=== PATIENT | female | born 1955 | race Caucasian/White ===

== ENCOUNTER → 2016-02-21 | Outpatient (CLI) | payer MEDICARE, OTHER ==
[~2016-02-21] MED LIST: /DULO30CA PO; /FENT25PA TD; ACIPHEX; ARIMIDEX PO; CLON0.2T PO; ECOT325T5 PO; FISHCAP PO; GLUCOSAMINE SULFATE PO; HUMUINJ SC; IBUP600T PO; LEVA500T; LEVIMER SC; LISI20TA5 PO; LOPR50TA; MAGN500T2 OR; METF500T4 OR; MORP30TA4 OR; MS C30TA2 OR; MS IR OR; MULTIVIT PO; NEUR300C OR; PRIL40CA OR; SENO8.6T5 OR; TAMO20TA; TOPR50TA OR; VITAMIN D50000 UNT OR; ZANA4CAP OR; ZOLO100T
[2016-02-21 13:20] LABS: MEAN CORPUSCULAR HEMOGLOBIN 28.8 pg (27.0-33.0); MEAN CORPUSCULAR HGB CONC 32.1 g/dl (32.0-36.5); MEAN CORPUSCULAR VOLUME 89.6 fl (80.0-96.0); RED CELL DISTRIBUTION WIDTH 14.4 % (11.5-14.5); WHITE BLOOD COUNT 6.9 K/mm3 (4.0-10.0)
== END ==
LOC: M SMT 10:27
PROVIDERS: ATTEND Internal Medicine Infectious Disease
DX: D64.9 Anemia, unspecified (principal)

== ENCOUNTER → 2016-03-04 | Outpatient (CLI) | payer MEDICARE, BC, OTHER ==
[2016-03-04 18:29] LABS: MEAN CORPUSCULAR HEMOGLOBIN 28.7 pg (27.0-33.0); MEAN CORPUSCULAR HGB CONC 32.5 g/dl (32.0-36.5); MEAN CORPUSCULAR VOLUME 88.4 fl (80.0-96.0); RED CELL DISTRIBUTION WIDTH 15.1 % (11.5-14.5); WHITE BLOOD COUNT 7.1 K/mm3 (4.0-10.0)
== END ==
LOC: M SMT 13:18
PROVIDERS: ATTEND Internal Medicine Infectious Disease
DX: D64.9 Anemia, unspecified (principal)

== ENCOUNTER → 2016-03-19 | Outpatient (CLI) | payer MEDICARE, OTHER ==
[2016-03-19 15:44] LABS: MEAN CORPUSCULAR HEMOGLOBIN 28.7 pg (27.0-33.0); MEAN CORPUSCULAR HGB CONC 31.9 g/dl (32.0-36.5); MEAN CORPUSCULAR VOLUME 89.9 fl (80.0-96.0); RED CELL DISTRIBUTION WIDTH 15.1 % (11.5-14.5); WHITE BLOOD COUNT 7.2 K/mm3 (4.0-10.0)
== END ==
LOC: M SMT 08:56
PROVIDERS: ATTEND Internal Medicine Infectious Disease
DX: D64.9 Anemia, unspecified (principal)

== ENCOUNTER → 2016-04-03 | Outpatient (CLI) | payer MEDICARE, BC, OTHER ==
[2016-04-03 13:26] LABS: MEAN CORPUSCULAR HEMOGLOBIN 28.6 pg (27.0-33.0); MEAN CORPUSCULAR HGB CONC 32.4 g/dl (32.0-36.5); MEAN CORPUSCULAR VOLUME 88.3 fl (80.0-96.0); RED CELL DISTRIBUTION WIDTH 13.7 % (11.5-14.5); WHITE BLOOD COUNT 7.4 K/mm3 (4.0-10.0)
== END ==
LOC: M SMT 11:21
PROVIDERS: ATTEND Internal Medicine Infectious Disease
DX: D64.9 Anemia, unspecified (principal)

== ENCOUNTER → 2016-04-03 | Outpatient (CLI) | payer MEDICARE, BC, OTHER ==
[2016-04-03 13:29] LABS: CREATININE FOR GFR 1.09 MG/DL (0.55-1.02)
== END ==
LOC: M SMT 11:25
PROVIDERS: ATTEND Internal Medicine Medical Oncology
DX: C49.6 Malignant neoplasm of connective and soft tissue of trunk, unspecified (principal); D05.12 Intraductal carcinoma in situ of left breast; D64.9 Anemia, unspecified

== ENCOUNTER → 2016-04-24 | Outpatient (CLI) | payer MEDICARE, BC, OTHER ==
[2016-04-24 18:37] LABS: MEAN CORPUSCULAR HEMOGLOBIN 29.2 pg (27.0-33.0); MEAN CORPUSCULAR HGB CONC 32.1 g/dl (32.0-36.5); RED CELL DISTRIBUTION WIDTH 14.1 % (11.5-14.5); WHITE BLOOD COUNT 7.4 K/mm3 (4.0-10.0)
== END ==
LOC: M SMT 14:12
PROVIDERS: ATTEND Internal Medicine Infectious Disease
DX: D64.9 Anemia, unspecified (principal)

== ENCOUNTER → 2016-05-02 | Outpatient (CLI) | payer MEDICARE, BC, OTHER ==
[2016-05-02 12:49] LABS: MEAN CORPUSCULAR HEMOGLOBIN 28.3 pg (27.0-33.0); MEAN CORPUSCULAR HGB CONC 31.7 g/dl (32.0-36.5); MEAN CORPUSCULAR VOLUME 89.2 fl (80.0-96.0); WHITE BLOOD COUNT 6.2 K/mm3 (4.0-10.0)
== END ==
LOC: M SMT 08:09
PROVIDERS: ATTEND Internal Medicine Infectious Disease
DX: D64.9 Anemia, unspecified (principal)

== ENCOUNTER → 2016-05-02 | Outpatient (CLI) | payer MEDICARE, BC, OTHER ==
[2016-05-02 13:06] LABS: ALBUMIN 3.7 GM/DL (3.2-5.2); ALBUMIN/GLOBULIN RATIO 1.09 (1.00-1.93); ALKALINE PHOSPHATASE 84 U/L (45-117); ALT/SGPT 58 U/L (12-78); ANION GAP 9 MEQ/L (8-16); AST/SGOT 34 U/L (15-37); BILIRUBIN,TOTAL 0.2 MG/DL (0.2-1.0); BLOOD UREA NITROGEN 28 MG/DL (7-18); CALCIUM LEVEL 8.8 MG/DL (8.8-10.2); CARBON DIOXIDE LEVEL 30 MEQ/L (21-32); CHLORIDE LEVEL 101 MEQ/L (98-107); CHOLESTEROL LEVEL 390 MG/DL (<200); CREATININE FOR GFR 1.06 MG/DL (0.55-1.02); GLOMERULAR FILTRATION RATE 55.7 (>45); GLUCOSE, FASTING 168 MG/DL (80-110); POTASSIUM SERUM 4.9 MEQ/L (3.5-5.1); SODIUM LEVEL 140 MEQ/L (136-145); TOTAL PROTEIN 7.1 GM/DL (6.4-8.2); TRIGLYCERIDES LEVEL 528 MG/DL (<150)
[2016-05-03 13:43] LABS: HEP C VIRUS AB SCREEN MEDICARE 0.1 INDEX (<0.8)
== END ==
LOC: M SMT 08:12
PROVIDERS: ATTEND Family Medicine
DX: E11.22 Type 2 diabetes mellitus with diabetic chronic kidney disease (principal); I10 Essential (primary) hypertension; E78.2 Mixed hyperlipidemia; F33.1 Major depressive disorder, recurrent, moderate; Z13.0 Encounter for screening for diseases of the blood and blood-forming organs and certain disorders involving the immune mechanism; D64.9 Anemia, unspecified
CPT/HCPCS: 36415; 80053; 80061; 82306; 83036; 84443; 85027; G0472

== ENCOUNTER → 2016-05-15 | Outpatient (CLI) | payer MEDICARE, BC, OTHER ==
[2016-05-15 13:35] LABS: MEAN CORPUSCULAR HGB CONC 32.1 g/dl (32.0-36.5); MEAN CORPUSCULAR VOLUME 90.4 fl (80.0-96.0); RED CELL DISTRIBUTION WIDTH 14.3 % (11.5-14.5); WHITE BLOOD COUNT 7.1 K/mm3 (4.0-10.0)
== END ==
LOC: M SMT 10:07
PROVIDERS: ATTEND Internal Medicine Infectious Disease
DX: D64.9 Anemia, unspecified (principal)

== ENCOUNTER → 2016-05-29 | Outpatient (REF) | payer MEDICARE, OTHER ==
[2016-05-29 19:10] LABS: MEAN CORPUSCULAR HEMOGLOBIN 28.6 pg (27.0-33.0); MEAN CORPUSCULAR VOLUME 89.2 fl (80.0-96.0); RED CELL DISTRIBUTION WIDTH 14.3 % (11.5-14.5); WHITE BLOOD COUNT 6.7 K/mm3 (4.0-10.0)
== END ==
LOC: M LAB REF 17:15
PROVIDERS: ATTEND Internal Medicine Infectious Disease
DX: D64.9 Anemia, unspecified (principal)

== ENCOUNTER → 2016-06-25 | Outpatient (CLI) | payer MEDICARE, BC, OTHER ==
[2016-06-25 18:49] LABS: MEAN CORPUSCULAR HEMOGLOBIN 29.3 pg (27.0-33.0); MEAN CORPUSCULAR HGB CONC 32.7 g/dl (32.0-36.5); MEAN CORPUSCULAR VOLUME 89.8 fl (80.0-96.0); RED CELL DISTRIBUTION WIDTH 14.5 % (11.5-14.5); WHITE BLOOD COUNT 7.7 K/mm3 (4.0-10.0)
== END ==
LOC: M SMT 10:00
PROVIDERS: ATTEND Internal Medicine Infectious Disease
DX: D64.9 Anemia, unspecified (principal)

== ENCOUNTER → 2016-07-09 | Outpatient (CLI) | payer MEDICARE, BC, OTHER ==
[2016-07-09 13:44] LABS: MEAN CORPUSCULAR HEMOGLOBIN 29.9 pg (27.0-33.0); MEAN CORPUSCULAR HGB CONC 33.1 g/dl (32.0-36.5); MEAN CORPUSCULAR VOLUME 90.4 fl (80.0-96.0); RED CELL DISTRIBUTION WIDTH 14.3 % (11.5-14.5); WHITE BLOOD COUNT 7.1 K/mm3 (4.0-10.0)
== END ==
LOC: M SMT 10:35
PROVIDERS: ATTEND Internal Medicine Infectious Disease
DX: D64.9 Anemia, unspecified (principal)

== ENCOUNTER → 2016-08-22 | Outpatient (CLI) | payer MEDICARE, BC, OTHER ==
[2016-08-22 13:36] LABS: MEAN CORPUSCULAR HEMOGLOBIN 28.9 pg (27.0-33.0); MEAN CORPUSCULAR HGB CONC 31.5 g/dl (32.0-36.5); MEAN CORPUSCULAR VOLUME 91.7 fl (80.0-96.0); RED CELL DISTRIBUTION WIDTH 14.5 % (11.5-14.5); WHITE BLOOD COUNT 6.5 K/mm3 (4.0-10.0)
== END ==
LOC: M SMT 10:19
PROVIDERS: ATTEND Internal Medicine Infectious Disease
DX: D64.9 Anemia, unspecified (principal)

== ENCOUNTER → 2016-09-20 | Outpatient (CLI) | payer MEDICARE, BC, OTHER ==
[2016-09-20 10:08] LABS: BASO % 0.5 % (0.0-1.0); EOS # 0.2 K/mm3 (0.0-0.50); EOS % 3.6 % (0.0-3.0); LARGE UNSTAINED CELL # 0.1 K/mm3 (0.0-0.4); LARGE UNSTAINED CELL % 0.9 % (0.0-4.0); LYMPH # 1.1 K/mm3 (1.5-4.5); LYMPH % 15.8 % (24.0-44.0); MEAN CORPUSCULAR HEMOGLOBIN 27.7 pg (27.0-33.0); MEAN CORPUSCULAR HGB CONC 31.5 g/dl (32.0-36.5); MEAN CORPUSCULAR VOLUME 87.9 fl (80.0-96.0); MONO # 0.3 K/mm3 (0.0-0.8); NEUTROPHILS % 75.2 % (36.0-66.0); PLATELET COUNT, AUTOMATED 242 k/mm3 (150-450); RED CELL DISTRIBUTION WIDTH 14.5 % (11.5-14.5); WHITE BLOOD COUNT 6.6 K/mm3 (4.0-10.0)
[2016-09-20 10:11] LABS: ALBUMIN 3.5 GM/DL (3.2-5.2); ALBUMIN/GLOBULIN RATIO 0.92 (1.00-1.93); ALKALINE PHOSPHATASE 113 U/L (45-117); ALT/SGPT 30 U/L (12-78); ANION GAP 10 MEQ/L (8-16); AST/SGOT 24 U/L (15-37); BILIRUBIN,TOTAL 0.3 MG/DL (0.2-1.0); BLOOD UREA NITROGEN 23 MG/DL (7-18); CALCIUM LEVEL 9.2 MG/DL (8.8-10.2); CARBON DIOXIDE LEVEL 28 MEQ/L (21-32); CHLORIDE LEVEL 102 MEQ/L (98-107); CHOLESTEROL LEVEL 260 MG/DL (<200); GLOMERULAR FILTRATION RATE > 60.0 (>45); GLUCOSE, FASTING 166 MG/DL (80-110); POTASSIUM SERUM 5.1 MEQ/L (3.5-5.1); SODIUM LEVEL 140 MEQ/L (136-145); TOTAL PROTEIN 7.3 GM/DL (6.4-8.2); TRIGLYCERIDES LEVEL 358 MG/DL (<150)
== END ==
LOC: M SMT 08:08
PROVIDERS: ATTEND Family Medicine
DX: E11.22 Type 2 diabetes mellitus with diabetic chronic kidney disease (principal); E78.2 Mixed hyperlipidemia; N18.9 Chronic kidney disease, unspecified

== ENCOUNTER → 2016-10-17 | Outpatient (REF) | payer MEDICARE, BC, OTHER ==
[2016-10-17 15:11] LABS: MEAN CORPUSCULAR HEMOGLOBIN 27.7 pg (27.0-33.0); MEAN CORPUSCULAR HGB CONC 31.9 g/dl (32.0-36.5); MEAN CORPUSCULAR VOLUME 86.8 fl (80.0-96.0); RED CELL DISTRIBUTION WIDTH 14.9 % (11.5-14.5); WHITE BLOOD COUNT 7.1 K/mm3 (4.0-10.0)
== END ==
LOC: M LAB REF 11:07
PROVIDERS: ATTEND Internal Medicine Infectious Disease
DX: D64.9 Anemia, unspecified (principal)

== ENCOUNTER → 2016-11-05 | Outpatient (CLI) | payer MEDICARE, BC, OTHER ==
[2016-11-05 14:00] LABS: MEAN CORPUSCULAR HEMOGLOBIN 27.4 pg (27.0-33.0); MEAN CORPUSCULAR HGB CONC 32.6 g/dl (32.0-36.5); MEAN CORPUSCULAR VOLUME 83.9 fl (80.0-96.0); RED CELL DISTRIBUTION WIDTH 15.3 % (11.5-14.5); WHITE BLOOD COUNT 7.3 K/mm3 (4.0-10.0)
== END ==
LOC: M SMT 09:59
PROVIDERS: ATTEND Internal Medicine Infectious Disease
DX: D64.9 Anemia, unspecified (principal)

== ENCOUNTER → 2017-01-02 | Outpatient (CLI) | payer BC, OTHER ==
[2017-01-02 18:59] LABS: MEAN CORPUSCULAR HGB CONC 30.3 g/dl (32.0-36.5); PLATELET COUNT, AUTOMATED 226 10^3/uL (150-450); RED CELL DISTRIBUTION WIDTH 17.1 % (11.5-14.5)
== END ==
LOC: M SMT 14:59
PROVIDERS: ATTEND Internal Medicine Infectious Disease
DX: D64.9 Anemia, unspecified (principal)

== ENCOUNTER → 2017-01-15 | Outpatient (CLI) | payer BC, OTHER ==
[2017-01-15 14:02] LABS: MEAN CORPUSCULAR HEMOGLOBIN 26.3 pg (27.0-33.0); MEAN CORPUSCULAR VOLUME 84.9 fl (80.0-96.0); PLATELET COUNT, AUTOMATED 217 10^3/uL (150-450); RED CELL DISTRIBUTION WIDTH 16.8 % (11.5-14.5); WHITE BLOOD COUNT 7.8 10^3/uL (4.0-10.0)
== END ==
LOC: M SMT 10:35
PROVIDERS: ATTEND Internal Medicine Infectious Disease
DX: D64.9 Anemia, unspecified (principal)

== ENCOUNTER → 2017-01-28 | Outpatient (CLI) | payer BC, OTHER ==
[2017-01-28 11:50] LABS: BASO # 0.1 10^3/uL (0.0-0.2); BASO % 0.8 % (0.0-1.0); EOS # 0.2 10^3/uL (0.0-0.50); IMMATURE GRANULOCYTE % 0.5 % (0-0); LYMPH # 1.6 10^3/uL (1.5-4.5); LYMPH % 19.5 % (24.0-44.0); MEAN CORPUSCULAR HEMOGLOBIN 26.3 pg (27.0-33.0); MEAN CORPUSCULAR HGB CONC 30.7 g/dl (32.0-36.5); MEAN CORPUSCULAR VOLUME 85.8 fl (80.0-96.0); MONO # 0.6 10^3/uL (0.0-0.8); MONO % 6.9 % (0.0-5.0); NEUTROPHILS # 5.6 10^3/uL (1.8-7.7); NEUTROPHILS % 69.3 % (36.0-66.0); PLATELET COUNT, AUTOMATED 232 10^3/uL (150-450); RED CELL DISTRIBUTION WIDTH 16.9 % (11.5-14.5)
[2017-01-28 12:28] LABS: ALBUMIN 3.6 GM/DL (3.2-5.2); ALKALINE PHOSPHATASE 102 U/L (45-117); ALT/SGPT 41 U/L (12-78); ANION GAP 8 MEQ/L (8-16); AST/SGOT 32 U/L (7-37); BILIRUBIN,TOTAL 0.2 MG/DL (0.2-1.0); BLOOD UREA NITROGEN 30 MG/DL (7-18); CALCIUM LEVEL 9.1 MG/DL (8.8-10.2); CARBON DIOXIDE LEVEL 28 MEQ/L (21-32); CHLORIDE LEVEL 102 MEQ/L (98-107); CREATININE FOR GFR 0.99 MG/DL (0.55-1.02); GLOMERULAR FILTRATION RATE > 60.0 (>45); GLUCOSE, FASTING 201 MG/DL (80-110); SODIUM LEVEL 138 MEQ/L (136-145); TOTAL PROTEIN 7.2 GM/DL (6.4-8.2)
== END ==
LOC: M SMT 08:26
PROVIDERS: ATTEND Internal Medicine Infectious Disease
DX: D64.9 Anemia, unspecified (principal); M86.9 Osteomyelitis, unspecified; Z79.899 Other long term (current) drug therapy

== ENCOUNTER → 2017-02-19 | Outpatient (CLI) | payer BC, MEDICARE, OTHER ==
[2017-02-19 12:48] LABS: CHOLESTEROL LEVEL 330 MG/DL (<200); HDL CHOLESTEROL 55 MG/DL (>40); NON-HDL-C 275 MG/DL; TRIGLYCERIDES LEVEL 446 MG/DL (<150)
[2017-02-19 13:14] LABS: ESTIMATED AVERAGE GLUCOSE 163 MG/DL (60-110); HEMOGLOBIN A1c 7.3 %
== END ==
LOC: M SMT 08:47
DX: E11.22 Type 2 diabetes mellitus with diabetic chronic kidney disease (principal); E78.2 Mixed hyperlipidemia
CPT/HCPCS: 83036

== ENCOUNTER → 2017-02-19 | Outpatient (CLI) | payer BC, MEDICARE, OTHER ==
[2017-02-19 12:20] LABS: BASO % 0.6 % (0.0-1.0); EOS # 0.2 10^3/uL (0.0-0.50); EOS % 3.2 % (0.0-3.0); HEMATOCRIT 35.4 % (36.0-47.0); HEMOGLOBIN 11.1 g/dl (12.0-16.0); IMMATURE GRANULOCYTE # 0.1 10^3/uL (0-0); IMMATURE GRANULOCYTE % 0.7 % (0-0); LYMPH # 1.5 10^3/uL (1.5-4.5); LYMPH % 21.8 % (24.0-44.0); MEAN CORPUSCULAR HEMOGLOBIN 26.8 pg (27.0-33.0); MEAN CORPUSCULAR HGB CONC 31.4 g/dl (32.0-36.5); MEAN CORPUSCULAR VOLUME 85.5 fl (80.0-96.0); MONO # 0.4 10^3/uL (0.0-0.8); MONO % 6.1 % (0.0-5.0); NEUTROPHILS # 4.7 10^3/uL (1.8-7.7); NEUTROPHILS % 67.6 % (36.0-66.0); PLATELET COUNT, AUTOMATED 200 10^3/uL (150-450); RED BLOOD COUNT 4.14 10^6/uL (4.00-5.40); WHITE BLOOD COUNT 6.9 10^3/uL (4.0-10.0)
[2017-02-19 12:49] LABS: ALBUMIN 3.5 GM/DL (3.2-5.2); ALBUMIN/GLOBULIN RATIO 0.95 (1.00-1.93); ALKALINE PHOSPHATASE 101 U/L (45-117); ALT/SGPT 36 U/L (12-78); ANION GAP 8 MEQ/L (8-16); AST/SGOT 27 U/L (7-37); BILIRUBIN,TOTAL 0.2 MG/DL (0.2-1.0); BLOOD UREA NITROGEN 22 MG/DL (7-18); CALCIUM LEVEL 9.2 MG/DL (8.8-10.2); CARBON DIOXIDE LEVEL 28 MEQ/L (21-32); CHLORIDE LEVEL 103 MEQ/L (98-107); CREATININE FOR GFR 0.88 MG/DL (0.55-1.02); GLOMERULAR FILTRATION RATE > 60.0 (>45); GLUCOSE, FASTING 153 MG/DL (80-110); POTASSIUM SERUM 4.9 MEQ/L (3.5-5.1); SODIUM LEVEL 139 MEQ/L (136-145); TOTAL PROTEIN 7.2 GM/DL (6.4-8.2)
== END ==
LOC: M SMT 08:44
DX: D64.9 Anemia, unspecified (principal); M86.9 Osteomyelitis, unspecified; Z79.899 Other long term (current) drug therapy
CPT/HCPCS: 80053

== ENCOUNTER → 2017-02-27 | Outpatient (REF) | payer MEDICARE, BC, OTHER | LOC: M LAB REF 18:38 | DX: R30.0 Dysuria (principal) | CPT/HCPCS: 87186 ==

== ENCOUNTER → 2017-03-05 | Outpatient (CLI) | payer MEDICARE, BC, OTHER ==
[2017-03-05 13:24] LABS: BASO # 0.1 10^3/uL (0.0-0.2); BASO % 0.7 % (0.0-1.0); EOS # 0.3 10^3/uL (0.0-0.50); EOS % 3.5 % (0.0-3.0); HEMATOCRIT 36.7 % (36.0-47.0); HEMOGLOBIN 11.2 g/dl (12.0-16.0); IMMATURE GRANULOCYTE % 0.4 % (0-0); LYMPH # 1.3 10^3/uL (1.5-4.5); LYMPH % 17.6 % (24.0-44.0); MEAN CORPUSCULAR HEMOGLOBIN 26.1 pg (27.0-33.0); MEAN CORPUSCULAR HGB CONC 30.5 g/dl (32.0-36.5); MEAN CORPUSCULAR VOLUME 85.5 fl (80.0-96.0); MONO # 0.4 10^3/uL (0.0-0.8); MONO % 5.5 % (0.0-5.0); NEUTROPHILS # 5.1 10^3/uL (1.8-7.7); NEUTROPHILS % 72.3 % (36.0-66.0); PLATELET COUNT, AUTOMATED 212 10^3/uL (150-450); RED BLOOD COUNT 4.29 10^6/uL (4.00-5.40); RED CELL DISTRIBUTION WIDTH 15.7 % (11.5-14.5); WHITE BLOOD COUNT 7.1 10^3/uL (4.0-10.0)
[2017-03-05 13:38] LABS: ALBUMIN 3.6 GM/DL (3.2-5.2); ALBUMIN/GLOBULIN RATIO 1.03 (1.00-1.93); ALKALINE PHOSPHATASE 104 U/L (45-117); ALT/SGPT 41 U/L (12-78); ANION GAP 6 MEQ/L (8-16); AST/SGOT 29 U/L (7-37); BILIRUBIN,TOTAL 0.2 MG/DL (0.2-1.0); BLOOD UREA NITROGEN 24 MG/DL (7-18); CALCIUM LEVEL 8.9 MG/DL (8.8-10.2); CARBON DIOXIDE LEVEL 30 MEQ/L (21-32); CHLORIDE LEVEL 104 MEQ/L (98-107); CREATININE FOR GFR 0.87 MG/DL (0.55-1.02); GLOMERULAR FILTRATION RATE > 60.0 (>45); GLUCOSE, FASTING 180 MG/DL (80-110); SODIUM LEVEL 140 MEQ/L (136-145); TOTAL PROTEIN 7.1 GM/DL (6.4-8.2)
== END ==
LOC: M SMT 10:39
DX: D64.9 Anemia, unspecified (principal); M86.9 Osteomyelitis, unspecified; Z79.899 Other long term (current) drug therapy
CPT/HCPCS: 80053

== ENCOUNTER → 2017-03-20 | Outpatient (CLI) | payer MEDICARE, BC, OTHER ==
[2017-03-20 16:05] LABS: BASO # 0.1 10^3/uL (0.0-0.2); BASO % 0.6 % (0.0-1.0); EOS # 0.3 10^3/uL (0.0-0.50); EOS % 3.1 % (0.0-3.0); HEMATOCRIT 38.6 % (36.0-47.0); HEMOGLOBIN 11.9 g/dl (12.0-16.0); IMMATURE GRANULOCYTE % 0.4 % (0-0); LYMPH # 1.8 10^3/uL (1.5-4.5); LYMPH % 22.1 % (24.0-44.0); MEAN CORPUSCULAR HEMOGLOBIN 26.6 pg (27.0-33.0); MEAN CORPUSCULAR HGB CONC 30.8 g/dl (32.0-36.5); MEAN CORPUSCULAR VOLUME 86.4 fl (80.0-96.0); MONO # 0.5 10^3/uL (0.0-0.8); MONO % 6.7 % (0.0-5.0); NEUTROPHILS # 5.4 10^3/uL (1.8-7.7); NEUTROPHILS % 67.1 % (36.0-66.0); PLATELET COUNT, AUTOMATED 246 10^3/uL (150-450); RED BLOOD COUNT 4.47 10^6/uL (4.00-5.40); RED CELL DISTRIBUTION WIDTH 15.6 % (11.5-14.5); WHITE BLOOD COUNT 8.1 10^3/uL (4.0-10.0)
[2017-03-20 16:20] LABS: ALBUMIN/GLOBULIN RATIO 1.11 (1.00-1.93); ALKALINE PHOSPHATASE 94 U/L (45-117); ALT/SGPT 33 U/L (12-78); ANION GAP 9 MEQ/L (8-16); AST/SGOT 30 U/L (7-37); BILIRUBIN,TOTAL 0.2 MG/DL (0.2-1.0); BLOOD UREA NITROGEN 24 MG/DL (7-18); CALCIUM LEVEL 9.3 MG/DL (8.8-10.2); CARBON DIOXIDE LEVEL 27 MEQ/L (21-32); CHLORIDE LEVEL 103 MEQ/L (98-107); CREATININE FOR GFR 1.04 MG/DL (0.55-1.30); GLOMERULAR FILTRATION RATE 56.8 (>45); GLUCOSE, FASTING 104 MG/DL (70-100); SODIUM LEVEL 139 MEQ/L (136-145); TOTAL PROTEIN 7.6 GM/DL (6.4-8.2)
== END ==
LOC: M SMT 10:21
DX: D64.9 Anemia, unspecified (principal); M86.9 Osteomyelitis, unspecified; Z51.81 Encounter for therapeutic drug level monitoring; Z79.899 Other long term (current) drug therapy
CPT/HCPCS: 80053

== ENCOUNTER 2017-04-01 21:26 | Emergency (ER) | payer MEDICARE, BC, OTHER ==
[2017-04-01] MEDS: ASPIRIN 325 MG TAB PO (22:00)
[2017-04-01 22:57] LABS: BASO % 0.5 % (0.0-1.0); EOS # 0.3 10^3/uL (0.0-0.50); EOS % 3.7 % (0.0-3.0); HEMATOCRIT 34.7 % (36.0-47.0); HEMOGLOBIN 10.9 g/dl (12.0-16.0); IMMATURE GRANULOCYTE % 0.4 % (0-3.0); LYMPH # 1.4 10^3/uL (1.5-4.5); LYMPH % 17.7 % (24.0-44.0); MEAN CORPUSCULAR HGB CONC 31.4 g/dl (32.0-36.5); MEAN CORPUSCULAR VOLUME 86.1 fl (80.0-96.0); MONO # 0.4 10^3/uL (0.0-0.8); MONO % 4.8 % (0.0-5.0); NEUTROPHILS # 5.7 10^3/uL (1.8-7.7); NEUTROPHILS % 72.9 % (36.0-66.0); PLATELET COUNT, AUTOMATED 191 10^3/uL (150-450); RED BLOOD COUNT 4.03 10^6/uL (4.00-5.40); RED CELL DISTRIBUTION WIDTH 15.4 % (11.5-14.5); WHITE BLOOD COUNT 7.8 10^3/uL (4.0-10.0)
[2017-04-01 23:09] LABS: PROTHROMBIN TIME 12.2 SECONDS (12.4-14.5)
[2017-04-01 23:23] LABS: ANION GAP 8 MEQ/L (8-16); BLOOD UREA NITROGEN 26 MG/DL (7-18); CALCIUM LEVEL 8.2 MG/DL (8.8-10.2); CARBON DIOXIDE LEVEL 27 MEQ/L (21-32); CHLORIDE LEVEL 104 MEQ/L (98-107); CPK CREATINE PHOSPHOKINASE 121 U/L (26-192); CREATININE FOR GFR 1.01 MG/DL (0.55-1.30); GLOMERULAR FILTRATION RATE 58.7 (>45); GLUCOSE, FASTING 231 MG/DL (70-100); POTASSIUM SERUM 4.6 MEQ/L (3.5-5.1); SODIUM LEVEL 139 MEQ/L (136-145); TROPONIN I 0.09 NG/ML (< 0.10)
[2017-04-01 23:24] LABS: CK-MB VALUE MASS 2.5 NG/ML (0.0-3.6); MB/CK RELATIVE INDEX 2.06 (< OR =4)
[2017-04-01] MEDS ORDERED: ISOVUE-370 76% 100ML VIAL (Q9967) As Ordered (23:46)
[2017-04-02] MEDS: NS 500 ML IV ×2 (00:57→04:37)
[2017-04-02 03:35] LABS: CK-MB VALUE MASS 2.5 NG/ML (0.0-3.6); CPK CREATINE PHOSPHOKINASE 115 U/L (26-192); MB/CK RELATIVE INDEX 2.17 (< OR =4); TROPONIN I 0.11 NG/ML (< 0.10)
[2017-04-02] MEDS: HEPARIN DRIP 25,000 UNITS in APPROPRIATE DILUENT 1 EA IV (04:23)
[2017-04-02] MEDS: HEPARIN SOD (PORCINE) 5000 UNITS/ML VIAL IV (04:25)
[2017-04-02] MEDS: CLOPIDOGREL 300 MG TAB (PLAVIX) PO (04:27)
[2017-04-02] MEDS: NITROGLYCERIN 2% OINT 1 GM *U/D* PKT TOP (04:30)
== END 2017-04-02 06:42 | disposition short-term general hospital (02) ==
LOC: M ED 04-02 06:42
DX: I21.4 Non-ST elevation (NSTEMI) myocardial infarction (principal); E11.9 Type 2 diabetes mellitus without complications; I10 Essential (primary) hypertension; E78.5 Hyperlipidemia, unspecified; G89.29 Other chronic pain; R10.9 Unspecified abdominal pain; M54.9 Dorsalgia, unspecified; Z79.82 Long term (current) use of aspirin; Z79.4 Long term (current) use of insulin; Z79.899 Other long term (current) drug therapy; Z88.0 Allergy status to penicillin; Z88.2 Allergy status to sulfonamides; Z88.8 Allergy status to other drugs, medicaments and biological substances
CPT/HCPCS: Q9967

== ENCOUNTER → 2017-04-10 | Outpatient (CLI) | payer MEDICARE, BC, OTHER ==
[2017-04-10 14:04] LABS: BASO % 0.6 % (0.0-1.0); EOS # 0.3 10^3/uL (0.0-0.50); EOS % 4.5 % (0.0-3.0); HEMATOCRIT 37.4 % (36.0-47.0); HEMOGLOBIN 11.5 g/dl (12.0-16.0); IMMATURE GRANULOCYTE % 0.4 % (0-3.0); LYMPH # 1.5 10^3/uL (1.5-4.5); LYMPH % 22.4 % (24.0-44.0); MEAN CORPUSCULAR HEMOGLOBIN 26.4 pg (27.0-33.0); MEAN CORPUSCULAR HGB CONC 30.7 g/dl (32.0-36.5); MONO # 0.4 10^3/uL (0.0-0.8); MONO % 6.4 % (0.0-5.0); NEUTROPHILS # 4.4 10^3/uL (1.8-7.7); NEUTROPHILS % 65.7 % (36.0-66.0); PLATELET COUNT, AUTOMATED 228 10^3/uL (150-450); RED BLOOD COUNT 4.35 10^6/uL (4.00-5.40); RED CELL DISTRIBUTION WIDTH 15.6 % (11.5-14.5); WHITE BLOOD COUNT 6.7 10^3/uL (4.0-10.0)
[2017-04-10 14:08] LABS: ALBUMIN 3.9 GM/DL (3.2-5.2); ALBUMIN/GLOBULIN RATIO 1.15 (1.00-1.93); ALKALINE PHOSPHATASE 88 U/L (45-117); ALT/SGPT 34 U/L (12-78); ANION GAP 7 MEQ/L (8-16); AST/SGOT 22 U/L (7-37); BILIRUBIN,TOTAL 0.2 MG/DL (0.2-1.0); BLOOD UREA NITROGEN 25 MG/DL (7-18); CALCIUM LEVEL 9.1 MG/DL (8.8-10.2); CARBON DIOXIDE LEVEL 30 MEQ/L (21-32); CHLORIDE LEVEL 102 MEQ/L (98-107); CREATININE FOR GFR 1.01 MG/DL (0.55-1.30); GLOMERULAR FILTRATION RATE 58.7 (>45); GLUCOSE, FASTING 141 MG/DL (70-100); SODIUM LEVEL 139 MEQ/L (136-145); TOTAL PROTEIN 7.3 GM/DL (6.4-8.2)
== END ==
LOC: M SMT 08:59
DX: D64.9 Anemia, unspecified (principal); M86.9 Osteomyelitis, unspecified; Z79.899 Other long term (current) drug therapy
CPT/HCPCS: 80053

== ENCOUNTER → 2017-05-01 | Outpatient (CLI) | payer MEDICARE, BC, OTHER ==
[2017-05-01 13:41] LABS: BASO % 0.5 % (0.0-1.0); EOS # 0.4 10^3/uL (0.0-0.50); EOS % 4.6 % (0.0-3.0); HEMATOCRIT 35.1 % (36.0-47.0); IMMATURE GRANULOCYTE % 0.4 % (0-3.0); LYMPH # 1.3 10^3/uL (1.5-4.5); LYMPH % 16.9 % (24.0-44.0); MEAN CORPUSCULAR HEMOGLOBIN 27.5 pg (27.0-33.0); MEAN CORPUSCULAR HGB CONC 31.3 g/dl (32.0-36.5); MEAN CORPUSCULAR VOLUME 87.8 fl (80.0-96.0); MONO # 0.4 10^3/uL (0.0-0.8); MONO % 4.9 % (0.0-5.0); NEUTROPHILS # 5.5 10^3/uL (1.8-7.7); NEUTROPHILS % 72.7 % (36.0-66.0); PLATELET COUNT, AUTOMATED 194 10^3/uL (150-450); RED CELL DISTRIBUTION WIDTH 16.1 % (11.5-14.5); WHITE BLOOD COUNT 7.6 10^3/uL (4.0-10.0)
[2017-05-01 13:56] LABS: ALBUMIN 3.7 GM/DL (3.2-5.2); ALBUMIN/GLOBULIN RATIO 1.16 (1.00-1.93); ALKALINE PHOSPHATASE 85 U/L (45-117); ALT/SGPT 29 U/L (12-78); ANION GAP 8 MEQ/L (8-16); AST/SGOT 22 U/L (7-37); BILIRUBIN,TOTAL 0.2 MG/DL (0.2-1.0); BLOOD UREA NITROGEN 29 MG/DL (7-18); CALCIUM LEVEL 8.9 MG/DL (8.8-10.2); CARBON DIOXIDE LEVEL 29 MEQ/L (21-32); CHLORIDE LEVEL 103 MEQ/L (98-107); CREATININE FOR GFR 1.02 MG/DL (0.55-1.30); GLOMERULAR FILTRATION RATE 58.1 (>45); GLUCOSE, FASTING 158 MG/DL (70-100); POTASSIUM SERUM 4.9 MEQ/L (3.5-5.1); SODIUM LEVEL 140 MEQ/L (136-145); TOTAL PROTEIN 6.9 GM/DL (6.4-8.2)
== END ==
LOC: M SMT 10:02
DX: D64.9 Anemia, unspecified (principal); M86.9 Osteomyelitis, unspecified; Z79.899 Other long term (current) drug therapy
CPT/HCPCS: 80053

== ENCOUNTER → 2017-05-29 | Outpatient (CLI) | payer MEDICARE, BC, OTHER ==
[2017-05-29 14:28] LABS: BASO # 0.1 10^3/uL (0.0-0.2); BASO % 0.8 % (0.0-1.0); EOS # 0.3 10^3/uL (0.0-0.50); EOS % 3.8 % (0.0-3.0); HEMATOCRIT 35.7 % (36.0-47.0); HEMOGLOBIN 11.3 g/dl (12.0-15.5); IMMATURE GRANULOCYTE % 0.4 % (0-3.0); LYMPH # 1.2 10^3/uL (1.5-4.5); LYMPH % 16.2 % (24.0-44.0); MEAN CORPUSCULAR HGB CONC 31.7 g/dl (32.0-36.5); MEAN CORPUSCULAR VOLUME 88.6 fl (80.0-96.0); MONO # 0.5 10^3/uL (0.0-0.8); MONO % 6.1 % (0.0-5.0); NEUTROPHILS # 5.5 10^3/uL (1.8-7.7); NEUTROPHILS % 72.7 % (36.0-66.0); PLATELET COUNT, AUTOMATED 186 10^3/uL (150-450); RED BLOOD COUNT 4.03 10^6/uL (4.00-5.40); WHITE BLOOD COUNT 7.6 10^3/uL (4.0-10.0)
[2017-05-29 14:42] LABS: ALBUMIN 3.8 GM/DL (3.2-5.2); ALBUMIN/GLOBULIN RATIO 1.06 (1.00-1.93); ALKALINE PHOSPHATASE 81 U/L (45-117); ALT/SGPT 32 U/L (12-78); ANION GAP 8 MEQ/L (8-16); AST/SGOT 28 U/L (7-37); BILIRUBIN,TOTAL 0.2 MG/DL (0.2-1.0); BLOOD UREA NITROGEN 32 MG/DL (7-18); CALCIUM LEVEL 8.9 MG/DL (8.8-10.2); CARBON DIOXIDE LEVEL 28 MEQ/L (21-32); CHLORIDE LEVEL 104 MEQ/L (98-107); CREATININE FOR GFR 1.04 MG/DL (0.55-1.30); GLOMERULAR FILTRATION RATE 56.8 (>45); GLUCOSE, FASTING 171 MG/DL (70-100); POTASSIUM SERUM 4.8 MEQ/L (3.5-5.1); SODIUM LEVEL 140 MEQ/L (136-145); TOTAL PROTEIN 7.4 GM/DL (6.4-8.2)
== END ==
LOC: M SMT 10:14
DX: Z51.81 Encounter for therapeutic drug level monitoring (principal); Z79.899 Other long term (current) drug therapy; D64.9 Anemia, unspecified
CPT/HCPCS: 80053

== ENCOUNTER → 2017-06-12 | Outpatient (CLI) | payer MEDICARE, BC, OTHER ==
[2017-06-12 14:00] LABS: BASO # 0.1 10^3/uL (0.0-0.2); BASO % 0.7 % (0.0-1.0); EOS # 0.3 10^3/uL (0.0-0.50); EOS % 3.6 % (0.0-3.0); HEMATOCRIT 35.7 % (36.0-47.0); HEMOGLOBIN 11.3 g/dl (12.0-15.5); IMMATURE GRANULOCYTE % 0.4 % (0-3.0); LYMPH # 1.3 10^3/uL (1.5-4.5); LYMPH % 18.8 % (24.0-44.0); MEAN CORPUSCULAR HGB CONC 31.7 g/dl (32.0-36.5); MEAN CORPUSCULAR VOLUME 88.6 fl (80.0-96.0); MONO # 0.5 10^3/uL (0.0-0.8); MONO % 7.1 % (0.0-5.0); NEUTROPHILS # 4.8 10^3/uL (1.8-7.7); NEUTROPHILS % 69.4 % (36.0-66.0); PLATELET COUNT, AUTOMATED 192 10^3/uL (150-450); RED BLOOD COUNT 4.03 10^6/uL (4.00-5.40); RED CELL DISTRIBUTION WIDTH 15.5 % (11.5-14.5)
[2017-06-12 14:18] LABS: ALBUMIN 3.7 GM/DL (3.2-5.2); ALBUMIN/GLOBULIN RATIO 1.06 (1.00-1.93); ALKALINE PHOSPHATASE 75 U/L (45-117); ALT/SGPT 29 U/L (12-78); ANION GAP 6 MEQ/L (8-16); AST/SGOT 24 U/L (7-37); BILIRUBIN,TOTAL 0.2 MG/DL (0.2-1.0); BLOOD UREA NITROGEN 28 MG/DL (7-18); CARBON DIOXIDE LEVEL 30 MEQ/L (21-32); CHLORIDE LEVEL 104 MEQ/L (98-107); CREATININE FOR GFR 1.06 MG/DL (0.55-1.30); GLOMERULAR FILTRATION RATE 55.6 (>45); GLUCOSE, FASTING 120 MG/DL (70-100); POTASSIUM SERUM 4.6 MEQ/L (3.5-5.1); SODIUM LEVEL 140 MEQ/L (136-145); TOTAL PROTEIN 7.2 GM/DL (6.4-8.2)
== END ==
LOC: M SMT 09:21
DX: D64.9 Anemia, unspecified (principal); M86.9 Osteomyelitis, unspecified; Z79.899 Other long term (current) drug therapy
CPT/HCPCS: 80053

== ENCOUNTER 2017-06-23 12:24 | Outpatient (RCR) | payer MEDICARE, BC, OTHER | END 2017-07-17 | LOC: M CR 12:24 | DX: Z98.61 Coronary angioplasty status (principal) | CPT/HCPCS: 93798 ==

== ENCOUNTER → 2017-06-25 | Outpatient (CLI) | payer MEDICARE, BC, OTHER ==
[2017-06-25 13:33] LABS: HEMATOCRIT 35.8 % (36.0-47.0); HEMOGLOBIN 11.4 g/dl (12.0-15.5); MEAN CORPUSCULAR HEMOGLOBIN 28.1 pg (27.0-33.0); MEAN CORPUSCULAR HGB CONC 31.8 g/dl (32.0-36.5); MEAN CORPUSCULAR VOLUME 88.2 fl (80.0-96.0); PLATELET COUNT, AUTOMATED 185 10^3/uL (150-450); RED BLOOD COUNT 4.06 10^6/uL (4.00-5.40); RED CELL DISTRIBUTION WIDTH 15.4 % (11.5-14.5); WHITE BLOOD COUNT 7.2 10^3/uL (4.0-10.0)
== END ==
LOC: M SMT 10:01
DX: D64.9 Anemia, unspecified (principal)

== ENCOUNTER → 2017-06-25 | Outpatient (CLI) | payer MEDICARE, BC, OTHER | LOC: M SMT 10:06 | DX: R00.2 Palpitations (principal); D64.9 Anemia, unspecified; E11.22 Type 2 diabetes mellitus with diabetic chronic kidney disease | CPT/HCPCS: 84443 ==

== ENCOUNTER → 2017-06-25 | Outpatient (CLI) | payer MEDICARE, BC, OTHER ==
[2017-06-25 15:18] LABS: ESTIMATED AVERAGE GLUCOSE 154 MG/DL (60-110)
== END ==
LOC: M SMT 10:10
DX: E11.22 Type 2 diabetes mellitus with diabetic chronic kidney disease (principal)

== ENCOUNTER → 2017-07-08 | Outpatient (REF) | payer MEDICARE, BC, OTHER | LOC: M LAB REF 12:19 | DX: N39.0 Urinary tract infection, site not specified (principal) | CPT/HCPCS: 87186 ==

== ENCOUNTER → 2017-07-15 | Outpatient (CLI) | payer MEDICARE, BC, OTHER ==
[2017-07-15 11:20] LABS: HEMATOCRIT 38.1 % (36.0-47.0); MEAN CORPUSCULAR HEMOGLOBIN 27.9 pg (27.0-33.0); MEAN CORPUSCULAR HGB CONC 31.5 g/dl (32.0-36.5); MEAN CORPUSCULAR VOLUME 88.6 fl (80.0-96.0); PLATELET COUNT, AUTOMATED 181 10^3/uL (150-450); RED CELL DISTRIBUTION WIDTH 14.8 % (11.5-14.5); WHITE BLOOD COUNT 7.3 10^3/uL (4.0-10.0)
== END ==
LOC: M SMT 10:00
DX: D64.9 Anemia, unspecified (principal)
CPT/HCPCS: 85027

== ENCOUNTER → 2017-08-21 | Outpatient (CLI) | payer MEDICARE, BC, OTHER ==
[2017-08-21 10:11] LABS: HEMATOCRIT 36.1 % (36.0-47.0); HEMOGLOBIN 11.4 g/dl (12.0-15.5); MEAN CORPUSCULAR HEMOGLOBIN 28.6 pg (27.0-33.0); MEAN CORPUSCULAR HGB CONC 31.6 g/dl (32.0-36.5); MEAN CORPUSCULAR VOLUME 90.5 fl (80.0-96.0); PLATELET COUNT, AUTOMATED 191 10^3/uL (150-450); RED BLOOD COUNT 3.99 10^6/uL (4.00-5.40); WHITE BLOOD COUNT 6.7 10^3/uL (4.0-10.0)
== END ==
LOC: M SMT 08:47
DX: D64.9 Anemia, unspecified (principal)
CPT/HCPCS: 85027

== ENCOUNTER → 2017-09-03 | Outpatient (CLI) | payer MEDICARE, BC, OTHER ==
[2017-09-03 13:11] LABS: HEMATOCRIT 36.6 % (36.0-47.0); HEMOGLOBIN 11.4 g/dl (12.0-15.5); MEAN CORPUSCULAR HEMOGLOBIN 28.4 pg (27.0-33.0); MEAN CORPUSCULAR HGB CONC 31.1 g/dl (32.0-36.5); MEAN CORPUSCULAR VOLUME 91.3 fl (80.0-96.0); PLATELET COUNT, AUTOMATED 202 10^3/uL (150-450); RED BLOOD COUNT 4.01 10^6/uL (4.00-5.40); RED CELL DISTRIBUTION WIDTH 15.1 % (11.5-14.5); WHITE BLOOD COUNT 7.2 10^3/uL (4.0-10.0)
== END ==
LOC: M SMT 09:23
DX: D64.9 Anemia, unspecified (principal)
CPT/HCPCS: 85027

== ENCOUNTER → 2017-09-17 | Outpatient (CLI) | payer MEDICARE, BC, OTHER ==
[2017-09-17 13:53] LABS: HEMATOCRIT 36.8 % (36.0-47.0); HEMOGLOBIN 11.6 g/dl (12.0-15.5); MEAN CORPUSCULAR HEMOGLOBIN 28.3 pg (27.0-33.0); MEAN CORPUSCULAR HGB CONC 31.5 g/dl (32.0-36.5); MEAN CORPUSCULAR VOLUME 89.8 fl (80.0-96.0); PLATELET COUNT, AUTOMATED 190 10^3/uL (150-450); RED CELL DISTRIBUTION WIDTH 15.2 % (11.5-14.5); WHITE BLOOD COUNT 7.1 10^3/uL (4.0-10.0)
== END ==
LOC: M SMT 10:23
DX: D64.9 Anemia, unspecified (principal)
CPT/HCPCS: 85027

== ENCOUNTER 2017-09-18 14:36 | Emergency (ER) | payer MEDICARE, BC, OTHER | END 2017-09-18 17:07 | disposition home or self-care (01) | LOC: M ED 14:36 | DX: S09.93XA Unspecified injury of face, initial encounter (principal); W19.XXXA Unspecified fall, initial encounter; Y92.099 Unspecified place in other non-institutional residence as the place of occurrence of the external cause; Y93.9 Activity, unspecified; Y99.9 Unspecified external cause status; E11.9 Type 2 diabetes mellitus without complications; I10 Essential (primary) hypertension; R51 Headache; K57.32 Diverticulitis of large intestine without perforation or abscess without bleeding; F41.9 Anxiety disorder, unspecified; F32.9 Major depressive disorder, single episode, unspecified; Z79.82 Long term (current) use of aspirin; Z79.4 Long term (current) use of insulin; Z79.899 Other long term (current) drug therapy; Z88.0 Allergy status to penicillin; Z88.2 Allergy status to sulfonamides; Z88.8 Allergy status to other drugs, medicaments and biological substances | CPT/HCPCS: 70486 ==

== ENCOUNTER → 2017-10-02 | Outpatient (CLI) | payer MEDICARE, BC, OTHER ==
[2017-10-02 10:21] LABS: BASO % 0.6 % (0.0-1.0); EOS # 0.3 10^3/uL (0.0-0.50); EOS % 5.5 % (0.0-3.0); HEMATOCRIT 37.7 % (36.0-47.0); HEMOGLOBIN 11.9 g/dl (12.0-15.5); IMMATURE GRANULOCYTE % 0.8 % (0-3.0); LYMPH # 1.4 10^3/uL (1.5-4.5); LYMPH % 21.8 % (24.0-44.0); MEAN CORPUSCULAR HEMOGLOBIN 28.3 pg (27.0-33.0); MEAN CORPUSCULAR HGB CONC 31.6 g/dl (32.0-36.5); MEAN CORPUSCULAR VOLUME 89.8 fl (80.0-96.0); MONO # 0.3 10^3/uL (0.0-0.8); MONO % 4.8 % (0.0-5.0); NEUTROPHILS # 4.1 10^3/uL (1.8-7.7); NEUTROPHILS % 66.5 % (36.0-66.0); PLATELET COUNT, AUTOMATED 197 10^3/uL (150-450); WHITE BLOOD COUNT 6.2 10^3/uL (4.0-10.0)
[2017-10-02 10:34] LABS: ALBUMIN 3.6 GM/DL (3.2-5.2); ALBUMIN/GLOBULIN RATIO 1.03 (1.00-1.93); ALKALINE PHOSPHATASE 74 U/L (45-117); ALT/SGPT 31 U/L (12-78); ANION GAP 8 MEQ/L (8-16); AST/SGOT 20 U/L (7-37); BILIRUBIN,TOTAL 0.2 MG/DL (0.2-1.0); BLOOD UREA NITROGEN 27 MG/DL (7-18); CALCIUM LEVEL 9.1 MG/DL (8.8-10.2); CARBON DIOXIDE LEVEL 32 MEQ/L (21-32); CHLORIDE LEVEL 100 MEQ/L (98-107); CHOLESTEROL LEVEL 261 MG/DL (<200); CREATININE FOR GFR 1.01 MG/DL (0.55-1.30); GLOMERULAR FILTRATION RATE 58.7 (>45); GLUCOSE, FASTING 175 MG/DL (70-100); HDL CHOLESTEROL 56 MG/DL (>40); LDL CHOLESTEROL 132.8 MG/DL (<100); NON-HDL-C 205 MG/DL; SODIUM LEVEL 140 MEQ/L (136-145); TOTAL PROTEIN 7.1 GM/DL (6.4-8.2); TRIGLYCERIDES LEVEL 361 MG/DL (<150)
[2017-10-02 10:43] LABS: ESTIMATED AVERAGE GLUCOSE 177 MG/DL (60-110); HEMOGLOBIN A1c 7.8 %
[2017-10-02 10:47] LABS: POTASSIUM SERUM 5.3 MEQ/L (3.5-5.1)
[2017-10-02 11:05] LABS: CREATININE, URINE 59.5 MG/DL; MALB URINE SIEMENS < 5.0 MG/L; MAU/CREAT RATIO 8.4 MCG/MG (0.0-30.0)
== END ==
LOC: M SMT 08:08
DX: E11.22 Type 2 diabetes mellitus with diabetic chronic kidney disease (principal); E78.2 Mixed hyperlipidemia
CPT/HCPCS: 80053

== ENCOUNTER → 2017-10-21 | Outpatient (CLI) | payer MEDICARE, BC, OTHER ==
[2017-10-21 09:42] LABS: HEMATOCRIT 37.1 % (36.0-47.0); HEMOGLOBIN 11.7 g/dl (12.0-15.5); MEAN CORPUSCULAR HEMOGLOBIN 28.5 pg (27.0-33.0); MEAN CORPUSCULAR HGB CONC 31.5 g/dl (32.0-36.5); MEAN CORPUSCULAR VOLUME 90.5 fl (80.0-96.0); PLATELET COUNT, AUTOMATED 193 10^3/uL (150-450); RED CELL DISTRIBUTION WIDTH 14.7 % (11.5-14.5); WHITE BLOOD COUNT 6.3 10^3/uL (4.0-10.0)
== END ==
LOC: M SMT 08:56
DX: D64.9 Anemia, unspecified (principal)
CPT/HCPCS: 85027

== ENCOUNTER → 2017-11-06 | Outpatient (REF) | payer MEDICARE, BC, OTHER ==
[2017-11-06 15:55] LABS: HEMATOCRIT 38.1 % (36.0-47.0); HEMOGLOBIN 11.9 g/dl (12.0-15.5); MEAN CORPUSCULAR HEMOGLOBIN 28.3 pg (27.0-33.0); MEAN CORPUSCULAR HGB CONC 31.2 g/dl (32.0-36.5); MEAN CORPUSCULAR VOLUME 90.5 fl (80.0-96.0); PLATELET COUNT, AUTOMATED 215 10^3/uL (150-450); RED BLOOD COUNT 4.21 10^6/uL (4.00-5.40); RED CELL DISTRIBUTION WIDTH 14.6 % (11.5-14.5); WHITE BLOOD COUNT 7.3 10^3/uL (4.0-10.0)
== END ==
LOC: M LAB REF 14:05
DX: D64.9 Anemia, unspecified (principal)
CPT/HCPCS: 85027

== ENCOUNTER → 2017-11-27 | Outpatient (CLI) | payer MEDICARE, BC, OTHER ==
[2017-11-27 10:36] LABS: HEMATOCRIT 36.4 % (36.0-47.0); HEMOGLOBIN 11.8 g/dl (12.0-15.5); MEAN CORPUSCULAR HEMOGLOBIN 29.1 pg (27.0-33.0); MEAN CORPUSCULAR HGB CONC 32.4 g/dl (32.0-36.5); MEAN CORPUSCULAR VOLUME 89.7 fl (80.0-96.0); PLATELET COUNT, AUTOMATED 195 10^3/uL (150-450); RED BLOOD COUNT 4.06 10^6/uL (4.00-5.40); RED CELL DISTRIBUTION WIDTH 14.8 % (11.5-14.5); WHITE BLOOD COUNT 6.6 10^3/uL (4.0-10.0)
== END ==
LOC: M SMT 08:15
DX: D64.9 Anemia, unspecified (principal)
CPT/HCPCS: 85027

== ENCOUNTER → 2017-12-10 | Outpatient (CLI) | payer MEDICARE, BC, OTHER ==
[2017-12-10 13:54] LABS: BASO # 0.1 10^3/uL (0.0-0.2); BASO % 0.8 % (0.0-1.0); EOS # 0.3 10^3/uL (0.0-0.50); EOS % 3.7 % (0.0-3.0); HEMATOCRIT 38.9 % (36.0-47.0); HEMOGLOBIN 12.2 g/dl (12.0-15.5); IMMATURE GRANULOCYTE % 0.7 % (0-3.0); LYMPH # 1.5 10^3/uL (1.5-4.5); LYMPH % 20.5 % (24.0-44.0); MEAN CORPUSCULAR HEMOGLOBIN 28.4 pg (27.0-33.0); MEAN CORPUSCULAR HGB CONC 31.4 g/dl (32.0-36.5); MEAN CORPUSCULAR VOLUME 90.5 fl (80.0-96.0); MONO # 0.5 10^3/uL (0.0-0.8); MONO % 6.8 % (0.0-5.0); NEUTROPHILS # 4.9 10^3/uL (1.8-7.7); NEUTROPHILS % 67.5 % (36.0-66.0); PLATELET COUNT, AUTOMATED 199 10^3/uL (150-450); RED CELL DISTRIBUTION WIDTH 14.8 % (11.5-14.5); WHITE BLOOD COUNT 7.2 10^3/uL (4.0-10.0)
== END ==
LOC: M SMT 10:32
DX: M46.26 Osteomyelitis of vertebra, lumbar region (principal)
CPT/HCPCS: 85025

== ENCOUNTER → 2017-12-31 | Outpatient (CLI) | payer MEDICARE, BC, OTHER ==
[2017-12-31 13:34] LABS: BASO % 0.6 % (0.0-1.0); EOS # 0.3 10^3/uL (0.0-0.50); EOS % 4.2 % (0.0-3.0); HEMATOCRIT 37.9 % (36.0-47.0); IMMATURE GRANULOCYTE % 0.9 % (0-3.0); LYMPH # 1.6 10^3/uL (1.5-4.5); LYMPH % 22.2 % (24.0-44.0); MEAN CORPUSCULAR HEMOGLOBIN 28.6 pg (27.0-33.0); MEAN CORPUSCULAR HGB CONC 31.7 g/dl (32.0-36.5); MEAN CORPUSCULAR VOLUME 90.5 fl (80.0-96.0); MONO # 0.5 10^3/uL (0.0-0.8); MONO % 7.2 % (0.0-5.0); NEUTROPHILS # 4.5 10^3/uL (1.8-7.7); NEUTROPHILS % 64.9 % (36.0-66.0); PLATELET COUNT, AUTOMATED 189 10^3/uL (150-450); RED BLOOD COUNT 4.19 10^6/uL (4.00-5.40); RED CELL DISTRIBUTION WIDTH 14.9 % (11.5-14.5)
== END ==
LOC: M SMT 09:28
DX: M46.26 Osteomyelitis of vertebra, lumbar region (principal)
CPT/HCPCS: 85025

== ENCOUNTER → 2018-01-06 | Outpatient (CLI) | payer MEDICARE, BC, OTHER ==
[2018-01-06 13:50] LABS: BASO # 0.1 10^3/uL (0.0-0.2); BASO % 0.8 % (0.0-1.0); EOS # 0.2 10^3/uL (0.0-0.50); EOS % 3.8 % (0.0-3.0); HEMATOCRIT 39.1 % (36.0-47.0); HEMOGLOBIN 12.1 g/dl (12.0-15.5); IMMATURE GRANULOCYTE % 0.7 % (0-3.0); LYMPH # 1.4 10^3/uL (1.5-4.5); MEAN CORPUSCULAR HEMOGLOBIN 28.3 pg (27.0-33.0); MEAN CORPUSCULAR HGB CONC 30.9 g/dl (32.0-36.5); MEAN CORPUSCULAR VOLUME 91.4 fl (80.0-96.0); MONO # 0.4 10^3/uL (0.0-0.8); MONO % 5.9 % (0.0-5.0); NEUTROPHILS % 65.8 % (36.0-66.0); PLATELET COUNT, AUTOMATED 211 10^3/uL (150-450); RED BLOOD COUNT 4.28 10^6/uL (4.00-5.40); RED CELL DISTRIBUTION WIDTH 15.2 % (11.5-14.5); WHITE BLOOD COUNT 6.1 10^3/uL (4.0-10.0)
[2018-01-06 13:54] LABS: ANION GAP 6 MEQ/L (8-16); BLOOD UREA NITROGEN 25 MG/DL (7-18); CALCIUM LEVEL 9.4 MG/DL (8.8-10.2); CARBON DIOXIDE LEVEL 31 MEQ/L (21-32); CHLORIDE LEVEL 101 MEQ/L (98-107); CREATININE FOR GFR 1.03 MG/DL (0.55-1.30); GLOMERULAR FILTRATION RATE 57.4 (>45); GLUCOSE, FASTING 159 MG/DL (70-100); POTASSIUM SERUM 5.1 MEQ/L (3.5-5.1); SODIUM LEVEL 138 MEQ/L (136-145)
[2018-01-06 14:04] LABS: ESTIMATED AVERAGE GLUCOSE 177 MG/DL (60-110); HEMOGLOBIN A1c 7.8 %
[2018-01-06 14:17] LABS: ERYTHROCYTE SEDIMENTATION RATE 48 mm/hr (0-30)
== END ==
LOC: M SMT 08:00
DX: M46.26 Osteomyelitis of vertebra, lumbar region (principal); E11.22 Type 2 diabetes mellitus with diabetic chronic kidney disease; N18.3 Chronic kidney disease, stage 3 (moderate)
CPT/HCPCS: 83036

== ENCOUNTER → 2018-02-05 | Outpatient (CLI) | payer MEDICARE, BC, OTHER ==
[2018-02-05 13:33] LABS: BASO # 0.1 10^3/uL (0.0-0.2); BASO % 0.6 % (0.0-1.0); EOS # 0.2 10^3/uL (0.0-0.50); EOS % 2.8 % (0.0-3.0); HEMATOCRIT 38.7 % (36.0-47.0); HEMOGLOBIN 12.2 g/dl (12.0-15.5); IMMATURE GRANULOCYTE % 0.5 % (0-3.0); LYMPH # 1.5 10^3/uL (1.5-4.5); LYMPH % 17.6 % (24.0-44.0); MEAN CORPUSCULAR HEMOGLOBIN 28.8 pg (27.0-33.0); MEAN CORPUSCULAR HGB CONC 31.5 g/dl (32.0-36.5); MEAN CORPUSCULAR VOLUME 91.5 fl (80.0-96.0); MONO # 0.5 10^3/uL (0.0-0.8); MONO % 5.5 % (0.0-5.0); NEUTROPHILS # 6.3 10^3/uL (1.8-7.7); PLATELET COUNT, AUTOMATED 209 10^3/uL (150-450); RED BLOOD COUNT 4.23 10^6/uL (4.00-5.40); RED CELL DISTRIBUTION WIDTH 14.9 % (11.5-14.5); WHITE BLOOD COUNT 8.6 10^3/uL (4.0-10.0)
== END ==
LOC: M SMT 09:46
DX: M46.26 Osteomyelitis of vertebra, lumbar region (principal)

== ENCOUNTER → 2018-02-05 | Outpatient (CLI) | payer MEDICARE, BC, OTHER ==
[2018-02-05 13:43] LABS: C REACTIVE PROTEIN QUANTITATIV 0.54 MG/DL (0.00-0.30)
[2018-02-05 13:43] LABS: RHEUMATOID FACTOR QUANT < 10.0 IU/ML (<15.0)
[2018-02-05 15:20] LABS: ERYTHROCYTE SEDIMENTATION RATE 49 mm/hr (0-30)
[2018-02-07 00:26] LABS: CYCLIC CITRULLINATED PEPTIDE 9 units (0-19)
[2018-02-07 00:26] LABS: ANTINUCLEAR ANTIBODIES DIRECT Negative (Negative)
== END ==
LOC: M SMT 09:42
DX: R70.0 Elevated erythrocyte sedimentation rate (principal); M25.50 Pain in unspecified joint; M46.26 Osteomyelitis of vertebra, lumbar region
CPT/HCPCS: 86140

== ENCOUNTER → 2018-02-19 | Outpatient (CLI) | payer MEDICARE, OTHER ==
[~2018-02-19] MED LIST changes: +ACID1CAP PO; +ASPI81TA85 PO; +CALC-210 PO; +CLEO300C2 PO; +CLOP75TA2 PO; +FERR325T16 PO; +INSUH10VL SC; +LASI20TA PO; +LINE600T PO; +LISI-538 PO; +NITR0.4S14 SL; +NORCOTAB PO; +OMEGCAP9 PO; +PHEN15TA11 PO; +PROTPAK PO; +TOUJ300I2 SC; +TYLE325C PO; +VITA200028 PO; +VITA50TA43 PO; +VOLT1GEL15 TD
[2018-02-19 12:39] LABS: BASO % 0.4 % (0.0-1.0); EOS # 0.2 10^3/uL (0.0-0.50); EOS % 2.6 % (0.0-3.0); HEMATOCRIT 37.3 % (36.0-47.0); HEMOGLOBIN 12.3 g/dl (12.0-15.5); LYMPH # 1.3 10^3/uL (1.5-4.5); LYMPH % 16.1 % (24.0-44.0); MONO # 0.3 10^3/uL (0.0-0.8); MONO % 4.1 % (0.0-5.0); NEUTROPHILS # 6.3 10^3/uL (1.8-7.7); NEUTROPHILS % 76.3 % (36.0-66.0); PLATELET COUNT, AUTOMATED 197 10^3/uL (150-450); RED BLOOD COUNT 4.24 10^6/uL (4.00-5.40); WHITE BLOOD COUNT 8.2 10^3/uL (4.0-10.0)
[2018-02-19 13:09] LABS: ERYTHROCYTE SEDIMENTATION RATE 53 mm/hr (0-30)
== END ==
LOC: M LAB 11:48
PROVIDERS: ATTEND Physician Assistant
DX: R50.9 Fever, unspecified (principal); M46.26 Osteomyelitis of vertebra, lumbar region

== ENCOUNTER → 2018-02-19 | Outpatient (REF) | payer MEDICARE, OTHER ==
[2018-02-19 10:46] LABS: BASO % 0.4 % (0.0-1.0); EOS % 3.7 % (0.0-3.0); HEMATOCRIT 38.3 % (36.0-47.0); HEMOGLOBIN 12.2 g/dl (12.0-15.5); LYMPH # 1.6 10^3/uL (1.5-4.5); LYMPH % 23.5 % (24.0-44.0); MEAN CORPUSCULAR HEMOGLOBIN 28.7 pg (27.0-33.0); MEAN CORPUSCULAR HGB CONC 31.9 g/dl (32.0-36.5); MEAN CORPUSCULAR VOLUME 90.1 fl (80.0-96.0); MONO % 5.2 % (0.0-5.0); NEUTROPHILS # 4.5 10^3/uL (1.8-7.7); NEUTROPHILS % 66.6 % (36.0-66.0); PLATELET COUNT, AUTOMATED 205 10^3/uL (150-450); RED BLOOD COUNT 4.25 10^6/uL (4.00-5.40); WHITE BLOOD COUNT 6.7 10^3/uL (4.0-10.0)
[2018-02-19 10:47] LABS: EOS # 0.3 10^3/uL (0.0-0.50); MONO # 0.4 10^3/uL (0.0-0.8)
== END ==
LOC: M LAB REF 10:26
PROVIDERS: ATTEND Family Medicine
DX: M46.26 Osteomyelitis of vertebra, lumbar region (principal)

== ENCOUNTER → 2018-03-05 | Outpatient (CLI) | payer MEDICARE, OTHER ==
[~2018-03-05] MED LIST changes: -LASI20TA PO; +LASI20TA3 PO; -LINE600T PO; +LINE600T11 PO
[2018-03-05 13:38] LABS: BASO # 0.1 10^3/uL (0.0-0.2); BASO % 0.7 % (0.0-1.0); EOS # 0.2 10^3/uL (0.0-0.50); EOS % 2.9 % (0.0-3.0); HEMATOCRIT 38.4 % (36.0-47.0); LYMPH # 1.6 10^3/uL (1.5-4.5); LYMPH % 20.1 % (24.0-44.0); MEAN CORPUSCULAR HEMOGLOBIN 28.4 pg (27.0-33.0); MEAN CORPUSCULAR HGB CONC 31.3 g/dl (32.0-36.5); MONO # 0.5 10^3/uL (0.0-0.8); MONO % 6.1 % (0.0-5.0); NEUTROPHILS # 5.6 10^3/uL (1.8-7.7); NEUTROPHILS % 69.7 % (36.0-66.0); PLATELET COUNT, AUTOMATED 216 10^3/uL (150-450); RED BLOOD COUNT 4.22 10^6/uL (4.00-5.40); WHITE BLOOD COUNT 8.1 10^3/uL (4.0-10.0)
== END ==
LOC: M SMT 08:55
PROVIDERS: ATTEND Family Medicine
DX: M46.26 Osteomyelitis of vertebra, lumbar region (principal)

== ENCOUNTER → 2018-03-16 | Outpatient (CLI) | payer MEDICARE, BC, OTHER ==
[2018-03-16 13:23] LABS: BASO # 0.1 10^3/uL (0.0-0.2); BASO % 0.6 % (0.0-1.0); EOS # 0.2 10^3/uL (0.0-0.50); EOS % 2.9 % (0.0-3.0); HEMATOCRIT 38.5 % (36.0-47.0); HEMOGLOBIN 12.5 g/dl (12.0-15.5); LYMPH # 1.5 10^3/uL (1.5-4.5); LYMPH % 17.8 % (24.0-44.0); MEAN CORPUSCULAR HEMOGLOBIN 29.1 pg (27.0-33.0); MEAN CORPUSCULAR HGB CONC 32.5 g/dl (32.0-36.5); MEAN CORPUSCULAR VOLUME 89.5 fl (80.0-96.0); MONO # 0.5 10^3/uL (0.0-0.8); MONO % 6.2 % (0.0-5.0); NEUTROPHILS % 71.9 % (36.0-66.0); PLATELET COUNT, AUTOMATED 215 10^3/uL (150-450); WHITE BLOOD COUNT 8.4 10^3/uL (4.0-10.0)
== END ==
LOC: M SMT 09:55
PROVIDERS: ATTEND Family Medicine
DX: M46.26 Osteomyelitis of vertebra, lumbar region (principal)

== ENCOUNTER → 2018-04-09 | Outpatient (CLI) | payer MEDICARE, BC, OTHER ==
[2018-04-09 13:43] LABS: BASO % 0.5 % (0.0-1.0); EOS # 0.2 10^3/uL (0.0-0.50); EOS % 2.9 % (0.0-3.0); HEMATOCRIT 38.7 % (36.0-47.0); HEMOGLOBIN 12.2 g/dl (12.0-15.5); LYMPH # 1.5 10^3/uL (1.5-4.5); LYMPH % 19.1 % (24.0-44.0); MEAN CORPUSCULAR HEMOGLOBIN 28.8 pg (27.0-33.0); MEAN CORPUSCULAR HGB CONC 31.5 g/dl (32.0-36.5); MEAN CORPUSCULAR VOLUME 91.5 fl (80.0-96.0); MONO # 0.5 10^3/uL (0.0-0.8); NEUTROPHILS # 5.6 10^3/uL (1.8-7.7); NEUTROPHILS % 70.9 % (36.0-66.0); PLATELET COUNT, AUTOMATED 209 10^3/uL (150-450); RED BLOOD COUNT 4.23 10^6/uL (4.00-5.40); WHITE BLOOD COUNT 7.8 10^3/uL (4.0-10.0)
== END ==
LOC: M SMT 09:34
PROVIDERS: ATTEND Family Medicine
DX: M46.26 Osteomyelitis of vertebra, lumbar region (principal)

== ENCOUNTER → 2018-04-16 | Outpatient (REF) | payer MEDICARE, OTHER ==
[2018-04-16 13:40] LABS: PERCENT SATURATION 17.6 % (13.2-45.0)
== END ==
LOC: M LAB REF 12:53
PROVIDERS: ATTEND Internal Medicine Nephrology
DX: N18.3 Chronic kidney disease, stage 3 (moderate) (principal); D64.9 Anemia, unspecified

== ENCOUNTER → 2018-04-23 | Outpatient (CLI) | payer MEDICARE, BC, OTHER ==
[2018-04-23 13:37] LABS: BASO # 0.1 10^3/uL (0.0-0.2); BASO % 0.6 % (0.0-1.0); EOS # 0.2 10^3/uL (0.0-0.50); EOS % 2.5 % (0.0-3.0); LYMPH # 1.7 10^3/uL (1.5-4.5); LYMPH % 19.6 % (24.0-44.0); MEAN CORPUSCULAR HEMOGLOBIN 29.1 pg (27.0-33.0); MEAN CORPUSCULAR HGB CONC 31.6 g/dl (32.0-36.5); MONO # 0.5 10^3/uL (0.0-0.8); MONO % 6.1 % (0.0-5.0); NEUTROPHILS % 69.8 % (36.0-66.0); PLATELET COUNT, AUTOMATED 225 10^3/uL (150-450); RED BLOOD COUNT 4.13 10^6/uL (4.00-5.40); WHITE BLOOD COUNT 8.6 10^3/uL (4.0-10.0)
== END ==
LOC: M SMT 09:34
PROVIDERS: ATTEND Family Medicine
DX: M46.26 Osteomyelitis of vertebra, lumbar region (principal)

== ENCOUNTER → 2018-05-14 | Outpatient (CLI) | payer MEDICARE, BC, OTHER ==
[2018-05-14 10:25] LABS: BASO % 0.5 % (0.0-1.0); EOS # 0.3 10^3/uL (0.0-0.50); EOS % 3.5 % (0.0-3.0); HEMATOCRIT 37.2 % (36.0-47.0); HEMOGLOBIN 11.8 g/dl (12.0-15.5); LYMPH # 1.5 10^3/uL (1.5-4.5); LYMPH % 19.4 % (24.0-44.0); MEAN CORPUSCULAR HEMOGLOBIN 28.6 pg (27.0-33.0); MEAN CORPUSCULAR HGB CONC 31.7 g/dl (32.0-36.5); MEAN CORPUSCULAR VOLUME 90.1 fl (80.0-96.0); MONO # 0.4 10^3/uL (0.0-0.8); MONO % 5.2 % (0.0-5.0); NEUTROPHILS # 5.3 10^3/uL (1.8-7.7); NEUTROPHILS % 70.9 % (36.0-66.0); PLATELET COUNT, AUTOMATED 209 10^3/uL (150-450); RED BLOOD COUNT 4.13 10^6/uL (4.00-5.40); WHITE BLOOD COUNT 7.5 10^3/uL (4.0-10.0)
[2018-05-14 10:38] LABS: HEMOGLOBIN A1c 6.6 %
[2018-05-14 11:00] LABS: ALBUMIN 3.7 GM/DL (3.2-5.2); ALT/SGPT 41 U/L (12-78); BILIRUBIN,TOTAL 0.2 MG/DL (0.2-1.0); BLOOD UREA NITROGEN 22 MG/DL (7-18); CALCIUM LEVEL 9.2 MG/DL (8.8-10.2); CARBON DIOXIDE LEVEL 30 MEQ/L (21-32); CHLORIDE LEVEL 103 MEQ/L (98-107); CHOLESTEROL LEVEL 218 MG/DL (<200); CHOLESTEROL RISK RATIO 4.037 (<5); CREATININE FOR GFR 0.97 MG/DL (0.55-1.30); FREE T4 0.87 NG/DL (0.76-1.46); GLOMERULAR FILTRATION RATE > 60.0 (>45); GLUCOSE, FASTING 150 MG/DL (70-100); HDL CHOLESTEROL 54 MG/DL (>40); LDL CHOLESTEROL 89 MG/DL (<100); NON-HDL-C 164 MG/DL; SODIUM LEVEL 140 MEQ/L (136-145); TOTAL PROTEIN 6.9 GM/DL (6.4-8.2); TRIGLYCERIDES LEVEL 374 MG/DL (<150)
== END ==
LOC: M SMT 08:01
PROVIDERS: ATTEND Physician Assistant
DX: Z00.01 Encounter for general adult medical examination with abnormal findings (principal); E11.22 Type 2 diabetes mellitus with diabetic chronic kidney disease; M46.26 Osteomyelitis of vertebra, lumbar region; E78.2 Mixed hyperlipidemia

== ENCOUNTER → 2018-05-29 | Outpatient (CLI) | payer MEDICARE, BC, OTHER ==
[~2018-05-29] MED LIST changes: -/DULO30CA PO; -/FENT25PA TD; -CALC-210 PO; +CALC-239 PO; +CYMB1CAP5 PO; +FENT1DIS14 TD; +HYDR-3715 PO; +METO-743 OR; -NORCOTAB PO; -TAMO20TA; +TAMO20TA44; -TOPR50TA OR
[2018-05-29 13:17] LABS: BASO # 0.1 10^3/uL (0.0-0.2); BASO % 0.6 % (0.0-1.0); EOS # 0.3 10^3/uL (0.0-0.50); HEMATOCRIT 37.3 % (36.0-47.0); HEMOGLOBIN 11.7 g/dl (12.0-15.5); LYMPH # 1.6 10^3/uL (1.5-4.5); LYMPH % 19.1 % (24.0-44.0); MEAN CORPUSCULAR HEMOGLOBIN 28.5 pg (27.0-33.0); MEAN CORPUSCULAR HGB CONC 31.4 g/dl (32.0-36.5); MEAN CORPUSCULAR VOLUME 90.8 fl (80.0-96.0); MONO # 0.4 10^3/uL (0.0-0.8); MONO % 5.1 % (0.0-5.0); NEUTROPHILS % 71.4 % (36.0-66.0); PLATELET COUNT, AUTOMATED 219 10^3/uL (150-450); RED BLOOD COUNT 4.11 10^6/uL (4.00-5.40); WHITE BLOOD COUNT 8.4 10^3/uL (4.0-10.0)
== END ==
LOC: M SMT 09:01
PROVIDERS: ATTEND Family Medicine
DX: M46.26 Osteomyelitis of vertebra, lumbar region (principal)

== ENCOUNTER 2018-07-23 08:53 | Inpatient (IN) | payer MEDICARE, BC, OTHER ==
[~2018-07-23] VITALS: Ht 172.7 cm; Wt 106.7 kg
[~2018-07-23 08:53] MED LIST changes: +LINE1TAB6 PO; -LINE600T11 PO
[2018-07-23] MEDS: SENNA 8.6 MG TAB (SENOKOT) PO SCH (09:00)
[2018-07-23 11:45] VITALS: BP 106/59
[2018-07-23] MEDS ORDERED: ACET-897 PO (12:36)
[2018-07-23] MEDS ORDERED: NARD15TA PO (12:36)
[2018-07-23] MEDS ORDERED: NOVOINJ SC (12:36)
[2018-07-23] MEDS ORDERED: LISI-1046 PO (12:36)
[2018-07-23] MEDS ORDERED: OMEG10005 PO (12:36)
[2018-07-23] MEDS ORDERED: CALC600T7 PO (12:36)
[2018-07-23] MEDS ORDERED: NITR4TASL SL (12:36)
[2018-07-23] MEDS ORDERED: CVS1CAP2 PO (12:36)
[2018-07-23] MEDS ORDERED: MULTCAP PO (12:36)
[2018-07-23] MEDS ORDERED: D200CAP2 PO (12:36)
[2018-07-23] MEDS ORDERED: GLUCTAB6 PO (12:36)
[2018-07-23] MEDS ORDERED: ASPI1TAB8 PO (12:36)
[2018-07-23] MEDS ORDERED: GABA-845 PO (12:36)
[2018-07-23] MEDS ORDERED: REPA1INJ SC (12:36)
[2018-07-23] MEDS ORDERED: ZYVO1TAB PO (12:36)
[2018-07-23] MEDS ORDERED: FERR325T16 PO (12:36)
[2018-07-23] MEDS ORDERED: MAGN400T2 PO (12:36)
[2018-07-23] MEDS ORDERED: OXYC-517 PO (12:36)
[2018-07-23] MEDS ORDERED: FURO20TA2 PO (12:36)
[2018-07-23] MEDS ORDERED: OZEM2INJ SC (12:36)
[2018-07-23] MEDS ORDERED: METO1TAB7 PO (12:36)
[2018-07-23] MEDS ORDERED: ESTR1CRE PV (12:36)
[2018-07-23] MEDS ORDERED: TOUJ1.2I SC (12:36)
[2018-07-23] MEDS ORDERED: LOVE1INJ SC (12:36)
[2018-07-23] MEDS ORDERED: PROT1TAB2 PO (12:36)
[2018-07-23 14:00] VITALS: BP 106/53
[2018-07-23] MEDS ORDERED: MAALOX 30 ML SUSP *UDC PO PRN (15:30)
[2018-07-23] MEDS ORDERED: MOM 30ML SUSPENSION UDC PO PRN (15:30)
[2018-07-23] MEDS ORDERED: ACETAMINOPHEN TAB 650MG DOSE (2X325MG) PO PRN (15:30)
[2018-07-23] MEDS ORDERED: NITROGLYCERIN 0.4 MG SUBL TABLET SL PRN (15:30)
[2018-07-23] MEDS ORDERED: GLUCAGON FOR INJ 1 MG VIAL (J1610) SC PRN (15:45)
[2018-07-23] MEDS ORDERED: DEXTROSE 50% 50 ML SYRINGE IV PRN (15:45)
[2018-07-23] MEDS ORDERED: GLUCOSE 4 GM CHEW TABLET PO PRN (15:45)
[2018-07-23] MEDS: LACTOBACILLUS ACIDOPHILUS CAP (BACID) PO SCH ×2 (16:23→20:45)
[2018-07-23] MEDS: GABAPENTIN 400 MG CAP PO SCH ×2 (16:23→20:46)
[2018-07-23] MEDS: oxyCODONE 5MG TAB PO PRN (16:24)
[2018-07-23] MEDS ORDERED: BACLOFEN 5MG PER 1/2 TABLET PO PRN (17:30)
[2018-07-23] MEDS ORDERED: oxyCODONE 5MG TAB PO PRN (17:30)
[2018-07-23] MEDS: HumaLOG INSULIN (NovoLOG) PER UNIT SC SCH ×2 (17:53→20:48)
[2018-07-23 20:00] VITALS: BP 169/79
[2018-07-23] MEDS: BISACODYL 10 MG SUPP PR SCH (20:30)
[2018-07-23] MEDS: FERROUS GLUCONATE 324 MG TAB PO SCH (20:46)
[2018-07-23] MEDS: DOCUSATE SODIUM 100 MG CAP PO SCH (20:46)
[2018-07-23] MEDS: LEVEMIR (INSULIN DETEMIR) 1 UNITS/0.01ML SC SCH (20:47)
[2018-07-23] MEDS ORDERED: DOCUSATE SODIUM 100 MG CAP PO SCH (21:00)
[2018-07-24] MEDS: oxyCODONE 5MG TAB PO PRN ×2 (04:50→10:15)
[2018-07-24 05:53] VITALS: BP 111/59
[2018-07-24 07:02] LABS: BASO % 0.3 % (0.0-1.0); EOS # 0.2 10^3/uL (0.0-0.50); EOS % 2.1 % (0.0-3.0); HEMATOCRIT 28.4 % (36.0-47.0); HEMOGLOBIN 8.9 g/dl (12.0-15.5); LYMPH # 0.8 10^3/uL (1.5-4.5); LYMPH % 8.7 % (24.0-44.0); MEAN CORPUSCULAR HEMOGLOBIN 27.5 pg (27.0-33.0); MEAN CORPUSCULAR HGB CONC 31.3 g/dl (32.0-36.5); MEAN CORPUSCULAR VOLUME 87.7 fl (80.0-96.0); MONO # 0.7 10^3/uL (0.0-0.8); MONO % 7.4 % (0.0-5.0); NEUTROPHILS # 7.6 10^3/uL (1.8-7.7); NEUTROPHILS % 80.7 % (36.0-66.0); PLATELET COUNT, AUTOMATED 358 10^3/uL (150-450); RED BLOOD COUNT 3.24 10^6/uL (4.00-5.40); WHITE BLOOD COUNT 9.4 10^3/uL (4.0-10.0)
[2018-07-24 07:32] LABS: ALBUMIN 2.5 GM/DL (3.2-5.2); ALT/SGPT 10 U/L (12-78); BILIRUBIN,TOTAL 0.2 MG/DL (0.2-1.0); BLOOD UREA NITROGEN 13 MG/DL (7-18); CARBON DIOXIDE LEVEL 30 MEQ/L (21-32); CHLORIDE LEVEL 97 MEQ/L (98-107); CREATININE FOR GFR 0.84 MG/DL (0.55-1.30); GLOMERULAR FILTRATION RATE > 60.0 (>45); GLUCOSE, FASTING 197 MG/DL (70-100); POTASSIUM SERUM 4.6 MEQ/L (3.5-5.1); SODIUM LEVEL 133 MEQ/L (136-145); TOTAL PROTEIN 7.7 GM/DL (6.4-8.2)
[2018-07-24] MEDS: METOPROLOL SUCC (TopROL XL) 50MG **XL** TAB PO SCH (08:24)
[2018-07-24] MEDS: CALCIUM/VITAMIN D 500 MG TAB PO SCH (08:24)
[2018-07-24] MEDS: HumaLOG INSULIN (NovoLOG) PER UNIT SC SCH ×4 (08:24→21:00)
[2018-07-24] MEDS: LINEZOLID 600MG TABLET (ZYVOX) PO SCH (08:24)
[2018-07-24] MEDS: FUROSEMIDE 20 MG TAB PO SCH (08:24)
[2018-07-24] MEDS: LISINOPRIL *2.5 MG* TAB PO SCH (08:24)
[2018-07-24] MEDS: SENNA 8.6 MG TAB (SENOKOT) PO SCH (08:25)
[2018-07-24] MEDS: MAGNESIUM OXIDE 400 MG TAB (MAG-OX) PO SCH (08:25)
[2018-07-24] MEDS: ASPIRIN 81 MG CHEW TABLET PO SCH (08:25)
[2018-07-24] MEDS: DOCUSATE SODIUM 100 MG CAP PO SCH ×3 (08:25→21:20)
[2018-07-24] MEDS: LACTOBACILLUS ACIDOPHILUS CAP (BACID) PO SCH ×3 (08:25→21:19)
[2018-07-24] MEDS: PANTOPRAZOLE 40MG TAB (PROTONIX) PO SCH (08:25)
[2018-07-24] MEDS: GABAPENTIN 400 MG CAP PO SCH ×3 (08:25→21:20)
[2018-07-24] MEDS: FERROUS GLUCONATE 324 MG TAB PO SCH ×2 (08:25→21:20)
[2018-07-24] MEDS: VITAMIN D 1,000 INTERNATIONAL UNITS TABLET PO SCH (08:25)
[2018-07-24] MEDS: BISACODYL 10 MG SUPP PR SCH (08:26)
[2018-07-24] MEDS: ENOXAPARIN 40 MG/0.4 ML SYRINGE (J1650) SC SCH (08:26)
--- NOTE | 2018-07-24 08:59 | IPNPDOC ---
PM&R Progress Note DATE OF SERVICE: Jul 27, 2018 [employer] Helper Progress Note Subjective: Patient reporting a lot of back pain and incisional pain, requesting a better pain medicine regimen. REVIEW OF SYSTEMS: The following is a completed review of systems and has been reviewed. Review of systems otherwise unremarkable. PAIN: Patient self reports back pain and spasms EYES: no recent vision changes EARS, NOSE, & THROAT: no throat pain, or dysphagia, or rhinorrhea CARDIOVASCULAR: denies chest pain or palpitations PULMONARY: Negative. Denies shortness of breath GASTROINTESTINAL: +constipation GENITOURINARY: +incontinence MUSCULOSKELETAL: bilat LE weakness NEUROLOGICAL: +spinal cord injury and right foot drop HEMATOLOGICAL: +anemia SKIN: thoraco-lumbar incision PSYCHIATRIC:Unremarkable All other review of systems found to be negative. PHYSICAL EXAMINATION: VITAL SIGNS: Please see below. GENERAL: Pleasant and cooperative. No acute distress. Pale HEENT: PERRL. Extraocular movements intact. Clear conjunctiva]. CARDIOVASCULAR: Regular rate and rhythm. No murmurs, rubs, or gallops LUNGS: Clear to auscultation bilaterally. No wheezes. No rhonchi ABDOMEN: Soft, nontender, mildly-distended. Positive bowel sounds. Normal active bowel sounds NEUROLOGICAL: Alert and oriented times three. Cranial nerves II through XII grossly intact. Sensation grossly intact in bilateral LE and sacral area, diminished along lower thoracic dermatome on the left and neat her thoroco- lumbar incision (will defer SCI VANESSA exam for now) EXTREMITIES: 5\5 strength bilateral upper extremities. 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 PLAN: 1. Rehab: OT, PT, assess for DMEs- patient with severe deconditioning due to extended hospital stay at [facility] with new spinal cord lesion, will require intensive and more prolonged therapy 2. 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 Cardio: pmh HTn and HLD, c/u home meds, will restart low dose lasix, per pat ient she does not have CHF, but sometimes her legs swell, will monitor- medicine consulted 4. Resp: pmh LIZ, will encourage CPAP at night, incentive spirometry 5. : neurogenic bladder- maintain Goodrich 6. GI ppx: protonix, optimize bowel meds for neurogenic bowel 7. DVT ppx: Lovenox 8. Endo: pm DM, insulin and ISS, monitor and adjust 9. Pain: patient with considerable pain, c/u oxycodone short acting 5mg QID and will add long acting Oxycontin 10mg BID, c/u standing Tylenol and baclofen for muscle spams, c/u Neurontin 10. Skin: Zinc oxide to sacrum and monitor for skin breakdown, patient able to turn herself in bed Allergies Coded Allergies: Penicillins (Verified Allergy, Intermediate, RASH/HIVES, 07/23/18) Sulfa (Sulfonamide Antibiotics) (Verified Allergy, Intermediate, REDNESS/SWELLING, 07/23/18) sulindac (Verified Adverse Reaction, Intermediate, COLITIS, 07/23/18) Vital Signs Vital Signs Date Time Temp Pulse Resp B/P (MAP) Pulse Ox O2 Delivery O2 Flow Rate FiO2 07/24/18 08:24 111/59 07/24/18 08:24 99 07/24/18 06:18 18 07/24/18 06:11 98.1 07/24/18 05:53 95 Laboratory Data CBC/BMP Laboratory Tests 07/24/18 06:30 Red Blood Count 3.24 L, Mean Corpuscular Volume 87.7, Mean Corpuscular Hemoglobin 27.5, Mean Corpuscular Hemoglobin Concent 31.3 L, Red Cell Distribution Width 14.3, Neutrophils (%) (Auto) 80.7 H, Lymphocytes (%) (Auto) 8.7 L, Monocytes (%) (Auto) 7.4 H, Eosinophils (%) (Auto) 2.1, Basophils (%) (Auto) 0.3, Neutrophils # (Auto) 7.6, Lymphocytes # (Auto) 0.8 L, Monocytes # (Auto) 0.7, Eosinophils # (Auto) 0.2, Basophils # (Auto) 0.0, Calcium Level 9.0, Aspartate Amino Transf (AST/SGOT) 12, Alanine Aminotransferase (ALT/SGPT) 10 L, Alkaline Phosphatase 118 H, Total Bilirubin 0.2, Total Protein 7.7, Albumin 2.5 L Labs 24H Laboratory Tests 2 07/23/18 11:59: Bedside Glucose (Misc Panel) 145H 07/23/18 17:31: Bedside Glucose (Misc Panel) 265H 07/23/18 20:43: Bedside Glucose (Misc Panel) 221H 07/24/18 04:53: Bedside Glucose (Misc Panel) 216H 07/24/18 06:30: Immature Granulocyte % (Auto) 0.8, White Blood Count 9.4, Red Blood Count 3.24L, Hemoglobin 8.9L, Hematocrit 28.4L, Mean Corpuscular Volume 87.7, Mean Corpuscular Hemoglobin 27.5, Mean Corpuscular Hemoglobin Concent 31.3L, Red Cell Distribution Width 14.3, Platelet Count 358, Neutrophils (%) (Auto) 80.7H, Lymphocytes (%) (Auto) 8.7L, Monocytes (%) (Auto) 7.4H, Eosinophils (%) (Auto) 2.1, Basophils (%) (Auto) 0.3, Neutrophils # (Auto) 7.6, Lymphocytes # (Auto) 0.8L, Monocytes # (Auto) 0.7, Eosinophils # (Auto) 0.2, Basophils # (Auto) 0.0, Nucleated Red Blood Cells % (auto) 0.0, Anion Gap 6L, Glomerular Filtration Rate > 60.0, Blood Urea Nitrogen 13, Creatinine 0.84, Sodium Level 133L, Potassium Level 4.6, Chloride Level 97L, Carbon Dioxide Level 30, Calcium Level 9.0, Aspartate Amino Transf (AST/SGOT) 12, Alanine Aminotransferase (ALT/SGPT) 10L, Alkaline Phosphatase 118H, Total Bilirubin 0.2, Total Protein 7.7, Albumin 2.5L, Albumin/Globulin Ratio 0.48L Current Medications Current Medications Current Medications Acetaminophen (Tylenol Tab) 650 mg Q4HP PRN PO MILD PAIN (PS 1-4) Last administered on 07/24/18 04:57; Start 07/23/18 at 15:30 Al Hydrox/Mg Hydrox/Simethicone (Mylanta) 30 ml Q4HP PRN PO DYSPEPSIA; Start 07/23/18 at 15:30 Aspirin (Aspirin Chewable) 81 mg DAILY PO Last administered on 07/24/18 08:25; Start 07/24/18 at 09:00 Baclofen (Lioresal) 5 mg TID PRN PO spasm Last administered on 07/23/18at 18:46; Start 07/23/18 at 17:30 Bisacodyl (Dulcolax Suppository) 10 mg DAILY VA ; Start 07/23/18 at 19:00 Calcium/Vitamin D (Oscal D) 500 mg DAILY PO Last administered on 07/24/18 08:24; Start 07/24/18 at 09:00 Dextrose (Dextrose 50%) 25 ml ASDIRECTED PRN IV SEE LABEL COMMENTS; Start 07/23/18 at 15:45 Docusate Sodium (Colace) 100 mg BID PO ; Start 07/23/18 at 21:00; Stop 07/23/18 at 21:00; Status DC Docusate Sodium (Colace) 100 mg TID PO Last administered on 07/24/18 08:25; Start 07/23/18 at 21:00 Enoxaparin Sodium (Lovenox) 40 mg DAILY SC Last administered on 07/24/18 08:26; Start 07/24/18 at 09:00 Ferrous Gluconate (Fergon) 324 mg BID PO Last administered on 07/24/18 08:25; Start 07/23/18 at 21:00 Furosemide (Lasix) 20 mg DAILY PO Last administered on 07/24/18 08:24; Start 07/24/18 at 09:00 Gabapentin (Neurontin) 400 mg TID PO Last administered on 07/24/18 08:25; Start 07/23/18 at 16:00 Glucagon (Glucagon) 1 mg ASDIRECTED PRN SC SEE LABEL COMMENTS; Start 07/23/18 at 15:45 Glucose (Glucose) 16 GM ASDIRECTED PRN PO SEE LABEL COMMENTS; Start 07/23/18 at 15:45 Home Med (Med Rec Complete!) ASDIRECTED XX ; Start 07/23/18 at 12:45; Stop 07/23/18 at 12:46; Status DC Insulin Detemir (Levemir Insulin) 5 units QHS SC Last administered on 07/23/18at 20:47; Start 07/23/18 at 21:00 Insulin Human Lispro (HumaLOG INSULIN) SEE PROTOCOL TABLE AC SC Last administered on 07/24/18 08:24; Start 07/23/18 at 17:30 Insulin Human Lispro (HumaLOG INSULIN) SEE PROTOCOL TABLE QHS SC ; Start 07/23/18 at 21:00 Lactobacillus Acidophilus (Bacid) 1 ea TID PO Last administered on 07/24/18at 08:25; Start 07/23/18 at 16:00 Linezolid (Zyvox) 600 mg DAILY PO Last administered on 07/24/18at 08:24; Start 07/24/18 at 09:00 Lisinopril (Prinivil) 2.5 mg DAILY PO Last administered on 07/24/18at 08:24; Start 07/24/18 at 09:00 Magnesium Hydroxide (Milk Of Magnesia) 30 ml DAILYPRN PRN PO CONSTIPATION Last administered on 07/23/18at 17:51; Start 07/23/18 at 15:30 Magnesium Oxide (Mag-Ox) 400 mg DAILY PO Last administered on 07/24/18 08:25; Start 07/24/18 at 09:00 Metoprolol Succinate (TopROL XL) 50 mg DAILY PO Last administered on 07/24/18at 08:24; Start 07/24/18 at 09:00 Miscellaneous (Unresolved Patient Own Med Order) SEE LABEL COMMENTS DAILY XX ; Start 07/23/18 at 09:00 Nitroglycerin (Nitrostat (1/ 150)) 0.4 mg Q5MP PRN SL CHEST PAIN; Start 07/23/18 at 15:30 Oxycodone HCl (Roxicodone, Oxyir) 5 mg Q4HP PRN PO PAIN Last administered on 07/24/18at 04:50; Start 07/23/18 at 15:30 Oxycodone HCl (Roxicodone, Oxyir) 10 mg Q4HP PRN PO SEVERE PAIN (PS 8-10) Last administered on 07/23/18at 18:47; Start 07/23/18 at 17:30 Pantoprazole Sodium (Protonix) 40 mg DAILY PO Last administered on 07/24/18 08:25; Start 07/24/18 at 09:00 Patient Own Medication (Patient'S Own Med) Nardil 15mg po TID DAILY PO ; Start 07/24/18 at 09:00; Status UNV Senna (Senokot) 2 tab DAILY PO Last administered on 07/24/18 08:25; Start 07/23/18 at 09:00 Vitamin D (Vitamin D) 2,000 units DAILY PO Last administered on 07/24/18 08:25; Start 07/24/18 at 09:00 ANGELITA HOBBS MD Jul 24, 2018 08:59
--- NOTE | 2018-07-24 08:59 | HPEPDOC ---
Career Development Consultant Note DATE OF ADMISSION: Jul 23, 2018 at 11:45 SOURCE OF ADMISSION INFORMATION: patient and [facility] records CHIEF COMPLAINT: incomplete lumbar spinal cord injury HISTORY OF PRESENT ILLNESS: 63F with pmh chordoma first diagnosed in 2010 at level T12 which was removed, followed by multiple hardware revisions and infections, with recurrence of tumor at level L1 in 2017 with left lower extremity weakness, followed by multiple rounds of radiation and surgery, then presented to [facility] on 06/11/18 complaining of new right foot drop for which she was admitted under orthopedics after PET scan finding of an interval increase in the metabolic activity of the soft tissues at the site of the primary tumor. She underwent a myelogram on 06/15/18 which showed, Compression thecal sac in the lower cord at T12 and L1 level, spinal fusion changes from T3 to L5, and Corpectomy and anterior fusion, graft is seen extending from T11 to L1 L2 level. She underwent chordoma debulking on 06/19/18 which was complicated by CSF leak requiring wound exploratio n and dural repair on 07/05/18. She had persistent hyponatremia and anemia requiring blood transfusions and her BP meds were held due to orthostatics. She was started on IV antibiotics and later switched back to prophylactic oral medication for her history of hardware infection. She was evaluated by therapy and found to have limited bed mobility, inability to tolerate standing, neurogenic bladder, and difficulty with ADLs. She was deemed medically appropriate for discharge to ARU for an incomplete spinal cord injury with functional goals to maintain ROM of her lower extremities, strengthen her legs, work on ambulation with a RW, and improve overall endurance while managing pain. REVIEW OF SYSTEMS: The following is a completed review of systems and has been reviewed. Review of systems otherwise unremarkable. PAIN: Patient self reports back pain and spasms EYES: no recent vision changes EARS, NOSE, & THROAT: no throat pain, or dysphagia, or rhinorrhea CARDIOVASCULAR: denies chest pain or palpitations PULMONARY: Negative. Denies shortness of breath GASTROINTESTINAL: +constipation GENITOURINARY: +incontinence MUSCULOSKELETAL: bilat LE weakness NEUROLOGICAL: +spinal cord injury and right foot drop HEMATOLOGICAL: +anemia SKIN: thoraco-lumbar incision PSYCHIATRIC:Unremarkable All other review of systems found to be negative. PAST MEDICAL HISTORY: chordoma, depression, HTN, HLD, DM2, arthritis, LIZ PAST SURGICAL HISTORY: IVC filter, hysterectomy, colonoscopy, left mastectomy 2005, posterior T10-L2 spinal fusion 10/2014, anterior instrumentation 09/2013 with thoracic cage removal and bone graft T10-T0 and L1-L2 anterior fusion , 07/2016 tumor resection with T6 -L4 revision with posterior reconstruction ALLERGIES: Please see below. MEDICATIONS: Please see below. FAMILY HISTORY: mental illness and DM SOCIAL HISTORY: retired nurse, no smoking, ETOH, or illicit drugs DIET: consistent carb PHYSICAL EXAMINATION: VITAL SIGNS: Please see below. GENERAL: Pleasant and cooperative. No acute distress. Pale HEENT: PERRL. Extraocular movements intact. Clear conjunctiva]. CARDIOVASCULAR: Regular rate and rhythm. No murmurs, rubs, or gallops LUNGS: Clear to auscultation bilaterally. No wheezes. No rhonchi ABDOMEN: Soft, nontender, mildly-distended. Positive bowel sounds. Normal active bowel sounds NEUROLOGICAL: Alert and oriented times three. Cranial nerves II through XII grossly intact. Sensation grossly intact in bilateral LE and sacral area, diminished along lower thoracic dermatome on the left and neat her thoroco- lumbar incision (will defer SCI VANESSA exam for now) EXTREMITIES: 5\5 strength bilateral upper extremities. 4\5 strength right hip flexors, knee extensors, and ankle PF, however 0/5 ankle DF, and 1/F EHL 3+/5 strength in left hip flexors, 5/5 hip adduction, 5-/5 knee extension, 5/5 ankle Df/EHL/PF Reflexes depressed in bilat patella, no babinksi SKIN: thoracolumbar incision with sutures and drain site without induration, mild erythema, c/d/i sacrum no ulcers or erythema IMAGING: Imaging documentation personally reviewed by record FUNCTIONAL STATUS: Premorbid: Modified Independent household distance with RW, otherwise used wheelchair, requiring some assistance with ADLs. On Admission: Total assistance for bed mobility, ambulation, and stairs, min assist for dressing and toileting. GOALS: Mod-I household distances with RW, dressing, bathing, toileting, improve standing tolerance for cooking, mod-I stairs, bladder management education, skin protection education, family training, assess for DME needs. 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 PLAN: 1. Rehab: OT, PT, assess for DMEs- patient with severe deconditioning due to extended hospital stay at [facility] with new spinal cord lesion, will require intensive and more prolonged therapy 2. 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 06/19/18 complicated by CSF leak- c/u Linezolid for prophylaxis for hx of hardware infections -neurogenic bladder- will place Goodrich for suspected lower motor neuron and for skin protection -neurogenic bowel- patient reports unable to push, optimize bowel care, utilize dig-stim -right foot dorp- multipodis boot when in bed, monitor for skin break down- sensation intact, will consdier inhouse lining layer consult 3. Cardio: pmh HTn and HLD, c/u home meds, will restart low dose lasix, per patient she does not have CHF, but sometimes her legs swell, will monitor- medicine consulted 4. Resp: pmh LIZ, will encourage CPAP at night, incentive spirometry 5. : neurogenic bladder- maintain Goodrich 6. GI ppx: protonix, optimize bowel meds for neurogenic bowel 7. DVT ppx: Lovenox 8. Endo: pm DM, insulin and ISS, monitor and adjust 9. Pain: patient with considerable pain, c/u oxycodone, Tylenol, will add baclofen for muscle spams, c/u Neurontin 10. Skin: Zinc oxide to sacrum and monitor for skin breakdown, patient able to turn herself in bed POST ADMISSION PHYSICIAN EVALUATION: Medical and functional status: Description of medical status, medical assessment: As above. Rehabilitation diagnosis and current and prior cold morbid medical conditions as above. Risk of complications and plans to mitigate them as above. Description of functional status current status is as above. Prior status as above. Status compared to preadmission: There are no clinically significant differences between the patient's current status and the information described on the preadmission screening document. Treatment plan anticipated: Treatment plan is as described above. Required disciplines including physical therapy, occupational therapy, others as noted above Intensity of services: 3 hours a day, days a week. Special considerations: There are no specific special or safety considerations that would likely preclude immediate implementation of an intensive rehabilitation program or subsequently influence the plan of care. ATTESTATION: Considering all the information above, it is my best judgment that this patient requires intensive rehabilitation therapy as described above and an inpatient hospital environment due to the complexity of nursing, medical, and rehabilitation needs required by the patient. Furthermore, this patient can reasonably be expected to participate in an benefit from an inpatient rehabilitation stay with an interdisciplinary team approach to the delivery of rehabilitation care under the direction and supervision of rehabilitation physician PROGNOSIS: Good ESTIMATED LENGTH OF STAY:18-21 days. PROJECTED DISCHARGE DESTINATION: Home with family support and any durable medical equipment required to increase functional safety and mobility. TIME SPENT COUNSELING AND COORDINATING INITIAL CARE: Greater than 70 minutes. Vital Signs Vital Sign - Last 24 Hours 07/23/18 07/23/18 07/23/18 07/23/18 11:45 14:00 16:24 18:47 Temp 98.8 96.9 Pulse 89 85 Resp 18 18 22 20 B/P (MAP) 106/59 (75) 106/53 (70) Pulse Ox 96 97 07/23/18 07/23/18 07/24/18 07/24/18 20:00 20:31 04:50 05:53 Temp 97.5 96.5 Pulse 92 99 Resp 18 18 18 18 B/P (MAP) 169/79 (109) 111/59 (76) Pulse Ox 94 95 07/24/18 07/24/18 07/24/18 07/24/18 06:11 06:18 08:24 08:24 Temp 98.1 Pulse 99 Resp 18 B/P (MAP) 111/59 111/59 Laboratory Data CBC/BMP Laboratory Tests 07/24/18 06:30 Red Blood Count 3.24 L, Mean Corpuscular Volume 87.7, Mean Corpuscular Hemog lobin 27.5, Mean Corpuscular Hemoglobin Concent 31.3 L, Red Cell Distribution Width 14.3, Neutrophils (%) (Auto) 80.7 H, Lymphocytes (%) (Auto) 8.7 L, Monocytes (%) (Auto) 7.4 H, Eosinophils (%) (Auto) 2.1, Basophils (%) (Auto) 0.3, Neutrophils # (Auto) 7.6, Lymphocytes # (Auto) 0.8 L, Monocytes # (Auto) 0.7, Eosinophils # (Auto) 0.2, Basophils # (Auto) 0.0, Calcium Level 9.0, Aspartate Amino Transf (AST/SGOT) 12, Alanine Aminotransferase (ALT/SGPT) 10 L, Alkaline Phosphatase 118 H, Total Bilirubin 0.2, Total Protein 7.7, Albumin 2.5 L Labs 24H Laboratory Tests 2 07/23/18 11:59: Bedside Glucose (Misc Panel) 145H 07/23/18 17:31: Bedside Glucose (Misc Panel) 265H 07/23/18 20:43: Bedside Glucose (Misc Panel) 221H 07/24/18 04:53: Bedside Glucose (Misc Panel) 216H 07/24/18 06:30: Immature Granulocyte % (Auto) 0.8, White Blood Count 9.4, Red Blood Count 3.24L, Hemoglobin 8.9L, Hematocrit 28.4L, Mean Corpuscular Volume 87.7, Mean Corpuscular Hemoglobin 27.5, Mean Corpuscular Hemoglobin Concent 31.3L, Red Cell Distribution Width 14.3, Platelet Count 358, Neutrophils (%) (Auto) 80.7H, Lymphocytes (%) (Auto) 8.7L, Monocytes (%) (Auto) 7.4H, Eosinophils (%) (Auto) 2.1, Basophils (%) (Auto) 0.3, Neutrophils # (Auto) 7.6, Lymphocytes # (Auto) 0.8L, Monocytes # (Auto) 0.7, Eosinophils # (Auto) 0.2, Basophils # (Auto) 0.0, Nucleated Red Blood Cells % (auto) 0.0, Anion Gap 6L, Glomerular Filtration Rate > 60.0, Blood Urea Nitrogen 13, Creatinine 0.84, Sodium Level 133L, Potassium Level 4.6, Chloride Level 97L, Carbon Dioxide Level 30, Calcium Level 9.0, Aspartate Amino Transf (AST/SGOT) 12, Alanine Aminotransferase (ALT/SGPT) 10L, Alkaline Phosphatase 118H, Total Bilirubin 0.2, Total Protein 7.7, Albumin 2.5L, Albumin/Globulin Ratio 0.48L FSBS Laboratory Tests Test 07/23/18 11:59 07/23/18 17:31 07/23/18 20:43 07/24/18 04:53 Range/Units Bedside Glucose (Misc Panel) 145 265 221 216 80-115 MG/DL Home Medications Scheduled Aspirin (Aspirin EC) 81 Mg Tablet.dr, 81 MG PO DAILY, (Reported) Calcium Carbonate/Vitamin D3 (Calcium 600-Vit D3 200 Tablet) 1 Each Tablet, 1 TAB PO DAILY, (Reported) Cholecalciferol (Vitamin D3) (Vitamin D3) 2,000 Unit Capsule, 2,000 UNIT PO DAILY, (Reported) Enoxaparin Sodium (Lovenox) 40 Mg/0.4 Ml Syringe, 40 MG SC DAILY, (Reported) STARTED AT [facility] Evolocumab (Repatha Sureclick) 140 Mg/1 Ml Pen.injctr, 140 MG SC Q2WK, (Repor campbell) Ferrous Gluconate (Ferrous Gluconate) 324 Mg Tablet, 324 MG PO BID, (Reported) Furosemide (Furosemide) 20 Mg Tablet, 20 MG PO DAILY, (Reported) Gabapentin (Gabapentin) 400 Mg Capsule, 400 MG PO TID, (Reported) STARTED AT [facility] Gluc Hinojosa/Chondro Hinojosa A/Vit C/Mn (Glucosamine Chondroitin Tab) 1 Each Tablet, 1 TAB PO BID, (Reported) Insulin Aspart (Novolog) 100 Unit/1 Ml Cartridge, 1 DOSE SC WM, (Reported) Insulin Glargine,Hum.rec.anlog (Toujeo Solostar) 300 Unit/1 Ml Insuln.pen, 100 UNIT SC QHS, (Reported) Lactobacillus Combo No.10 (Probiotic) 1 Each Capsule, 1 CAP PO BID, (Reported) Linezolid (Zyvox) 600 Mg Tablet, 600 MG PO DAILY, (Reported) Lisinopril (Lisinopril) 2.5 Mg Tablet, 2.5 MG PO DAILY, (Reported) Magnesium Oxide (Magnesium Oxide) 400 Mg Tablet, 400 MG PO DAILY, (Reported) Metoprolol Succinate (Metoprolol Succinate) 50 Mg Tab.er.24h, 50 MG PO DAILY, (Reported) Multivitamin (Multivitamins) 1 Each Capsule, 1 CAP PO DAILY, (Reported) [place]-3 Fatty Acids ([place]-3) 1,000 Mg Capsule, 1,000 MG PO BID, (Reported) Pantoprazole Sodium (Protonix) 40 Mg Tablet.dr, 40 MG PO BID, (Reported) Phenelzine Sulfate (Nardil) 15 Mg Tablet, 30 MG PO TID, (Reported) Semaglutide (Ozempic) 0.25 Mg/0.2 Ml Pen.injctr, 0.25 MG SC QWEEK, (Reported) Scheduled PRN Acetaminophen (Tylenol Extra Strength) 500 Mg Tablet, 1,000 MG PO BID PRN for PAIN, (Reported) Estradiol (Estrace) 42.5 Gm Cream.appl, 1 DOSE PV PRN PRN for IRRITATION, (Reported) APPLY SMALL AMOUNT Nitroglycerin (Nitrostat) 0.4 Mg Tab.subl, 0.4 MG SL NITRO PRN for CHEST PAIN, (Reported) Oxycodone HCl (Oxycodone HCl) 5 Mg Tablet, 5 MG PO Q4H PRN for PAIN, (Reported) STARTED AT [facility] Allergies Coded Allergies: Penicillins (Verified Allergy, Intermediate, RASH/HIVES, 07/23/18) Sulfa (Sulfonamide Antibiotics) (Verified Allergy, Intermediate, REDNESS/SWELLING, 07/23/18) sulindac (Verified Adverse Reaction, Intermediate, COLITIS, 07/23/18) A-FIB/CHADSVASC A-FIB History Current/History of A-Fib/PAF?: No ANGELITA HOBBS MD Jul 24, 2018 08:59
[2018-07-24] MEDS: oxyCODONE 10 MG CR TAB PO SCH ×2 (09:00→21:20)
--- NOTE | 2018-07-24 12:40 | HPEPDOC ---
General Date of Admission Jul 23, 2018 at 11:45 Date of Service: Jul 24, 2018 Chief Complaint The patient is a 63-year-old female admitted with a reason for visit of Spinal Chordoma. 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 Hospitalist service has been consulted for the management of medical comorbidities. Today she complained of soreness of her abdomen. Says she was very constipated and last night had a big bowel movement but it was difficult and since then has generalized soreness. No radiation, no cramps, the pain is dull mild and constantly present. No diarrhea, no nausea or vomiting. Also complains of weakness of the left leg and numbness of the right thigh. She also has right foot drop for several months. She was also found to have urinary recension on admission here and Goodrich was placed which drained 975 ml initially. Home Medications Scheduled Aspirin (Aspirin EC) 81 Mg Tablet.dr, 81 MG PO DAILY, (Reported) Calcium Carbonate/Vitamin D3 (Calcium 600-Vit D3 200 Tablet) 1 Each Tablet, 1 TAB PO DAILY, (Reported) Cholecalciferol (Vitamin D3) (Vitamin D3) 2,000 Unit Capsule, 2,000 UNIT PO DAILY, (Reported) Enoxaparin Sodium (Lovenox) 40 Mg/0.4 Ml Syringe, 40 MG SC DAILY, (Reported) STARTED AT [facility] Evolocumab (Repatha Sureclick) 140 Mg/1 Ml Pen.injctr, 140 MG SC Q2WK, (Reported) Ferrous Gluconate (Ferrous Gluconate) 324 Mg Tablet, 324 MG PO BID, (Reported) Furosemide (Furosemide) 20 Mg Tablet, 20 MG PO DAILY, (Reported) Gabapentin (Gabapentin) 400 Mg Capsule, 400 MG PO TID, (Reported) STARTED AT [facility] Gluc Hinojosa/Chondro Hinojosa A/Vit C/Mn (Glucosamine Chondroitin Tab) 1 Each Tablet, 1 TAB PO BID, (Reported) Insulin Aspart (Novolog) 100 Unit/1 Ml Cartridge, 1 DOSE SC WM, (Reported) Insulin Glargine,Hum.rec.anlog (Toujeo Solostar) 300 Unit/1 Ml Insuln.pen, 100 UNIT SC QHS, (Reported) Lactobacillus Combo No.10 (Probiotic) 1 Each Capsule, 1 CAP PO BID, (Reported) Linezolid (Zyvox) 600 Mg Tablet, 600 MG PO DAILY, (Reported) Lisinopril (Lisinopril) 2.5 Mg Tablet, 2.5 MG PO DAILY, (Reported) Magnesium Oxide (Magnesium Oxide) 400 Mg Tablet, 400 MG PO DAILY, (Reported) Metoprolol Succinate (Metoprolol Succinate) 50 Mg Tab.er.24h, 50 MG PO DAILY, (Reported) Multivitamin (Multivitamins) 1 Each Capsule, 1 CAP PO DAILY, (Reported) Vassar-3 Fatty Acids (Vassar-3) 1,000 Mg Capsule, 1,000 MG PO BID, (Reported) Pantoprazole Sodium (Protonix) 40 Mg Tablet.dr, 40 MG PO BID, (Reported) Phenelzine Sulfate (Nardil) 15 Mg Tablet, 30 MG PO TID, (Reported) Semaglutide (Ozempic) 0.25 Mg/0.2 Ml Pen.injctr, 0.25 MG SC QWEEK, (Reported) Scheduled PRN Acetaminophen (Tylenol Extra Strength) 500 Mg Tablet, 1,000 MG PO BID PRN for PAIN, (Reported) Estradiol (Estrace) 42.5 Gm Cream.appl, 1 DOSE PV PRN PRN for IRRITATION, (Reported) APPLY SMALL AMOUNT Nitroglycerin (Nitrostat) 0.4 Mg Tab.subl, 0.4 MG SL NITRO PRN for CHEST PAIN, (Reported) Oxycodone HCl (Oxycodone HCl) 5 Mg Tablet, 5 MG PO Q4H PRN for PAIN, (Reported) STARTED AT [facility] Allergies Coded Allergies: Penicillins (Verified Allergy, Intermediate, RASH/HIVES, 07/23/18) Sulfa (Sulfonamide Antibiotics) (Verified Allergy, Intermediate, REDNESS/SWELLING, 07/23/18) sulindac (Verified Adverse Reaction, Intermediate, COLITIS, 07/23/18) Past Medical History Medical History 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 Diabetes, Hypertension, hyperlipidemia, Neuropathy, Neurogenic bladder with urinary recension, right foot drop. Surgical History Multiple spinal surgeries for Cordoma for the last 8 years. Post surgical infections needing debridement and prolonged antibiotics, spinal fluid leak needing multiple drains Cardiac stent 1 year ago. Family History Significant Family History: Cancer (maternal uncles different cancers, Father lymphoma), Diabetes (mother), Heart disease (mother), Renal disease (mothr), Other (myayesthenia gravis in older sister) Social History * Smoker: Denies Alcohol: Denies Drugs: denies A-FIB/CHADSVASC A-FIB History Current/History of A-Fib/PAF?: No Review of Systems Constitutional: Reports: Weakness, Fatigue; Denies: Chills, Fever, Night Sweats Eyes: Denies: Pain, Vision change ENT: Denies: Head Aches, Ear Pain, Dysphagia Skin: Denies: Rash, Lesions, Breakdown Pulmonary: Denies: Dyspnea, Cough Cardiovascular: Denies: Chest Pain, Palpitations, Orthopnea Gastrointestinal: Reports: Constipation; Denies: Nausea, Vomiting, Abdominal Pain Genitourinary: Reports: Incontinence (overflow), Retention Musculoskeletal: Reports: Back Pain, Leg Pain Neurological: Reports: Weakness (leg), Numbness (right thigh), Other Symptoms (foot drop right) Physical Examination General Exam: Positive: Alert, Cooperative, No Acute Distress Eye Exam: Positive: PERRLA, Conjunctiva & lids normal, EOMI; Negative: Sclera icteric ENT Exam: Positive: Atraumatic, Pharynx Normal, Other ENT (pale ) Neck Exam: Positive: Supple; Negative: JVD, thyromegaly Chest Exam: Positive: Clear to auscultation, Normal air movement Heart Exam: Positive: Rate Normal, Regular Rhythm, Normal S1, Normal S2; Negative: Murmurs, Rubs Abdomen Exam: Positive: Normal bowel sounds, Soft, Tenderness (generalized, no guarding , rigidity or rebound. ); Negative: Hepatospenomegaly Extremity Exam: Negative: Clubbing, Cyanosis, Edema Neuro Exam: Positive: Normal Speech, Other (right foot drop, left lower extremity 4/5 , right 5/5) Psych Exam: Positive: Mental status NL, Mood NL, Memory Intact, Oriented x 3 Vital Signs Vital Signs Date Time Temp Pulse Resp B/P (MAP) Pulse Ox O2 Delivery O2 Flow Rate FiO2 07/24/18 10:15 16 07/24/18 08:24 111/59 07/24/18 08:24 99 07/24/18 06:11 98.1 07/24/18 05:53 95 Laboratory Data Labs 24H Laboratory Tests 2 07/23/18 17:31: Bedside Glucose (Misc Panel) 265H 07/23/18 20:43: Bedside Glucose (Misc Panel) 221H 07/24/18 04:53: Bedside Glucose (Misc Panel) 216H 07/24/18 06:30: Immature Granulocyte % (Auto) 0.8, White Blood Count 9.4, Red Blood Count 3.24L, Hemoglobin 8.9L, Hematocrit 28.4L, Mean Corpuscular Volume 87.7, Mean Corpuscular Hemoglobin 27.5, Mean Corpuscular Hemoglobin Concent 31.3L, Red Cell Distribution Width 14.3, Platelet Count 358, Neutrophils (%) (Auto) 80.7H, Lymphocytes (%) (Auto) 8.7L, Monocytes (%) (Auto) 7.4H, Eosinophils (%) (Auto) 2.1, Basophils (%) (Auto) 0.3, Neutrophils # (Auto) 7.6, Lymphocytes # (Auto) 0.8L, Monocytes # (Auto) 0.7, Eosinophils # (Auto) 0.2, Basophils # (Auto) 0.0, Nucleated Red Blood Cells % (auto) 0.0, Anion Gap 6L, Glomerular Filtration Rate > 60.0, Blood Urea Nitrogen 13, Creatinine 0.84, Sodium Level 133L, Potassium L evel 4.6, Chloride Level 97L, Carbon Dioxide Level 30, Calcium Level 9.0, Aspartate Amino Transf (AST/SGOT) 12, Alanine Aminotransferase (ALT/SGPT) 10L, Alkaline Phosphatase 118H, Total Bilirubin 0.2, Total Protein 7.7, Albumin 2.5L, Albumin/Globulin Ratio 0.48L 07/24/18 11:34: Bedside Glucose (Misc Panel) 182H CBC/BMP Laboratory Tests 07/24/18 06:30 Red Blood Count 3.24 L, Mean Corpuscular Volume 87.7, Mean Corpuscular Hemoglobin 27.5, Mean Corpuscular Hemoglobin Concent 31.3 L, Red Cell Distribution Width 14.3, Neutrophils (%) (Auto) 80.7 H, Lymphocytes (%) (Auto) 8.7 L, Monocytes (%) (Auto) 7.4 H, Eosinophils (%) (Auto) 2.1, Basophils (%) (Auto) 0.3, Neutrophils # (Auto) 7.6, Lymphocytes # (Auto) 0.8 L, Monocytes # (Auto) 0.7, Eosinophils # (Auto) 0.2, Basophils # (Auto) 0.0, Calcium Level 9.0, Aspartate Amino Transf (AST/SGOT) 12, Alanine Aminotransferase (ALT/SGPT) 10 L, Alkaline Phosphatase 118 H, Total Bilirubin 0.2, Total Protein 7.7, Albumin 2.5 L Assessment/Plan 63 year old female with PMH of 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 Hospitalist service has been consulted for the management of medical comorbidities. Cordoma at T12-L1 level. s/p surgery at [facility] with multiple post surgical complications including infection, spinal fluid leak currently on Linezolid. Weakness with neurodeficits PT and OT as per Dr Jacinto pain control with oxycodone,gabapentin, baclofen for muscle spasms. Continue pateint home meds Diabetes with neuropathy Levemir and lispro as per sliding scale gabapentin FS Ac and HS CAD with stents continue Metoprolol, ASA Hypertension Metoprolol and lisinopril CHF lasix and lisinopril Anemia ferrous gluconate. Plan / VTE VTE Prophylaxis Ordered?: Yes Plan / Urinary Catheter Reason for insertion/continuin: Acute obstruct/retention ANABELL CHAN MD Jul 24, 2018 12:40
[2018-07-24] MEDS: oxyCODONE 5MG TAB PO SCH ×3 (13:48→21:23)
[2018-07-24 14:00] VITALS: BP 115/69
[2018-07-24] MEDS: ACETAMINOPHEN 500 MG TAB PO SCH ×2 (16:14→21:23)
[2018-07-24] MEDS: BACLOFEN 5MG PER 1/2 TABLET PO SCH ×2 (16:14→21:19)
[2018-07-24] MEDS: PHENELZINE 15 MG PO SCH ×2 (16:15→21:19)
[2018-07-24 20:00] VITALS: BP 102/51
[2018-07-24] MEDS: LEVEMIR (INSULIN DETEMIR) 1 UNITS/0.01ML SC SCH (21:23)
[2018-07-25 06:00] VITALS: BP 119/57
[2018-07-25] MEDS: HumaLOG INSULIN (NovoLOG) PER UNIT SC SCH ×4 (08:38→21:00)
[2018-07-25] MEDS: FERROUS GLUCONATE 324 MG TAB PO SCH ×2 (08:38→21:35)
[2018-07-25] MEDS: FUROSEMIDE 20 MG TAB PO SCH (08:38)
[2018-07-25] MEDS: BACLOFEN 5MG PER 1/2 TABLET PO SCH ×3 (08:38→21:33)
[2018-07-25] MEDS: CALCIUM/VITAMIN D 500 MG TAB PO SCH (08:39)
[2018-07-25] MEDS: GABAPENTIN 400 MG CAP PO SCH ×3 (08:39→21:34)
[2018-07-25] MEDS: METOPROLOL SUCC (TopROL XL) 50MG **XL** TAB PO SCH (08:39)
[2018-07-25] MEDS: LINEZOLID 600MG TABLET (ZYVOX) PO SCH (08:39)
[2018-07-25] MEDS: DOCUSATE SODIUM 100 MG CAP PO SCH ×3 (08:39→21:35)
[2018-07-25] MEDS: MAGNESIUM OXIDE 400 MG TAB (MAG-OX) PO SCH (08:39)
[2018-07-25] MEDS: PANTOPRAZOLE 40MG TAB (PROTONIX) PO SCH (08:39)
[2018-07-25] MEDS: ASPIRIN 81 MG CHEW TABLET PO SCH (08:39)
[2018-07-25] MEDS: LACTOBACILLUS ACIDOPHILUS CAP (BACID) PO SCH ×3 (08:39→21:35)
[2018-07-25] MEDS: SENNA 8.6 MG TAB (SENOKOT) PO SCH (08:39)
[2018-07-25] MEDS: ACETAMINOPHEN 500 MG TAB PO SCH ×3 (08:40→21:35)
[2018-07-25] MEDS: LISINOPRIL *2.5 MG* TAB PO SCH (08:40)
[2018-07-25] MEDS: VITAMIN D 1,000 INTERNATIONAL UNITS TABLET PO SCH (08:40)
[2018-07-25] MEDS: oxyCODONE 10 MG CR TAB PO SCH ×2 (08:41→21:34)
[2018-07-25] MEDS: oxyCODONE 5MG TAB PO SCH ×4 (08:42→21:34)
[2018-07-25] MEDS: PHENELZINE 15 MG PO SCH ×3 (08:42→21:33)
[2018-07-25] MEDS: ENOXAPARIN 40 MG/0.4 ML SYRINGE (J1650) SC SCH (08:42)
[2018-07-25] MEDS: BISACODYL 10 MG SUPP PR SCH (08:42)
[2018-07-25 08:46] LABS: BLOOD UREA NITROGEN 14 MG/DL (7-18); CALCIUM LEVEL 9.1 MG/DL (8.8-10.2); CARBON DIOXIDE LEVEL 27 MEQ/L (21-32); CHLORIDE LEVEL 99 MEQ/L (98-107); CREATININE FOR GFR 0.85 MG/DL (0.55-1.30); GLOMERULAR FILTRATION RATE > 60.0 (>45); GLUCOSE, FASTING 273 MG/DL (70-100); POTASSIUM SERUM 4.6 MEQ/L (3.5-5.1); SODIUM LEVEL 133 MEQ/L (136-145)
--- NOTE | 2018-07-25 12:07 | IPNPDOC ---
Subjective Date Seen The patient was seen on 07/25/18. Subjective Chief Complaint/HPI Just prior to my rounds patient had used the commode and was then moved to chair so she was in a lot of discomfort. She was emotional and crying says her legs are aching and her back is hurting real bad. then she says that she knows she has to work with PT and start getting out of bed but her body is so weak that she cant do anything. Says she does not know why she is crying. I reassured her that it is OK to cry and that her strength will improve slowly. She just just got her pain meds and it will kick in within an hour and she she will feel much better when the pain is controlled. She is still having difficulty with bowel movements and has to use a lot of pressure still its difficult to push out. No fever or chills. No chest pain or SOB. Objective Physical Examination General Exam: Positive: Alert, Cooperative, No Acute Distress Eye Exam: Positive: PERRLA, Conjunctiva & lids normal, EOMI; Negative: Sclera icteric ENT Exam: Positive: Atraumatic, Pharynx Normal, Other ENT (pale ) Neck Exam: Positive: Supple; Negative: JVD, thyromegaly Chest Exam: Positive: Clear to auscultation, Normal air movement Heart Exam: Positive: Rate Normal, Regular Rhythm, Normal S1, Normal S2; Negative: Murmurs, Rubs Abdomen Exam: Positive: Normal bowel sounds, Soft, Tenderness (generalized, no guarding , rigidity or rebound. 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 Hospitalist service has been consulted for the management of medical comorbidities. Cordoma at T12-L1 level. s/p surgery at [facility] with multiple post surgical complications including infection, spinal fluid leak Incomplete spinal cord injury due to recurring T12/L1 chordoma s/p debulking at [facility] 06/19/18 complicated by CSF leak Linezolid for prophylaxis for hx of hardware infections Neurogenic bladder Neurogenic bowel Right foot drop PT and OT as per Dr Jacinto pain control with oxycodone,gabapentin, baclofen for muscle spasms. Continue patient home meds Diabetes with neuropathy Levemir and lispro as per sliding scale gabapentin FS Ac and HS CAD with stents continue Metoprolol, ASA Hypertension Metoprolol and lisinopril CHF lasix and lisinopril Anemia ferrous gluconate. Plan/VTE VTE Prophylaxis Ordered?: Yes Plan/Urinary Catheter Reason for insertion/continuin: Acute obstruct/retention VS, I&O, 24H, Fishbone Vital Signs/I&O Vital Signs Date Time Temp Pulse Resp B/P (MAP) Pulse Ox O2 Delivery O2 Flow Rate FiO2 07/25/18 09:15 18 07/25/18 08:40 119/57 07/25/18 08:39 78 07/25/18 06:00 98.2 96 I&O- Last 24 Hours up to 6 AM 07/25/18 06:00 Intake Total 1260 ml Output Total 2350 ml Balance -1090 ml Laboratory Data 24H LABS Laboratory Tests 2 07/24/18 16:30: Bedside Glucose (Misc Panel) 206H 07/24/18 20:20: Bedside Glucose (Misc Panel) 244H 07/25/18 06:06: Bedside Glucose (Misc Panel) 205H 07/25/18 07:49: Anion Gap 7L, Glomerular Filtration Rate > 60.0, Blood Urea Nitrogen 14, Creatinine 0.85, Sodium Level 133L, Potassium Level 4.6, Chloride Level 99, Carbon Dioxide Level 27, Calcium Level 9.1 07/25/18 11:56: Bedside Glucose (Misc Panel) 194H CBC/BMP Laboratory Tests 07/25/18 07:49 Calcium Level 9.1 ANABELL CHAN MD Jul 25, 2018 12:07
[2018-07-25 14:00] VITALS: BP 121/60
[2018-07-25 20:00] VITALS: BP 107/55
[2018-07-25] MEDS: LEVEMIR (INSULIN DETEMIR) 1 UNITS/0.01ML SC SCH (21:35)
[2018-07-26 06:00] VITALS: BP 119/58
[2018-07-26 06:51] LABS: HEMATOCRIT 26.1 % (36.0-47.0); MEAN CORPUSCULAR HGB CONC 30.7 g/dl (32.0-36.5); MEAN CORPUSCULAR VOLUME 88.2 fl (80.0-96.0); PLATELET COUNT, AUTOMATED 273 10^3/uL (150-450); RED BLOOD COUNT 2.96 10^6/uL (4.00-5.40); WHITE BLOOD COUNT 7.3 10^3/uL (4.0-10.0)
[2018-07-26] MEDS: HumaLOG INSULIN (NovoLOG) PER UNIT SC SCH ×4 (08:17→21:10)
[2018-07-26] MEDS: GABAPENTIN 400 MG CAP PO SCH ×3 (08:18→21:12)
[2018-07-26] MEDS: LACTOBACILLUS ACIDOPHILUS CAP (BACID) PO SCH ×3 (08:18→21:12)
[2018-07-26] MEDS: LISINOPRIL *2.5 MG* TAB PO SCH (08:18)
[2018-07-26] MEDS: FERROUS GLUCONATE 324 MG TAB PO SCH ×2 (08:18→21:12)
[2018-07-26] MEDS: MAGNESIUM OXIDE 400 MG TAB (MAG-OX) PO SCH (08:18)
[2018-07-26] MEDS: SENNA 8.6 MG TAB (SENOKOT) PO SCH (08:18)
[2018-07-26] MEDS: DOCUSATE SODIUM 100 MG CAP PO SCH ×3 (08:18→21:12)
[2018-07-26] MEDS: LINEZOLID 600MG TABLET (ZYVOX) PO SCH (08:18)
[2018-07-26] MEDS: BACLOFEN 5MG PER 1/2 TABLET PO SCH ×3 (08:18→21:12)
[2018-07-26] MEDS: ASPIRIN 81 MG CHEW TABLET PO SCH (08:18)
[2018-07-26] MEDS: oxyCODONE 5MG TAB PO SCH ×4 (08:19→21:12)
[2018-07-26] MEDS: FUROSEMIDE 20 MG TAB PO SCH (08:19)
[2018-07-26] MEDS: ACETAMINOPHEN 500 MG TAB PO SCH ×3 (08:19→21:11)
[2018-07-26] MEDS: PANTOPRAZOLE 40MG TAB (PROTONIX) PO SCH (08:19)
[2018-07-26] MEDS: CALCIUM/VITAMIN D 500 MG TAB PO SCH (08:19)
[2018-07-26] MEDS: ENOXAPARIN 40 MG/0.4 ML SYRINGE (J1650) SC SCH (08:20)
[2018-07-26] MEDS: METOPROLOL SUCC (TopROL XL) 50MG **XL** TAB PO SCH (08:20)
[2018-07-26] MEDS: VITAMIN D 1,000 INTERNATIONAL UNITS TABLET PO SCH (08:20)
[2018-07-26] MEDS: oxyCODONE 10 MG CR TAB PO SCH ×2 (08:20→21:12)
[2018-07-26] MEDS: BISACODYL 10 MG SUPP PR SCH (08:21)
[2018-07-26] MEDS: PHENELZINE 15 MG PO SCH ×3 (08:21→21:13)
--- NOTE | 2018-07-26 10:37 | IPNPDOC ---
Subjective Date Seen The patient was seen on 07/26/18. Subjective Chief Complaint/HPI spinal cordoma, weakness Objective Physical Examination General Exam: Positive: Alert, Cooperative, No Acute Distress Eye Exam: Positive: PERRLA, Conjunctiva & lids normal, EOMI; Negative: Sclera icteric ENT Exam: Positive: Atraumatic, Pharynx Normal, Other ENT (pale ) Neck Exam: Positive: Supple; Negative: JVD, thyromegaly Chest Exam: Positive: Clear to auscultation, Normal air movement Heart Exam: Positive: Rate Normal, Regular Rhythm, Normal S1, Normal S2; Negative: Murmurs, Rubs Abdomen Exam: Positive: Normal bowel sounds, Soft, Tenderness (generalized, no guarding , rigidity or rebound. 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 no findings. Monitor levels. C onsider fluids restriction. taking Lasix, mnay be a contributing factor. States takes it for edema. no Known hx of CHF. Advised staff to call for most recent echo with Dr. Alonzo. (4) Diabetes Status: Chronic Problem Text: Levemir and lispro as per sliding scale gabapentin FS Ac and HS (5) CAD (coronary artery disease) Status: Chronic Problem Text: continue Metoprolol, ASA (6) HTN (hypertension) Status: Chronic Problem Text: Metoprolol and lisinopril Plan/VTE VTE Prophylaxis Ordered?: Yes Plan/Urinary Catheter Reason for insertion/continuin: Acute obstruct/retention VS, I&O, 24H, Fishbone Vital Signs/I&O Vital Signs Date Time Temp Pulse Resp B/P (MAP) Pulse Ox O2 Delivery O2 Flow Rate FiO2 07/26/18 08:20 18 07/26/18 08:20 75 119/58 07/26/18 06:00 97.8 95 I&O- Last 24 Hours up to 6 AM 07/26/18 06:00 Intake Total 1680 ml Output Total 2200 ml Balance -520 ml Laboratory Data 24H LABS Laboratory Tests 2 07/25/18 11:56: Bedside Glucose (Misc Panel) 194H 07/25/18 16:43: Bedside Glucose (Misc Panel) 211H 07/25/18 20:21: Bedside Glucose (Misc Panel) 237H 07/26/18 06:22: Bedside Glucose (Misc Panel) 196H 07/26/18 06:32: Nucleated Red Blood Cells % (auto) 0.0 CBC/BMP Laboratory Tests 07/26/18 06:32 Red Blood Count 2.96 L, Mean Corpuscular Volume 88.2, Mean Corpuscular Hemoglobin 27.0, Mean Corpuscular Hemoglobin Concent 30.7 L, Red Cell Distribution Width 14.5 Nasima Blanca [employer] Jul 26, 2018 10:37
[2018-07-26 14:00] VITALS: BP 113/53
[2018-07-26 20:00] VITALS: BP 112/52
[2018-07-26] MEDS: LEVEMIR (INSULIN DETEMIR) 1 UNITS/0.01ML SC SCH (21:11)
[2018-07-27 06:00] VITALS: BP 132/59
[2018-07-27 06:19] LABS: BASO % 0.4 % (0.0-1.0); EOS # 0.5 10^3/uL (0.0-0.50); HEMATOCRIT 25.5 % (36.0-47.0); HEMOGLOBIN 7.9 g/dl (12.0-15.5); LYMPH % 13.1 % (24.0-44.0); MEAN CORPUSCULAR HEMOGLOBIN 27.3 pg (27.0-33.0); MEAN CORPUSCULAR VOLUME 88.2 fl (80.0-96.0); MONO # 0.4 10^3/uL (0.0-0.8); MONO % 5.7 % (0.0-5.0); NEUTROPHILS # 5.7 10^3/uL (1.8-7.7); PLATELET COUNT, AUTOMATED 267 10^3/uL (150-450); RED BLOOD COUNT 2.89 10^6/uL (4.00-5.40); WHITE BLOOD COUNT 7.7 10^3/uL (4.0-10.0)
[2018-07-27 06:43] LABS: BLOOD UREA NITROGEN 15 MG/DL (7-18); CALCIUM LEVEL 8.6 MG/DL (8.8-10.2); CARBON DIOXIDE LEVEL 31 MEQ/L (21-32); CHLORIDE LEVEL 98 MEQ/L (98-107); CREATININE FOR GFR 0.71 MG/DL (0.55-1.30); GLOMERULAR FILTRATION RATE > 60.0 (>45); GLUCOSE, FASTING 252 MG/DL (70-100); POTASSIUM SERUM 4.8 MEQ/L (3.5-5.1); SODIUM LEVEL 135 MEQ/L (136-145)
[2018-07-27] MEDS: FERROUS GLUCONATE 324 MG TAB PO SCH ×2 (08:57→21:33)
[2018-07-27] MEDS: LACTOBACILLUS ACIDOPHILUS CAP (BACID) PO SCH ×3 (08:57→21:32)
[2018-07-27] MEDS: LISINOPRIL *2.5 MG* TAB PO SCH (08:57)
[2018-07-27] MEDS: HumaLOG INSULIN (NovoLOG) PER UNIT SC SCH ×4 (08:57→21:31)
[2018-07-27] MEDS: ENOXAPARIN 40 MG/0.4 ML SYRINGE (J1650) SC SCH (08:57)
[2018-07-27] MEDS: CALCIUM/VITAMIN D 500 MG TAB PO SCH (08:58)
[2018-07-27] MEDS: VITAMIN D 1,000 INTERNATIONAL UNITS TABLET PO SCH (08:58)
[2018-07-27] MEDS: PHENELZINE 15 MG PO SCH ×3 (08:58→21:33)
[2018-07-27] MEDS: PANTOPRAZOLE 40MG TAB (PROTONIX) PO SCH (08:58)
[2018-07-27] MEDS: BACLOFEN 5MG PER 1/2 TABLET PO SCH ×4 (08:58→21:34)
[2018-07-27] MEDS: MAGNESIUM OXIDE 400 MG TAB (MAG-OX) PO SCH (08:58)
[2018-07-27] MEDS: ASPIRIN 81 MG CHEW TABLET PO SCH (08:58)
[2018-07-27] MEDS: oxyCODONE 10 MG CR TAB PO SCH ×2 (08:59→21:00)
[2018-07-27] MEDS: SENNA 8.6 MG TAB (SENOKOT) PO SCH (08:59)
[2018-07-27] MEDS: LINEZOLID 600MG TABLET (ZYVOX) PO SCH (08:59)
[2018-07-27] MEDS: METOPROLOL SUCC (TopROL XL) 50MG **XL** TAB PO SCH (08:59)
[2018-07-27] MEDS: FUROSEMIDE 20 MG TAB PO SCH (08:59)
[2018-07-27] MEDS: DOCUSATE SODIUM 100 MG CAP PO SCH ×3 (09:00→21:00)
[2018-07-27] MEDS: BISACODYL 10 MG SUPP PR SCH (09:00)
[2018-07-27] MEDS: oxyCODONE 5MG TAB PO SCH ×2 (09:00→12:28)
[2018-07-27] MEDS: GABAPENTIN 400 MG CAP PO SCH (09:00)
[2018-07-27] MEDS: ACETAMINOPHEN 500 MG TAB PO SCH ×3 (09:03→21:32)
[2018-07-27 14:45] VITALS: BP 132/67
[2018-07-27] MEDS ORDERED: oxyCODONE 5MG TAB PO PRN (14:45)
[2018-07-27] MEDS ORDERED: diphenhydrAMINE 25 MG CAP PO ONE (15:00)
[2018-07-27] MEDS ORDERED: ACETAMINOPHEN TAB 650MG DOSE (2X325MG) PO ONE (15:00)
[2018-07-27] MEDS ORDERED: FUROSEMIDE 20 MG/2 ML VIAL (J1940) IV ONE (15:00)
[2018-07-27] MEDS: GABAPENTIN 300 MG CAP PO SCH ×2 (15:48→21:33)
--- NOTE | 2018-07-27 16:38 | IPNPDOC ---
PM&R Progress Note DATE OF SERVICE: Jul 27, 2018 Imagery Analyst Progress Note Subjective: Patient seen in the gym working on trunk control and upper body strengthening, stating she was highly anxious because hse thinks she is regressing, however acknowledges she was not asked to do much therapy during her recent hospital stay. REVIEW OF SYSTEMS: The following is a completed review of systems and has been reviewed. Review of systems otherwise unremarkable. PAIN: Patient self reports back pain and spasms EYES: no recent vision changes EARS, NOSE, & THROAT: no throat pain, or dysphagia, or rhinorrhea CARDIOVASCULAR: denies chest pain or palpitations PULMONARY: Negative. Denies shortness of breath GASTROINTESTINAL: +constipation GENITOURINARY: +incontinence MUSCULOSKELETAL: bilat LE weakness NEUROLOGICAL: +spinal cord injury and right foot drop HEMATOLOGICAL: +anemia SKIN: thoraco-lumbar incision PSYCHIATRIC:Unremarkable All other review of systems found to be negative. PHYSICAL EXAMINATION: VITAL SIGNS: Please see below. GENERAL: Pleasant and cooperative. No acute distress. Pale HEENT: PERRL. Extraocular movements intact. Clear conjunctiva]. CARDIOVASCULAR: Regular rate and rhythm. No murmurs, rubs, or gallops LUNGS: Clear to auscultation bilaterally. No wheezes. No rhonchi ABDOMEN: Soft, nontender, mildly-distended. Positive bowel sounds. Normal active bowel sounds NEUROLOGICAL: Alert and oriented times three. Cranial nerves II through XII grossly intact. Sensation grossly intact in bilateral LE and sacral area, dimin ished along lower thoracic dermatome on the left and neat her thoroco-lumbar incision (will defer SCI VANESSA exam for now) EXTREMITIES: 5\5 strength bilateral upper extremities. 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 PLAN: 1. Rehab: OT, PT, assess for DMEs- patient with severe deconditioning due to extended hospital stay at [facility] with new spinal cord lesion, will require intensive and more prolonged therapy- working on sitting tolerance, difficulty bearing weight limited primarily by anxiety and some pain 2. 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 Cardio: pmh HTn and HLD, c/u home meds, c/u low dose lasix, per patient she does not have CHF, but sometimes her legs swell, will monitor- medicine consulted 4. Resp: pmh LIZ, will encourage CPAP at night, incentive spirometry 5. : neurogenic bladder- maintain Goodrich 6. GI ppx: protonix, optimize bowel meds for neurogenic bowel 7. DVT ppx: Lovenox 8. Endo: pm DM, insulin and ISS, monitor and adjust 9. Pain: patient with considerable pain, c/u oxycodone short acting 5mg QID and long acting Oxycontin 10mg BID, c/u standing Tylenol and baclofen for muscle spams, will increase Neurontin and mattress overlay 10. Skin: Zinc oxide to sacrum and monitor for skin breakdown, patient able to turn herself in bed 11. Heme: anemia with Hgb 7.9 07/26/18, patient reporting fatigue and feeling cold- will transfuse 2 units today 11. Dispo: 08/07/18 to home if can progress more quickly in therapy Allergies Coded Allergies: Penicillins (Verified Allergy, Intermediate, RASH/HIVES, 07/23/18) Sulfa (Sulfonamide Antibiotics) (Verified Allergy, Intermediate, REDNESS/SWELLING, 07/23/18) sulindac (Verified Adverse Reaction, Intermediate, COLITIS, 07/23/18) Vital Signs Vital Signs Date Time Temp Pulse Resp B/P (MAP) Pulse Ox O2 Delivery O2 Flow Rate FiO2 07/27/18 14:45 99.2 94 18 132/67 (88) 97 Laboratory Data CBC/BMP Laboratory Tests 07/27/18 05:55 Red Blood Count 2.89 L, Mean Corpuscular Volume 88.2, Mean Corpuscular Hemoglobin 27.3, Mean Corpuscular Hemoglobin Concent 31.0 L, Red Cell Distribution Width 14.3, Neutrophils (%) (Auto) 74.0 H, Lymphocytes (%) (Auto) 13.1 L, Monocytes (%) (Auto) 5.7 H, Eosinophils (%) (Auto) 6.0 H, Basophils (%) (Auto) 0.4, Neutrophils # (Auto) 5.7, Lymphocytes # (Auto) 1.0 L, Monocytes # (Auto) 0.4, Eosinophils # (Auto) 0.5, Basophils # (Auto) 0.0, Calcium Level 8.6 L Labs 24H Laboratory Tests 2 07/26/18 16:40: Bedside Glucose (Misc Panel) 226H 07/26/18 20:02: Bedside Glucose (Misc Panel) 267H 07/27/18 05:55: Immature Granulocyte % (Auto) 0.8, White Blood Count 7.7, Red Blood Count 2.89L, Hemoglobin 7.9L, Hematocrit 25.5L, Mean Corpuscular Volume 88.2, Mean Corpuscular Hemoglobin 27.3, Mean Corpuscular Hemoglobin Concent 31.0L, Red Cell Distribution Width 14.3, Platelet Count 267, Neutrophils (%) (Auto) 74.0H, Lymphocytes (%) (Auto) 13.1L, Monocytes (%) (Auto) 5.7H, Eosinophils (%) (Auto) 6.0H, Basophils (%) (Auto) 0.4, Neutrophils # (Auto) 5.7, Lymphocytes # (Auto) 1.0L, Monocytes # (Auto) 0.4, Eosinophils # (Auto) 0.5, Basophils # (Auto) 0.0, Nucleated Red Blood Cells % (auto) 0.0, Anion Gap 6L, Glomerular Filtration Rate > 60.0, Blood Urea Nitrogen 15, Creatinine 0.71, Sodium Level 135L, Potassium Level 4.8, Chloride Level 98, Carbon Dioxide Level 31, Calcium Level 8.6L 07/27/18 12:09: Bedside Glucose (Misc Panel) 225H Current Medications Current Medications Current Medications Acetaminophen (Tylenol Tab) 650 mg Q4HP PRN PO MILD PAIN (PS 1-4) Last administered on 07/24/18 04:57; Start 07/23/18 at 15:30; Stop 07/24/18 at 12:23; Status DC Acetaminophen (Tylenol Tab) 1,000 mg TID PO Last administered on 07/27/18 15:48; Start 07/24/18 at 16:00 Al Hydrox/Mg Hydrox/Simethicone (Mylanta) 30 ml Q4HP PRN PO DYSPEPSIA; Start 07/23/18 at 15:30 Aspirin (Aspirin Chewable) 81 mg DAILY PO Last administered on 07/27/18 08:58; Start 07/24/18 at 09:00 Baclofen (Lioresal) 5 mg TID PO Last administered on 07/27/18 15:48; Start 07/24/18 at 16:00 Baclofen (Lioresal) 5 mg TID PRN PO spasm Last administered on 07/23/18 18:46; Start 07/23/18 at 17:30; Stop 07/24/18 at 12:21; Status DC Bisacodyl (Dulcolax Suppository) 10 mg DAILY TN ; Start 07/23/18 at 19:00 Calcium/Vitamin D (Oscal D) 500 mg DAILY PO Last administered on 07/27/18 08:58; Start 07/24/18 at 09:00 Dextrose (Dextrose 50%) 25 ml ASDIRECTED PRN IV SEE LABEL COMMENTS; Start 07/23/18 at 15:45 Docusate Sodium (Colace) 100 mg BID PO ; Start 07/23/18 at 21:00; Stop 07/23/18 at 21:00; Status DC Docusate Sodium (Colace) 100 mg TID PO Last administered on 07/27/18 15:48; Start 07/23/18 at 21:00 Enoxaparin Sodium (Lovenox) 40 mg DAILY SC Last administered on 07/27/18 08:57; Start 07/24/18 at 09:00 Ferrous Gluconate (Fergon) 324 mg BID PO Last administered on 07/27/18 08:57; Start 07/23/18 at 21:00 Furosemide (Lasix) 20 mg DAILY PO Last administered on 07/27/18at 08:59; Start 07/24/18 at 09:00 Gabapentin (Neurontin) 400 mg TID PO Last administered on 07/27/18at 09:00; Start 07/23/18 at 16:00; Stop 07/27/18 at 14:44; Status DC Gabapentin (Neurontin) 600 mg TID PO Last administered on 07/27/18at 15:48; Start 07/27/18 at 16:00 Glucagon (Glucagon) 1 mg ASDIRECTED PRN SC SEE LABEL COMMENTS; Start 07/23/18 at 15:45 Glucose (Glucose) 16 GM ASDIRECTED PRN PO SEE LABEL COMMENTS; Start 07/23/18 at 15:45 Home Med (Med Rec Complete!) ASDIRECTED XX ; Start 07/23/18 at 12:45; Stop 07/23/18 at 12:46; Status DC Insulin Detemir (Levemir Insulin) 5 units QHS SC Last administered on 07/26/18at 21:11; Start 07/23/18 at 21:00; Stop 07/27/18 at 09:55; Status DC Insulin Detemir (Levemir Insulin) 10 units QHS SC ; Start 07/27/18 at 21:00; S top 07/27/18 at 21:00; Status DC Insulin Detemir (Levemir Insulin) 12 units QHS SC ; Start 07/27/18 at 21:00; Stop 07/27/18 at 21:00; Status DC Insulin Detemir (Levemir Insulin) 15 units QHS SC ; Start 07/27/18 at 21:00 Insulin Human Lispro (HumaLOG INSULIN) SEE PROTOCOL TABLE AC SC Last administe red on 07/27/18at 12:28; Start 07/23/18 at 17:30 Insulin Human Lispro (HumaLOG INSULIN) SEE PROTOCOL TABLE QHS SC Last administered on 07/26/18at 21:10; Start 07/23/18 at 21:00 Lactobacillus Acidophilus (Bacid) 1 ea TID PO Last administered on 07/27/18at 15:52; Start 07/23/18 at 16:00 Linezolid (Zyvox) 600 mg DAILY PO Last administered on 07/27/18 08:59; Start 07/24/18 at 09:00 Lisinopril (Prinivil) 2.5 mg DAILY PO Last administered on 07/27/18 08:57; Start 07/24/18 at 09:00 Magnesium Hydroxide (Milk Of Magnesia) 30 ml DAILYPRN PRN PO CONSTIPATION Last administered on 07/23/18 17:51; Start 07/23/18 at 15:30 Magnesium Oxide (Mag-Ox) 400 mg DAILY PO Last administered on 07/27/18 08:58; Start 07/24/18 at 09:00 Metoprolol Succinate (TopROL XL) 50 mg DAILY PO Last administered on 07/27/18 08:59; Start 07/24/18 at 09:00 Miscellaneous (Unresolved Patient Own Med Order) SEE LABEL COMMENTS DAILY XX ; Start 07/23/18 at 09:00; Stop 07/24/18 at 12:53; Status DC Nitroglycerin (Nitrostat (1/ 150)) 0.4 mg Q5MP PRN SL CHEST PAIN; Start 07/23/18 at 15:30 Oxycodone HCl (OxyCONTIN) 10 mg BID PO Last administered on 07/27/18 08:59; Start 07/24/18 at 09:00 Oxycodone HCl (Roxicodone, Oxyir) 5 mg 0800,1300,1700,2100 PO ; Start 07/27/18 at 17:00 Oxycodone HCl (Roxicodone, Oxyir) 5 mg Q4HP PRN PO PAIN Last administered on 07/24/18 10:15; Start 07/23/18 at 15:30; Stop 07/24/18 at 12:21; Status DC Oxycodone HCl (Roxicodone, Oxyir) 5 mg QHS PRN PO pain; Start 07/27/18 at 14:45 Oxycodone HCl (Roxicodone, Oxyir) 5 mg QID PO Last administered on 07/27/18 12:28; Start 07/24/18 at 13:00; Stop 07/27/18 at 14:25; Status DC Oxycodone HCl (Roxicodone, Oxyir) 10 mg Q4HP PRN PO SEVERE PAIN (PS 8-10) Last administered on 07/23/18 18:47; Start 07/23/18 at 17:30; Stop 07/24/18 at 12:21; Status DC Pantoprazole Sodium (Protonix) 40 mg DAILY PO Last administered on 07/27/18 08:58; Start 07/24/18 at 09:00 Patient Own Medication (Patient'S Own Med) 30MG = 2 TABS TID PO Last administered on 07/27/18 15:49; Start 07/24/18 at 16:00 Senna (Senokot) 2 tab DAILY PO Last administered on 07/27/18 08:59; Start at 09:00 Vitamin D (Vitamin D) 2,000 units DAILY PO Last administered on 07/27/18 08:58; Start 07/24/18 at 09:00 ANGELITA HOBBS MD Jul 27, 2018 16:38
--- NOTE | 2018-07-27 16:39 | IPNPDOC ---
Subjective Date Seen The patient was seen on 07/27/18. Subjective Chief Complaint/HPI Complains of severe sharp back pain since this morning and unable to move even from side to side. SHe says that she feels she is going back wards instead of improving. No fever or chills. Also complains of headache but this was a little better compared to in the morning Objective Physical Examination General Exam: Positive: Alert, Cooperative, No Acute Distress Eye Exam: Positive: PERRLA, Conjunctiva & lids normal, EOMI; Negative: Sclera icteric ENT Exam: Positive: Atraumatic, Pharynx Normal, Other ENT (pale ) Neck Exam: Positive: Supple; Negative: JVD, thyromegaly Chest Exam: Positive: Clear to auscultation, Normal air movement Heart Exam: Positive: Rate Normal, Regular Rhythm, Normal S1, Normal S2; Negative: Murmurs, Rubs Abdomen Exam: Positive: Normal bowel sounds, Soft, Tenderness (generalized, no guarding , rigidity or rebound. 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 Hospitalist service has been consulted for the management of medical comorbidities. Cordoma at T12-L1 level. s/p surgery at [facility] with multiple post surgical complications including infection, spinal fluid leak Incomplete spinal cord injury due to recurring T12/L1 chordoma s/p debulking at [facility] 06/19/18 complicated by CSF leak Chronic suppressive prophylaxis with Linezolid for hx of hardware infections to be continued for life. Neurogenic bladder Neurogenic bowel Right foot drop PT and OT as per Dr Jacinto pain control with oxycodone,gabapentin, baclofen for muscle spasms. Adjustment is being done by Dr Jacinto. Diabetes with neuropathy Levemir and lispro as per sliding scale gabapentin FS Ac and HS CAD with stents continue Metoprolol, ASA H/o Hyponatremia in [facility] now sodium normal continue lasix. Hypertension Metoprolol and lisinopril CHF lasix and lisinopril Anemia ferrous gluconate. Plan/VTE VTE Prophylaxis Ordered?: Yes Plan/Urinary Catheter Reason for insertion/continuin: Acute obstruct/retention VS, I&O, 24H, Fishbone Vital Signs/I&O Vital Signs Date Time Temp Pulse Resp B/P (MAP) Pulse Ox O2 Delivery O2 Flow Rate FiO2 07/27/18 14:45 99.2 94 18 132/67 (88) 97 I&O- Last 24 Hours up to 6 AM 07/27/18 06:00 Intake Total 1920 ml Output Total 3200 ml Balance -1280 ml Laboratory Data 24H LABS Laboratory Tests 2 07/26/18 16:40: Bedside Glucose (Misc Panel) 226H 07/26/18 20:02: Bedside Glucose (Misc Panel) 267H 07/27/18 05:55: Immature Granulocyte % (Auto) 0.8, White Blood Count 7.7, Red Blood Count 2.89L, Hemoglobin 7.9L, Hematocrit 25.5L, Mean Corpuscular Volume 88.2, Mean Corpuscular Hemoglobin 27.3, Mean Corpuscular Hemoglobin Concent 31.0L, Red Cell Distribution Width 14.3, Platelet Count 267, Neutrophils (%) (Auto) 74.0H, Lymphocytes (%) (Auto) 13.1L, Monocytes (%) (Auto) 5.7H, Eosinophils (%) (Auto) 6.0H, Basophils (%) (Auto) 0.4, Neutrophils # (Auto) 5.7, Lymphocytes # (Auto) 1.0L, Monocytes # (Auto) 0.4, Eosinophils # (Auto) 0.5, Basophils # (Auto) 0.0, Nucleated Red Blood Cells % (auto) 0.0, Anion Gap 6L, Glomerular Filtration Rate > 60.0, Blood Urea Nitrogen 15, Creatinine 0.71, Sodium Level 135L, Potassium Level 4.8, Chloride Level 98, Carbon Dioxide Level 31, Calcium Level 8.6L 07/27/18 12:09: Bedside Glucose (Misc Panel) 225H CBC/BMP Laboratory Tests 07/27/18 05:55 Red Blood Count 2.89 L, Mean Corpuscular Volume 88.2, Mean Corpuscular Hemoglobin 27.3, Mean Corpuscular Hemoglobin Concent 31.0 L, Red Cell Distribution Width 14.3, Neutrophils (%) (Auto) 74.0 H, Lymphocytes (%) (Auto) 13.1 L, Monocytes (%) (Auto) 5.7 H, Eosinophils (%) (Auto) 6.0 H, Basophils (%) (Auto) 0.4, Neutrophils # (Auto) 5.7, Lymphocytes # (Auto) 1.0 L, Monocytes # (Auto) 0.4, Eosinophils # (Auto) 0.5, Basophils # (Auto) 0.0, Calcium Level 8.6 L ANABELL CHAN MD Jul 27, 2018 16:39
[2018-07-27] MEDS ORDERED: oxyCODONE 5MG TAB PO SCH (17:00)
[2018-07-27 20:00] VITALS: BP 140/70
[2018-07-27] MEDS ORDERED: NS 500 ML IV ONE (20:00)
[2018-07-27] MEDS ORDERED: LEVEMIR (INSULIN DETEMIR) 1 UNITS/0.01ML SC SCH ×3 (21:00)
[2018-07-28 00:47] VITALS: BP 102/50
[2018-07-28] MEDS ORDERED: ACETAMINOPHEN TAB 650MG DOSE (2X325MG) PO ONE (03:00)
[2018-07-28] MEDS ORDERED: diphenhydrAMINE 25 MG CAP PO ONE ×2 (03:00)
[2018-07-28 04:15] VITALS: BP 122/58
[2018-07-28 04:25] VITALS: BP 116/58
[2018-07-28 06:14] VITALS: BP 136/64
[2018-07-28] MEDS ORDERED: oxyCODONE 5MG TAB PO ONE (07:45)
[2018-07-28] MEDS: HumaLOG INSULIN (NovoLOG) PER UNIT SC SCH ×2 (07:56→13:21)
[2018-07-28] MEDS ORDERED: oxyCODONE 5MG TAB PO PRN (08:00)
--- NOTE | 2018-07-28 08:47 | IPNPDOC ---
Date Seen The patient was seen on 07/28/18. Progress Note Subjective RN called regarding severe back pain 8/10 pain scale sharp radiating down back. pt c/o severe headache 10/10 for the past 2 days with photophobia, neck stiffness and unable to touch chin to chest with difficulty. no fever chills or white count, nausea or vomiting. Per Neurology transitions rn care coordinator, try depakote ER 500 mg bid, mri/mra brain. try checking orthostatics if possible. Objective Physical Examination General Exam: Positive: Alert, Cooperative, No Acute Distress Eye Exam: Positive: PERRLA, Conjunctiva & lids normal, EOMI; Negative: Sclera icteric ENT Exam: Positive: Atraumatic, Pharynx Normal, Other ENT (pale ) Neck Exam: Positive: Supple; Negative: JVD, thyromegaly Chest Exam: Positive: Clear to auscultation, Normal air movement Heart Exam: Positive: Rate Normal, Regular Rhythm, Normal S1, Normal S2; Negative: Murmurs, Rubs Abdomen Exam: Positive: Normal bowel sounds, Soft, Tenderness (generalized, no guarding , rigidity or rebound. 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 Hospitalist service has been consulted for the management of medical comorbidities. Headache DDX: meningitis, post-LP headache, rebound h/a neurology consulted and recommended:depakote ER 500 mg bid, mri/mra brain. try checking orthostatics if possible. Cordoma at T12-L1 level. s/p surgery at [facility] with multiple post surgical complications including infection, spinal fluid leak Incomplete spinal cord injury due to recurring T12/L1 chordoma s/p debulking at [facility] 06/19/18 complicated by CSF leak Chronic suppressive prophylaxis with Linezolid for hx of hardware infections to be continued for life. Neurogenic bladder Neurogenic bowel Right foot drop PT and OT as per Dr Jacinto pain control with oxycodone,gabapentin, baclofen for muscle spasms. Adjustment is being done by Dr Jacinto. Diabetes with neuropathy Levemir and lispro as per sliding scale gabapentin FS Ac and HS CAD with stents continue Metoprolol, ASA H/o Hyponatremia in [facility] now sodium normal continue lasix. Hypertension Metoprolol and lisinopril CHF lasix and lisinopril Anemia ferrous gluconate. Plan/VTE VTE Prophylaxis Ordered?: Yes Plan/Urinary Catheter Reason for insertion/continuin: Acute obstruct/retention VS, I&O, 24H, Fishbone Vital Signs/I&O Vital Signs Date Time Temp Pulse Resp B/P (MAP) Pulse Ox O2 Delivery O2 Flow Rate FiO2 07/28/18 06:14 97.6 70 18 136/64 (88) 93 I&O- Last 24 Hours up to 6 AM 07/28/18 06:00 Intake Total 2380 ml Output Total 4050 ml Balance -1670 ml Laboratory Data 24H LABS Laboratory Tests 2 07/27/18 12:09: Bedside Glucose (Misc Panel) 225H 07/27/18 16:53: Bedside Glucose (Misc Panel) 279H 07/27/18 19:13: Urine Color YELLOW, Urine Appearance HAZY, Urine pH 5.0, Urine Specific Boles 1.015, Urine Protein NEGATIVE, Urine Glucose (UA) NEGATIVE, Urine Ketones NEGATIVE, Urine Blood 2+H, Urine Nitrite POSITIVEH, Urine Bilirubin NEGATIVE, Urine Urobilinogen 0.2, Urine Leukocyte Esterase 2+H, Urine WBC (Auto) 34H, Urine RBC (Auto) 25H, Urine Hyaline Casts (Auto) 1, Urine Bacteria (Auto) 3+H, Urine Squamous Epithelial Cells 0, Urine Sperm (Auto) 07/27/18 21:12: Bedside Glucose (Misc Panel) 323H 07/28/18 06:20: Bedside Glucose (Misc Panel) 256H Microbiology Microbiology 07/27/18 Blood Culture, Received Pending 07/27/18 Blood Culture, Received Pending 07/27/18 Urine Culture, Received Pending GEMA GARZON MD Jul 28, 2018 07:32
[2018-07-28] MEDS ORDERED: DIVALPROEX 500MG *ER* TAB PO SCH (09:00)
[2018-07-28] MEDS: SENNA 8.6 MG TAB (SENOKOT) PO SCH (09:03)
[2018-07-28] MEDS: VITAMIN D 1,000 INTERNATIONAL UNITS TABLET PO SCH (09:03)
[2018-07-28] MEDS: DOCUSATE SODIUM 100 MG CAP PO SCH (09:03)
[2018-07-28] MEDS: ASPIRIN 81 MG CHEW TABLET PO SCH (09:03)
[2018-07-28] MEDS: LISINOPRIL *2.5 MG* TAB PO SCH (09:04)
[2018-07-28] MEDS: LACTOBACILLUS ACIDOPHILUS CAP (BACID) PO SCH ×2 (09:04→15:18)
[2018-07-28] MEDS: FERROUS GLUCONATE 324 MG TAB PO SCH (09:05)
[2018-07-28] MEDS: GABAPENTIN 300 MG CAP PO SCH ×2 (09:05→15:19)
[2018-07-28] MEDS: ACETAMINOPHEN 500 MG TAB PO SCH ×2 (09:05→15:19)
[2018-07-28] MEDS: CALCIUM/VITAMIN D 500 MG TAB PO SCH (09:05)
[2018-07-28] MEDS: MAGNESIUM OXIDE 400 MG TAB (MAG-OX) PO SCH (09:05)
[2018-07-28] MEDS: LINEZOLID 600MG TABLET (ZYVOX) PO SCH (09:05)
[2018-07-28] MEDS: PANTOPRAZOLE 40MG TAB (PROTONIX) PO SCH (09:05)
[2018-07-28 09:06] VITALS: BP 156/68
[2018-07-28] MEDS: BISACODYL 10 MG SUPP PR SCH (09:06)
[2018-07-28] MEDS: ENOXAPARIN 40 MG/0.4 ML SYRINGE (J1650) SC SCH (09:06)
[2018-07-28] MEDS: METOPROLOL SUCC (TopROL XL) 50MG **XL** TAB PO SCH (09:06)
[2018-07-28] MEDS: oxyCODONE 10 MG CR TAB PO SCH (09:07)
[2018-07-28] MEDS: PHENELZINE 15 MG PO SCH (09:08)
[2018-07-28 09:55] LABS: BASO % 0.1 % (0.0-1.0); EOS # 0.1 10^3/uL (0.0-0.50); EOS % 0.6 % (0.0-3.0); HEMATOCRIT 30.3 % (36.0-47.0); HEMOGLOBIN 9.8 g/dl (12.0-15.5); LYMPH # 0.9 10^3/uL (1.5-4.5); LYMPH % 7.6 % (24.0-44.0); MEAN CORPUSCULAR HEMOGLOBIN 28.3 pg (27.0-33.0); MEAN CORPUSCULAR HGB CONC 32.3 g/dl (32.0-36.5); MEAN CORPUSCULAR VOLUME 87.6 fl (80.0-96.0); MONO # 0.5 10^3/uL (0.0-0.8); MONO % 4.2 % (0.0-5.0); NEUTROPHILS # 9.7 10^3/uL (1.8-7.7); NEUTROPHILS % 86.8 % (36.0-66.0); PLATELET COUNT, AUTOMATED 276 10^3/uL (150-450); RED BLOOD COUNT 3.46 10^6/uL (4.00-5.40); WHITE BLOOD COUNT 11.2 10^3/uL (4.0-10.0)
[2018-07-28 10:21] LABS: BLOOD UREA NITROGEN 13 MG/DL (7-18); CALCIUM LEVEL 8.7 MG/DL (8.8-10.2); CARBON DIOXIDE LEVEL 30 MEQ/L (21-32); CHLORIDE LEVEL 95 MEQ/L (98-107); CREATININE FOR GFR 0.78 MG/DL (0.55-1.30); GLOMERULAR FILTRATION RATE > 60.0 (>45); GLUCOSE, FASTING 248 MG/DL (70-100); POTASSIUM SERUM 4.1 MEQ/L (3.5-5.1); SODIUM LEVEL 132 MEQ/L (136-145)
[2018-07-28 10:33] LABS: ERYTHROCYTE SEDIMENTATION RATE > 140 mm/hr (0-30)
--- NOTE | 2018-07-28 11:43 | IPNPDOC ---
PM&R Progress Note DATE OF SERVICE: Jul 28, 2018 Emergency Technician Progress Note Subjective: Patient seen in her room reporting her headache is not better since receiving blood and that he neck feels stiff with photophobia. REVIEW OF SYSTEMS: The following is a completed review of systems and has been reviewed. Review of systems otherwise unremarkable. PAIN: Patient self reports back pain and spasms EYES: no recent vision changes EARS, NOSE, & THROAT: no throat pain, or dysphagia, or rhinorrhea CARDIOVASCULAR: denies chest pain or palpitations PULMONARY: Negative. Denies shortness of breath GASTROINTESTINAL: +constipation GENITOURINARY: +incontinence MUSCULOSKELETAL: bilat LE weakness NEUROLOGICAL: +spinal cord injury and right foot drop HEMATOLOGICAL: +anemia SKIN: thoraco-lumbar incision PSYCHIATRIC:Unremarkable All other review of systems found to be negative. PHYSICAL EXAMINATION: VITAL SIGNS: Please see below. GENERAL: Pleasant and cooperative. No acute distress. Pale HEENT: PERRL. Extraocular movements intact. Clear conjunctiva]. CARDIOVASCULAR: Regular rate and rhythm. No murmurs, rubs, or gallops LUNGS: Clear to auscultation bilaterally. No wheezes. No rhonchi ABDOMEN: Soft, nontender, mildly-distended. Positive bowel sounds. Normal active bowel sounds NEUROLOGICAL: Alert and oriented times three. Cranial nerves II through XII grossly intact. Sensation grossly intact in bilateral LE and sacral area, diminished along lower thoracic dermatome on the left and neat her thoraco- lumbar incision (will defer SCI VANESSA exam for now) +Brudzinksi sign EXTREMITIES: 5\5 strength bilateral upper extremities. 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 PLAN: 1. Rehab: OT, PT, assess for DMEs- patient with severe deconditioning due to extended hospital stay at [facility] with new spinal cord lesion, will require intensive and more prolonged therapy- working on sitting tolerance, difficulty bearing weight limited primarily by anxiety and some pain 2. 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 Cardio: pmh HTn and HLD, c/u home meds, c/u low dose lasix, per patient she does not have CHF, but sometimes her legs swell, will monitor- medicine consulted 4. Resp: pmh LIZ, will encourage CPAP at night, incentive spirometry 5. : neurogenic bladder- maintain Goodrich 6. GI ppx: protonix, optimize bowel meds for neurogenic bowel 7. DVT ppx: Lovenox 8. Endo: pm DM, insulin and ISS, monitor and adjust 9. Pain: patient with considerable pain, c/u oxycodone short acting 5mg and long acting Oxycontin 10mg BID, c/u standing Tylenol and baclofen for muscle spams, will increase Neurontin and mattress overlay 10. Skin: Zinc oxide to sacrum and monitor for skin breakdown, patient able to turn herself in bed 11. Heme: anemia with Hgb 7.9 07/26/18, patient reporting fatigue and feeling cold- s/p transfusion 2 units rbc- today Hgb 9.8 12. ID: Patient complaining of nuchal rigidity that began yesterday and photophobia that began last night- ESR/CRP elevated, +leukocytosis, per [facility] records had a Klebsiella positive LP 06/29/18 which was treated with Ceftriaxone 07/02/18 to 07/14/18, this admission UA and blood cultures ordered yesterday, will start Ceftriaxone as and discharge to hospitalist service for concern for bacterial meningitis- LP also ordered today, will alert Dr. James, neurology aware- Dr. Teixeira's recs appreciated 11. Dispo: if possible will transfer back to [facility] for possible orthopedic intervention Allergies Coded Allergies: Penicillins (Verified Allergy, Intermediate, RASH/HIVES, 07/23/18) Sulfa (Sulfonamide Antibiotics) (Verified Allergy, Intermediate, REDN ESS/SWELLING, 07/23/18) sulindac (Verified Adverse Reaction, Intermediate, COLITIS, 07/23/18) Vital Signs Vital Signs Date Time Temp Pulse Resp B/P (MAP) Pulse Ox O2 Delivery O2 Flow Rate FiO2 07/28/18 09:07 18 07/28/18 09:06 81 156/68 07/28/18 06:14 97.6 93 Laboratory Data CBC/BMP Laboratory Tests 07/28/18 09:40 Red Blood Count 3.46 L, Mean Corpuscular Volume 87.6, Mean Corpuscular Hemog lobin 28.3, Mean Corpuscular Hemoglobin Concent 32.3, Red Cell Distribution Width 14.5, Neutrophils (%) (Auto) 86.8 H, Lymphocytes (%) (Auto) 7.6 L, Monocytes (%) (Auto) 4.2, Eosinophils (%) (Auto) 0.6, Basophils (%) (Auto) 0.1, Neutrophils # (Auto) 9.7 H, Lymphocytes # (Auto) 0.9 L, Monocytes # (Auto) 0.5, Eosinophils # (Auto) 0.1, Basophils # (Auto) 0.0, Calcium Level 8.7 L Labs 24H Laboratory Tests 2 07/27/18 12:09: Bedside Glucose (Misc Panel) 225H 07/27/18 16:53: Bedside Glucose (Misc Panel) 279H 07/27/18 19:13: Urine Color YELLOW, Urine Appearance HAZY, Urine pH 5.0, Urine Specific [place] 1.015, Urine Protein NEGATIVE, Urine Glucose (UA) NEGATIVE, Urine Ketones NEGATIVE, Urine Blood 2+H, Urine Nitrite POSITIVEH, Urine Bilirubin NEGATIVE, Urine Urobilinogen 0.2, Urine Leukocyte Esterase 2+H, Urine WBC (Auto) 34H, Urine RBC (Auto) 25H, Urine Hyaline Casts (Auto) 1, Urine Bacteria (Auto) 3+H, Urine Squamous Epithelial Cells 0, Urine Sperm (Auto) 07/27/18 21:12: Bedside Glucose (Misc Panel) 323H 07/28/18 06:20: Bedside Glucose (Misc Panel) 256H 07/28/18 09:40: Immature Granulocyte % (Auto) 0.7, White Blood Count 11.2H, Red Blood Count 3.46L, Hemoglobin 9.8L, Hematocrit 30.3L, Mean Corpuscular Volume 87.6, Mean Corpuscular Hemoglobin 28.3, Mean Corpuscular Hemoglobin Concent 32.3, Red Cell Distribution Width 14.5, Platelet Count 276, Neutrophils (%) (Auto) 86.8H, Lymphocytes (%) (Auto) 7.6L, Monocytes (%) (Auto) 4.2, Eosinophils (%) (Auto) 0.6, Basophils (%) (Auto) 0.1, Neutrophils # (Auto) 9.7H, Lymphocytes # (Auto) 0.9L, Monocytes # (Auto) 0.5, Eosinophils # (Auto) 0.1, Basophils # (Auto) 0.0, Nucleated Red Blood Cells % (auto) 0.0, Erythrocyte Sedimentation Rate > 140H, Anion Gap 7L, Glomerular Filtration Rate > 60.0, Blood Urea Nitrogen 13, Creatinine 0.78, Sodium Level 132L, Potassium Level 4.1, Chloride Level 95L, Ca rbon Dioxide Level 30, Calcium Level 8.7L, C-Reactive Protein, Quantitative 13.30H Microbiology Microbiology 07/27/18 Blood Culture, Received Pending 07/27/18 Blood Culture, Received Pending 07/27/18 Urine Culture, Received Pending Current Medications Current Medications Current Medications Acetaminophen (Tylenol Tab) 650 mg Q4HP PRN PO MILD PAIN (PS 1-4) Last administered on 07/24/18at 04:57; Start 07/23/18 at 15:30; Stop 07/24/18 at 12:23; Status DC Acetaminophen (Tylenol Tab) 1,000 mg TID PO Last administered on 07/28/18at 09:05; Start 07/24/18 at 16:00 Al Hydrox/Mg Hydrox/Simethicone (Mylanta) 30 ml Q4HP PRN PO DYSPEPSIA; Start 07/23/18 at 15:30 Aspirin (Aspirin Chewable) 81 mg DAILY PO Last administered on 07/28/18at 09:03; Start 07/24/18 at 09:00 Baclofen (Lioresal) 5 mg TID PO Last administered on 07/27/18at 15:48; Start 07/24/18 at 16:00 Baclofen (Lioresal) 5 mg TID PRN PO spasm Last administered on 07/23/18at 18:46; Start 07/23/18 at 17:30; Stop 07/24/18 at 12:21; Status DC Bisacodyl (Dulcolax Suppository) 10 mg DAILY OK Last administered on 07/28/18at 09:06; Start 07/23/18 at 19:00 Calcium/Vitamin D (Oscal D) 500 mg DAILY PO Last administered on 07/28/18 09:05; Start 07/24/18 at 09:00 Dextrose (Dextrose 50%) 25 ml ASDIRECTED PRN IV SEE LABEL COMMENTS; Start 07/23/18 at 15:45 Divalproex Sodium (Depakote Er) 500 mg BID PO ; Start 07/28/18 at 09:00 Docusate Sodium (Colace) 100 mg BID PO ; Start 07/23/18 at 21:00; Stop 07/23/18 at 21:00; Status DC Docusate Sodium (Colace) 100 mg TID PO Last administered on 07/28/18at 09:03; Start 07/23/18 at 21:00 Enoxaparin Sodium (Lovenox) 40 mg DAILY SC Last administered on 07/28/18at 09:06; Start 07/24/18 at 09:00 Ferrous Gluconate (Fergon) 324 mg BID PO Last administered on 07/28/18 09:05; Start 07/23/18 at 21:00 Furosemide (Lasix) 20 mg DAILY PO Last administered on 07/27/18at 08:59; Start 07/24/18 at 09:00; Status Future hold Gabapentin (Neurontin) 400 mg TID PO Last administered on 07/27/18at 09:00; S tart 07/23/18 at 16:00; Stop 07/27/18 at 14:44; Status DC Gabapentin (Neurontin) 600 mg TID PO Last administered on 07/28/18at 09:05; Start 07/27/18 at 16:00 Glucagon (Glucagon) 1 mg ASDIRECTED PRN SC SEE LABEL COMMENTS; Start 07/23/18 at 15:45 Glucose (Glucose) 16 GM ASDIRECTED PRN PO SEE LABEL COMMENTS; Start 07/23/18 at 15:45 Home Med (Med Rec Complete!) ASDIRECTED XX ; Start 07/23/18 at 12:45; Stop 07/23/18 at 12:46; Status DC Insulin Detemir (Levemir Insulin) 5 units QHS SC Last administered on 07/26/18at 21:11; Start 07/23/18 at 21:00; Stop 07/27/18 at 09:55; Status DC Insulin Detemir (Levemir Insulin) 10 units QHS SC ; Start 07/27/18 at 21:00; Stop 07/27/18 at 21:00; Status DC Insulin Detemir (Levemir Insulin) 12 units QHS SC ; Start 07/27/18 at 21:00; Stop 07/27/18 at 21:00; Status DC Insulin Detemir (Levemir Insulin) 15 units QHS SC Last administered on 07/27/18at 21:31; Start 07/27/18 at 21:00 Insulin Human Lispro (HumaLOG INSULIN) SEE PROTOCOL TABLE AC SC Last administered on 07/28/18at 07:56; Start 07/23/18 at 17:30 Insulin Human Lispro (HumaLOG INSULIN) SEE PROTOCOL TABLE QHS SC Last administered on 07/27/18at 21:31; Start 07/23/18 at 21:00 Lactobacillus Acidophilus (Bacid) 1 ea TID PO Last administered on 07/28/18at 09:04; Start 07/23/18 at 16:00 Linezolid (Zyvox) 600 mg DAILY PO Last administered on 07/28/18at 09:05; Start 07/24/18 at 09:00 Lisinopril (Prinivil) 2.5 mg DAILY PO Last administered on 07/28/18at 09:04; Start 07/24/18 at 09:00 Magnesium Hydroxide (Milk Of Magnesia) 30 ml DAILYPRN PRN PO CONSTIPATION Last administered on 07/23/18at 17:51; Start 07/23/18 at 15:30 Magnesium Oxide (Mag-Ox) 400 mg DAILY PO Last administered on 07/28/18at 09:05; Start 07/24/18 at 09:00 Metoprolol Succinate (TopROL XL) 50 mg DAILY PO Last administered on 07/28/18at 09:06; Start 07/24/18 at 09:00 Miscellaneous (Unresolved Patient Own Med Order) SEE LABEL COMMENTS DAILY XX ; Start 07/23/18 at 09:00; Stop 07/24/18 at 12:53; Status DC Nitroglycerin (Nitrostat (1/ 150)) 0.4 mg Q5MP PRN SL CHEST PAIN; Start 07/23/18 at 15:30 Oxycodone HCl (OxyCONTIN) 10 mg BID PO Last administered on 07/28/18at 09:07; Start 07/24/18 at 09:00 Oxycodone HCl (Roxicodone, Oxyir) 5 mg 0800,1300,1700,2100 PO ; Start 07/27/18 at 17:00; Stop 07/27/18 at 18:54; Status DC Oxycodone HCl (Roxicodone, Oxyir) 5 mg Q4HP PRN PO PAIN Last administered on 07/24/18at 10:15; Start 07/23/18 at 15:30; Stop 07/24/18 at 12:21; Status DC Oxycodone HCl (Roxicodone, Oxyir) 5 mg QHS PRN PO pain Last administered on 07/28/18at 04:38; Start 07/27/18 at 14:45 Oxycodone HCl (Roxicodone, Oxyir) 5 mg QID PO Last administered on 07/27/18at 12:28; Start 07/24/18 at 13:00; Stop 07/27/18 at 14:25; Status DC Oxycodone HCl (Roxicodone, Oxyir) 5 mg TID PRN PO pain; Start 07/28/18 at 08:00 Oxycodone HCl (Roxicodone, Oxyir) 10 mg Q4HP PRN PO SEVERE PAIN (PS 8-10) Last administered on 07/23/18at 18:47; Start 07/23/18 at 17:30; Stop 07/24/18 at 12:21; Status DC Pantoprazole Sodium (Protonix) 40 mg DAILY PO Last administered on 07/28/18at 09:05; Start 07/24/18 at 09:00 Patient Own Medication (Patient'S Own Med) 30MG = 2 TABS TID PO Last administered on 07/28/18at 09:08; Start 07/24/18 at 16:00 Senna (Senokot) 2 tab DAILY PO Last administered on 07/28/18at 09:03; Start 07/23/18 at 09:00 Vitamin D (Vitamin D) 2,000 units DAILY PO Last administered on 07/28/18at 09:03; Start 07/24/18 at 09:00 ANGELITA HOBBS MD Jul 28, 2018 11:43
[2018-07-28] MEDS ORDERED: CEFEPIME HCL 2 GM in D5W MINI-BAG PLUS 50 ML IV SCH (11:45)
[2018-07-28] MEDS ORDERED: cefTRIAXone SOD 2 GM in D5W MINI-BAG PLUS 50 ML IV SCH (13:00)
--- NOTE | 2018-07-28 14:36 | DS.PDOC ---
PM&R Discharge Summary Sample Maker Discharge Note DATE OF ADMISSION: Jul 23, 2018 at 11:45 DATE OF DISCHARGE: 07/28/18 DISCHARGE DIAGNOSES: 1. recurring T12/L1 chordoma s/p debulking 2. possible meningitis 3. neurogenic bladder/bowel PHYSICAL EXAMINATION: VITAL SIGNS: Please see below. GENERAL: Pleasant and cooperative. No acute distress. Pale HEENT: PERRL. Extraocular movements intact. Clear conjunctiva]. CARDIOVASCULAR: Regular rate and rhythm. No murmurs, rubs, or gallops LUNGS: Clear to auscultation bilaterally. No wheezes. No rhonchi ABDOMEN: Soft, nontender, mildly-distended. Positive bowel sounds. Normal active bowel sounds NEUROLOGICAL: Alert and oriented times three. Cranial nerves II through XII grossly intact. Sensation grossly intact in bilateral LE and sacral area, diminished along lower thoracic dermatome on the left and neat her thoraco- lumbar incision +Brudzinksi sign EXTREMITIES: 5\5 strength bilateral upper extremities. 4\5 strength right hip flexors, knee extensors, and ankle PF, however 0/5 ankle DF, and 1/F EHL 3+/5 strength in left hip flexors, 5/5 hip adduction, 5-/5 knee extension, 5/5 ankle Df/EHL/PF Reflexes depressed in bilat patella, no babinksi SKIN: thoracolumbar incision with sutures and drain site without induration, mild erythema, c/d/i sacrum no ulcers or erythema Patient was enrolled in PT/OT for acute inpatient rehab stay where a Goodrich was placed upon arrival for neurogenic bladder and she was started on a bowel regimen for neurogenic bowel. She was maintained on Linezolid for suppressive t herapy in setting of spinal hardware infections. She receive 2 units of rbcs on 07/27/18 for a hemoglobin of 7.9 and notable fatigue in therapy. On 07/28/18 she reported acute onset of neck stiffness and headache x two days and with photophobia that began that evening, with elevated CRP and ESR. She was started back on IV Ceftriaxone, neurology was called by medicine who recommended Depakote for headache due to suspected meningitis, and she was transferred back to [facility] for orthopedic/neurosurgical intervention. DISCHARGE DISPOSITION: [facility] under care of Dr. Patel Vital Signs/I&O Vital Sign - Last 24 Hours 607/27/18 07/27/18 07/28/18 14:45 17:00 20:00 00:47 Temp 99.2 98.2 98.6 Pulse 94 72 79 Resp 18 20 18 16 B/P (MAP) 132/67 (88) 140/70 (93) 102/50 (67) Pulse Ox 97 96 94 07/28/18 07/28/18 07/28/18 07/28/18 04:15 04:25 04:38 05:29 Temp 97.8 97.6 Pulse 71 71 Resp 18 18 18 18 B/P (MAP) 122/58 (79) 116/58 (77) Pulse Ox 96 95 07/28/18 07/28/18 07/28/18 07/28/18 06:14 07:55 08:25 09:04 Temp 97.6 Pulse 70 Resp 18 18 17 B/P (MAP) 136/64 (88) 156/68 Pulse Ox 93 07/28/18 07/28/18 09:06 09:07 Pulse 81 Resp 18 B/P (MAP) 156/68 I&O- Last 24 Hours up to 6 AM 07/28/18 06:00 Intake Total 2380 ml Output Total 4050 ml Balance -1670 ml Laboratory Data CBC/BMP Laboratory Tests 07/27/18 05:55 Red Blood Count 2.89 L, Mean Corpuscular Volume 88.2, Mean Corpuscular Hemoglobin 27.3, Mean Corpuscular Hemoglobin Concent 31.0 L, Red Cell Distribution Width 14.3, Neutrophils (%) (Auto) 74.0 H, Lymphocytes (%) (Auto) 13.1 L, Monocytes (%) (Auto) 5.7 H, Eosinophils (%) (Auto) 6.0 H, Basophils (%) (Auto) 0.4, Neutrophils # (Auto) 5.7, Lymphocytes # (Auto) 1.0 L, Monocytes # (Auto) 0.4, Eosinophils # (Auto) 0.5, Basophils # (Auto) 0.0, Calcium Level 8.6 L 07/28/18 09:40 Red Blood Count 3.46 L, Mean Corpuscular Volume 87.6, Mean Corpuscular Hemoglobin 28.3, Mean Corpuscular Hemoglobin Concent 32.3, Red Cell Distribution Width 14.5, Neutrophils (%) (Auto) 86.8 H, Lymphocytes (%) (Auto) 7.6 L, Monocytes (%) (Auto) 4.2, Eosinophils (%) (Auto) 0.6, Basophils (%) (Auto) 0.1, Neutrophils # (Auto) 9.7 H, Lymphocytes # (Auto) 0.9 L, Monocytes # (Auto) 0.5, Eosinophils # (Auto) 0.1, Basophils # (Auto) 0.0, Calcium Level 8.7 L Labs 48H Laboratory Tests 07/26/18 16:40: Bedside Glucose (Misc Panel) 226H 07/26/18 20:02: Bedside Glucose (Misc Panel) 267H 07/27/18 05:55: White Blood Count 7.7, Red Blood Count 2.89L, Hemoglobin 7.9L, Hematocrit 25.5L, Mean Corpuscular Volume 88.2, Mean Corpuscular Hemoglobin 27.3, Mean Corpuscular Hemoglobin Concent 31.0L, Red Cell Distribution Width 14.3, Platelet Count 267, Neutrophils (%) (Auto) 74.0H, Lymphocytes (%) (Auto) 13.1L, Monocytes (%) (Auto) 5.7H, Eosinophils (%) (Auto) 6.0H, Basophils (%) (Auto) 0.4, Neutrophils # (Auto) 5.7, Lymphocytes # (Auto) 1.0L, Monocytes # (Auto) 0.4, Eosinophils # (Auto) 0.5, Basophils # (Auto) 0.0, Immature Granulocyte % (Auto) 0.8, Nucleated Red Blood Cells % (auto) 0.0, Blood Urea Nitrogen 15, Creatinine 0.71, Sodium Level 135L, Potassium Level 4.8, Chloride Level 98, Carbon Dioxide Level 31, Calcium Level 8.6L, Anion Gap 6L, Glomerular Filtration Rate > 60.0, Fasting Glucose 252H 07/27/18 12:09: Bedside Glucose (Misc Panel) 225H 07/27/18 16:53: Bedside Glucose (Misc Panel) 279H 07/27/18 19:13: Urine Color YELLOW, Urine Appearance HAZY, Urine pH 5.0, Urine Specific [place] 1.015, Urine Protein NEGATIVE, Urine Glucose (UA) NEGATIVE, Urine Ketones NEGATIVE, Urine Blood 2+H, Urine Nitrite POSITIVEH, Urine Bilirubin NEGATIVE, Urine Urobilinogen 0.2, Urine Leukocyte Esterase 2+H, Urine WBC (Auto) 34H, U rine RBC (Auto) 25H, Urine Hyaline Casts (Auto) 1, Urine Bacteria (Auto) 3+H, Urine Squamous Epithelial Cells 0, Urine Sperm (Auto) 07/27/18 21:12: Bedside Glucose (Misc Panel) 323H 07/28/18 06:20: Bedside Glucose (Misc Panel) 256H 07/28/18 09:40: White Blood Count 11.2H, Red Blood Count 3.46L, Hemoglobin 9.8L, Hematocrit 30.3L, Mean Corpuscular Volume 87.6, Mean Corpuscular Hemoglobin 28.3, Mean Corpuscular Hemoglobin Concent 32.3, Red Cell Distribution Width 14.5, Platelet Count 276, Neutrophils (%) (Auto) 86.8H, Lymphocytes (%) (Auto) 7.6L, Monocytes (%) (Auto) 4.2, Eosinophils (%) (Auto) 0.6, Basophils (%) (Auto) 0.1, Neutroph ils # (Auto) 9.7H, Lymphocytes # (Auto) 0.9L, Monocytes # (Auto) 0.5, Eosinophils # (Auto) 0.1, Basophils # (Auto) 0.0, Immature Granulocyte % (Auto) 0.7, Nucleated Red Blood Cells % (auto) 0.0, Erythrocyte Sedimentation Rate > 140H, Blood Urea Nitrogen 13, Creatinine 0.78, Sodium Level 132L, Potassium Level 4.1, Chloride Level 95L, Carbon Dioxide Level 30, Calcium Level 8.7L, Anion Gap 7L, Glomerular Filtration Rate > 60.0, Fasting Glucose 248H, C- Reactive Protein, Quantitative 13.30H 07/28/18 13:14: Bedside Glucose (Misc Panel) 267H FSBS Laboratory Tests Test 07/27/18 16:53 07/27/18 21:12 07/28/18 06:20 07/28/18 13:14 Range/Units Bedside Glucose (Misc Panel) 279 323 256 267 80-115 MG/DL Microbiology Microbiology 07/27/18 Blood Culture, Received Pending 07/27/18 Blood Culture, Received Pending 07/27/18 Urine Culture, Received Pending Medications Medications Current Medications Acetaminophen (Tylenol Tab) 650 mg Q4HP PRN PO MILD PAIN (PS 1-4) Last administered on 07/24/18 04:57; Start 07/23/18 at 15:30; Stop 07/24/18 at 12:23; Status DC Acetaminophen (Tylenol Tab) 1,000 mg TID PO Last administered on 07/28/18 09:05; Start 07/24/18 at 16:00 Al Hydrox/Mg Hydrox/Simethicone (Mylanta) 30 ml Q4HP PRN PO DYSPEPSIA Last administered on 07/28/18 11:22; Start 07/23/18 at 15:30 Aspirin (Aspirin Chewable) 81 mg DAILY PO Last administered on 07/28/18 09:03; Start 07/24/18 at 09:00 Baclofen (Lioresal) 5 mg TID PO Last administered on 07/27/18at 15:48; Start 07/24/18 at 16:00 Baclofen (Lioresal) 5 mg TID PRN PO spasm Last administered on 07/23/18at 18:46; Start 07/23/18 at 17:30; Stop 07/24/18 at 12:21; Status DC Bisacodyl (Dulcolax Suppository) 10 mg DAILY PA Last administered on 07/28/18at 09:06; Start 07/23/18 at 19:00 Calcium/Vitamin D (Oscal D) 500 mg DAILY PO Last administered on 07/28/18at 09:05; Start 07/24/18 at 09:00 Cefepime HCl 2 gm/ Dextrose 50 ml @ 100 mls/hr Q8H IV ; Start 07/28/18 at 11:45; Stop 07/28/18 at 11:45; Status DC Ceftriaxone Sodium 2 gm/ Dextrose 50 ml @ 100 mls/hr Q12H IV Last administered on 07/28/18at 13:05; Start 07/28/18 at 13:00 Dextrose (Dextrose 50%) 25 ml ASDIRECTED PRN IV SEE LABEL COMMENTS; Start 07/23/18 at 15:45 Divalproex Sodium (Depakote Er) 500 mg BID PO Last administered on 07/28/18at 11:22; Start 07/28/18 at 09:00 Docusate Sodium (Colace) 100 mg BID PO ; Start 07/23/18 at 21:00; Stop 07/23/18 at 21:00; Status DC Docusate Sodium (Colace) 100 mg TID PO Last administered on 07/28/18at 09:03; Start 07/23/18 at 21:00 Enoxaparin Sodium (Lovenox) 40 mg DAILY SC Last administered on 07/28/18at 09:06; Start 07/24/18 at 09:00; Status Future hold Ferrous Gluconate (Fergon) 324 mg BID PO Last administered on 07/28/18at 09:05; Start 07/23/18 at 21:00 Furosemide (Lasix) 20 mg DAILY PO Last administered on 07/27/18at 08:59; Start 07/24/18 at 09:00; Status Future hold Gabapentin (Neurontin) 400 mg TID PO Last administered on 07/27/18at 09:00; Start 07/23/18 at 16:00; Stop 07/27/18 at 14:44; Status DC Gabapentin (Neurontin) 600 mg TID PO Last administered on 07/28/18at 09:05; Start 07/27/18 at 16:00 Glucagon (Glucagon) 1 mg ASDIRECTED PRN SC SEE LABEL COMMENTS; Start 07/23/18 at 15:45 Glucose (Glucose) 16 GM ASDIRECTED PRN PO SEE LABEL COMMENTS; Start 07/23/18 at 15:45 Home Med (Med Rec Complete!) ASDIRECTED XX ; Start 07/23/18 at 12:45; Stop 07/23/18 at 12:46; Status DC Insulin Detemir (Levemir Insulin) 5 units QHS SC Last administered on 07/26/18at 21:11; Start 07/23/18 at 21:00; Stop 07/27/18 at 09:55; Status DC Insulin Detemir (Levemir Insulin) 10 units QHS SC ; Start 07/27/18 at 21:00; Stop 07/27/18 at 21:00; Status DC Insulin Detemir (Levemir Insulin) 12 units QHS SC ; Start 07/27/18 at 21:00; Stop 07/27/18 at 21:00; Status DC Insulin Detemir (Levemir Insulin) 15 units QHS SC Last administered on 6/10/19at 21:31; Start 07/27/18 at 21:00 Insulin Human Lispro (HumaLOG INSULIN) SEE PROTOCOL TABLE AC SC Last administered on 07/28/18at 13:21; Start 07/23/18 at 17:30 Insulin Human Lispro (HumaLOG INSULIN) SEE PROTOCOL TABLE QHS SC Last ad ministered on 07/27/18at 21:31; Start 07/23/18 at 21:00 Lactobacillus Acidophilus (Bacid) 1 ea TID PO Last administered on 07/28/18 09:04; Start 07/23/18 at 16:00 Linezolid (Zyvox) 600 mg DAILY PO Last administered on 07/28/18 09:05; Start 07/24/18 at 09:00 Lisinopril (Prinivil) 2.5 mg DAILY PO Last administered on 07/28/18 09:04; Start 07/24/18 at 09:00 Magnesium Hydroxide (Milk Of Magnesia) 30 ml DAILYPRN PRN PO CONSTIPATION Last administered on 07/23/18at 17:51; Start 07/23/18 at 15:30 Magnesium Oxide (Mag-Ox) 400 mg DAILY PO Last administered on 07/28/18 09:05; Start 07/24/18 at 09:00 Metoprolol Succinate (TopROL XL) 50 mg DAILY PO Last administered on 07/28/18 09:06; Start 07/24/18 at 09:00 Miscellaneous (Unresolved Patient Own Med Order) SEE LABEL COMMENTS DAILY XX ; Start 07/23/18 at 09:00; Stop 07/24/18 at 12:53; Status DC Nitroglycerin (Nitrostat (1/ 150)) 0.4 mg Q5MP PRN SL CHEST PAIN; Start 07/23/18 at 15:30 Oxycodone HCl (OxyCONTIN) 10 mg BID PO Last administered on 07/28/18at 09:07; Start 07/24/18 at 09:00 Oxycodone HCl (Roxicodone, Oxyir) 5 mg 0800,1300,1700,2100 PO ; Start 07/27/18 at 17:00; Stop 07/27/18 at 18:54; Status DC Oxycodone HCl (Roxicodone, Oxyir) 5 mg Q4HP PRN PO PAIN Last administered on 07/24/18 10:15; Start 07/23/18 at 15:30; Stop 07/24/18 at 12:21; Status DC Oxycodone HCl (Roxicodone, Oxyir) 5 mg QHS PRN PO pain Last administered on 07/28/18at 04:38; Start 07/27/18 at 14:45 Oxycodone HCl (Roxicodone, Oxyir) 5 mg QID PO Last administered on 07/27/18at 12:28; Start 07/24/18 at 13:00; Stop 07/27/18 at 14:25; Status DC Oxycodone HCl (Roxicodone, Oxyir) 5 mg TID PRN PO pain; Start 07/28/18 at 08:00 Oxycodone HCl (Roxicodone, Oxyir) 10 mg Q4HP PRN PO SEVERE PAIN (PS 8-10) Last administered on 07/23/18at 18:47; Start 07/23/18 at 17:30; Stop 07/24/18 at 12:21; Status DC Pantoprazole Sodium (Protonix) 40 mg DAILY PO Last administered on 07/28/18at 09:05; Start 07/24/18 at 09:00 Patient Own Medication (Patient'S Own Med) 30MG = 2 TABS TID PO Last administered on 07/28/18at 09:08; Start 07/24/18 at 16:00 Senna (Senokot) 2 tab DAILY PO Last administered on 07/28/18at 09:03; Start 07/23/18 at 09:00 Vitamin D (Vitamin D) 2,000 units DAILY PO Last administered on 07/28/18at 09:03; Start 07/24/18 at 09:00 Scheduled Aspirin (Aspirin EC) 81 Mg Tablet.dr, 81 MG PO DAILY, (Reported) Calcium Carbonate/Vitamin D3 (Calcium 600-Vit D3 200 Tablet) 1 Each Tablet, 1 TAB PO DAILY, (Reported) Cholecalciferol (Vitamin D3) (Vitamin D3) 2,000 Unit Capsule, 2,000 UNIT PO DAILY, (Reported) Enoxaparin Sodium (Lovenox) 40 Mg/0.4 Ml Syringe, 40 MG SC DAILY, (Reported) STARTED AT [facility] Evolocumab (Repatha Sureclick) 140 Mg/1 Ml Pen.injctr, 140 MG SC Q2WK, (Reported) Ferrous Gluconate (Ferrous Gluconate) 324 Mg Tablet, 324 MG PO BID, (Reported) Furosemide (Furosemide) 20 Mg Tablet, 20 MG PO DAILY, (Reported) Gabapentin (Gabapentin) 400 Mg Capsule, 400 MG PO TID, (Reported) STARTED AT [facility] Gluc Hinojosa/Chondro Hinojosa A/Vit C/Mn (Glucosamine Chondroitin Tab) 1 Each Tablet, 1 TAB PO BID, (Reported) Insulin Aspart (Novolog) 100 Unit/1 Ml Cartridge, 1 DOSE SC WM, (Reported) Insulin Glargine,Hum.rec.anlog (Toujeo Solostar) 300 Unit/1 Ml Insuln.pen, 100 UNIT SC QHS, (Reported) Lactobacillus Combo No.10 (Probiotic) 1 Each Capsule, 1 CAP PO BID, (Reported) Linezolid (Zyvox) 600 Mg Tablet, 600 MG PO DAILY, (Reported) Lisinopril (Lisinopril) 2.5 Mg Tablet, 2.5 MG PO DAILY, (Reported) Magnesium Oxide (Magnesium Oxide) 400 Mg Tablet, 400 MG PO DAILY, (Reported) Metoprolol Succinate (Metoprolol Succinate) 50 Mg Tab.er.24h, 50 MG PO DAILY, (Reported) Multivitamin (Multivitamins) 1 Each Capsule, 1 CAP PO DAILY, (Reported) Donie-3 Fatty Acids (Donie-3) 1,000 Mg Capsule, 1,000 MG PO BID, (Reported) Pantoprazole Sodium (Protonix) 40 Mg Tablet.dr, 40 MG PO BID, (Reported) Phenelzine Sulfate (Nardil) 15 Mg Tablet, 30 MG PO TID, (Reported) Semaglutide (Ozempic) 0.25 Mg/0.2 Ml Pen.injctr, 0.25 MG SC QWEEK, (Reported) Scheduled PRN Acetaminophen (Tylenol Extra Strength) 500 Mg Tablet, 1,000 MG PO BID PRN for PAIN, (Reported) Estradiol (Estrace) 42.5 Gm Cream.appl, 1 DOSE PV PRN PRN for IRRITATION, (Reported) APPLY SMALL AMOUNT Nitroglycerin (Nitrostat) 0.4 Mg Tab.subl, 0.4 MG SL NITRO PRN for CHEST PAIN, (Reported) Oxycodone HCl (Oxycodone HCl) 5 Mg Tablet, 5 MG PO Q4H PRN for PAIN, (Reported) STARTED AT [facility] Allergies Coded Allergies: Penicillins (Verified Allergy, Intermediate, RASH/HIVES, 07/23/18) Sulfa (Sulfonamide Antibiotics) (Verified Allergy, Intermediate, REDN ESS/SWELLING, 07/23/18) sulindac (Verified Adverse Reaction, Intermediate, COLITIS, 07/23/18) ANGELITA HOBBS MD Jul 28, 2018 14:36
[2018-07-28] MEDS ORDERED: NITR4TASL SL (14:43)
[2018-07-28] MEDS ORDERED: PANT40TA3 PO (14:43)
[2018-07-28] MEDS ORDERED: DEPA500T2 PO (14:43)
[2018-07-28] MEDS ORDERED: LISI-1046 PO (14:43)
[2018-07-28] MEDS ORDERED: FERR32TA PO (14:43)
[2018-07-28] MEDS ORDERED: BACL10TA2 PO (14:43)
[2018-07-28] MEDS ORDERED: LOVE1INJ SC (14:43)
[2018-07-28] MEDS ORDERED: LINE1TAB6 PO (14:43)
[2018-07-28] MEDS ORDERED: COLA100C5 PO (14:43)
[2018-07-28] MEDS ORDERED: GLUC1INJ21 SC (14:43)
[2018-07-28] MEDS ORDERED: OXYC-403 PO (14:43)
[2018-07-28] MEDS ORDERED: FURO20TA2 PO (14:43)
[2018-07-28] MEDS ORDERED: GABA-843 PO (14:43)
[2018-07-28] MEDS ORDERED: VITAD1000T PO (14:43)
[2018-07-28] MEDS ORDERED: ACET-683 PO (14:43)
[2018-07-28] MEDS ORDERED: SENN18TA PO (14:43)
[2018-07-28] MEDS ORDERED: MAG400TA PO (14:43)
[2018-07-28] MEDS ORDERED: OXYCO5TA PO (14:43)
[2018-07-28] MEDS ORDERED: CALCD50TA PO (14:43)
[2018-07-28] MEDS ORDERED: ASPI81CH8 PO (14:43)
[2018-07-28] MEDS ORDERED: INSUHUMDS SC ×2 (14:43)
[2018-07-28] MEDS ORDERED: INSUDET SC (14:43)
[2018-07-28] MEDS ORDERED: RISATAB3 PO (14:43)
[2018-07-28] MEDS ORDERED: METO1TAB7 PO (14:43)
[2018-07-28] MEDS ORDERED: BISA10SU20 PR (14:43)
[2018-07-28] MEDS: BACLOFEN 5MG PER 1/2 TABLET PO SCH (15:19)
[2018-08-10] MEDS ORDERED: CALC500T61 PO (16:56)
[2018-08-21] MEDS ORDERED: LINE1TAB6 PO (11:19)
== END 2018-07-28 15:45 | disposition short-term general hospital (02) | DRG 542 ==
LOC: M PM&R 11:45
PROVIDERS: ADMIT Physical Medicine & Rehabilitation; ATTEND Physical Medicine & Rehabilitation
PROC: 30233N1 Transfusion of Nonautologous Red Blood Cells into Peripheral Vein, Percutaneous Approach (ICD-10-PCS; principal; 2018-07-28)
DX: C41.2 Malignant neoplasm of vertebral column (principal); G03.9 Meningitis, unspecified; G47.33 Obstructive sleep apnea (adult) (pediatric); E11.40 Type 2 diabetes mellitus with diabetic neuropathy, unspecified; E78.5 Hyperlipidemia, unspecified; Z88.0 Allergy status to penicillin; Z88.2 Allergy status to sulfonamides; Z79.82 Long term (current) use of aspirin; Z79.899 Other long term (current) drug therapy; Z79.4 Long term (current) use of insulin; I25.10 Atherosclerotic heart disease of native coronary artery without angina pectoris; Z95.2 Presence of prosthetic heart valve; I50.9 Heart failure, unspecified; I11.0 Hypertensive heart disease with heart failure; D64.9 Anemia, unspecified; N31.9 Neuromuscular dysfunction of bladder, unspecified

== ENCOUNTER 2018-08-10 15:31 | Inpatient (IN) | payer MEDICARE, BC, OTHER ==
[~2018-08-10] VITALS: Ht 172.7 cm; Wt 96.2 kg
[~2018-08-10 15:31] MED LIST changes: +ACET-683 PO; +ACET-897 PO; +ASPI1TAB8 PO; +ASPI81CH8 PO; +BACL10TA2 PO; +BISA10SU2 PR; +CALC600T7 PO; +CALCD50TA PO; +COLA100C5 PO; +CVS1CAP2 PO; +D200CAP2 PO; +DEPA500T2 PO; +ESTR1CRE PV; +FERR32TA PO; +FURO20TA2 PO; +GABA-843 PO; +GABA-845 PO; +GLUC1INJ21 SC; +GLUCTAB6 PO; +INSUDET SC; +INSUHUMDS SC; -LINE1TAB6 PO; +LINE600T11 PO; +LISI-1046 PO; +LOVE1INJ SC; +MAG400TA PO; +MAGN400T2 PO; +METO1TAB7 PO; +MULTCAP PO; +NARD15TA PO; +NITR4TASL SL; +NOVOINJ SC; +OMEG10005 PO; +OXYC-403 PO; +OXYC-517 PO; +OXYCO5TA PO; +OZEM2INJ SC; +PANT40TA3 PO; +PROT1TAB2 PO; +REPA1INJ SC; +RISATAB3 PO; +SENN18TA PO; +TOUJ1.2I SC; +VITAD1000T PO; +ZYVO1TAB PO
[2018-08-10 16:15] VITALS: BP 126/62
[2018-08-10] MEDS ORDERED: GLUCAGON FOR INJ 1 MG VIAL (J1610) SC PRN (16:15)
[2018-08-10] MEDS ORDERED: DEXTROSE 50% 50 ML SYRINGE IV PRN (16:15)
[2018-08-10] MEDS ORDERED: GLUCOSE 4 GM CHEW TABLET PO PRN (16:15)
[2018-08-10] MEDS ORDERED: MOM 30ML SUSPENSION UDC PO PRN (16:15)
[2018-08-10] MEDS ORDERED: NITROGLYCERIN 0.3 MG SUBL TAB SL PRN (16:15)
[2018-08-10] MEDS ORDERED: ACET650T15 PO (16:42)
[2018-08-10] MEDS ORDERED: LOVE1INJ SC (16:51)
[2018-08-10] MEDS ORDERED: INSUHUMDS SC (16:51)
[2018-08-10] MEDS ORDERED: LANTINJ4 SC (16:51)
[2018-08-10] MEDS ORDERED: LINE1TAB PO (16:51)
[2018-08-10] MEDS ORDERED: METH1TAB40 PO (16:56)
[2018-08-10] MEDS ORDERED: CALC12504 PO (16:56)
[2018-08-10] MEDS ORDERED: PEG1POW PO (17:01)
[2018-08-10] MEDS ORDERED: TOUJ1.2I SC (17:06)
[2018-08-10] MEDS ORDERED: INSUH10VL SC (17:06)
[2018-08-10] MEDS ORDERED: GLUC1KIT SC (17:10)
[2018-08-10] MEDS ORDERED: FLOR250C PO (17:10)
[2018-08-10] MEDS ORDERED: COLA100C5 PO (17:12)
[2018-08-10] MEDS ORDERED: SENN1TAB8 PO (17:12)
[2018-08-10] MEDS ORDERED: BISA10SU27 PR (17:12)
[2018-08-10] MEDS ORDERED: CIPR500T3 PO (17:14)
[2018-08-10] MEDS ORDERED: OXYC-517 PO (17:18)
[2018-08-10] MEDS ORDERED: OXYC10TA12 PO (17:22)
[2018-08-10] MEDS ORDERED: ACID1TAB PO (17:27)
[2018-08-10] MEDS: HumaLOG INSULIN (NovoLOG) PER UNIT SC SCH ×2 (17:30→21:00)
[2018-08-10] MEDS: METHOCARBAMOL 500 MG TAB PO SCH ×2 (17:44→21:20)
[2018-08-10] MEDS: CIPROFLOXACIN 500 MG TAB PO SCH (17:44)
[2018-08-10] MEDS: GABAPENTIN 400 MG CAP PO SCH ×2 (17:44→21:20)
[2018-08-10] MEDS: LACTOBACILLUS ACIDOPHILUS CAP (BACID) PO SCH ×2 (17:44→21:20)
[2018-08-10 20:00] VITALS: BP 121/58
[2018-08-10] MEDS: DOCUSATE SODIUM 100 MG CAP PO SCH (21:20)
[2018-08-10] MEDS: PANTOPRAZOLE 40MG TAB (PROTONIX) PO SCH (21:20)
[2018-08-10] MEDS: PHENELZINE 15 MG PO SCH (21:21)
[2018-08-10] MEDS: SENNA 8.6 MG TAB (SENOKOT) PO SCH (21:21)
[2018-08-10] MEDS: LEVEMIR (INSULIN DETEMIR) 1 UNITS/0.01ML SC SCH (21:24)
[2018-08-10] MEDS: MEDIHONEY TD SCH (21:24)
[2018-08-10] MEDS: ACETAMINOPHEN TAB 650MG DOSE (2X325MG) PO PRN (21:36)
[2018-08-11 05:50] VITALS: BP 133/63
[2018-08-11] MEDS: CIPROFLOXACIN 500 MG TAB PO SCH ×2 (06:23→17:54)
[2018-08-11 06:44] LABS: BASO # 0.1 10^3/uL (0.0-0.2); BASO % 0.7 % (0.0-1.0); EOS # 0.5 10^3/uL (0.0-0.50); EOS % 5.1 % (0.0-3.0); HEMATOCRIT 30.7 % (36.0-47.0); HEMOGLOBIN 9.7 g/dl (12.0-15.5); LYMPH # 1.3 10^3/uL (1.5-4.5); LYMPH % 14.7 % (24.0-44.0); MEAN CORPUSCULAR HEMOGLOBIN 26.8 pg (27.0-33.0); MEAN CORPUSCULAR HGB CONC 31.6 g/dl (32.0-36.5); MEAN CORPUSCULAR VOLUME 84.8 fl (80.0-96.0); MONO # 0.4 10^3/uL (0.0-0.8); MONO % 4.9 % (0.0-5.0); NEUTROPHILS # 6.6 10^3/uL (1.8-7.7); PLATELET COUNT, AUTOMATED 352 10^3/uL (150-450); RED BLOOD COUNT 3.62 10^6/uL (4.00-5.40)
[2018-08-11 07:08] LABS: ALBUMIN 2.6 GM/DL (3.2-5.2); ALT/SGPT 14 U/L (12-78); BILIRUBIN,TOTAL 0.3 MG/DL (0.2-1.0); BLOOD UREA NITROGEN 14 MG/DL (7-18); CALCIUM LEVEL 9.2 MG/DL (8.8-10.2); CARBON DIOXIDE LEVEL 29 MEQ/L (21-32); CHLORIDE LEVEL 100 MEQ/L (98-107); CREATININE FOR GFR 0.78 MG/DL (0.55-1.30); GLOMERULAR FILTRATION RATE > 60.0 (>45); GLUCOSE, FASTING 142 MG/DL (70-100); POTASSIUM SERUM 4.9 MEQ/L (3.5-5.1); SODIUM LEVEL 136 MEQ/L (136-145); TOTAL PROTEIN 7.1 GM/DL (6.4-8.2)
[2018-08-11] MEDS: MEDIHONEY TD SCH ×2 (08:44→20:42)
[2018-08-11] MEDS: PHENELZINE 15 MG PO SCH ×3 (08:47→20:40)
[2018-08-11] MEDS: HumaLOG INSULIN (NovoLOG) PER UNIT SC SCH ×4 (08:48→21:00)
[2018-08-11] MEDS: OMEGA-3 1000MG CAPSULE PO SCH (08:49)
[2018-08-11] MEDS: METHOCARBAMOL 500 MG TAB PO SCH ×3 (08:49→20:37)
[2018-08-11] MEDS: VITAMIN D 1,000 INTERNATIONAL UNITS TABLET PO SCH (08:49)
[2018-08-11] MEDS: MULTIVITAMINS/MINERALS THERAP 1 TAB PO SCH (08:49)
[2018-08-11] MEDS: LINEZOLID 600MG TABLET (ZYVOX) PO SCH (08:50)
[2018-08-11] MEDS: LACTOBACILLUS ACIDOPHILUS CAP (BACID) PO SCH ×3 (08:50→20:38)
[2018-08-11] MEDS: DOCUSATE SODIUM 100 MG CAP PO SCH ×2 (08:50→20:37)
[2018-08-11] MEDS: FUROSEMIDE 20 MG TAB PO SCH (08:50)
[2018-08-11] MEDS: LISINOPRIL *2.5 MG* TAB PO SCH (08:50)
[2018-08-11] MEDS: ASPIRIN 81 MG CHEW TABLET PO SCH (08:50)
[2018-08-11] MEDS: FERROUS GLUCONATE 324 MG TAB PO SCH (08:51)
[2018-08-11] MEDS: PANTOPRAZOLE 40MG TAB (PROTONIX) PO SCH ×2 (08:51→20:37)
[2018-08-11] MEDS: METOPROLOL SUCC (TopROL XL) 50MG **XL** TAB PO SCH (08:51)
[2018-08-11] MEDS: MAGNESIUM OXIDE 400 MG TAB (MAG-OX) PO SCH (08:51)
[2018-08-11] MEDS: GABAPENTIN 400 MG CAP PO SCH ×3 (08:51→20:37)
[2018-08-11] MEDS: ENOXAPARIN 40 MG/0.4 ML SYRINGE (J1650) SC SCH (08:52)
[2018-08-11] MEDS: oxyCODONE 5MG TAB PO PRN (09:04)
--- NOTE | 2018-08-11 10:00 | CR.PDOC ---
General Date of Consultation: Aug 11, 2018 Referring Provider: ANGELITA HOBBS MD Primary Care Physician: A Attending Physician: MICHELE AVILES MD Consultation REASON FOR CONSULTATION/CHIEF COMPLAINT: Medical management HISTORY OF PRESENT ILLNESS: Patient is a 63-year-old female, past medical history significant for spinal chordoma initially diagnosed 2010, multiple spinal surgery with revisions and complications related to same, admitted post discharge from [facility] for rehabilitation. Patient has other medical history significant for hypertension, type 2 diabetes mellitus, obesity, anemia. Patient was discharged from this facility to [facility] when she developed acute symptoms of photophobia, headache, back pain. At that facility. She reports she had surgical intervention and spinal drain with relief and was placed also on antibiotic therapy for possible acute meningitis. Patient also is on chronic suppression therapy with linezolid On assessment, she denies any chest pain, shortness of breath, she reports weakness to lower extremity which is not new, and also reports right foot drop. She otherwise has no fevers, malaise, and feels much improved. ALLERGIES: Please see below. HOME MEDICATIONS: Please see below. PAST MEDICAL HISTORY: Hypertension Hyperlipidemia CAD S/P PTCA angioplasty. Spinal cancer T12-L1 Type 2 diabetes mellitus. Anemia GERD Obesity. Neurogenic bladder with urinary retention PAST SURGICAL HISTORY: Right knee ORIF Breast biopsy Mastectomy and reconstruction surgery Hysterectomy. Multiple back surgery FAMILY HISTORY: Father: Lymphoma Mother: Diabetes mellitus, renal disease SOCIAL HISTORY: Denies tobacco, alcohol, polysubstance abuse REVIEW OF SYSTEMS: A pertinent 10 point review of systems is completed, negative except as stated in the history of presenting illness PHYSICAL EXAMINATION: GENERAL: NAD SKIN : Warm, dry, ventral back surgical dressing HEENT: Atraumatic, normocephalic, PERRL, moist mucous membrane CARDIOVASCULAR: Regular rate and rhythm, S1S2, no JVD, no edema, distal pulses + and palpable RESP: CTAB, no accessory muscle use noted ABDOMEN: BS+ non distended non tender MS: Right foot drop NEURO: Alert and oriented x 3, CN2-12 grossly intact PSYCH: no anxiety or agitation, appropriate mood and affect. LABORATORY DATA: Please see below. ASSESSMENT/PLAN: Spinal chordoma, T12, L2 -S/P spinal surgery at [facility] -Rehabilitation by primary team -Continue linezolid suppression therapy for hardware staph colonization Type 2 diabetes mellitus -Finger stick checks prior to meals and at bedtime -Diabetic diet -Coverage with insulin per sliding scale protocol Hypertension -Blood pressure monitoring per unit protocol -. Target systolic blood pressure less than 140 Anemia -Likely due to chronic disease Neurogenic bladder -Patient has been voiding without issues since admission -Multiple bladder scans showing complete emptying of bladder DVT prophylaxis -Lovenox 40 mg daily Vital Signs/I&O Vital Signs Date Time Temp Pulse Resp B/P (MAP) Pulse Ox O2 Delivery O2 Flow Rate FiO2 08/11/18 09:04 18 08/11/18 08:51 90 133/63 08/11/18 05:50 98.0 100 I&O- Last 24 Hours up to 6 AM 08/11/18 06:00 Intake Total 840 ml Output Total 1300 ml Balance -460 ml Laboratory Data Labs 24H Laboratory Tests 2 08/10/18 17:18: Bedside Glucose (Misc Panel) 95 08/10/18 20:49: Bedside Glucose (Misc Panel) 206H 08/11/18 06:23: Immature Granulocyte % (Auto) 1.6, White Blood Count 9.0, Red Blood Count 3.62L, Hemoglobin 9.7L, Hematocrit 30.7L, Mean Corpuscular Volume 84.8, Mean Corpuscular Hemoglobin 26.8L, Mean Corpuscular Hemoglobin Concent 31.6L, Red Cell Distribution Width 14.6H, Platelet Count 352, Neutrophils (%) (Auto) 73.0H, Lymphocytes (%) (Auto) 14.7L, Monocytes (%) (Auto) 4.9, Eosinophils (%) (Auto) 5.1H, Basophils (%) (Auto) 0.7, Neutrophils # (Auto) 6.6, Lymphocytes # (Auto) 1.3L, Monocytes # (Auto) 0.4, Eosinophils # (Auto) 0.5, Basophils # (Auto) 0.1, Nucleated Red Blood Cells % (auto) 0.0, Anion Gap 7L, Glomerular Filtration Rate > 60.0, Blood Urea Nitrogen 14, Creatinine 0.78, Sodium Level 136, Potassium Level 4.9, Chloride Level 100, Carbon Dioxide Level 29, Calcium Level 9.2, Aspartate Amino Transf (AST/SGOT) 11, Alanine Aminotransferase (ALT/SGPT) 14, Alkaline Phosphatase 112, Total Bilirubin 0.3, Total Protein 7.1, Albumin 2.6L, Albumin/Globulin Ratio 0.58L CBC/BMP Laboratory Tests 08/11/18 06:23 Red Blood Count 3.62 L, Mean Corpuscular Volume 84.8, Mean Corpuscular Hemoglobin 26.8 L, Mean Corpuscular Hemoglobin Concent 31.6 L, Red Cell Distribution Width 14.6 H, Neutrophils (%) (Auto) 73.0 H, Lymphocytes (%) (Auto) 14.7 L, Monocytes (%) (Auto) 4.9, Eosinophils (%) (Auto) 5.1 H, Basophils (%) (Auto) 0.7, Neutrophils # (Auto) 6.6, Lymphocytes # (Auto) 1.3 L, Monocytes # (Auto) 0.4, Eosinophils # (Auto) 0.5, Basophils # (Auto) 0.1, Calcium Level 9.2, Aspartate Amino Transf (AST/SGOT) 11, Alanine Aminotransferase (ALT/SGPT) 14, Alkaline Phosphatase 112, Total Bilirubin 0.3, Total Protein 7.1, Albumin 2.6 L Allergies Coded Allergies: Penicillins (Verified Allergy, Intermediate, RASH/HIVES, 07/23/18) Sulfa (Sulfonamide Antibiotics) (Verified Allergy, Intermediate, REDNESS/SWELLING, 07/23/18) sulindac (Verified Adverse Reaction, Intermediate, COLITIS, 07/23/18) Home Medications Scheduled Aspirin (Aspirin EC) 81 Mg Tablet.dr, 81 MG PO DAILY, (Reported) Calcium Carbonate/Vitamin D3 (Calcium 600-Vit D3 200 Tablet) 1 Each Tablet, 1 TAB PO DAILY, (Reported) Cholecalciferol (Vitamin D3) (Vitamin D3) 2,000 Unit Capsule, 2,000 UNIT PO DAILY, (Reported) Ciprofloxacin HCl (Ciprofloxacin HCl) 500 Mg Tablet, 500 MG PO BID, (Reported) TO TAKE BID FROM 08/10/18 TO 08/25/18 Docusate Sodium (Colace) 100 Mg Capsule, 100 MG PO DAILY, (Reported) Enoxaparin Sodium (Lovenox) 40 Mg/0.4 Ml Syringe, 40 MG SC DAILY, (Reported) NOTE FROM [facility] TO STOP TAKING AT DISCHARGE Evolocumab (Repatha Sureclick) 140 Mg/1 Ml Pen.injctr, 140 MG SC Q2WK, (Reported) Ferrous Gluconate (Ferrous Gluconate) 324 Mg Tablet, 324 MG PO BID, (Reported) Furosemide (Furosemide) 20 Mg Tablet, 20 MG PO DAILY, (Reported) Gabapentin (Gabapentin) 400 Mg Capsule, 400 MG PO TID, (Reported) Gluc Hinojosa/Chondro Hinojosa A/Vit C/Mn (Glucosamine Chondroitin Tab) 1 Each Tablet, 1 TAB PO BID, (Reported) Insulin Glargine,Hum.rec.anlog (Toujeo Solostar) 300 Unit/1 Ml Insuln.pen, 100 UNIT SC QHS, (Reported) PATIENT WAS GIVEN 60 UNITS OF LANTUS ON 08/10/18 AT 0900 AT [facility]. Insulin Human Lispro (Novolog) 100 Unit/1 Ml Vial, 1 DOSE SC AC, (Reported) PER SLIDING SCALE. WAS GIVEN HUMALOG PER SLIDING SCALE AT [facility] WITH LAST DOSE ON 08/10/18 AT 1230. Lactobacillus Acidophilus (Acidophilus) 1 Each Tablet, 1 TAB PO BID, (Reported) Linezolid (Linezolid) 600 Mg Tablet, 600 MG PO DAILY, (Reported) Lisinopril (Lisinopril) 2.5 Mg Tablet, 2.5 MG PO DAILY, (Reported) Magnesium Oxide (Magnesium Oxide) 400 Mg Tablet, 400 MG PO DAILY, (Reported) Methocarbamol (Methocarbamol) 500 Mg Tablet, 500 MG PO QID, (Reported) TO TAKE X 10 DAYS STARTED 08/10/18 TO END 08/20/18. Metoprolol Succinate (Metoprolol Succinate) 50 Mg Tab.er.24h, 50 MG PO DAILY, (Reported) Multivitamin (Multivitamins) 1 Each Capsule, 1 CAP PO DAILY, (Reported) Hickory-3 Fatty Acids (Hickory-3) 1,000 Mg Capsule, 1,000 MG PO BID, (Reported) Pantoprazole Sodium (Protonix) 40 Mg Tablet.dr, 40 MG PO BID, (Reported) Phenelzine Sulfate (Nardil) 15 Mg Tablet, 30 MG PO TID, (Reported) Saccharomyces Boulardii (Florastor) 250 Mg Capsule, 250 MG PO DAILY, (Reported) TO TAKE X 7 DAYS STARTED ON 08/10/18 Semaglutide (Ozempic) 0.25 Mg/0.2 Ml Pen.injctr, 0.25 MG SC QWEEK, (Reported) ON THURSDAYS Sennosides (Senna) 8.6 Mg Tablet, 17.2 MG PO QHS, (Reported) Scheduled PRN Acetaminophen (Acetaminophen ER) 650 Mg Tablet.er, 650 MG PO TID PRN for PAIN, (Reported) Bisacodyl (Bisacodyl) 10 Mg Supp.rect, 10 MG [place] DAILY PRN for CONSTIPATION, (Reported) Calcium Carbonate (Calcium Carbonate) 500 Mg Tablet, 1,000 MG PO DAILY PRN for ACID REFLUX, (Reported) Estradiol (Estrace) 42.5 Gm Cream.appl, 1 DOSE PV PRN PRN for IRRITATION, (Reported) APPLY SMALL AMOUNT Glucagon,Human Recombinant (Glucagon Emergency Kit) 1 Mg Vial, 1 MG SC ASDIRECTED PRN for SEVERE LOW BLOOD SUGAR, (Reported) Nitroglycerin (Nitrostat) 0.4 Mg Tab.subl, 0.4 MG SL NITRO PRN for CHEST PAIN, (Reported) Oxycodone HCl (Oxycodone HCl) 5 Mg Tablet, 5 MG PO Q4H PRN for PAIN, (Reported) TO TAKE FOR UP TO 3 DAYS MDD 30MG. NOTE FROM [facility] TO STOP TAKING AT DISCHARGE. Oxycodone HCl (Oxycodone HCl) 10 Mg Tablet, 10 MG PO BID PRN for PAIN, (Rep orted) Polyethylene Glycol 3350 (Polyethylene Glycol 3350) 17 Gm Powd.pack, 17 GRAM PO DAILY PRN for CONSTIPATION, (Reported) DANIKA PADILLA Aug 11, 2018 10:00
[2018-08-11] MEDS: ACETAMINOPHEN TAB 650MG DOSE (2X325MG) PO PRN ×2 (13:21→20:40)
[2018-08-11 14:00] VITALS: BP 120/62
--- NOTE | 2018-08-11 14:53 | HPEPDOC ---
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 She underwent a myelogram on 06/15/18 which showed, Compression thecal sac in the lower cord at T12 and L1 level, spinal fusion changes from T3 to L5, and Corpectomy and anterior fusion, graft is seen extending from T11 to L1 L2 level. She underwent chordoma debulking on 06/19/18 which was complicated by CSF leak and meningitis requiring wound exploration and dural repair on 07/05/18. She had persistent hyponatremia and anemia requiring blood transfusions and her BP meds were held due to orthostatics. She was started on IV antibiotics and later switched back to prophylactic oral medication for her history of hardware infection. She was admitted to ARU on 07/23/18 on po Linezolid and developed fevers, chills, with an elevated CRP/ESR, and physical signs concerning for meningitis and discharged back to [facility] for ID and surgical intervention on 07/30/18. He underwent a CT thoracic and Lumbar myelogram on 07/30/18 showing, Compression of thecal sac from T11 to L1 level. However, underlying cause not certain, could be due to soft tissue/Fluid/postsurgical changes... Irregular outline of thecal sac. However no distinct CSF leak. On 08/05/18 she underwent an ultrasound guided thoracic paraspinal fluid collection aspiration without complication after which patient reports she felt dramatically better. The fluid grew Klebsiella pneumoni a and her antibiotics were changed to Ciprofloxacin 500mg po BID for a total of 4 weeks and continue suppressive Linezolid therapy. She had an episode of suicide ideation for which a psychiatry consult was placed, she was restarted on a lower dose of her home Phenelzine after which her ideation resolved. She was evaluated by therapy and found to have limited bed mobility,difficulty ambulating, neurogenic bladder, and difficulty with ADLs. She was deemed medically appropriate for discharge to ARU for an incomplete spinal cord injury with functional goals to maintain ROM of her lower extremities, strengthen her legs, work on ambulation with a RW, and improve overall endurance while managing pain on 08/10/18. REVIEW OF SYSTEMS: The following is a completed review of systems and has been reviewed. Review of systems otherwise unremarkable. PAIN: Patient self reports back pain and spasms EYES: no recent vision changes EARS, NOSE, & THROAT: no throat pain, or dysphagia, or rhinorrhea CARDIOVASCULAR: denies chest pain or palpitations PULMONARY: Negative. Denies shortness of breath GASTROINTESTINAL: denies constipation/ diarrhea GENITOURINARY: +incontinence MUSCULOSKELETAL: bilat LE weakness NEUROLOGICAL: +spinal cord injury and right foot drop HEMATOLOGICAL: +anemia SKIN: thoraco-lumbar incision PSYCHIATRIC:Unremarkable All other review of systems found to be negative. PAST MEDICAL HISTORY: chordoma, depression, HTN, HLD, DM2, arthritis, LIZ PAST SURGICAL HISTORY: IVC filter, hysterectomy, colonoscopy, left mastectomy 2005, posterior T10-L2 spinal fusion 10/2014, anterior instrumentation 09/2013 with thoracic cage removal and bone graft T10-T0 and L1-L2 anterior fusion , 07/2016 tumor resection with T6-L4 revision with posterior reconstruction ALLERGIES: Please see below. MEDICATIONS: Please see below. FAMILY HISTORY: mental illness and DM SOCIAL HISTORY: retired nurse, no smoking, ETOH, or illicit drugs DIET: consistent carb PHYSICAL EXAMINATION: VITAL SIGNS: Please see below. GENERAL: Pleasant and cooperative. No acute distress. Pale HEENT: PERRL. Extraocular movements intact. Clear conjunctiva]. CARDIOVASCULAR: Regular rate and rhythm. No murmurs, rubs, or gallops LUNGS: Clear to auscultation bilaterally. No wheezes. No rhonchi ABDOMEN: Soft, nontender, non-distended Positive bowel sounds. Normal active bowel sounds NEUROLOGICAL: Alert and oriented times three. Cranial nerves II through XII grossly intact. Sensation grossly intact in bilateral LE and sacral area, diminished along lower thoracic dermatome on the left and neat her thoroco- lumbar incision (will defer SCI VANESSA exam for now) EXTREMITIES: 5\5 strength bilateral upper extremities. 4\5 strength right hip flexors, knee extensors, and ankle PF, however 0/5 ankle DF, and 1/F EHL 3+/5 strength in left hip flexors, 5/5 hip adduction, 5-/5 knee extension, 5/5 ankle Df/EHL/PF Reflexes depressed in bilat patella, no babinksi SKIN: thoracolumbar incision with sutures and drain site without induration, mild erythema, c/d/i sacrum no ulcers or erythema right lower abdominal quadrant with dime size ulcer IMAGING: Imaging documentation personally reviewed by record FUNCTIONAL STATUS: Premorbid: Modified Independent household distance with RW, otherwise used wheelchair, requiring some assistance with ADLs. On Admission: Total assistance for bed mobility and stairs, min assist for ambulating a few feet, dressing and toileting. GOALS: Mod-I household distances with RW, dressing, bathing, toileting, improve standing tolerance for cooking, mod-I stairs, bladder management education, skin protection education, family training, assess for DME needs. ASSESSMENT:63-year-old F with past medical history of recurring chordoma with multiple instrumentation with revision who presents status post new T12-L1 chordoma s/p debulking with incomplete spinal cord injury complicated by a pa raspinal fluid collection. PLAN: 1. Rehab: OT, PT, assess for DMEs- patient with severe deconditioning due to extended hospital stay at [facility] with new spinal cord lesion, will require intensive and more prolonged therapy 2. 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 Cardio: pmh HTN and HLD, c/u statin, lasix metoprolol and lisinopril- medicine consulted 4. Resp: pmh LIZ, will encourage CPAP at night, incentive spirometry 5. : neurogenic bladder, monitor PVRs 6. GI ppx: protonix, optimize bowel meds for neurogenic bowel 7. DVT ppx: Lovenox 8. Endo: pm DM, insulin and ISS, monitor and adjust 9. Pain: patient with considerable pain, c/u oxycodone, Tylenol, c/u methocarbamol, c/u Neurontin -avoid Tramadol and Flexeril for pain as risk of serotonin syndrome 10. Psych: hx of drug resistant depression with recent suicide ideation at [facility] that resolved, was started back on low dose Phenelzine while on inpatient 15mg daily, however was on 30mg TID, will increase to 15mg TID and monitor closely for serotonin syndrome-patient reports improved mood and denies active suicide ideation 11. Skin: Zinc oxide to sacrum and monitor for skin breakdown, patient able to turn herself in bed -medihoney to right abdominal abdominal wound and cover with optifoam POST ADMISSION PHYSICIAN EVALUATION: Medical and functional status: Description of medical status, medical assessment: As above. Rehabilitation diagnosis and current and prior cold morbid medical conditions as above. Risk of complications and plans to mitigate them as above. Description of functional status current status is as above. Prior status as above. Status compared to preadmission: There are no clinically significant differences between the patient's current status and the information described on the preadmission screening document. Treatment plan anticipated: Treatment plan is as described above. Required disciplines including physical therapy, occupational therapy, others as noted above Intensity of services: 3 hours a day, days a week. Special considerations: There are no specific special or safety considerations that would likely preclude immediate implementation of an intensive rehabilitation program or subsequently influence the plan of care. ATTESTATION: Considering all the information above, it is my best judgment that this patient requires intensive rehabilitation therapy as described above and an inpatient hospital environment due to the complexity of nursing, medical, and rehabilitation needs required by the patient. Furthermore, this patient can reasonably be expected to participate in an benefit from an inpatient rehabilitation stay with an interdisciplinary team approach to the delivery of rehabilitation care under the direction and supervision of rehabilitation physician PROGNOSIS: Good ESTIMATED LENGTH OF STAY:18-21 days. PROJECTED DISCHARGE DESTINATION: Home with family support and any durable medical equipment required to increase functional safety and mobility. TIME SPENT COUNSELING AND COORDINATING INITIAL CARE: Greater than 70 minutes. Vital Signs Vital Sign - Last 24 Hours 08/10/18 08/10/18 08/11/18 08/11/18 16:15 20:00 05:50 08:51 Temp 97.5 97.6 98.0 Pulse 94 102 90 90 Resp 20 18 18 B/P (MAP) 126/62 (83) 121/58 (79) 133/63 (86) 133/63 Pulse Ox 100 98 100 08/11/18 08/11/18 09:04 09:35 Resp 18 18 Laboratory Data CBC/BMP Laboratory Tests 08/11/18 06:23 Red Blood Count 3.62 L, Mean Corpuscular Volume 84.8, Mean Corpuscular Hemoglobin 26.8 L, Mean Corpuscular Hemoglobin Concent 31.6 L, Red Cell Distribution Width 14.6 H, Neutrophils (%) (Auto) 73.0 H, Lymphocytes (%) (Auto) 14.7 L, Monocytes (%) (Auto) 4.9, Eosinophils (%) (Auto) 5.1 H, Basophils (%) (Auto) 0.7, Neutrophils # (Auto) 6.6, Lymphocytes # (Auto) 1.3 L, Monocytes # (Auto) 0.4, Eosinophils # (Auto) 0.5, Basophils # (Auto) 0.1, Calcium Level 9.2, Aspartate Amino Transf (AST/SGOT) 11, Alanine Aminotransferase (ALT/SGPT) 14, Alkaline Phosphatase 112, Total Bilirubin 0.3, Total Protein 7.1, Albumin 2.6 L Labs 24H Laboratory Tests 2 08/10/18 17:18: Bedside Glucose (Misc Panel) 95 08/10/18 20:49: Bedside Glucose (Misc Panel) 206H 08/11/18 06:23: Immature Granulocyte % (Auto) 1.6, White Blood Count 9.0, Red Blood Count 3.62L, Hemoglobin 9.7L, Hematocrit 30.7L, Mean Corpuscular Volume 84.8, Mean Corpuscular Hemoglobin 26.8L, Mean Corpuscular Hemoglobin Concent 31.6L, Red Cell Distribution Width 14.6H, Platelet Count 352, Neutrophils (%) (Auto) 73.0H, Lymphocytes (%) (Auto) 14.7L, Monocytes (%) (Auto) 4.9, Eosinophils (%) (Auto) 5.1H, Basophils (%) (Auto) 0.7, Neutrophils # (Auto) 6.6, Lymphocytes # (Auto) 1.3L, Monocytes # (Auto) 0.4, Eosinophils # (Auto) 0.5, Basophils # (Auto) 0.1, Nucleated Red Blood Cells % (auto) 0.0, Anion Gap 7L, Glomerular Filtration Rate > 60.0, Blood Urea Nitrogen 14, Creatinine 0.78, Sodium Level 136, Potassium Level 4.9, Chloride Level 100, Carbon Dioxide Level 29, Calcium Level 9.2, Aspartate Amino Transf (AST/SGOT) 11, Alanine Aminotransferase (ALT/SGPT) 14, Alkaline Phosphatase 112, Total Bilirubin 0.3, Total Protein 7.1, Albumin 2.6L, Albumin/Globulin Ratio 0.58L 08/11/18 11:59: Bedside Glucose (Misc Panel) 231H FSBS Laboratory Tests Test 08/10/18 17:18 08/10/18 20:49 08/11/18 11:59 Range/Units Bedside Glucose (Misc Panel) 95 206 231 80-115 MG/DL Home Medications Scheduled Aspirin (Aspirin EC) 81 Mg Tablet.dr, 81 MG PO DAILY, (Reported) Calcium Carbonate/Vitamin D3 (Calcium 600-Vit D3 200 Tablet) 1 Each Tablet, 1 TAB PO DAILY, (Reported) Cholecalciferol (Vitamin D3) (Vitamin D3) 2,000 Unit Capsule, 2,000 UNIT PO DAILY, (Reported) Ciprofloxacin HCl (Ciprofloxacin HCl) 500 Mg Tablet, 500 MG PO BID, (Reported) TO TAKE BID FROM 08/10/18 TO 08/25/18 Docusate Sodium (Colace) 100 Mg Capsule, 100 MG PO DAILY, (Reported) Enoxaparin Sodium (Lovenox) 40 Mg/0.4 Ml Syringe, 40 MG SC DAILY, (Reported) NOTE FROM [facility] TO STOP TAKING AT DISCHARGE Evolocumab (Repatha Sureclick) 140 Mg/1 Ml Pen.injctr, 140 MG SC Q2WK, (Reported) Ferrous Gluconate (Ferrous Gluconate) 324 Mg Tablet, 324 MG PO BID, (Reported) Furosemide (Furosemide) 20 Mg Tablet, 20 MG PO DAILY, (Reported) Gabapentin (Gabapentin) 400 Mg Capsule, 400 MG PO TID, (Reported) Gluc Hinojosa/Chondro Hinojosa A/Vit C/Mn (Glucosamine Chondroitin Tab) 1 Each Tablet, 1 TAB PO BID, (Reported) Insulin Glargine,Hum.rec.anlog (Toujeo Solostar) 300 Unit/1 Ml Insuln.pen, 100 UNIT SC QHS, (Reported) PATIENT WAS GIVEN 60 UNITS OF LANTUS ON 08/10/18 AT 0900 AT [facility]. Insulin Human Lispro (Novolog) 100 Unit/1 Ml Vial, 1 DOSE SC AC, (Reported) PER SLIDING SCALE. WAS GIVEN HUMALOG PER SLIDING SCALE AT [facility] WITH LAST DOSE ON 08/10/18 AT 1230. Lactobacillus Acidophilus (Acidophilus) 1 Each Tablet, 1 TAB PO BID, (Reported) Linezolid (Linezolid) 600 Mg Tablet, 600 MG PO DAILY, (Reported) Lisinopril (Lisinopril) 2.5 Mg Tablet, 2.5 MG PO DAILY, (Reported) Magnesium Oxide (Magnesium Oxide) 400 Mg Tablet, 400 MG PO DAILY, (Reported) Methocarbamol (Methocarbamol) 500 Mg Tablet, 500 MG PO QID, (Reported) TO TAKE X 10 DAYS STARTED 08/10/18 TO END 08/20/18. Metoprolol Succinate (Metoprolol Succinate) 50 Mg Tab.er.24h, 50 MG PO DAILY, (Reported) Multivitamin (Multivitamins) 1 Each Capsule, 1 CAP PO DAILY, (Reported) [place]-3 Fatty Acids ([place]-3) 1,000 Mg Capsule, 1,000 MG PO BID, (Reported) Pantoprazole Sodium (Protonix) 40 Mg Tablet.dr, 40 MG PO BID, (Reported) Phenelzine Sulfate (Nardil) 15 Mg Tablet, 30 MG PO TID, (Reported) Saccharomyces Boulardii (Florastor) 250 Mg Capsule, 250 MG PO DAILY, (Reported) TO TAKE X 7 DAYS STARTED ON 08/10/18 Semaglutide (Ozempic) 0.25 Mg/0.2 Ml Pen.injctr, 0.25 MG SC QWEEK, (Reported) ON THURSDAYS Sennosides (Senna) 8.6 Mg Tablet, 17.2 MG PO QHS, (Reported) Scheduled PRN Acetaminophen (Acetaminophen ER) 650 Mg Tablet.er, 650 MG PO TID PRN for PAIN, (Reported) Bisacodyl (Bisacodyl) 10 Mg Supp.rect, [address] DAILY PRN for CONSTIPATION, (Reported) Calcium Carbonate (Calcium Carbonate) 500 Mg Tablet, 1,000 MG PO DAILY PRN for ACID REFLUX, (Reported) Estradiol (Estrace) 42.5 Gm Cream.appl, 1 DOSE PV PRN PRN for IRRITATION, (Reported) APPLY SMALL AMOUNT Glucagon,Human Recombinant (Glucagon Emergency Kit) 1 Mg Vial, 1 MG SC DIRECTED PRN for SEVERE LOW BLOOD SUGAR, (Reported) Nitroglycerin (Nitrostat) 0.4 Mg Tab.subl, 0.4 MG SL NITRO PRN for CHEST PAIN, (Reported) Oxycodone HCl (Oxycodone HCl) 5 Mg Tablet, 5 MG PO Q4H PRN for PAIN, (Reported) TO TAKE FOR UP TO 3 DAYS MDD 30MG. NOTE FROM [facility] TO STOP TAKING AT DISCHARGE. Oxycodone HCl (Oxycodone HCl) 10 Mg Tablet, 10 MG PO BID PRN for PAIN, (Reported) Polyethylene Glycol 3350 (Polyethylene Glycol 3350) 17 Gm Powd.pack, 17 GRAM PO DAILY PRN for CONSTIPATION, (Reported) Allergies Coded Allergies: Penicillins (Verified Allergy, Intermediate, RASH/HIVES, 07/23/18) Sulfa (Sulfonamide Antibiotics) (Verified Allergy, Intermediate, REDNESS/SWELLING, 07/23/18) sulindac (Verified Adverse Reaction, Intermediate, COLITIS, 07/23/18) A-FIB/CHADSVASC A-FIB History Current/History of A-Fib/PAF?: No ANGELITA HOBBS MD Aug 11, 2018 14:53
--- NOTE | 2018-08-11 14:53 | IPNPDOC ---
PM&R Progress Note DATE OF SERVICE: Aug 11, 2018 Margarine Churn Operator Progress Note Subjective: Patient seen propelling herself to the gym stating she feels much better and is eager to shower once she is cleared by surgery. REVIEW OF SYSTEMS: The following is a completed review of systems and has been reviewed. Review of systems otherwise unremarkable. PAIN: Patient self reports back pain and spasms EYES: no recent vision changes EARS, NOSE, & THROAT: no throat pain, or dysphagia, or rhinorrhea CARDIOVASCULAR: denies chest pain or palpitations PULMONARY: Negative. Denies shortness of breath GASTROINTESTINAL: denies constipation/ diarrhea GENITOURINARY: +incontinence MUSCULOSKELETAL: bilat LE weakness NEUROLOGICAL: +spinal cord injury and right foot drop HEMATOLOGICAL: +anemia SKIN: thoraco-lumbar incision PSYCHIATRIC:Unremarkable All other review of systems found to be negative. PHYSICAL EXAMINATION: VITAL SIGNS: Please see below. GENERAL: Pleasant and cooperative. No acute distress. Pale HEENT: PERRL. Extraocular movements intact. Clear conjunctiva]. CARDIOVASCULAR: Regular rate and rhythm. No murmurs, rubs, or gallops LUNGS: Clear to auscultation bilaterally. No wheezes. No rhonchi ABDOMEN: Soft, nontender, non-distended Positive bowel sounds. Normal active bowel sounds NEUROLOGICAL: Alert and oriented times three. Cranial nerves II through XII grossly intact. Sensation grossly intact in bilateral LE and sacral area, diminished along lower thoracic dermatome on the left and neat her thoroco- lumbar incision (will defer SCI VANESSA exam for now) EXTREMITIES: 5\5 strength bilateral upper extremities. 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 PLAN: 1. Rehab: OT, PT, assess for DMEs- patient with severe deconditioning due to extended hospital stay at [facility] with new spinal cord lesion, will require intensive and more prolonged therapy 2. 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 Cardio: pmh HTN and HLD, c/u statin, lasix metoprolol and lisinopril- medicine consulted 4. Resp: pmh LIZ, will encourage CPAP at night, incentive spirometry 5. : neurogenic bladder, monitor PVRs 6. GI ppx: protonix, optimize bowel meds for neurogenic bowel 7. DVT ppx: Lovenox 8. Endo: pm DM, insulin and ISS, monitor and adjust 9. Pain: patient with considerable pain, c/u oxycodone, Tylenol, c/u methocarbamol, c/u Neurontin -avoid Tramadol and Flexeril for pain as risk of serotonin syndrome 10. Psych: hx of drug resistant depression with recent suicide ideation at [facility] that resolved, was started back on low dose Phenelzine while on inpatient 15mg daily, however was on 30mg TID, will increase to 15mg TID and monitor closely for serotonin syndrome-patient reports improved mood and denies active suicide ideation 11. Skin: Zinc oxide to sacrum and monitor for skin breakdown, patient able to turn herself in bed -medihoney to right abdominal abdominal wound and cover with optifoam Allergies Coded Allergies: Penicillins (Verified Allergy, Intermediate, RASH/HIVES, 07/23/18) Sulfa (Sulfonamide Antibiotics) (Verified Allergy, Intermediate, REDNESS/SWELLING, 07/23/18) sulindac (Verified Adverse Reaction, Intermediate, COLITIS, 07/23/18) Vital Signs Vital Signs Date Time Temp Pulse Resp B/P (MAP) Pulse Ox O2 Delivery O2 Flow Rate FiO2 08/11/18 09:35 18 08/11/18 08:51 90 133/63 08/11/18 05:50 98.0 100 Laboratory Data CBC/BMP Laboratory Tests 08/11/18 06:23 Red Blood Count 3.62 L, Mean Corpuscular Volume 84.8, Mean Corpuscular Hemoglobin 26.8 L, Mean Corpuscular Hemoglobin Concent 31.6 L, Red Cell Distribution Width 14.6 H, Neutrophils (%) (Auto) 73.0 H, Lymphocytes (%) (Auto) 14.7 L, Monocytes (%) (Auto) 4.9, Eosinophils (%) (Auto) 5.1 H, Basophils (%) (Auto) 0.7, Neutrophils # (Auto) 6.6, Lymphocytes # (Auto) 1.3 L, Monocytes # (Auto) 0.4, Eosinophils # (Auto) 0.5, Basophils # (Auto) 0.1, Calcium Level 9.2, Aspartate Amino Transf (AST/SGOT) 11, Alanine Aminotransferase (ALT/SGPT) 14, Alkaline Phosphatase 112, Total Bilirubin 0.3, Total Protein 7.1, Albumin 2.6 L Labs 24H Laboratory Tests 2 08/10/18 17:18: Bedside Glucose (Misc Panel) 95 08/10/18 20:49: Bedside Glucose (Misc Panel) 206H 08/11/18 06:23: Immature Granulocyte % (Auto) 1.6, White Blood Count 9.0, Red Blood Count 3.62L, Hemoglobin 9.7L, Hematocrit 30.7L, Mean Corpuscular Volume 84.8, Mean Corpuscular Hemoglobin 26.8L, Mean Corpuscular Hemoglobin Concent 31.6L, Red Cell Distribution Width 14.6H, Platelet Count 352, Neutrophils (%) (Auto) 73.0H, Lymphocytes (%) (Auto) 14.7L, Monocytes (%) (Auto) 4.9, Eosinophils (%) (Auto) 5.1H, Basophils (%) (Auto) 0.7, Neutrophils # (Auto) 6.6, Lymphocytes # (Auto) 1.3L, Monocytes # (Auto) 0.4, Eosinophils # (Auto) 0.5, Basophils # (Auto) 0.1, Nucleated Red Blood Cells % (auto) 0.0, Anion Gap 7L, Glomerular Filtration Rate > 60.0, Blood Urea Nitrogen 14, Creatinine 0.78, Sodium Level 136, Potassium Level 4.9, Chloride Level 100, Carbon Dioxide Level 29, Calcium Level 9.2, Aspartate Amino Transf (AST/SGOT) 11, Alanine Aminotransferase (ALT/SGPT) 14, Alkaline Phosphatase 112, Total Bilirubin 0.3, Total Protein 7.1, Albumin 2.6L, Albumin/Globulin Ratio 0.58L 08/11/18 11:59: Bedside Glucose (Misc Panel) 231H Current Medications Current Medications Current Medications Acetaminophen (Tylenol Tab) 650 mg Q4HP PRN PO MILD PAIN (PS 1-4) Last administered on 08/11/18 13:21; Start 08/10/18 at 16:15 Al Hydrox/Mg Hydrox/Simethicone (Mylanta) 30 ml Q4HP PRN PO DYSPEPSIA; Start 08/10/18 at 16:15 Aspirin (Aspirin Chewable) 81 mg DAILY PO Last administered on 08/11/18 08:50; Start 08/11/18 at 09:00 Ciprofloxacin (Cipro) 500 mg BID@06,18 PO Last administered on 08/11/18 06:23; Start 08/10/18 at 18:00; Stop 08/25/18 at 23:00 Dextrose (Dextrose 50%) 25 ml ASDIRECTED PRN IV SEE LABEL COMMENTS; Start 08/10/18 at 16:15 Docusate Sodium (Colace) 100 mg BID PO Last administered on 08/11/18 08:50; Start 08/10/18 at 21:00 Enoxaparin Sodium (Lovenox) 40 mg DAILY SC Last administered on 08/11/18 08:52; Start 08/11/18 at 09:00 Ferrous Gluconate (Fergon) 324 mg DAILY PO Last administered on 08/11/18 08:51; Start 08/11/18 at 09:00 Fish Oil ([place]-3 (1000mg)) 1 cap DAILY PO Last administered on 08/11/18 08:49; Start 08/11/18 at 09:00 Furosemide (Lasix) 20 mg DAILY PO Last administered on 08/11/18 08:50; Start 08/11/18 at 09:00 Gabapentin (Neurontin) 400 mg TID PO Last administered on 08/11/18at 08:51; Start 08/10/18 at 16:00 Glucagon (Glucagon) 1 mg ASDIRECTED PRN SC SEE LABEL COMMENTS; Start 08/10/18 at 16:15 Glucose (Glucose) 16 GM ASDIRECTED PRN PO SEE LABEL COMMENTS; Start 08/10/18 at 16:15 Home Med (Med Rec Complete!) ASDIRECTED XX ; Start 08/10/18 at 17:45; Stop 08/10/18 at 17:46; Status DC Insulin Detemir (Levemir Insulin) 30 units QHS SC Last administered on 08/10/18at 21:24; Start 08/10/18 at 21:00 Insulin Human Lispro (HumaLOG INSULIN) SEE PROTOCOL TABLE AC SC Last ad ministered on 08/11/18at 12:46; Start 08/10/18 at 17:30 Insulin Human Lispro (HumaLOG INSULIN) SEE PROTOCOL TABLE QHS SC ; Start 08/10/18 at 21:00 Lactobacillus Acidophilus (Bacid) 1 ea TID PO Last administered on 08/11/18at 08:50; Start 08/10/18 at 16:00 Linezolid (Zyvox) 600 mg DAILY PO Last administered on 08/11/18at 08:50; Start 08/11/18 at 09:00 Lisinopril (Prinivil) 2.5 mg DAILY PO Last administered on 08/11/18at 08:50; Start 08/11/18 at 09:00 Magnesium Hydroxide (Milk Of Magnesia) 30 ml DAILYPRN PRN PO CONSTIPATION; Start 08/10/18 at 16:15 Magnesium Oxide (Mag-Ox) 400 mg DAILY PO Last administered on 08/11/18at 08:51; Start 08/11/18 at 09:00 Methocarbamol (Robaxin) 500 mg TID PO Last administered on 08/11/18at 08:49; Start 08/10/18 at 16:00 Metoprolol Succinate (TopROL XL) 50 mg DAILY PO Last administered on 08/11/18at 08:51; Start 08/11/18 at 09:00 Miscellaneous (Unresolved Patient Own Med Order) SEE LABEL COMMENTS DAILY XX ; Start 08/10/18 at 09:00; Stop 08/10/18 at 19:16; Status DC Multivitamins (Theragram-M) 1 tab DAILY PO Last administered on 08/11/18 08:49; Start 08/11/18 at 09:00 Nitroglycerin (Nitrostat (1/ 200)) 0.3 mg Q5MP PRN SL CHEST PAIN; Start 08/10/18 at 16:15 Oxycodone HCl (Roxicodone, Oxyir) 5 mg Q4HP PRN PO PAIN Last administered on 08/11/18 09:04; Start 08/10/18 at 16:15 Pantoprazole Sodium (Protonix) 40 mg BID PO Last administered on 08/11/18 08:51; Start 08/10/18 at 21:00 Patient Own Medication (Patient'S Own Med) 1 TABLET = 15 MG TID PO Last administered on 08/11/18 08:47; Start 08/10/18 at 21:00 Patient Own Medication (Patient'S Own Med) apply to right abdo... BID TD Last administered on 08/11/18 08:44; Start 08/10/18 at 21:00 Senna (Senokot) 1 tab QHS PO Last administered on 08/10/18 21:21; Start 08/10/18 at 21:00 Vitamin D (Vitamin D) 2,000 units DAILY PO Last administered on 08/11/18 08:49; Start 08/11/18 at 09:00 ANGELITA HOBBS MD Aug 11, 2018 14:53
[2018-08-11] MEDS: SENNA 8.6 MG TAB (SENOKOT) PO SCH (20:37)
[2018-08-11] MEDS: ATORVASTATIN 20 MG TAB PO SCH (20:37)
[2018-08-11] MEDS: LEVEMIR (INSULIN DETEMIR) 1 UNITS/0.01ML SC SCH (20:41)
[2018-08-11 23:29] VITALS: BP 114/54
[2018-08-12 06:01] VITALS: BP 119/57
[2018-08-12] MEDS: ACETAMINOPHEN TAB 650MG DOSE (2X325MG) PO PRN (06:20)
[2018-08-12] MEDS: CIPROFLOXACIN 500 MG TAB PO SCH ×2 (06:20→17:16)
[2018-08-12] MEDS: ASPIRIN 81 MG CHEW TABLET PO SCH (09:14)
[2018-08-12] MEDS: MAGNESIUM OXIDE 400 MG TAB (MAG-OX) PO SCH (09:15)
[2018-08-12] MEDS: MULTIVITAMINS/MINERALS THERAP 1 TAB PO SCH (09:15)
[2018-08-12] MEDS: FERROUS GLUCONATE 324 MG TAB PO SCH (09:15)
[2018-08-12] MEDS: PANTOPRAZOLE 40MG TAB (PROTONIX) PO SCH ×2 (09:15→22:09)
[2018-08-12] MEDS: DOCUSATE SODIUM 100 MG CAP PO SCH ×2 (09:16→22:09)
[2018-08-12] MEDS: METHOCARBAMOL 500 MG TAB PO SCH ×3 (09:16→22:08)
[2018-08-12] MEDS: LACTOBACILLUS ACIDOPHILUS CAP (BACID) PO SCH ×3 (09:16→22:08)
[2018-08-12] MEDS: LISINOPRIL *2.5 MG* TAB PO SCH (09:16)
[2018-08-12] MEDS: FUROSEMIDE 20 MG TAB PO SCH (09:16)
[2018-08-12] MEDS: VITAMIN D 1,000 INTERNATIONAL UNITS TABLET PO SCH (09:17)
[2018-08-12] MEDS: METOPROLOL SUCC (TopROL XL) 50MG **XL** TAB PO SCH (09:17)
[2018-08-12] MEDS: HumaLOG INSULIN (NovoLOG) PER UNIT SC SCH ×4 (09:18→21:00)
[2018-08-12] MEDS: PHENELZINE 15 MG PO SCH ×3 (09:19→22:15)
[2018-08-12] MEDS: GABAPENTIN 400 MG CAP PO SCH ×3 (09:19→22:09)
[2018-08-12] MEDS: ENOXAPARIN 40 MG/0.4 ML SYRINGE (J1650) SC SCH (09:21)
[2018-08-12] MEDS: OMEGA-3 1000MG CAPSULE PO SCH (09:21)
[2018-08-12] MEDS: MEDIHONEY TD SCH ×2 (09:22→22:00)
[2018-08-12] MEDS: LINEZOLID 600MG TABLET (ZYVOX) PO SCH (10:34)
[2018-08-12] MEDS: oxyCODONE 5MG TAB PO PRN ×2 (10:35→22:11)
--- NOTE | 2018-08-12 10:42 | IPNPDOC ---
Text Note Date of Service The patient was seen on 08/12/18. NOTE Patient is a 63-year-old female, past medical history significant for spinal chordoma initially diagnosed 2010, multiple spinal surgery with revisions, instrumentations, and complications related to same. She has been admitted post discharge from [facility] for rehabilitation here. Subjective: Patient reports episode of significant abdominal discomfort with nausea today. She denies any chills, but had difficulty swallowing. At time of assessment. Feels much improved however still complains of abdominal discomfort GENERAL: NAD SKIN : Warm, dry, ventral back surgical dressing HEENT: Atraumatic, normocephalic, PERRL, moist mucous membrane CARDIOVASCULAR: Regular rate and rhythm, S1S2, no JVD, no edema, distal pulses + and palpable RESP: CTAB, no accessory muscle use noted ABDOMEN: BS+ non distended, +tender MS: Right foot drop NEURO: Alert and oriented x 3, CN2-12 grossly intact PSYCH: no anxiety or agitation, appropriate mood and affect. LABORATORY DATA: Please see below. ASSESSMENT/PLAN: Abdominal pain -Etiology unclear -Extremity abdomen completed, negative for acute process -CT abdomen has been completed, results are pending. 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 Target systolic blood pressure less than 140 Anemia -Likely due to chronic disease Neurogenic bladder -Patient has been voiding without issues -Intermittent monitoring per nursing staff -Multiple bladder scans showing complete emptying of bladder DVT prophylaxis -Lovenox 40 mg daily VS,Fishbone, I+O VS, Fishbone, I+O Vital Signs Date Time Temp Pulse Resp B/P (MAP) Pulse Ox O2 Delivery O2 Flow Rate FiO2 08/12/18 10:35 16 08/12/18 09:17 94 119/57 08/12/18 06:01 97.4 98 I&O- Last 24 Hours up to 6 AM 08/12/18 05:59 Intake Total 900 ml Output Total 900 ml Balance 0 ml DANIKA PADILLAP Aug 12, 2018 10:42
[2018-08-12 14:00] VITALS: BP 121/70
[2018-08-12] MEDS: MAALOX 30 ML SUSP *UDC PO PRN (14:09)
[2018-08-12] MEDS: NS 1,000 ML IV SCH (14:11)
--- NOTE | 2018-08-12 15:04 | REP ---
Clinical: Abdominal pain and distension. Rule out obstruction. Technique: Two supine views of the abdomen and pelvis. Findings: The bowel gas pattern is relatively nonspecific and without obvious obstruction or perforation. Orthopedic hardware spans the thoracolumbar spine. IVC filter noted. Impression: Nonspecific bowel pattern. Electronically Signed by Polo Briseno MD 08/12/2018 02:55 P
[2018-08-12] MEDS: GASTROGRAFIN SOLUTION 30ML PO SCH ×2 (15:30→16:17)
[2018-08-12 15:51] LABS: AMYLASE 28 U/L (25-115); LIPASE 132 U/L (73-393)
--- NOTE | 2018-08-12 17:06 | IPNPDOC ---
PM&R Progress Note DATE OF SERVICE: Aug 12, 2018 Retail Marketing Specialist Progress Note Subjective: Patient had episode of presyncope, found in her room cold and sweating reporting she had a sharp pain in her stomach after eating that got worse, did not radiate to the back, and she started to feel faint. Vitals were taken, sBP, HR, and FS were all within normal limits, she was given Maalox after which her symptoms improved, color returned to her face, and her abdominal pain improved, however she still had tenderness to palptaion on exam. gentle IVf started in anticipation of CT abdomen, KUB ordered, and RUQ US. She denied chest pain. REVIEW OF SYSTEMS: The following is a completed review of systems and has been reviewed. Review of systems otherwise unremarkable. PAIN: Patient self reports back pain and spasms EYES: no recent vision changes EARS, NOSE, & THROAT: no throat pain, or dysphagia, or rhinorrhea CARDIOVASCULAR: denies chest pain or palpitations PULMONARY: Negative. Denies shortness of breath GASTROINTESTINAL: denies constipation/ diarrhea, +epigastric pain GENITOURINARY: +incontinence MUSCULOSKELETAL: bilat LE weakness NEUROLOGICAL: +spinal cord injury and right foot drop HEMATOLOGICAL: +anemia SKIN: thoraco-lumbar incision PSYCHIATRIC:Unremarkable All other review of systems found to be negative. PHYSICAL EXAMINATION: VITAL SIGNS: Please see below. GENERAL: Pleasant and cooperative. No acute distress. Pale HEENT: PERRL. Extraocular movements intact. Clear conjunctiva]. CARDIOVASCULAR: Regular rate and rhythm. No murmurs, rubs, or gallops LUNGS: Clear to auscultation bilaterally. No wheezes. No rhonchi ABDOMEN: Soft, +epigastric and RUQ tenderness to palpation, non-distended Positive bowel sounds. Normal active bowel sounds NEUROLOGICAL: Alert and oriented times three. Cranial nerves II through XII grossly intact. Sensation grossly intact in bilateral LE and sacral area, diminished along lower thoracic dermatome on the left and neat her thoroco- lumbar incision (will defer SCI VANESSA exam for now) EXTREMITIES: 5\5 strength bilateral upper extremities. 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 PLAN: 1. Rehab: OT, PT, assess for DMEs- patient with severe deconditioning due to extended hospital stay at [facility] with new spinal cord lesion, will require intensive and more prolonged therapy 2. 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 Cardio: pmh HTN and HLD, c/u statin, lasix metoprolol and lisinopril- medicine consulted 4. Resp: pmh LIZ, will encourage CPAP at night, incentive spirometry 5. : neurogenic bladder, monitor PVRs 6. GI ppx: protonix BID, optimize bowel meds for neurogenic bowel -patient had episode of epigastric pain following lunch followed by presyncopal response with stable vitals, KUB negative for obstruction (patient having bowel movements), RUQ US ordered for tomorrow, and CT abd pelvis pending- suspect gastric ulcer at this time and will add sucralfate with meals in the meantime 7. DVT ppx: Lovenox 8. Endo: pm DM, insulin and ISS, monitor and adjust 9. Pain: patient with considerable pain, c/u oxycodone, Tylenol, c/u methocarbamol, c/u Neurontin -avoid Tramadol and Flexeril for pain as risk of serotonin syndrome 10. Psych: hx of drug resistant depression with recent suicide ideation at [facility] that resolved, was started back on low dose Phenelzine while on inpatient 15mg daily, however was on 30mg TID, will increase to 15mg TID and monitor closely for serotonin syndrome-patient reports improved mood and denies active suicide ideation 11. Skin: Zinc oxide to sacrum and monitor for skin breakdown, patient able to turn herself in bed -medihoney to right abdominal abdominal wound and cover with optifoam Allergies Coded Allergies: Penicillins (Verified Allergy, Intermediate, RASH/HIVES, 07/23/18) Sulfa (Sulfonamide Antibiotics) (Verified Allergy, Intermediate, REDNESS/SWELLING, 07/23/18) sulindac (Verified Adverse Reaction, Intermediate, COLITIS, 07/23/18) Vital Signs Vital Signs Date Time Temp Pulse Resp B/P (MAP) Pulse Ox O2 Delivery O2 Flow Rate FiO2 08/12/18 14:00 96.5 100 19 121/70 (87) 95 Laboratory Data Labs 24H Laboratory Tests 2 08/11/18 17:45: Bedside Glucose (Misc Panel) 149H 08/11/18 20:14: Bedside Glucose (Misc Panel) 198H 08/12/18 06:16: Bedside Glucose (Misc Panel) 165H 08/12/18 11:49: Bedside Glucose (Misc Panel) 187H 08/12/18 14:00: Bedside Glucose (Misc Panel) 174H 08/12/18 15:24: Amylase Level 28, Lipase 132 Current Medications Current Medications Current Medications Acetaminophen (Tylenol Tab) 650 mg Q4HP PRN PO MILD PAIN (PS 1-4) Last administered on 08/12/18at 06:20; Start 08/10/18 at 16:15 Al Hydrox/Mg Hydrox/Simethicone (Mylanta) 30 ml Q4HP PRN PO DYSPEPSIA Last administered on 08/12/18at 14:09; Start 08/10/18 at 16:15 Aspirin (Aspirin Chewable) 81 mg DAILY PO Last administered on 08/12/18at 09:14; Start 08/11/18 at 09:00 Atorvastatin Calcium (Lipitor) 20 mg QHS PO Last administered on 08/11/18at 20:37; Start 08/11/18 at 21:00 Ciprofloxacin (Cipro) 500 mg BID@18 PO Last administered on 08/12/18at 06:20; Start 08/10/18 at 18:00; Stop 08/25/18 at 23:00 Dextrose (Dextrose 50%) 25 ml ASDIRECTED PRN IV SEE LABEL COMMENTS; Start 08/10/18 at 16:15 Diatrizoate Meglum/ Diatrizoate Sod (Gastrografin) 10 ml Q30M PO Last administered on 08/12/18at 16:17; Start 08/12/18 at 15:00; Stop 08/12/18 at 15:31; Status DC Docusate Sodium (Colace) 100 mg BID PO Last administered on 08/12/18at 09:16; Start 08/10/18 at 21:00 Enoxaparin Sodium (Lovenox) 40 mg DAILY SC Last administered on 08/12/18at 09:21; Start 08/11/18 at 09:00 Ferrous Gluconate (Fergon) 324 mg DAILY PO Last administered on 08/12/18at 09:15; Start 08/11/18 at 09:00 Fish Oil ([place]-3 (1000mg)) 1 cap DAILY PO Last administered on 08/12/18at 09:21; Start 08/11/18 at 09:00 Furosemide (Lasix) 20 mg DAILY PO Last administered on 08/12/18at 09:16; Start 08/11/18 at 09:00 Gabapentin (Neurontin) 400 mg TID PO Last administered on 08/12/18at 16:16; Start 08/10/18 at 16:00 Glucagon (Glucagon) 1 mg ASDIRECTED PRN SC SEE LABEL COMMENTS; Start 08/10/18 at 16:15 Glucose (Glucose) 16 GM ASDIRECTED PRN PO SEE LABEL COMMENTS; Start 08/10/18 at 16:15 Home Med (Med Rec Complete!) ASDIRECTED XX ; Start 08/10/18 at 17:45; Stop 08/10/18 at 17:46; Status DC Insulin Detemir (Levemir Insulin) 30 units QHS SC Last administered on 08/11/18at 20:41; Start 08/10/18 at 21:00 Insulin Human Lispro (HumaLOG INSULIN) SEE PROTOCOL TABLE AC SC Last administered on 08/12/18at 12:26; Start 08/10/18 at 17:30 Insulin Human Lispro (HumaLOG INSULIN) SEE PROTOCOL TABLE QHS SC ; Start 08/10/18 at 21:00 Lactobacillus Acidophilus (Bacid) 1 ea TID PO Last administered on 08/12/18 16:15; Start 08/10/18 at 16:00 Linezolid (Zyvox) 600 mg DAILY PO Last administered on 08/12/18 10:34; Start 08/11/18 at 09:00 Lisinopril (Prinivil) 2.5 mg DAILY PO Last administered on 08/12/18 09:16; Start 08/11/18 at 09:00 Magnesium Hydroxide (Milk Of Magnesia) 30 ml DAILYPRN PRN PO CONSTIPATION; Start 08/10/18 at 16:15 Magnesium Oxide (Mag-Ox) 400 mg DAILY PO Last administered on 08/12/18 09:15; Start 08/11/18 at 09:00 Methocarbamol (Robaxin) 500 mg TID PO Last administered on 08/12/18 16:15; Start 08/10/18 at 16:00 Metoprolol Succinate (TopROL XL) 50 mg DAILY PO Last administered on 08/12/18 09:17; Start 08/11/18 at 09:00 Miscellaneous (Unresolved Patient Own Med Order) SEE LABEL COMMENTS DAILY XX ; Start 08/10/18 at 09:00; Stop 08/10/18 at 19:16; Status DC Multivitamins (Theragram-M) 1 tab DAILY PO Last administered on 08/12/18 09:15; Start 08/11/18 at 09:00 Nitroglycerin (Nitrostat (1/ 200)) 0.3 mg Q5MP PRN SL CHEST PAIN; Start 08/10/18 at 16:15 Oxycodone HCl (Roxicodone, Oxyir) 5 mg Q4HP PRN PO PAIN Last administered on 08/12/18 10:35; Start 08/10/18 at 16:15 Pantoprazole Sodium (Protonix) 40 mg BID PO Last administered on 08/12/18 09:15; Start 08/10/18 at 21:00 Patient Own Medication (Patient'S Own Med) 1 TABLET = 15 MG TID PO Last administered on 08/12/18 16:15; Start 08/10/18 at 21:00 Patient Own Medication (Patient'S Own Med) apply to right abdo... BID TD Last administered on 08/12/18 09:22; Start 08/10/18 at 21:00 Senna (Senokot) 1 tab QHS PO Last administered on 08/11/18 20:37; Start 08/10/18 at 21:00 Sodium Chloride 1,000 ml @ 60 mls/hr [id number] IV Last administered on 08/12/18 14:11; Start 08/12/18 at 14:11 Vitamin D (Vitamin D) 2,000 units DAILY PO Last administered on 08/12/18 09:17; Start 08/11/18 at 09:00 ANGELITA HOBBS MD Aug 12, 2018 17:05
[2018-08-12] MEDS: SUCRALFATE 1 GM TAB PO SCH (17:16)
[2018-08-12] MEDS ORDERED: ISOVUE-370 76% 100ML VIAL (Q9967) As Ordered ONE (18:10)
[2018-08-12] MEDS: SENNA 8.6 MG TAB (SENOKOT) PO SCH (21:00)
[2018-08-12 22:00] VITALS: BP 119/58
[2018-08-12] MEDS: ATORVASTATIN 20 MG TAB PO SCH (22:09)
[2018-08-12] MEDS: LEVEMIR (INSULIN DETEMIR) 1 UNITS/0.01ML SC SCH (22:09)
[2018-08-13] MEDS: CIPROFLOXACIN 500 MG TAB PO SCH ×2 (05:35→17:20)
[2018-08-13 06:00] VITALS: BP 123/64
--- NOTE | 2018-08-13 06:42 | REP ---
Clinical: Acute epigastric pain. History of spinal malignancy. Technique: Axial contrast enhanced images of the abdomen coronal and sagittal re-formations using oral (per protocol) and 100 ml Isovue 370 intravenous contrast material. Comparison: None. Findings: Lung bases are clear. Visualized heart and pericardium normal. Liver, spleen, atrophic pancreas, bilateral adrenal glands and kidneys are relatively normal. Gallbladder demonstrates small amount of layering gravel/sludge without evidence for acute cholecystitis. IVC filter identified in the infrarenal vena cava. Visualized portions of the enteric system including distal esophagus, gastroesophageal junction, stomach and portions of the small and large bowel appear grossly normal and without obstruction or acute inflammatory process. Evidence for prior spinal surgery with multiple spinal fixation rods identified as well as ill-defined soft tissue/phlegmonous changes with small foci of gas in the visualized surgical bed of the thoracolumbar spinal space which is nonspecific and no prior examinations are available for comparison. Infectious/inflammatory changes including abscess as well as some element of recurrent mass cannot be excluded. Impression: 1. No acute abdominopelvic pathology is appreciated. 2. Cholelithiasis without evidence for acute cholecystitis. 3. Changes in the surgical bed of the thoracolumbar spinal space are nonspecific and include fluid/soft tissue and gas. No prior examination is available for direct comparison. Differential diagnosis must consider recurrent lesion and abscess formation. Electronically Signed by Polo Briseno MD 08/13/2018 06:32 A
[2018-08-13] MEDS: NS 1,000 ML IV SCH (06:51)
[2018-08-13 06:59] LABS: BASO % 0.6 % (0.0-1.0); EOS # 0.3 10^3/uL (0.0-0.50); EOS % 3.8 % (0.0-3.0); HEMATOCRIT 27.7 % (36.0-47.0); HEMOGLOBIN 8.8 g/dl (12.0-15.5); LYMPH # 1.2 10^3/uL (1.5-4.5); LYMPH % 17.4 % (24.0-44.0); MEAN CORPUSCULAR HEMOGLOBIN 26.7 pg (27.0-33.0); MEAN CORPUSCULAR HGB CONC 31.8 g/dl (32.0-36.5); MEAN CORPUSCULAR VOLUME 84.2 fl (80.0-96.0); MONO # 0.5 10^3/uL (0.0-0.8); MONO % 6.9 % (0.0-5.0); NEUTROPHILS % 70.3 % (36.0-66.0); PLATELET COUNT, AUTOMATED 300 10^3/uL (150-450); RED BLOOD COUNT 3.29 10^6/uL (4.00-5.40); WHITE BLOOD COUNT 7.1 10^3/uL (4.0-10.0)
[2018-08-13 07:20] LABS: BLOOD UREA NITROGEN 12 MG/DL (7-18); C REACTIVE PROTEIN QUANTITATIV 6.75 MG/DL (0.00-0.30); CALCIUM LEVEL 8.3 MG/DL (8.8-10.2); CARBON DIOXIDE LEVEL 27 MEQ/L (21-32); CHLORIDE LEVEL 101 MEQ/L (98-107); CREATININE FOR GFR 0.69 MG/DL (0.55-1.30); GLOMERULAR FILTRATION RATE > 60.0 (>45); GLUCOSE, FASTING 177 MG/DL (70-100); POTASSIUM SERUM 4.3 MEQ/L (3.5-5.1); SODIUM LEVEL 135 MEQ/L (136-145)
[2018-08-13 08:26] LABS: ERYTHROCYTE SEDIMENTATION RATE 108 mm/hr (0-30)
--- NOTE | 2018-08-13 09:16 | REP ---
Clinical: Acute abdominal pain. Technique: Garcia scale ultrasound using curved array transducer. Findings: The liver and pancreas are normal in contour, size, and echogenicity without focal hepatic or pancreatic lesions identified. The gallbladder demonstrates small gallstones and very minimal layering gravel without wall thickening or pericholecystic fluid. No biliary ductal dilatation is appreciated, and the common bile duct measures 4.3 mm diameter. The right kidney is normal in reniform shape without hydronephrosis and measures 11.7 x 5.8 x 4.4 cm. No ascites. Visualized portions of the abdominal aorta normal. Impression: 1. Subtle cholelithiasis suggested without acute cholecystitis. Electronically Signed by Polo Briseno MD 08/13/2018 09:08 A
[2018-08-13] MEDS: METHOCARBAMOL 500 MG TAB PO SCH ×3 (09:21→21:02)
[2018-08-13] MEDS: METOPROLOL SUCC (TopROL XL) 50MG **XL** TAB PO SCH (09:21)
[2018-08-13] MEDS: MULTIVITAMINS/MINERALS THERAP 1 TAB PO SCH (09:21)
[2018-08-13] MEDS: LINEZOLID 600MG TABLET (ZYVOX) PO SCH (09:21)
[2018-08-13] MEDS: GABAPENTIN 400 MG CAP PO SCH ×3 (09:21→21:02)
[2018-08-13] MEDS: LACTOBACILLUS ACIDOPHILUS CAP (BACID) PO SCH ×3 (09:21→21:02)
[2018-08-13] MEDS: ASPIRIN 81 MG CHEW TABLET PO SCH (09:21)
[2018-08-13] MEDS: VITAMIN D 1,000 INTERNATIONAL UNITS TABLET PO SCH (09:21)
[2018-08-13] MEDS: LISINOPRIL *2.5 MG* TAB PO SCH (09:22)
[2018-08-13] MEDS: MAGNESIUM OXIDE 400 MG TAB (MAG-OX) PO SCH (09:22)
[2018-08-13] MEDS: DOCUSATE SODIUM 100 MG CAP PO SCH ×2 (09:22→21:00)
[2018-08-13] MEDS: FERROUS GLUCONATE 324 MG TAB PO SCH (09:22)
[2018-08-13] MEDS: OMEGA-3 1000MG CAPSULE PO SCH (09:22)
[2018-08-13] MEDS: PANTOPRAZOLE 40MG TAB (PROTONIX) PO SCH ×2 (09:22→21:02)
[2018-08-13] MEDS: SUCRALFATE 1 GM TAB PO SCH ×3 (09:22→17:19)
[2018-08-13] MEDS: FUROSEMIDE 20 MG TAB PO SCH (09:23)
[2018-08-13] MEDS: HumaLOG INSULIN (NovoLOG) PER UNIT SC SCH ×4 (09:23→21:00)
[2018-08-13] MEDS: ENOXAPARIN 40 MG/0.4 ML SYRINGE (J1650) SC SCH (09:24)
[2018-08-13] MEDS: PHENELZINE 15 MG PO SCH ×3 (09:24→21:03)
[2018-08-13] MEDS: MEDIHONEY TD SCH ×2 (09:25→21:16)
--- NOTE | 2018-08-13 10:17 | IPNPDOC ---
PM&R Progress Note DATE OF SERVICE: Aug 13, 2018 [employer] Progress Note Subjective: Patient reports feeling better today, but still woke up feeling nauseous. She has not had acute gastric pain since yesterday and is particpating in therapy well. She is having bowel movements. REVIEW OF SYSTEMS: The following is a completed review of systems and has been reviewed. Review of systems otherwise unremarkable. PAIN: Patient self reports back pain and spasms EYES: no recent vision changes EARS, NOSE, & THROAT: no throat pain, or dysphagia, or rhinorrhea CARDIOVASCULAR: denies chest pain or palpitations PULMONARY: Negative. Denies shortness of breath GASTROINTESTINAL: denies constipation/ diarrhea, +epigastric pain GENITOURINARY: +incontinence MUSCULOSKELETAL: bilat LE weakness NEUROLOGICAL: +spinal cord injury and right foot drop HEMATOLOGICAL: +anemia SKIN: thoraco-lumbar incision PSYCHIATRIC:Unremarkable All other review of systems found to be negative. PHYSICAL EXAMINATION: VITAL SIGNS: Please see below. GENERAL: Pleasant and cooperative. No acute distress. Pale HEENT: PERRL. Extraocular movements intact. Clear conjunctiva]. CARDIOVASCULAR: Regular rate and rhythm. No murmurs, rubs, or gallops LUNGS: Clear to auscultation bilaterally. No wheezes. No rhonchi ABDOMEN: Soft, mild RUQ tenderness to palpation, non-distended Positive bowel sounds. Normal active bowel sounds NEUROLOGICAL: Alert and oriented times three. Cranial nerves II through XII grossly intact. Sensation grossly intact in bilateral LE and sacral area, di minished along lower thoracic dermatome on the left and neat her thoroco-lumbar incision (will defer SCI VANESSA exam for now) EXTREMITIES: 5\5 strength bilateral upper extremities. 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 PLAN: 1. Rehab: OT, PT, assess for DMEs- patient with severe deconditioning due to extended hospital stay at [facility] with new spinal cord lesion, will require intensive and more prolonged therapy -ambulating short distances with assistance with RW 2. 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 Cardio: pmh HTN and HLD, c/u statin, lasix metoprolol and lisinopril- medicine consulted 4. Resp: pmh LIZ, will encourage CPAP at night, incentive spirometry 5. : neurogenic bladder, monitor PVRs-voiding well 6. GI ppx: protonix BID, optimize bowel meds for neurogenic bowel -08/13/18 patient had episode of epigastric pain following lunch followed by presyncopal response with stable vitals, KUB negative for obstruction (patient having bowel movements), RUQ US postive for cholelithiasis, and CT abd pelvis showing no obstruction, positive for cholelithiasis, with nonspecific changes/fluid at post-surgical site- patient vitals stable, no leukocytosis, CRP thus far trending down, will continue to monitor -pancreatic enzymes also WNL - suspect gastric ulcer at this time and will c/u sucralfate with meals 7. DVT ppx: -will hold Lovenox to prevent spinal hemorrhage or compressive hematoma- c/u TEDs 8. Endo: pm DM, insulin and ISS, monitor and adjust 9. Pain: patient with considerable pain, c/u oxycodone, Tylenol, c/u methocarbamol, c/u Neurontin -avoid Tramadol and Flexeril for pain as risk of serotonin syndrome 10. Psych: hx of drug resistant depression with recent suicide ideation at [facility] that resolved, was started back on low dose Phenelzine while on inpatient 15mg daily, however was on 30mg TID, will increase to 15mg TID and monitor closely for serotonin syndrome-patient reports improved mood and denies active suicide ideation 11. Skin: Zinc oxide to sacrum and monitor for skin breakdown, patient able to turn herself in bed -medihoney to right abdominal abdominal wound and cover with optifoam Allergies Coded Allergies: Penicillins (Verified Allergy, Intermediate, RASH/HIVES, 07/23/18) Sulfa (Sulfonamide Antibiotics) (Verified Allergy, Intermediate, REDNESS/SWELLING, 07/23/18) sulindac (Verified Adverse Reaction, Intermediate, COLITIS, 07/23/18) Vital Signs Vital Signs Date Time Temp Pulse Resp B/P (MAP) Pulse Ox O2 Delivery O2 Flow Rate FiO2 08/13/18 09:22 123/64 08/13/18 09:21 86 08/13/18 06:00 96.8 18 95 Laboratory Data CBC/BMP Laboratory Tests 08/13/18 06:26 Red Blood Count 3.29 L, Mean Corpuscular Volume 84.2, Mean Corpuscular Hemoglobin 26.7 L, Mean Corpuscular Hemoglobin Concent 31.8 L, Red Cell Distribution Width 14.7 H, Neutrophils (%) (Auto) 70.3 H, Lymphocytes (%) (Auto) 17.4 L, Monocytes (%) (Auto) 6.9 H, Eosinophils (%) (Auto) 3.8 H, Basophils (%) (Auto) 0.6, Neutrophils # (Auto) 5.0, Lymphocytes # (Auto) 1.2 L, Monocytes # (Auto) 0.5, Eosinophils # (Auto) 0.3, Basophils # (Auto) 0.0, Calcium Level 8.3 L Labs 24H Laboratory Tests 2 08/12/18 11:49: Bedside Glucose (Misc Panel) 187H 08/12/18 14:00: Bedside Glucose (Misc Panel) 174H 08/12/18 15:24: Amylase Level 28, Lipase 132 08/12/18 17:07: Bedside Glucose (Misc Panel) 200H 08/12/18 21:57: Bedside Glucose (Misc Panel) 223H 08/13/18 06:26: Immature Granulocyte % (Auto) 1.0, White Blood Count 7.1, Red Blood Count 3.29L, Hemoglobin 8.8L, Hematocrit 27.7L, Mean Corpuscular Volume 84.2, Mean Corpuscular Hemoglobin 26.7L, Mean Corpuscular Hemoglobin Concent 31.8L, Red Cell Distribution Width 14.7H, Platelet Count 300, Neutrophils (%) (Auto) 70.3H, Lymphocytes (%) (Auto) 17.4L, Monocytes (%) (Auto) 6.9H, Eosinophils (%) (Auto) 3.8H, Basophils (%) (Auto) 0.6, Neutrophils # (Auto) 5.0, Lymphocytes # (Auto) 1.2L, Monocytes # (Auto) 0.5, Eosinophils # (Auto) 0.3, Basophils # (Auto) 0.0, Nucleated Red Blood Cells % (auto) 0.0, Erythrocyte Sedimentation Rate 108H, Anion Gap 7L, Glomerular Filtration Rate > 60.0, Blood Urea Nitrogen 12, Creatinine 0.69, Sodium Level 135L, Potassium Level 4.3, Chloride Level 101, Carbon Dioxide Level 27, Calcium Level 8.3L, C-Reactive Protein, Quantitative 6.75H Microbiology Microbiology 08/12/18 Stool Occult Blood (HERBER) - Final, Complete Current Medications Current Medications Current Medications Acetaminophen (Tylenol Tab) 650 mg Q4HP PRN PO MILD PAIN (PS 1-4) Last administered on 08/12/18at 06:20; Start 08/10/18 at 16:15 Al Hydrox/Mg Hydrox/Simethicone (Mylanta) 30 ml Q4HP PRN PO DYSPEPSIA Last administered on 08/12/18at 14:09; Start 08/10/18 at 16:15 Aspirin (Aspirin Chewable) 81 mg DAILY PO Last administered on 08/13/18at 09:21; Start 08/11/18 at 09:00 Atorvastatin Calcium (Lipitor) 20 mg QHS PO Last administered on 08/12/18at 2 2:09; Start 08/11/18 at 21:00 Ciprofloxacin (Cipro) 500 mg BID@,18 PO Last administered on 08/13/18at 05:35; Start 08/10/18 at 18:00; Stop 08/25/18 at 23:00 Dextrose (Dextrose 50%) 25 ml ASDIRECTED PRN IV SEE LABEL COMMENTS; Start 08/10/18 at 16:15 Diatrizoate Meglum/ Diatrizoate Sod (Gastrografin) 10 ml Q30M PO Last administered on 08/12/18at 15:30; Start 08/12/18 at 15:00; Stop 08/12/18 at 15: 31; Status DC Docusate Sodium (Colace) 100 mg BID PO Last administered on 08/13/18 09:22; Start 08/10/18 at 21:00 Enoxaparin Sodium (Lovenox) 40 mg DAILY SC Last administered on 08/13/18at 09:24; Start 08/11/18 at 09:00 Ferrous Gluconate (Fergon) 324 mg DAILY PO Last administered on 08/13/18 09 :22; Start 08/11/18 at 09:00 Fish Oil (Austin-3 (1000mg)) 1 cap DAILY PO Last administered on 08/13/18at 09:22; Start 08/11/18 at 09:00 Furosemide (Lasix) 20 mg DAILY PO Last administered on 08/13/18at 09:23; Start 08/11/18 at 09:00 Gabapentin (Neurontin) 400 mg TID PO Last administered on 08/13/18at 09:21; Start 08/10/18 at 16:00 Glucagon (Glucagon) 1 mg ASDIRECTED PRN SC SEE LABEL COMMENTS; Start 08/10/18 at 16:15 Glucose (Glucose) 16 GM ASDIRECTED PRN PO SEE LABEL COMMENTS; Start 08/10/18 at 16:15 Home Med (Med Rec Complete!) ASDIRECTED XX ; Start 08/10/18 at 17:45; Stop 08/10/18 at 17:46; Status DC Insulin Detemir (Levemir Insulin) 30 units QHS SC Last administered on 08/12/18at 22:09; Start 08/10/18 at 21:00 Insulin Human Lispro (HumaLOG INSULIN) SEE PROTOCOL TABLE AC SC Last admi nistered on 08/13/18at 09:23; Start 08/10/18 at 17:30 Insulin Human Lispro (HumaLOG INSULIN) SEE PROTOCOL TABLE QHS SC ; Start 08/10/18 at 21:00 Lactobacillus Acidophilus (Bacid) 1 ea TID PO Last administered on 08/13/18at 09:21; Start 08/10/18 at 16:00 Linezolid (Zyvox) 600 mg DAILY PO Last administered on 08/13/18 09:21; Start 08/11/18 at 09:00 Lisinopril (Prinivil) 2.5 mg DAILY PO Last administered on 08/13/18 09:22; Start 08/11/18 at 09:00 Magnesium Hydroxide (Milk Of Magnesia) 30 ml DAILYPRN PRN PO CONSTIPATION; Start 08/10/18 at 16:15 Magnesium Oxide (Mag-Ox) 400 mg DAILY PO Last administered on 08/13/18 09:22; Start 08/11/18 at 09:00 Methocarbamol (Robaxin) 500 mg TID PO Last administered on 08/13/18 09:21; Start 08/10/18 at 16:00 Metoprolol Succinate (TopROL XL) 50 mg DAILY PO Last administered on 08/13/18 09:21; Start 08/11/18 at 09:00 Miscellaneous (Unresolved Patient Own Med Order) SEE LABEL COMMENTS DAILY XX ; Start 08/10/18 at 09:00; Stop 08/10/18 at 19:16; Status DC Multivitamins (Theragram-M) 1 tab DAILY PO Last administered on 08/13/18 09:21; Start 08/11/18 at 09:00 Nitroglycerin (Nitrostat (1/ 200)) 0.3 mg Q5MP PRN SL CHEST PAIN; Start 08/10/18 at 16:15 Oxycodone HCl (Roxicodone, Oxyir) 5 mg Q4HP PRN PO PAIN Last administered on 08/12/18at 22:11; Start 08/10/18 at 16:15 Pantoprazole Sodium (Protonix) 40 mg BID PO Last administered on 08/13/18 09 :22; Start 08/10/18 at 21:00 Patient Own Medication (Patient'S Own Med) 1 TABLET = 15 MG TID PO Last administered on 08/13/18 09:24; Start 08/10/18 at 21:00 Patient Own Medication (Patient'S Own Med) apply to right abdo... BID TD Last administered on 08/13/18 09:25; Start 08/10/18 at 21:00 Senna (Senokot) 1 tab QHS PO Last administered on 08/11/18at 20:37; Start 08/10/18 at 21:00 Sodium Chloride 1,000 ml @ 60 mls/hr [id number] IV Last administered on 08/12/18at 14:11; Start 08/12/18 at 14:11 Sucralfate (Carafate) 1 gm WM PO Last administered on 08/13/18at 09:22; Start 08/12/18 at 18:00 Vitamin D (Vitamin D) 2,000 units DAILY PO Last administered on 08/13/18at 09:21; Start 08/11/18 at 09:00 ANGELITA HOBBS MD Aug 13, 2018 10:16
[2018-08-13 14:00] VITALS: BP 113/54
[2018-08-13] MEDS: ACETAMINOPHEN TAB 650MG DOSE (2X325MG) PO PRN (15:51)
[2018-08-13] MEDS: ATORVASTATIN 20 MG TAB PO SCH (21:00)
[2018-08-13] MEDS: SENNA 8.6 MG TAB (SENOKOT) PO SCH (21:00)
[2018-08-13] MEDS: LEVEMIR (INSULIN DETEMIR) 1 UNITS/0.01ML SC SCH (21:01)
[2018-08-13] MEDS: oxyCODONE 5MG TAB PO PRN (21:02)
[2018-08-13 22:00] VITALS: BP 131/69
[2018-08-14] MEDS: CIPROFLOXACIN 500 MG TAB PO SCH ×2 (05:49→21:21)
[2018-08-14 06:00] VITALS: BP 112/56
[2018-08-14] MEDS: MAALOX 30 ML SUSP *UDC PO PRN (08:16)
[2018-08-14] MEDS: LINEZOLID 600MG TABLET (ZYVOX) PO SCH (08:17)
[2018-08-14] MEDS: SUCRALFATE 1 GM TAB PO SCH ×3 (08:17→17:09)
[2018-08-14] MEDS: MULTIVITAMINS/MINERALS THERAP 1 TAB PO SCH ×2 (08:17→12:00)
[2018-08-14] MEDS: ASPIRIN 81 MG CHEW TABLET PO SCH (08:17)
[2018-08-14] MEDS: LACTOBACILLUS ACIDOPHILUS CAP (BACID) PO SCH ×3 (08:17→21:21)
[2018-08-14] MEDS: PANTOPRAZOLE 40MG TAB (PROTONIX) PO SCH ×2 (08:17→21:21)
[2018-08-14] MEDS: FERROUS GLUCONATE 324 MG TAB PO SCH ×2 (08:17→12:00)
[2018-08-14] MEDS: HumaLOG INSULIN (NovoLOG) PER UNIT SC SCH ×4 (08:17→21:41)
[2018-08-14] MEDS: GABAPENTIN 400 MG CAP PO SCH ×3 (08:17→21:22)
[2018-08-14] MEDS: METHOCARBAMOL 500 MG TAB PO SCH ×3 (08:17→21:21)
[2018-08-14] MEDS: OMEGA-3 1000MG CAPSULE PO SCH (08:17)
[2018-08-14] MEDS: VITAMIN D 1,000 INTERNATIONAL UNITS TABLET PO SCH (08:17)
[2018-08-14] MEDS: FUROSEMIDE 20 MG TAB PO SCH (08:18)
[2018-08-14] MEDS: LISINOPRIL *2.5 MG* TAB PO SCH (08:18)
[2018-08-14] MEDS: METOPROLOL SUCC (TopROL XL) 50MG **XL** TAB PO SCH (08:18)
[2018-08-14] MEDS: MEDIHONEY TD SCH ×2 (08:19→21:36)
[2018-08-14] MEDS: MAGNESIUM OXIDE 400 MG TAB (MAG-OX) PO SCH (08:19)
[2018-08-14] MEDS: PHENELZINE 15 MG PO SCH ×3 (08:21→21:35)
[2018-08-14] MEDS: ACETAMINOPHEN TAB 650MG DOSE (2X325MG) PO PRN ×2 (08:21→21:35)
--- NOTE | 2018-08-14 11:17 | IPNPDOC ---
Text Note Date of Service The patient was seen on 08/14/18. NOTE Patient is a 63-year-old female, past medical history significant for spinal chordoma initially diagnosed 2010, multiple spinal surgery with revisions, instrumentations, and complications related to same. Subjective: Feels much better today, feels abdominal pain may have pinkeye treated by taking ciprofloxacin on an empty stomach. Results of tests findings discussed with her. Denies nausea, vomiting, denies chest pain, shortness of breath. GENERAL: Up to chair at bedside NAD SKIN : Warm, dry, ventral back surgical dressing HEENT: Atraumatic, normocephalic, PERRL, moist mucous membrane CARDIOVASCULAR: Regular rate and rhythm, S1S2, no JVD, no edema, distal pulses + and palpable RESP: CTAB, no accessory muscle use noted ABDOMEN: BS+ non distended, +tender MS: Right foot drop NEURO: Alert and oriented x 3, CN2-12 grossly intact PSYCH: no anxiety or agitation, appropriate mood and affect. LABORATORY DATA: Please see below. 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 Target systolic blood pressure less than 140 Anemia -Stable -No signs of acute bleeding -Likely due to chronic disease Neurogenic bladder -Resolved. -Patient has been voiding without issues - DVT prophylaxis -Lovenox 40 mg daily VS,Fishbone, I+O VS, Fishbone, I+O Vital Signs Date Time Temp Pulse Resp B/P (MAP) Pulse Ox O2 Delivery O2 Flow Rate FiO2 08/14/18 08:18 83 112/56 08/14/18 06:00 97.5 18 95 I&O- Last 24 Hours up to 6 AM 08/14/18 06:00 Intake Total 1440 ml Output Total 0 ml Balance 1440 ml DANIKA PADILLA [facility] Aug 14, 2018 11:17
[2018-08-14 14:00] VITALS: BP 113/58
[2018-08-14 20:00] VITALS: BP 159/79
[2018-08-14] MEDS: LEVEMIR (INSULIN DETEMIR) 1 UNITS/0.01ML SC SCH (21:22)
[2018-08-15 05:34] VITALS: BP 131/61
[2018-08-15] MEDS: FUROSEMIDE 20 MG TAB PO SCH (08:24)
[2018-08-15] MEDS: VITAMIN D 1,000 INTERNATIONAL UNITS TABLET PO SCH (08:24)
[2018-08-15] MEDS: OMEGA-3 1000MG CAPSULE PO SCH (08:24)
[2018-08-15] MEDS: LACTOBACILLUS ACIDOPHILUS CAP (BACID) PO SCH ×3 (08:24→20:58)
[2018-08-15] MEDS: HumaLOG INSULIN (NovoLOG) PER UNIT SC SCH ×4 (08:24→20:57)
[2018-08-15] MEDS: CIPROFLOXACIN 500 MG TAB PO SCH ×2 (08:25→20:56)
[2018-08-15] MEDS: METHOCARBAMOL 500 MG TAB PO SCH ×3 (08:25→20:56)
[2018-08-15] MEDS: GABAPENTIN 400 MG CAP PO SCH ×3 (08:25→20:56)
[2018-08-15] MEDS: PANTOPRAZOLE 40MG TAB (PROTONIX) PO SCH ×2 (08:25→20:57)
[2018-08-15] MEDS: MAGNESIUM OXIDE 400 MG TAB (MAG-OX) PO SCH (08:25)
[2018-08-15] MEDS: LINEZOLID 600MG TABLET (ZYVOX) PO SCH (08:25)
[2018-08-15] MEDS: SUCRALFATE 1 GM TAB PO SCH ×3 (08:25→17:52)
[2018-08-15] MEDS: ASPIRIN 81 MG CHEW TABLET PO SCH (08:25)
[2018-08-15] MEDS: METOPROLOL SUCC (TopROL XL) 50MG **XL** TAB PO SCH (08:26)
[2018-08-15] MEDS: PHENELZINE 15 MG PO SCH ×3 (08:26→20:58)
[2018-08-15] MEDS: MEDIHONEY TD SCH ×2 (08:30→20:59)
--- NOTE | 2018-08-15 10:32 | IPNPDOC ---
Subjective Date Seen The patient was seen on 08/15/18. Subjective Chief Complaint/HPI Patient examined this morning. She denies any abdominal pain. Once she started taking Cipro with food. No more nausea, vomiting or abdominal pain and offers no new complaints at the present time General: Denies: ROS Unobtainable, Chills, Night Sweats, Fatigue, Malaise, Normal Appetite, Other Symptoms Constitutional: Denies: Chills, Fever, Malaise, Night Sweats, Weakness, Fatigue, Weight Loss, Lethargy, Other Skin: Denies: Rash, Lesions, Jaundice, Bruising, Itching, Dry, Breakdown, Nail Changes, Other Pulmonary: Denies: Dyspnea, Cough, Pleuritic Chest Pain, Other Symptoms Cardiovascular: Denies: Chest Pain, Palpitations, Orthopnea, Paroxysmal Noc. Dyspnea, Edema, Lt Headedness, Other Symptoms Gastrointestinal: Denies: Nausea, Vomiting, Abdominal Pain, Diarrhea, Constipation, Melena, Hematochezia, Other Symptoms Musculoskeletal: Denies: Neck Pain, Back Pain, Shoulder Pain, Arm Pain, Hand Pain, Leg Pain, Foot Pain, Joint Pain, Muscle Pain, Spasms, Other Symptoms Neurological: Denies: Weakness, Numbness, Incoordination, Change in speech, Confusion, Seizures, Other Symptoms Objective Physical Examination General Exam: Positive: Alert, Cooperative Eye Exam: Positive: PERRLA, Conjunctiva & lids normal ENT Exam: Positive: Atraumatic Neck Exam: Positive: Supple Chest Exam: Positive: Clear to auscultation, Normal air movement Heart Exam: Positive: Rate Normal, Normal S1, Normal S2 Abdomen Exam: Positive: Normal bowel sounds, Soft Skin Exam: Positive: Nl turgor and temperature Neuro Exam: Positive: Cranial Nerves 3-12 NL Assessment /Plan Problems (1) Abdominal pain Status: Resolved Problem Text: Continue present care and medications Physical therapy as per Dr. Jacinto PT, OT in progress No further medical intervention at this point Plan/VTE VTE Prophylaxis Ordered?: Yes VS, I&O, 24H, Fishbone Vital Signs/I&O Vital Signs Date Time Temp Pulse Resp B/P (MAP) Pulse Ox O2 Delivery O2 Flow Rate FiO2 08/15/18 08:26 81 131/61 08/15/18 05:34 98.1 18 97 I&O- Last 24 Hours up to 6 AM 08/15/18 06:00 Intake Total 960 ml Balance 960 ml Laboratory Data 24H LABS Laboratory Tests 2 08/14/18 11:41: Bedside Glucose (Misc Panel) 175H 08/14/18 16:56: Bedside Glucose (Misc Panel) 274H 08/14/18 20:02: Bedside Glucose (Misc Panel) 273H 08/15/18 05:58: Bedside Glucose (Misc Panel) 217H Microbiology Microbiology 08/12/18 Stool Occult Blood (HERBER) - Final, Complete MICHELE AVILES MD Aug 15, 2018 10:32
[2018-08-15] MEDS: MULTIVITAMINS/MINERALS THERAP 1 TAB PO SCH (12:35)
[2018-08-15] MEDS: FERROUS GLUCONATE 324 MG TAB PO SCH (12:35)
[2018-08-15] MEDS ORDERED: REPATHA 140 MG/ML SQ ONE (14:00)
[2018-08-15] MEDS: ACETAMINOPHEN TAB 650MG DOSE (2X325MG) PO PRN (15:06)
[2018-08-15 20:00] VITALS: BP 134/72
[2018-08-15] MEDS: LEVEMIR (INSULIN DETEMIR) 1 UNITS/0.01ML SC SCH (20:57)
[2018-08-16 06:00] VITALS: BP 128/66
[2018-08-16 06:56] LABS: HEMATOCRIT 29.2 % (36.0-47.0); HEMOGLOBIN 9.2 g/dl (12.0-15.5); MEAN CORPUSCULAR HEMOGLOBIN 26.4 pg (27.0-33.0); MEAN CORPUSCULAR HGB CONC 31.5 g/dl (32.0-36.5); MEAN CORPUSCULAR VOLUME 83.7 fl (80.0-96.0); PLATELET COUNT, AUTOMATED 281 10^3/uL (150-450); RED BLOOD COUNT 3.49 10^6/uL (4.00-5.40); WHITE BLOOD COUNT 6.7 10^3/uL (4.0-10.0)
[2018-08-16 07:27] LABS: BLOOD UREA NITROGEN 13 MG/DL (7-18); C REACTIVE PROTEIN QUANTITATIV 4.09 MG/DL (0.00-0.30); CALCIUM LEVEL 8.8 MG/DL (8.8-10.2); CARBON DIOXIDE LEVEL 28 MEQ/L (21-32); CHLORIDE LEVEL 100 MEQ/L (98-107); CREATININE FOR GFR 0.63 MG/DL (0.55-1.30); GLOMERULAR FILTRATION RATE > 60.0 (>45); GLUCOSE, FASTING 232 MG/DL (70-100); POTASSIUM SERUM 4.2 MEQ/L (3.5-5.1); SODIUM LEVEL 137 MEQ/L (136-145)
[2018-08-16] MEDS: HumaLOG INSULIN (NovoLOG) PER UNIT SC SCH ×4 (08:40→20:48)
[2018-08-16] MEDS: SUCRALFATE 1 GM TAB PO SCH ×3 (08:40→16:58)
[2018-08-16] MEDS: LACTOBACILLUS ACIDOPHILUS CAP (BACID) PO SCH ×3 (08:40→20:48)
[2018-08-16] MEDS: FUROSEMIDE 20 MG TAB PO SCH (08:40)
[2018-08-16] MEDS: OMEGA-3 1000MG CAPSULE PO SCH (08:40)
[2018-08-16] MEDS: PANTOPRAZOLE 40MG TAB (PROTONIX) PO SCH ×2 (08:40→20:48)
[2018-08-16] MEDS: CIPROFLOXACIN 500 MG TAB PO SCH ×2 (08:41→20:48)
[2018-08-16] MEDS: GABAPENTIN 400 MG CAP PO SCH ×3 (08:41→20:48)
[2018-08-16] MEDS: METOPROLOL SUCC (TopROL XL) 50MG **XL** TAB PO SCH (08:41)
[2018-08-16] MEDS: METHOCARBAMOL 500 MG TAB PO SCH ×3 (08:41→20:49)
[2018-08-16] MEDS: LINEZOLID 600MG TABLET (ZYVOX) PO SCH (08:41)
[2018-08-16] MEDS: MAGNESIUM OXIDE 400 MG TAB (MAG-OX) PO SCH (08:41)
[2018-08-16] MEDS: ASPIRIN 81 MG CHEW TABLET PO SCH (08:41)
[2018-08-16] MEDS: VITAMIN D 1,000 INTERNATIONAL UNITS TABLET PO SCH (08:41)
[2018-08-16] MEDS: MEDIHONEY TD SCH ×2 (08:42→20:50)
[2018-08-16] MEDS: PHENELZINE 15 MG PO SCH ×3 (08:42→20:49)
[2018-08-16] MEDS: MULTIVITAMINS/MINERALS THERAP 1 TAB PO SCH (13:29)
[2018-08-16] MEDS: FERROUS GLUCONATE 324 MG TAB PO SCH (13:29)
[2018-08-16 14:00] VITALS: BP 148/73
[2018-08-16] MEDS: ACETAMINOPHEN TAB 650MG DOSE (2X325MG) PO PRN (14:38)
[2018-08-16 20:00] VITALS: BP 126/72
[2018-08-16] MEDS: LEVEMIR (INSULIN DETEMIR) 1 UNITS/0.01ML SC SCH (20:49)
[2018-08-17 06:00] VITALS: BP 122/59
[2018-08-17] MEDS: PHENELZINE 15 MG PO SCH ×3 (09:26→22:47)
[2018-08-17] MEDS: FUROSEMIDE 20 MG TAB PO SCH (09:27)
[2018-08-17] MEDS: GABAPENTIN 400 MG CAP PO SCH ×3 (09:27→22:45)
[2018-08-17] MEDS: MAGNESIUM OXIDE 400 MG TAB (MAG-OX) PO SCH (09:27)
[2018-08-17] MEDS: PANTOPRAZOLE 40MG TAB (PROTONIX) PO SCH ×2 (09:27→22:45)
[2018-08-17] MEDS: OMEGA-3 1000MG CAPSULE PO SCH (09:27)
[2018-08-17] MEDS: METHOCARBAMOL 500 MG TAB PO SCH ×3 (09:27→22:45)
[2018-08-17] MEDS: LACTOBACILLUS ACIDOPHILUS CAP (BACID) PO SCH ×3 (09:27→22:45)
[2018-08-17] MEDS: ASPIRIN 81 MG CHEW TABLET PO SCH (09:27)
[2018-08-17] MEDS: SUCRALFATE 1 GM TAB PO SCH ×3 (09:27→17:20)
[2018-08-17] MEDS: CIPROFLOXACIN 500 MG TAB PO SCH ×2 (09:27→22:45)
[2018-08-17] MEDS: VITAMIN D 1,000 INTERNATIONAL UNITS TABLET PO SCH (09:27)
[2018-08-17] MEDS: HumaLOG INSULIN (NovoLOG) PER UNIT SC SCH ×4 (09:28→22:47)
[2018-08-17] MEDS: LINEZOLID 600MG TABLET (ZYVOX) PO SCH (09:28)
[2018-08-17] MEDS: METOPROLOL SUCC (TopROL XL) 50MG **XL** TAB PO SCH (09:28)
[2018-08-17] MEDS: MEDIHONEY TD SCH ×2 (09:29→21:00)
[2018-08-17] MEDS: ACETAMINOPHEN TAB 650MG DOSE (2X325MG) PO PRN (09:30)
--- NOTE | 2018-08-17 10:30 | IPNPDOC ---
PM&R Progress Note DATE OF SERVICE: Aug 14, 2018 Business Segment Manager Progress Note Subjective: Patient requesting to change timing of her Ciprofloxacin believing her nausea is stimulated ny this medicine taken on an amepty stomach. She does not want to take statins as this causes muscle cramping and instead wishes to take her home Repatha injection. REVIEW OF SYSTEMS: The following is a completed review of systems and has been reviewed. Review of systems otherwise unremarkable. PAIN: Patient self reports back pain and spasms EYES: no recent vision changes EARS, NOSE, & THROAT: no throat pain, or dysphagia, or rhinorrhea CARDIOVASCULAR: denies chest pain or palpitations PULMONARY: Negative. Denies shortness of breath GASTROINTESTINAL: denies constipation/ diarrhea, +epigastric pain GENITOURINARY: +incontinence MUSCULOSKELETAL: bilat LE weakness NEUROLOGICAL: +spinal cord injury and right foot drop HEMATOLOGICAL: +anemia SKIN: thoraco-lumbar incision PSYCHIATRIC:Unremarkable All other review of systems found to be negative. PHYSICAL EXAMINATION: VITAL SIGNS: Please see below. GENERAL: Pleasant and cooperative. No acute distress. Pale HEENT: PERRL. Extraocular movements intact. Clear conjunctiva]. CARDIOVASCULAR: Regular rate and rhythm. No murmurs, rubs, or gallops LUNGS: Clear to auscultation bilaterally. No wheezes. No rhonchi ABDOMEN: Soft, mild RUQ tenderness to palpation, non-distended Positive bowel sounds. Normal active bowel sounds NEUROLOGICAL: Alert and oriented times three. Cranial nerves II through XII grossly intact. Sensation grossly intact in bilateral LE and sacral area, diminished along lower thoracic dermatome on the left and neat her thoroco- lumbar incision (will defer SCI VANESSA exam for now) EXTREMITIES: 5\5 strength bilateral upper extremities. 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 PLAN: 1. Rehab: OT, PT, assess for DMEs- patient with severe deconditioning due to extended hospital stay at [facility] with new spinal cord lesion, will require intensive and more prolonged therapy -ambulating short distances with assistance with RW 2. 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 Cardio: pmh HTN and HLD, d/c statin for muscle cramping, patient instructed to bring in her home medication -c/u lasix metoprolol and lisinopril- medicine consulted 4. Resp: pmh LIZ, will encourage CPAP at night, incentive spirometry 5. : neurogenic bladder, monitor PVRs-voiding well 6. GI ppx: protonix BID, optimize bowel meds for neurogenic bowel -08/13/18 patient had episode of epigastric pain following lunch followed by presyncopal response with stable vitals, KUB negative for obstruction (patient having bowel movements), RUQ US postive for cholelithiasis, and CT abd pelvis showing no obstruction, positive for cholelithiasis, with nonspecific changes/fluid at post-surgical site- patient vitals stable, no leukocytosis, CRP thus far trending down, will continue to monitor -pancreatic enzymes also WNL - suspect gastric ulcer at this time and will c/u sucralfate with meals 7. DVT ppx: -will hold Lovenox to prevent spinal hemorrhage or compressive hematoma- c/u TEDs 8. Endo: pm DM, insulin and ISS, monitor and adjust 9. Pain: patient with considerable pain, c/u oxycodone, Tylenol, c/u methocarbamol, c/u Neurontin -avoid Tramadol and Flexeril for pain as risk of serotonin syndrome 10. Psych: hx of drug resistant depression with recent suicide ideation at [facility] that resolved, was started back on low dose Phenelzine while on inpatient 15mg daily, however was on 30mg TID, will increase to 15mg TID and monitor closely for serotonin syndrome-patient reports improved mood and denies active suicide ideation 11. Skin: Zinc oxide to sacrum and monitor for skin breakdown, patient able to turn herself in bed -medihoney to right abdominal abdominal wound and cover with optifoam Allergies Coded Allergies: Penicillins (Verified Allergy, Intermediate, RASH/HIVES, 07/23/18) Sulfa (Sulfonamide Antibiotics) (Verified Allergy, Intermediate, REDNESS/SWELLING, 07/23/18) sulindac (Verified Adverse Reaction, Intermediate, COLITIS, 07/23/18) Vital Signs Vital Signs Date Time Temp Pulse Resp B/P (MAP) Pulse Ox O2 Delivery O2 Flow Rate FiO2 08/17/18 09:28 89 122/59 08/17/18 06:00 97.0 18 96 Laboratory Data Labs 24H Laboratory Tests 2 08/16/18 16:38: Bedside Glucose (Misc Panel) 253H 08/16/18 19:43: Bedside Glucose (Misc Panel) 269H 08/17/18 06:20: Bedside Glucose (Misc Panel) 225H Microbiology Microbiology 08/12/18 Stool Occult Blood (HERBER) - Final, Complete Current Medications Current Medications Current Medications Acetaminophen (Tylenol Tab) 650 mg Q4HP PRN PO MILD PAIN (PS 1-4) Last administered on 08/17/18at 09:30; Start 08/10/18 at 16:15 Al Hydrox/Mg Hydrox/Simethicone (Mylanta) 30 ml Q4HP PRN PO DYSPEPSIA Last administered on 08/14/18at 08:16; Start 08/10/18 at 16:15 Aspirin (Aspirin Chewable) 81 mg DAILY PO Last administered on 08/17/18at 09:27; Start 08/11/18 at 09:00 Atorvastatin Calcium (Lipitor) 20 mg QHS PO Last administered on 08/12/18at 22:09; Start 08/11/18 at 21:00; Stop 08/14/18 at 10:30; Status DC Ciprofloxacin (Cipro) 500 mg BID@18 PO Last administered on 08/14/18at 05:49; Start 08/10/18 at 18:00; Stop 08/14/18 at 10:30; Status DC Ciprofloxacin (Cipro) 500 mg BID@1000,2200 PO Last administered on 08/17/18at 09:27; Start 08/14/18 at 22:00 Dextrose (Dextrose 50%) 25 ml ASDIRECTED PRN IV SEE LABEL COMMENTS; Start 08/10/18 at 16:15 Diatrizoate Meglum/ Diatrizoate Sod (Gastrografin) 10 ml Q30M PO Last administered on 08/12/18at 15:30; Start 08/12/18 at 15:00; Stop 08/12/18 at 15:31; Status DC Docusate Sodium (Colace) 100 mg BID PO Last administered on 08/13/18at 09:22; Start 08/10/18 at 21:00; Stop 08/14/18 at 08:06; Status DC Enoxaparin Sodium (Lovenox) 40 mg DAILY SC Last administered on 08/13/18at 09:24; Start 08/11/18 at 09:00; Stop 08/13/18 at 11:36; Status DC Ferrous Gluconate (Fergon) 324 mg DAILY PO Last administered on 08/14/18at 08:17; Start 08/11/18 at 09:00; Stop 08/14/18 at 10:30; Status DC Ferrous Gluconate (Fergon) 324 mg DAILY@1200 PO Last administered on 08/16/18at 13:29; Start 08/14/18 at 12:00 Fish Oil ([place]-3 (1000mg)) 1 cap DAILY PO Last administered on 08/17/18at 09:27; Start 08/11/18 at 09:00 Furosemide (Lasix) 20 mg DAILY PO Last administered on 08/17/18 09:27; Start 08/11/18 at 09:00 Gabapentin (Neurontin) 400 mg TID PO Last administered on 08/17/18at 09:27; Start 08/10/18 at 16:00 Glucagon (Glucagon) 1 mg ASDIRECTED PRN SC SEE LABEL COMMENTS; Start 08/10/18 at 16:15 Glucose (Glucose) 16 GM ASDIRECTED PRN PO SEE LABEL COMMENTS; Start 08/10/18 at 16:15 Home Med (Med Rec Complete!) ASDIRECTED XX ; Start 08/10/18 at 17:45; Stop 08/10/18 at 17:46; Status DC Insulin Detemir (Levemir Insulin) 30 units QHS SC Last administered on 08/16/18at 20:49; Start 08/10/18 at 21:00; Stop 08/17/18 at 10:28; Status DC Insulin Detemir (Levemir Insulin) 34 units QHS SC ; Start 08/17/18 at 21:00; Status UNV Insulin Human Lispro (HumaLOG INSULIN) SEE PROTOCOL TABLE AC SC Last administered on 08/17/18at 09:28; Start 08/10/18 at 17:30 Insulin Human Lispro (HumaLOG INSULIN) SEE PROTOCOL TABLE QHS SC Last administered on 08/16/18at 20:48; Start 08/10/18 at 21:00 Lactobacillus Acidophilus (Bacid) 1 ea TID PO Last administered on 08/17/18at 09:27; Start 08/10/18 at 16:00 Linezolid (Zyvox) 600 mg DAILY PO Last administered on 08/17/18 09:28; Start 08/11/18 at 09:00 Lisinopril (Prinivil) 2.5 mg DAILY PO Last administered on 08/14/18at 08:18; Start 08/11/18 at 09:00; Stop 08/14/18 at 10:32; Status DC Magnesium Hydroxide (Milk Of Magnesia) 30 ml DAILYPRN PRN PO CONSTIPATION; Start 08/10/18 at 16:15 Magnesium Oxide (Mag-Ox) 400 mg DAILY PO Last administered on 08/17/18at 09:27; Start 08/11/18 at 09:00 Methocarbamol (Robaxin) 500 mg TID PO Last administered on 08/17/18 09:27; Start 08/10/18 at 16:00 Metoprolol Succinate (TopROL XL) 50 mg DAILY PO Last administered on 08/17/18 09:28; Start 08/11/18 at 09:00 Miscellaneous (Unresolved Patient Own Med Order) SEE LABEL COMMENTS DAILY XX ; Start 08/10/18 at 09:00; Stop 08/10/18 at 19:16; Status DC Miscellaneous (Unresolved Patient Own Med Order) SEE LABEL COMMENTS DAILY XX ; Start 08/15/18 at 09:00; Stop 08/15/18 at 12:17; Status DC Multivitamins (Theragram-M) 1 tab DAILY PO Last administered on 08/14/18 08:17; Start 08/11/18 at 09:00; Stop 08/14/18 at 10:32; Status DC Multivitamins (Theragram-M) 1 tab DAILY@1200 PO Last administered on 08/16/18 13:29; Start 08/14/18 at 12:00 Nitroglycerin (Nitrostat (1/ 200)) 0.3 mg Q5MP PRN SL CHEST PAIN; Start 08/10/18 at 16:15 Oxycodone HCl (Roxicodone, Oxyir) 5 mg Q4HP PRN PO PAIN Last administered on 08/13/18 21:02; Start 08/10/18 at 16:15; Stop 08/14/18 at 10:32; Status DC Pantoprazole Sodium (Protonix) 40 mg BID PO Last administered on 08/17/18 09:27; Start 08/10/18 at 21:00 Patient Own Medication (Patient'S Own Med) 1 TABLET = 15 MG TID PO Last administered on 08/17/18 09:26; Start 08/10/18 at 21:00 Patient Own Medication (Patient'S Own Med) apply to right abdo... BID TD Last administered on 08/17/18 09:29; Start 08/10/18 at 21:00 Senna (Senokot) 1 tab QHS PO Last administered on 08/11/18 20:37; Start 08/10/18 at 21:00; Stop 08/14/18 at 08:06; Status DC Sodium Chloride 1,000 ml @ 60 mls/hr [id number] IV Last administered on 08/12/18 14:11; Start 08/12/18 at 14:11; Stop 08/13/18 at 15:11; Status DC Sucralfate (Carafate) 1 gm WM PO Last administered on 08/17/18 09:27; Start 08/12/18 at 18:00 Vitamin D (Vitamin D) 2,000 units DAILY PO Last administered on 7/1/19at 09:27; Start 08/11/18 at 09:00 ANGELITA HOBBS MD Aug 17, 2018 10:30
--- NOTE | 2018-08-17 10:31 | IPNPDOC ---
PM&R Progress Note DATE OF SERVICE: Aug 17, 2018 [employer] Progress Note Subjective: Patient reporting her nausea is much better and she is feeling very good overall and looking forward to home. REVIEW OF SYSTEMS: The following is a completed review of systems and has been reviewed. Review of systems otherwise unremarkable. PAIN: Patient self reports back pain and spasms EYES: no recent vision changes EARS, NOSE, & THROAT: no throat pain, or dysphagia, or rhinorrhea CARDIOVASCULAR: denies chest pain or palpitations PULMONARY: Negative. Denies shortness of breath GASTROINTESTINAL: denies constipation/ diarrhea, +epigastric pain GENITOURINARY: +incontinence MUSCULOSKELETAL: bilat LE weakness NEUROLOGICAL: +spinal cord injury and right foot drop HEMATOLOGICAL: +anemia SKIN: thoraco-lumbar incision PSYCHIATRIC:Unremarkable All other review of systems found to be negative. PHYSICAL EXAMINATION: VITAL SIGNS: Please see below. GENERAL: Pleasant and cooperative. No acute distress. Pale HEENT: PERRL. Extraocular movements intact. Clear conjunctiva]. CARDIOVASCULAR: Regular rate and rhythm. No murmurs, rubs, or gallops LUNGS: Clear to auscultation bilaterally. No wheezes. No rhonchi ABDOMEN: Soft, mild RUQ tenderness to palpation, non-distended Positive bowel sounds. Normal active bowel sounds NEUROLOGICAL: Alert and oriented times three. Cranial nerves II through XII grossly intact. Sensation grossly intact in bilateral LE and sacral area, diminished along lower thoracic dermatome on the left and neat her thoroco- lumbar incision (will defer SCI VANESSA exam for now) EXTREMITIES: 5\5 strength bilateral upper extremities. 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 PLAN: 1. Rehab: OT, PT, assess for DMEs- patient with severe deconditioning due to extended hospital stay at [facility] with new spinal cord lesion, will require intensi ve and more prolonged therapy -ambulating short distances with assistance with RW 2. 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 Cardio: pmh HTN and HLD, d/c statin for muscle cramping, patient instructed to bring in her home medication -c/u lasix metoprolol and lisinopril- medicine consulted 4. Resp: pmh LIZ, will encourage CPAP at night, incentive spirometry 5. : neurogenic bladder, monitor PVRs-voiding well 6. GI ppx: protonix BID, optimize bowel meds for neurogenic bowel -08/13/18 patient had episode of epigastric pain following lunch followed by presyncopal response with stable vitals, KUB negative for obstruction (patient having bowel movements), RUQ US postive for cholelithiasis, and CT abd pelvis showing no obstruction, positive for cholelithiasis, with nonspecific changes/fluid at post-surgical site- patient vitals stable, no leukocytosis, CRP thus far trending down, will continue to monitor- today 4 (down from 6.75) -pancreatic enzymes also WNL - suspect gastric ulcer at this time and will c/u sucralfate with meals 7. DVT ppx: -will hold Lovenox to prevent spinal hemorrhage or compressive hematoma- c/u TEDs 8. Endo: pm DM, insulin and ISS, monitor and adjust 9. Pain: patient with considerable pain, c/u oxycodone, Tylenol, c/u methocarbamol, c/u Neurontin -avoid Tramadol and Flexeril for pain as risk of serotonin syndrome 10. Psych: hx of drug resistant depression with recent suicide ideation at [facility] that resolved, was started back on low dose Phenelzine while on inpatient 15mg daily, however was on 30mg TID, will increase to 15mg TID and monitor closely for serotonin syndrome-patient reports improved mood and denies active suicide ideation 11. Skin: Zinc oxide to sacrum and monitor for skin breakdown, patient able to turn herself in bed -medihoney to right abdominal abdominal wound and cover with optifoam 12. Dispo: to home, anticipating 08/21/18, progressing towards goals Allergies Coded Allergies: Penicillins (Verified Allergy, Intermediate, RASH/HIVES, 07/23/18) Sulfa (Sulfonamide Antibiotics) (Verified Allergy, Intermediate, REDNESS/SWELLING, 07/23/18) sulindac (Verified Adverse Reaction, Intermediate, COLITIS, 07/23/18) Vital Signs Vital Signs Date Time Temp Pulse Resp B/P (MAP) Pulse Ox O2 Delivery O2 Flow Rate FiO2 08/17/18 09:28 89 122/59 08/17/18 06:00 97.0 18 96 Laboratory Data Labs 24H Laboratory Tests 2 08/16/18 16:38: Bedside Glucose (Misc Panel) 253H 08/16/18 19:43: Bedside Glucose (Misc Panel) 269H 08/17/18 06:20: Bedside Glucose (Misc Panel) 225H Microbiology Microbiology 08/12/18 Stool Occult Blood (HERBER) - Final, Complete Current Medications Current Medications Current Medications Acetaminophen (Tylenol Tab) 650 mg Q4HP PRN PO MILD PAIN (PS 1-4) Last administered on 08/17/18at 09:30; Start 08/10/18 at 16:15 Al Hydrox/Mg Hydrox/Simethicone (Mylanta) 30 ml Q4HP PRN PO DYSPEPSIA Last administered on 08/14/18at 08:16; Start 08/10/18 at 16:15 Aspirin (Aspirin Chewable) 81 mg DAILY PO Last administered on 08/17/18at 09:27; Start 08/11/18 at 09:00 Atorvastatin Calcium (Lipitor) 20 mg QHS PO Last administered on 08/12/18at 22:09; Start 08/11/18 at 21:00; Stop 08/14/18 at 10:30; Status DC Ciprofloxacin (Cipro) 500 mg BID@18 PO Last administered on 08/14/18at 05:49; Start 08/10/18 at 18:00; Stop 08/14/18 at 10:30; Status DC Ciprofloxacin (Cipro) 500 mg BID@1000,2200 PO Last administered on 08/17/18at 09:27; Start 08/14/18 at 22:00 Dextrose (Dextrose 50%) 25 ml ASDIRECTED PRN IV SEE LABEL COMMENTS; Start 08/10/18 at 16:15 Diatrizoate Meglum/ Diatrizoate Sod (Gastrografin) 10 ml Q30M PO Last administered on 08/12/18at 15:30; Start 08/12/18 at 15:00; Stop 08/12/18 at 15:31; Status DC Docusate Sodium (Colace) 100 mg BID PO Last administered on 08/13/18at 09:22; Start 08/10/18 at 21:00; Stop 08/14/18 at 08:06; Status DC Enoxaparin Sodium (Lovenox) 40 mg DAILY SC Last administered on 08/13/18at 09:24; Start 08/11/18 at 09:00; Stop 08/13/18 at 11:36; Status DC Ferrous Gluconate (Fergon) 324 mg DAILY PO Last administered on 08/14/18at 08:17; Start 08/11/18 at 09:00; Stop 08/14/18 at 10:30; Status DC Ferrous Gluconate (Fergon) 324 mg DAILY@1200 PO Last administered on 08/16/18at 13:29; Start 08/14/18 at 12:00 Fish Oil ([place]-3 (1000mg)) 1 cap DAILY PO Last administered on 08/17/18at 09:27; Start 08/11/18 at 09:00 Furosemide (Lasix) 20 mg DAILY PO Last administered on 08/17/18 09:27; Start 08/11/18 at 09:00 Gabapentin (Neurontin) 400 mg TID PO Last administered on 08/17/18at 09:27; Start 08/10/18 at 16:00 Glucagon (Glucagon) 1 mg ASDIRECTED PRN SC SEE LABEL COMMENTS; Start 08/10/18 at 16:15 Glucose (Glucose) 16 GM ASDIRECTED PRN PO SEE LABEL COMMENTS; Start 08/10/18 at 16:15 Home Med (Med Rec Complete!) ASDIRECTED XX ; Start 08/10/18 at 17:45; Stop 08/10/18 at 17:46; Status DC Insulin Detemir (Levemir Insulin) 30 units QHS SC Last administered on 08/16/18at 20:49; Start 08/10/18 at 21:00; Stop 08/17/18 at 10:28; Status DC Insulin Detemir (Levemir Insulin) 34 units QHS SC ; Start 08/17/18 at 21:00; Status UNV Insulin Human Lispro (HumaLOG INSULIN) SEE PROTOCOL TABLE AC SC Last administered on 08/17/18at 09:28; Start 08/10/18 at 17:30 Insulin Human Lispro (HumaLOG INSULIN) SEE PROTOCOL TABLE QHS SC Last administered on 08/16/18at 20:48; Start 08/10/18 at 21:00 Lactobacillus Acidophilus (Bacid) 1 ea TID PO Last administered on 08/17/18at 09:27; Start 08/10/18 at 16:00 Linezolid (Zyvox) 600 mg DAILY PO Last administered on 08/17/18 09:28; Start 08/11/18 at 09:00 Lisinopril (Prinivil) 2.5 mg DAILY PO Last administered on 08/14/18at 08:18; Start 08/11/18 at 09:00; Stop 08/14/18 at 10:32; Status DC Magnesium Hydroxide (Milk Of Magnesia) 30 ml DAILYPRN PRN PO CONSTIPATION; Start 08/10/18 at 16:15 Magnesium Oxide (Mag-Ox) 400 mg DAILY PO Last administered on 08/17/18at 09:27; Start 08/11/18 at 09:00 Methocarbamol (Robaxin) 500 mg TID PO Last administered on 08/17/18 09:27; Start 08/10/18 at 16:00 Metoprolol Succinate (TopROL XL) 50 mg DAILY PO Last administered on 08/17/18 09:28; Start 08/11/18 at 09:00 Miscellaneous (Unresolved Patient Own Med Order) SEE LABEL COMMENTS DAILY XX ; Start 08/10/18 at 09:00; Stop 08/10/18 at 19:16; Status DC Miscellaneous (Unresolved Patient Own Med Order) SEE LABEL COMMENTS DAILY XX ; Start 08/15/18 at 09:00; Stop 08/15/18 at 12:17; Status DC Multivitamins (Theragram-M) 1 tab DAILY PO Last administered on 08/14/18 08:17; Start 08/11/18 at 09:00; Stop 08/14/18 at 10:32; Status DC Multivitamins (Theragram-M) 1 tab DAILY@1200 PO Last administered on 08/16/18 13:29; Start 08/14/18 at 12:00 Nitroglycerin (Nitrostat (1/ 200)) 0.3 mg Q5MP PRN SL CHEST PAIN; Start 08/10/18 at 16:15 Oxycodone HCl (Roxicodone, Oxyir) 5 mg Q4HP PRN PO PAIN Last administered on 08/13/18 21:02; Start 08/10/18 at 16:15; Stop 08/14/18 at 10:32; Status DC Pantoprazole Sodium (Protonix) 40 mg BID PO Last administered on 08/17/18 09:27; Start 08/10/18 at 21:00 Patient Own Medication (Patient'S Own Med) 1 TABLET = 15 MG TID PO Last administered on 08/17/18 09:26; Start 08/10/18 at 21:00 Patient Own Medication (Patient'S Own Med) apply to right abdo... BID TD Last administered on 08/17/18 09:29; Start 08/10/18 at 21:00 Senna (Senokot) 1 tab QHS PO Last administered on 08/11/18 20:37; Start 08/10/18 at 21:00; Stop 08/14/18 at 08:06; Status DC Sodium Chloride 1,000 ml @ 60 mls/hr [id number] IV Last administered on 08/12/18 14:11; Start 08/12/18 at 14:11; Stop 08/13/18 at 15:11; Status DC Sucralfate (Carafate) 1 gm WM PO Last administered on 08/17/18 09:27; Start 08/12/18 at 18:00 Vitamin D (Vitamin D) 2,000 units DAILY PO Last administered on 7/1/19at 09:27; Start 08/11/18 at 09:00 ANGELITA HOBBS MD Aug 17, 2018 10:31
[2018-08-17] MEDS: MULTIVITAMINS/MINERALS THERAP 1 TAB PO SCH (12:08)
[2018-08-17] MEDS: FERROUS GLUCONATE 324 MG TAB PO SCH (12:08)
[2018-08-17 14:00] VITALS: BP 116/64
[2018-08-17 20:00] VITALS: BP 134/69
[2018-08-17] MEDS: LEVEMIR (INSULIN DETEMIR) 1 UNITS/0.01ML SC SCH (22:46)
[2018-08-18 05:56] VITALS: BP 119/57
[2018-08-18] MEDS: VITAMIN D 1,000 INTERNATIONAL UNITS TABLET PO SCH (08:41)
[2018-08-18] MEDS: METOPROLOL SUCC (TopROL XL) 50MG **XL** TAB PO SCH (08:41)
[2018-08-18] MEDS: METHOCARBAMOL 500 MG TAB PO SCH ×3 (08:41→22:07)
[2018-08-18] MEDS: ASPIRIN 81 MG CHEW TABLET PO SCH (08:41)
[2018-08-18] MEDS: LACTOBACILLUS ACIDOPHILUS CAP (BACID) PO SCH ×3 (08:41→22:07)
[2018-08-18] MEDS: OMEGA-3 1000MG CAPSULE PO SCH (08:41)
[2018-08-18] MEDS: PANTOPRAZOLE 40MG TAB (PROTONIX) PO SCH ×2 (08:41→22:07)
[2018-08-18] MEDS: MAGNESIUM OXIDE 400 MG TAB (MAG-OX) PO SCH (08:42)
[2018-08-18] MEDS: FUROSEMIDE 20 MG TAB PO SCH (08:42)
[2018-08-18] MEDS: GABAPENTIN 400 MG CAP PO SCH ×3 (08:42→22:06)
[2018-08-18] MEDS: CIPROFLOXACIN 500 MG TAB PO SCH ×2 (08:42→22:06)
[2018-08-18] MEDS: SUCRALFATE 1 GM TAB PO SCH ×3 (08:42→17:38)
[2018-08-18] MEDS: LINEZOLID 600MG TABLET (ZYVOX) PO SCH (08:42)
[2018-08-18] MEDS: PHENELZINE 15 MG PO SCH ×3 (08:43→22:08)
[2018-08-18] MEDS: HumaLOG INSULIN (NovoLOG) PER UNIT SC SCH ×4 (08:43→22:07)
[2018-08-18] MEDS: MEDIHONEY TD SCH ×2 (09:00→21:00)
--- NOTE | 2018-08-18 11:06 | IPNPDOC ---
PM&R Progress Note DATE OF SERVICE: Aug 18, 2018 Executive Vice President Of Sales Progress Note Subjective: Patient seen in room with family wondering if she can go home [place] and concerned about why her right abdominal ulcer is not healing. REVIEW OF SYSTEMS: The following is a completed review of systems and has been reviewed. Review of systems otherwise unremarkable. PAIN: Patient self reports back pain and spasms EYES: no recent vision changes EARS, NOSE, & THROAT: no throat pain, or dysphagia, or rhinorrhea CARDIOVASCULAR: denies chest pain or palpitations PULMONARY: Negative. Denies shortness of breath GASTROINTESTINAL: denies constipation/ diarrhea, +epigastric pain GENITOURINARY: +incontinence MUSCULOSKELETAL: bilat LE weakness NEUROLOGICAL: +spinal cord injury and right foot drop HEMATOLOGICAL: +anemia SKIN: thoraco-lumbar incision PSYCHIATRIC:Unremarkable All other review of systems found to be negative. PHYSICAL EXAMINATION: VITAL SIGNS: Please see below. GENERAL: Pleasant and cooperative. No acute distress. Pale HEENT: PERRL. Extraocular movements intact. Clear conjunctiva]. CARDIOVASCULAR: Regular rate and rhythm. No murmurs, rubs, or gallops LUNGS: Clear to auscultation bilaterally. No wheezes. No rhonchi ABDOMEN: Soft, mild RUQ tenderness to palpation, non-distended Positive bowel sounds. Normal active bowel sounds NEUROLOGICAL: Alert and oriented times three. Cranial nerves II through XII grossly intact. Sensation grossly intact in bilateral LE and sacral area, diminished along lower thoracic dermatome on the left and neat her thoroco- lumbar incision (will defer SCI VANESSA exam for now) EXTREMITIES: 5\5 strength bilateral upper extremities. 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 PLAN: 1. Rehab: OT, PT, assess for DMEs- patient with severe deconditioning due to extended hospital stay at [facility] with new spinal cord lesion, will require intensive and more prolonged therapy -ambulating short distances with assistance with RW 2. 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 Cardio: pmh HTN and HLD, d/c statin for muscle cramping, c/u home medication Repatha -c/u lasix metoprolol and lisinopril- medicine consulted 4. Resp: pmh LIZ, will encourage CPAP at night, incentive spirometry 5. : neurogenic bladder, monitor PVRs-voiding well 6. GI ppx: protonix BID, optimize bowel meds for neurogenic bowel -08/13/18 patient had episode of epigastric pain following lunch followed by presyncopal response with stable vitals, KUB negative for obstruction (patient having bowel movements), RUQ US postive for cholelithiasis, and CT abd pelvis showing no obstruction, positive for cholelithiasis, with nonspecific changes/fluid at post-surgical site- patient vitals stable, no leukocytosis, CRP thus far trending down, will continue to monitor -pancreatic enzymes also WNL - suspect gastric ulcer at this time and will c/u sucralfate with meals 7. DVT ppx: -will hold Lovenox to prevent spinal hemorrhage or compressive hematoma- c/u TEDs 8. Endo: pm DM, insulin and ISS, monitor and adjust 9. Pain: patient with considerable pain, c/u oxycodone, Tylenol, c/u methocarbamol, c/u Neurontin -avoid Tramadol and Flexeril for pain as risk of serotonin syndrome 10. Psych: hx of drug resistant depression with recent suicide ideation at [facility] that resolved, was started back on low dose Phenelzine while on inpatient 15mg daily, however was on 30mg TID, will increase to 15mg TID and m onitor closely for serotonin syndrome-patient reports improved mood and denies active suicide ideation-stable 11. Skin: Zinc oxide to sacrum and monitor for skin breakdown, patient able to turn herself in bed -Santyl to right abdominal abdominal wound and cover with optifoam, will refer to outpatient wound care clinic 12. Dispo: to home, anticipating 08/21/18, progressing towards goals Allergies Coded Allergies: Penicillins (Verified Allergy, Intermediate, RASH/HIVES, 07/23/18) Sulfa (Sulfonamide Antibiotics) (Verified Allergy, Intermediate, REDNESS/SWELLING, 07/23/18) sulindac (Verified Adverse Reaction, Intermediate, COLITIS, 07/23/18) Vital Signs Vital Signs Date Time Temp Pulse Resp B/P (MAP) Pulse Ox O2 Delivery O2 Flow Rate FiO2 08/18/18 08:41 92 119/57 08/18/18 05:56 97.0 18 95 Laboratory Data Labs 24H Laboratory Tests 2 08/17/18 11:45: Bedside Glucose (Misc Panel) 239H 08/17/18 16:39: Bedside Glucose (Misc Panel) 170H 08/17/18 20:05: Bedside Glucose (Misc Panel) 264H 08/18/18 06:25: Bedside Glucose (Misc Panel) 187H Microbiology Microbiology 08/12/18 Stool Occult Blood (HERBER) - Final, Complete Current Medications Current Medications Current Medications Acetaminophen (Tylenol Tab) 650 mg Q4HP PRN PO MILD PAIN (PS 1-4) Last administered on 08/17/18at 09:30; Start 08/10/18 at 16:15 Al Hydrox/Mg Hydrox/Simethicone (Mylanta) 30 ml Q4HP PRN PO DYSPEPSIA Last administered on 08/14/18at 08:16; Start 08/10/18 at 16:15 Aspirin (Aspirin Chewable) 81 mg DAILY PO Last administered on 08/18/18at 08:41; Start 08/11/18 at 09:00 Atorvastatin Calcium (Lipitor) 20 mg QHS PO Last administered on 08/12/18at 22:09; Start 08/11/18 at 21:00; Stop 08/14/18 at 10:30; Status DC Ciprofloxacin (Cipro) 500 mg BID@06,18 PO Last administered on 08/14/18at 05:49; Start 08/10/18 at 18:00; Stop 08/14/18 at 10:30; Status DC Ciprofloxacin (Cipro) 500 mg BID@1000,2200 PO Last administered on 08/18/18at 08:42; Start 08/14/18 at 22:00 Dextrose (Dextrose 50%) 25 ml ASDIRECTED PRN IV SEE LABEL COMMENTS; Start 08/10/18 at 16:15 Diatrizoate Meglum/ Diatrizoate Sod (Gastrografin) 10 ml Q30M PO Last administered on 08/12/18at 15:30; Start 08/12/18 at 15:00; Stop 08/12/18 at 15:31; Status DC Docusate Sodium (Colace) 100 mg BID PO Last administered on 08/13/18at 09:22; Start 08/10/18 at 21:00; Stop 08/14/18 at 08:06; Status DC Enoxaparin Sodium (Lovenox) 40 mg DAILY SC Last administered on 08/13/18at 09:24; Start 08/11/18 at 09:00; Stop 08/13/18 at 11:36; Status DC Ferrous Gluconate (Fergon) 324 mg DAILY PO Last administered on 08/14/18at 08:17; Start 08/11/18 at 09:00; Stop 08/14/18 at 10:30; Status DC Ferrous Gluconate (Fergon) 324 mg DAILY@1200 PO Last administered on 08/17/18at 12:08; Start 08/14/18 at 12:00 Fish Oil ([place]-3 (1000mg)) 1 cap DAILY PO Last administered on 08/18/18at 08:41; Start 08/11/18 at 09:00 Furosemide (Lasix) 20 mg DAILY PO Last administered on 08/18/18at 08:42; Start 08/11/18 at 09:00 Gabapentin (Neurontin) 400 mg TID PO Last administered on 08/18/18at 08:42; Start 08/10/18 at 16:00 Glucagon (Glucagon) 1 mg ASDIRECTED PRN SC SEE LABEL COMMENTS; Start 08/10/18 at 16:15 Glucose (Glucose) 16 GM ASDIRECTED PRN PO SEE LABEL COMMENTS; Start 08/10/18 at 16:15 Home Med (Med Rec Complete!) ASDIRECTED XX ; Start 08/10/18 at 17:45; Stop 08/10/18 at 17:46; Status DC Insulin Detemir (Levemir Insulin) 30 units QHS SC Last administered on 08/16/18at 20:49; Start 08/10/18 at 21:00; Stop 08/17/18 at 10:28; Status DC Insulin Detemir (Levemir Insulin) 34 units QHS SC Last administered on 08/17/18at 22:46; Start 08/17/18 at 21:00 Insulin Human Lispro (HumaLOG INSULIN) SEE PROTOCOL TABLE AC SC Last administered on 08/18/18at 08:43; Start 08/10/18 at 17:30 Insulin Human Lispro (HumaLOG INSULIN) SEE PROTOCOL TABLE QHS SC Last administered on 08/17/18at 22:47; Start 08/10/18 at 21:00 Lactobacillus Acidophilus (Bacid) 1 ea TID PO Last administered on 08/18/18at 08:41; Start 08/10/18 at 16:00 Linezolid (Zyvox) 600 mg DAILY PO Last administered on 08/18/18at 08:42; Start 08/11/18 at 09:00 Lisinopril (Prinivil) 2.5 mg DAILY PO Last administered on 08/14/18at 08:18; Start 08/11/18 at 09:00; Stop 08/14/18 at 10:32; Status DC Magnesium Hydroxide (Milk Of Magnesia) 30 ml DAILYPRN PRN PO CONSTIPATION; Start 08/10/18 at 16:15 Magnesium Oxide (Mag-Ox) 400 mg DAILY PO Last administered on 08/18/18at 08:42; Start 08/11/18 at 09:00 Methocarbamol (Robaxin) 500 mg TID PO Last administered on 08/18/18at 08:41; Start 08/10/18 at 16:00 Metoprolol Succinate (TopROL XL) 50 mg DAILY PO Last administered on 08/18/18at 08:41; Start 08/11/18 at 09:00 Miscellaneous (Unresolved Patient Own Med Order) SEE LABEL COMMENTS DAILY XX ; Start 08/10/18 at 09:00; Stop 08/10/18 at 19:16; Status DC Miscellaneous (Unresolved Patient Own Med Order) SEE LABEL COMMENTS DAILY XX ; Start 08/15/18 at 09:00; Stop 08/15/18 at 12:17; Status DC Multivitamins (Theragram-M) 1 tab DAILY PO Last administered on 08/14/18at 08:17; Start 08/11/18 at 09:00; Stop 08/14/18 at 10:32; Status DC Multivitamins (Theragram-M) 1 tab DAILY@1200 PO Last administered on 08/17/18at 12:08; Start 08/14/18 at 12:00 Nitroglycerin (Nitrostat (1/ 200)) 0.3 mg Q5MP PRN SL CHEST PAIN; Start 08/10/18 at 16:15 Oxycodone HCl (Roxicodone, Oxyir) 5 mg Q4HP PRN PO PAIN Last administered on 08/13/18at 21:02; Start 08/10/18 at 16:15; Stop 08/14/18 at 10:32; Status DC Pantoprazole Sodium (Protonix) 40 mg BID PO Last administered on 08/18/18 08:41; Start 08/10/18 at 21:00 Patient Own Medication (Patient'S Own Med) 1 TABLET = 15 MG TID PO Last administered on 08/18/18 08:43; Start 08/10/18 at 21:00 Patient Own Medication (Patient'S Own Med) apply to right abdo... BID TD Last administered on 08/17/18at 21:00; Start 08/10/18 at 21:00 Senna (Senokot) 1 tab QHS PO Last administered on 08/11/18at 20:37; Start 08/10/18 at 21:00; Stop 08/14/18 at 08:06; Status DC Sodium Chloride 1,000 ml @ 60 mls/hr [id number] IV Last administered on 08/12/18at 14:11; Start 08/12/18 at 14:11; Stop 08/13/18 at 15:11; Status DC Sucralfate (Carafate) 1 gm WM PO Last administered on 08/18/18at 08:42; Start 08/12/18 at 18:00 Vitamin D (Vitamin D) 2,000 units DAILY PO Last administered on 08/18/18at 08:41; Start 08/11/18 at 09:00 ANGELITA HOBBS MD Aug 18, 2018 11:06
[2018-08-18] MEDS: MULTIVITAMINS/MINERALS THERAP 1 TAB PO SCH (12:35)
[2018-08-18] MEDS: FERROUS GLUCONATE 324 MG TAB PO SCH (12:35)
[2018-08-18 14:00] VITALS: BP 127/66
[2018-08-18] MEDS: SANTYL OINT 30GM TOP SCH (17:39)
[2018-08-18] MEDS: ACETAMINOPHEN TAB 650MG DOSE (2X325MG) PO PRN (17:42)
[2018-08-18 20:00] VITALS: BP 120/70
[2018-08-18] MEDS: LEVEMIR (INSULIN DETEMIR) 1 UNITS/0.01ML SC SCH (22:08)
[2018-08-19 06:00] VITALS: BP 130/66
[2018-08-19 07:29] LABS: HEMATOCRIT 31.5 % (36.0-47.0); HEMOGLOBIN 9.9 g/dl (12.0-15.5); MEAN CORPUSCULAR HEMOGLOBIN 27.3 pg (27.0-33.0); MEAN CORPUSCULAR HGB CONC 31.4 g/dl (32.0-36.5); PLATELET COUNT, AUTOMATED 273 10^3/uL (150-450); RED BLOOD COUNT 3.62 10^6/uL (4.00-5.40); WHITE BLOOD COUNT 6.5 10^3/uL (4.0-10.0)
[2018-08-19 07:51] LABS: BLOOD UREA NITROGEN 13 MG/DL (7-18); C REACTIVE PROTEIN QUANTITATIV 4.26 MG/DL (0.00-0.30); CALCIUM LEVEL 8.7 MG/DL (8.8-10.2); CARBON DIOXIDE LEVEL 29 MEQ/L (21-32); CHLORIDE LEVEL 101 MEQ/L (98-107); CREATININE FOR GFR 0.81 MG/DL (0.55-1.30); GLOMERULAR FILTRATION RATE > 60.0 (>45); GLUCOSE, FASTING 235 MG/DL (70-100); POTASSIUM SERUM 4.4 MEQ/L (3.5-5.1); SODIUM LEVEL 136 MEQ/L (136-145)
[2018-08-19 08:33] LABS: ERYTHROCYTE SEDIMENTATION RATE 107 mm/hr (0-30)
[2018-08-19] MEDS: PHENELZINE 15 MG PO SCH ×3 (08:43→20:57)
[2018-08-19] MEDS: GABAPENTIN 400 MG CAP PO SCH ×3 (08:43→20:56)
[2018-08-19] MEDS: MAGNESIUM OXIDE 400 MG TAB (MAG-OX) PO SCH (08:43)
[2018-08-19] MEDS: LINEZOLID 600MG TABLET (ZYVOX) PO SCH (08:43)
[2018-08-19] MEDS: CIPROFLOXACIN 500 MG TAB PO SCH ×2 (08:43→20:56)
[2018-08-19] MEDS: OMEGA-3 1000MG CAPSULE PO SCH (08:43)
[2018-08-19] MEDS: LACTOBACILLUS ACIDOPHILUS CAP (BACID) PO SCH ×3 (08:43→20:56)
[2018-08-19] MEDS: VITAMIN D 1,000 INTERNATIONAL UNITS TABLET PO SCH (08:43)
[2018-08-19] MEDS: ASPIRIN 81 MG CHEW TABLET PO SCH (08:43)
[2018-08-19] MEDS: METHOCARBAMOL 500 MG TAB PO SCH ×3 (08:43→20:56)
[2018-08-19] MEDS: SUCRALFATE 1 GM TAB PO SCH ×3 (08:43→17:05)
[2018-08-19] MEDS: PANTOPRAZOLE 40MG TAB (PROTONIX) PO SCH ×2 (08:44→20:56)
[2018-08-19] MEDS: FUROSEMIDE 20 MG TAB PO SCH (08:44)
[2018-08-19] MEDS: METOPROLOL SUCC (TopROL XL) 50MG **XL** TAB PO SCH (08:44)
[2018-08-19] MEDS: SANTYL OINT 30GM TOP SCH (08:44)
[2018-08-19] MEDS: HumaLOG INSULIN (NovoLOG) PER UNIT SC SCH ×4 (08:46→20:58)
[2018-08-19] MEDS: MEDIHONEY TD SCH ×2 (08:56→21:00)
--- NOTE | 2018-08-19 11:19 | IPNPDOC ---
PM&R Progress Note DATE OF SERVICE: Aug 19, 2018 User Experience Designer Progress Note Subjective: Patient was upset after a car transfer with her as she had difficulty getting into his truck, however will use a sedan in the future. She is eager to return home. REVIEW OF SYSTEMS: The following is a completed review of systems and has been reviewed. Review of systems otherwise unremarkable. PAIN: Patient self reports back pain and spasms EYES: no recent vision changes EARS, NOSE, & THROAT: no throat pain, or dysphagia, or rhinorrhea CARDIOVASCULAR: denies chest pain or palpitations PULMONARY: Negative. Denies shortness of breath GASTROINTESTINAL: denies constipation/ diarrhea, +epigastric pain GENITOURINARY: +incontinence MUSCULOSKELETAL: bilat LE weakness NEUROLOGICAL: +spinal cord injury and right foot drop HEMATOLOGICAL: +anemia SKIN: thoraco-lumbar incision PSYCHIATRIC:Unremarkable All other review of systems found to be negative. PHYSICAL EXAMINATION: VITAL SIGNS: Please see below. GENERAL: Pleasant and cooperative. No acute distress. Pale HEENT: PERRL. Extraocular movements intact. Clear conjunctiva]. CARDIOVASCULAR: Regular rate and rhythm. No murmurs, rubs, or gallops LUNGS: Clear to auscultation bilaterally. No wheezes. No rhonchi ABDOMEN: Soft, mild RUQ tenderness to palpation, non-distended Positive bowel sounds. Normal active bowel sounds NEUROLOGICAL: Alert and oriented times three. Cranial nerves II through XII grossly intact. Sensation grossly intact in bilateral LE and sacral area, diminished along lower thoracic dermatome on the left and neat her thoroco- lumbar incision (will defer SCI VANESSA exam for now) EXTREMITIES: 5\5 strength bilateral upper extremities. 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 PLAN: 1. Rehab: OT, PT, assess for DMEs- patient with severe deconditioning due to extended hospital stay at [facility] with new spinal cord lesion, will require intensive and more prolonged therapy -ambulating short distances with assistance with RW, car transfer today 2. 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 06/19/18 complicated by CSF leak- c/u Linezolid for prophylaxis for hx of hardware infections and Ciprofloxacin 500mg BID for a total of 4 weeks, last day 08/25/18- CRP and ESR trending down -neurogenic bladder- voiding well -neurogenic bowel- voiding well -right foot drop- multipodus boot when in bed, monitor for skin break down- sensation intact, will consider inhouse quality analyst/technical writer consult 3. Cardio: pmh HTN and HLD, d/c statin for muscle cramping, c/u home medication Repatha -c/u lasix metoprolol and lisinopril- medicine consulted 4. Resp: pmh LIZ, will encourage CPAP at night, incentive spirometry 5. : neurogenic bladder, monitor PVRs-voiding well 6. GI ppx: protonix BID, optimize bowel meds for neurogenic bowel -08/13/18 patient had episode of epigastric pain following lunch followed by presyncopal response with stable vitals, KUB negative for obstruction (patient having bowel movements), RUQ US postive for cholelithiasis, and CT abd pelvis showing no obstruction, positive for cholelithiasis, with nonspecific changes/fluid at post-surgical site- patient vitals stable, no leukocytosis, CRP thus far trending down, will continue to monitor -pancreatic enzymes also WNL - suspect gastric ulcer at this time and will c/u sucralfate with meals 7. DVT ppx: -will hold Lovenox to prevent spinal hemorrhage or compressive hem atoma- c/u TEDs 8. Endo: pm DM, insulin and ISS, monitor and adjust 9. Pain: patient with considerable pain, c/u oxycodone, Tylenol, c/u methocarbamol, c/u Neurontin -avoid Tramadol and Flexeril for pain as risk of serotonin syndrome 10. Psych: hx of drug resistant depression with recent suicide ideation at [facility] that resolved, was started back on low dose Phenelzine while on inpatient 15mg daily, however was on 30mg TID, will increase to 15mg TID and monitor closely for serotonin syndrome-patient reports improved mood and denies active suicide ideation-stable 11. Skin: Zinc oxide to sacrum and monitor for skin breakdown, patient able to turn herself in bed -Santyl to right abdominal abdominal wound and cover with optifoam, will refer to outpatient wound care clinic 12. Dispo: to home, anticipating 08/21/18, progressing towards goals Allergies Coded Allergies: Penicillins (Verified Allergy, Intermediate, RASH/HIVES, 07/23/18) Sulfa (Sulfonamide Antibiotics) (Verified Allergy, Intermediate, REDNESS/SWELLING, 07/23/18) sulindac (Verified Adverse Reaction, Intermediate, COLITIS, 07/23/18) Vital Signs Vital Signs Date Time Temp Pulse Resp B/P (MAP) Pulse Ox O2 Delivery O2 Flow Rate FiO2 08/19/18 08:44 91 130/66 08/19/18 06:00 97.1 18 95 Laboratory Data CBC/BMP Laboratory Tests 08/19/18 07:14 Red Blood Count 3.62 L, Mean Corpuscular Volume 87.0, Mean Corpuscular Hemoglobin 27.3, Mean Corpuscular Hemoglobin Concent 31.4 L, Red Cell Dis tribution Width 14.9 H, Calcium Level 8.7 L Labs 24H Laboratory Tests 2 08/18/18 11:47: Bedside Glucose (Misc Panel) 205H 08/18/18 17:29: Bedside Glucose (Misc Panel) 213H 08/18/18 20:30: Bedside Glucose (Misc Panel) 269H 08/19/18 06:33: Bedside Glucose (Misc Panel) 205H 08/19/18 07:14: Nucleated Red Blood Cells % (auto) 0.0, Erythrocyte Sedimentation Rate 107H, Anion Gap 6L, Glomerular Filtration Rate > 60.0, Blood Urea Nitrogen 13, Creatinine 0.81, Sodium Level 136, Potassium Level 4.4, Chloride Level 101, Carbon Dioxide Level 29, Calcium Level 8.7L, C-Reactive Protein, Quantitative 4.26H Microbiology Microbiology 08/12/18 Stool Occult Blood (HERBER) - Final, Complete Current Medications Current Medications Current Medications Acetaminophen (Tylenol Tab) 650 mg Q4HP PRN PO MILD PAIN (PS 1-4) Last administered on 08/18/18 17:42; Start 08/10/18 at 16:15 Al Hydrox/Mg Hydrox/Simethicone (Mylanta) 30 ml Q4HP PRN PO DYSPEPSIA Last administered on 08/14/18 08:16; Start 08/10/18 at 16:15 Aspirin (Aspirin Chewable) 81 mg DAILY PO Last administered on 08/19/18 08:43; Start 08/11/18 at 09:00 Atorvastatin Calcium (Lipitor) 20 mg QHS PO Last administered on 08/12/18 22:09; Start 08/11/18 at 21:00; Stop 08/14/18 at 10:30; Status DC Ciprofloxacin (Cipro) 500 mg BID@06,18 PO Last administered on 08/14/18 05:49; Start 08/10/18 at 18:00; Stop 08/14/18 at 10:30; Status DC Ciprofloxacin (Cipro) 500 mg BID@1000,2200 PO Last administered on 08/19/18 08:43; Start 08/14/18 at 22:00 Collagenase (Santyl) apply to right abdo... DAILY TOP Last administered on 08/19/18 08:44; Start 08/18/18 at 09:00 Dextrose (Dextrose 50%) 25 ml ASDIRECTED PRN IV SEE LABEL COMMENTS; Start at 16:15 Diatrizoate Meglum/ Diatrizoate Sod (Gastrografin) 10 ml Q30M PO Last administered on 08/12/18 15:30; Start 08/12/18 at 15:00; Stop 08/12/18 at 15:31; Status DC Docusate Sodium (Colace) 100 mg BID PO Last administered on 08/13/18 09:22; Start 08/10/18 at 21:00; Stop 08/14/18 at 08:06; Status DC Enoxaparin Sodium (Lovenox) 40 mg DAILY SC Last administered on 08/13/18 09:24; Start 08/11/18 at 09:00; Stop 08/13/18 at 11:36; Status DC Ferrous Gluconate (Fergon) 324 mg DAILY PO Last administered on 08/14/18 08:17; Start 08/11/18 at 09:00; Stop 08/14/18 at 10:30; Status DC Ferrous Gluconate (Fergon) 324 mg DAILY@1200 PO Last administered on 08/18/18at 12:35; Start 08/14/18 at 12:00 Fish Oil ([place]-3 (1000mg)) 1 cap DAILY PO Last administered on 08/19/18 08:43; Start 08/11/18 at 09:00 Furosemide (Lasix) 20 mg DAILY PO Last administered on 08/19/18at 08:44; Start 08/11/18 at 09:00 Gabapentin (Neurontin) 400 mg TID PO Last administered on 08/19/18 08:43; Start 08/10/18 at 16:00 Glucagon (Glucagon) 1 mg ASDIRECTED PRN SC SEE LABEL COMMENTS; Start 08/10/18 at 16:15 Glucose (Glucose) 16 GM ASDIRECTED PRN PO SEE LABEL COMMENTS; Start 08/10/18 at 16:15 Home Med (Med Rec Complete!) ASDIRECTED XX ; Start 08/10/18 at 17:45; Stop 08/10/18 at 17:46; Status DC Insulin Detemir (Levemir Insulin) 30 units QHS SC Last administered on 08/16/18at 20:49; Start 08/10/18 at 21:00; Stop 08/17/18 at 10:28; Status DC Insulin Detemir (Levemir Insulin) 34 units QHS SC Last administered on 08/18/18at 22:08; Start 08/17/18 at 21:00 Insulin Human Lispro (HumaLOG INSULIN) SEE PROTOCOL TABLE AC SC Last administered on 08/19/18at 08:46; Start 08/10/18 at 17:30 Insulin Human Lispro (HumaLOG INSULIN) SEE PROTOCOL TABLE QHS SC Last administered on 08/18/18at 22:07; Start 08/10/18 at 21:00 Lactobacillus Acidophilus (Bacid) 1 ea TID PO Last administered on 08/19/18at 08:43; Start 08/10/18 at 16:00 Linezolid (Zyvox) 600 mg DAILY PO Last administered on 08/19/18 08:43; Start 08/11/18 at 09:00 Lisinopril (Prinivil) 2.5 mg DAILY PO Last administered on 08/14/18 08:18; Start 08/11/18 at 09:00; Stop 08/14/18 at 10:32; Status DC Magnesium Hydroxide (Milk Of Magnesia) 30 ml DAILYPRN PRN PO CONSTIPATION; Start 08/10/18 at 16:15 Magnesium Oxide (Mag-Ox) 400 mg DAILY PO Last administered on 08/19/18 08:43; Start 08/11/18 at 09:00 Methocarbamol (Robaxin) 500 mg TID PO Last administered on 08/19/18 08:43; Start 08/10/18 at 16:00 Metoprolol Succinate (TopROL XL) 50 mg DAILY PO Last administered on 08/19/18 08:44; Start 08/11/18 at 09:00 Miscellaneous (Unresolved Patient Own Med Order) SEE LABEL COMMENTS DAILY XX ; Start 08/10/18 at 09:00; Stop 08/10/18 at 19:16; Status DC Miscellaneous (Unresolved Patient Own Med Order) SEE LABEL COMMENTS DAILY XX ; Start 08/15/18 at 09:00; Stop 08/15/18 at 12:17; Status DC Multivitamins (Theragram-M) 1 tab DAILY PO Last administered on 08/14/18at 08:17; Start 08/11/18 at 09:00; Stop 08/14/18 at 10:32; Status DC Multivitamins (Theragram-M) 1 tab DAILY@1200 PO Last administered on 08/18/18at 12:35; Start 08/14/18 at 12:00 Nitroglycerin (Nitrostat (1/ 200)) 0.3 mg Q5MP PRN SL CHEST PAIN; Start 08/10/18 at 16:15 Oxycodone HCl (Roxicodone, Oxyir) 5 mg Q4HP PRN PO PAIN Last administered on 08/13/18at 21:02; Start 08/10/18 at 16:15; Stop 08/14/18 at 10:32; Status DC Pantoprazole Sodium (Protonix) 40 mg BID PO Last administered on 08/19/18 08:44; Start 08/10/18 at 21:00 Patient Own Medication (Patient'S Own Med) 1 TABLET = 15 MG TID PO Last administered on 08/19/18 08:43; Start 08/10/18 at 21:00 Patient Own Medication (Patient'S Own Med) apply to right abdo... BID TD Last administered on 08/17/18 21:00; Start 08/10/18 at 21:00 Senna (Senokot) 1 tab QHS PO Last administered on 08/11/18 20:37; Start 08/10/18 at 21:00; Stop 08/14/18 at 08:06; Status DC Sodium Chloride 1,000 ml @ 60 mls/hr [id number] IV Last administered on 08/12/18 14:11; Start 08/12/18 at 14:11; Stop 08/13/18 at 15:11; Status DC Sucralfate (Carafate) 1 gm WM PO Last administered on 08/19/18 08:43; Start 08/12/18 at 18:00 Vitamin D (Vitamin D) 2,000 units DAILY PO Last administered on 08/19/18 08:43; Start 08/11/18 at 09:00 ANGELITA HOBBS MD Aug 19, 2018 11:19
[2018-08-19] MEDS: MULTIVITAMINS/MINERALS THERAP 1 TAB PO SCH (12:31)
[2018-08-19] MEDS: FERROUS GLUCONATE 324 MG TAB PO SCH (12:31)
[2018-08-19 14:00] VITALS: BP 153/82
[2018-08-19] MEDS: LEVEMIR (INSULIN DETEMIR) 1 UNITS/0.01ML SC SCH (20:58)
[2018-08-19 22:00] VITALS: BP 134/63
[2018-08-19] MEDS: ACETAMINOPHEN TAB 650MG DOSE (2X325MG) PO PRN (23:03)
[2018-08-20 06:00] VITALS: BP 136/69
[2018-08-20] MEDS: SUCRALFATE 1 GM TAB PO SCH ×3 (08:16→17:21)
[2018-08-20] MEDS: LACTOBACILLUS ACIDOPHILUS CAP (BACID) PO SCH ×3 (08:16→20:33)
[2018-08-20] MEDS: METOPROLOL SUCC (TopROL XL) 50MG **XL** TAB PO SCH (08:16)
[2018-08-20] MEDS: GABAPENTIN 400 MG CAP PO SCH ×3 (08:16→20:33)
[2018-08-20] MEDS: VITAMIN D 1,000 INTERNATIONAL UNITS TABLET PO SCH (08:16)
[2018-08-20] MEDS: PHENELZINE 15 MG PO SCH ×3 (08:16→20:35)
[2018-08-20] MEDS: OMEGA-3 1000MG CAPSULE PO SCH (08:16)
[2018-08-20] MEDS: ASPIRIN 81 MG CHEW TABLET PO SCH (08:16)
[2018-08-20] MEDS: LINEZOLID 600MG TABLET (ZYVOX) PO SCH (08:17)
[2018-08-20] MEDS: PANTOPRAZOLE 40MG TAB (PROTONIX) PO SCH ×2 (08:17→20:33)
[2018-08-20] MEDS: CIPROFLOXACIN 500 MG TAB PO SCH ×2 (08:17→20:32)
[2018-08-20] MEDS: HumaLOG INSULIN (NovoLOG) PER UNIT SC SCH ×4 (08:17→20:34)
[2018-08-20] MEDS: METHOCARBAMOL 500 MG TAB PO SCH ×3 (08:17→20:32)
[2018-08-20] MEDS: FUROSEMIDE 20 MG TAB PO SCH (08:17)
[2018-08-20] MEDS: MAGNESIUM OXIDE 400 MG TAB (MAG-OX) PO SCH (08:17)
[2018-08-20] MEDS: SANTYL OINT 30GM TOP SCH (08:18)
[2018-08-20] MEDS: FERROUS GLUCONATE 324 MG TAB PO SCH (12:16)
[2018-08-20] MEDS: MULTIVITAMINS/MINERALS THERAP 1 TAB PO SCH (12:16)
[2018-08-20 14:00] VITALS: BP 134/71
[2018-08-20 19:18] VITALS: BP 125/59
[2018-08-20] MEDS: ACETAMINOPHEN TAB 650MG DOSE (2X325MG) PO PRN (20:33)
[2018-08-20] MEDS: LEVEMIR (INSULIN DETEMIR) 1 UNITS/0.01ML SC SCH (20:33)
[2018-08-21 06:34] VITALS: BP 153/73
[2018-08-21] MEDS: METHOCARBAMOL 500 MG TAB PO SCH (08:47)
[2018-08-21] MEDS: GABAPENTIN 400 MG CAP PO SCH (08:47)
[2018-08-21] MEDS: LINEZOLID 600MG TABLET (ZYVOX) PO SCH (08:47)
[2018-08-21] MEDS: PANTOPRAZOLE 40MG TAB (PROTONIX) PO SCH (08:47)
[2018-08-21] MEDS: VITAMIN D 1,000 INTERNATIONAL UNITS TABLET PO SCH (08:47)
[2018-08-21] MEDS: LACTOBACILLUS ACIDOPHILUS CAP (BACID) PO SCH (08:47)
[2018-08-21] MEDS: HumaLOG INSULIN (NovoLOG) PER UNIT SC SCH ×2 (08:47→12:00)
[2018-08-21 08:48] VITALS: BP 153/73
[2018-08-21] MEDS: METOPROLOL SUCC (TopROL XL) 50MG **XL** TAB PO SCH (08:48)
[2018-08-21] MEDS: SUCRALFATE 1 GM TAB PO SCH ×2 (08:48→13:12)
[2018-08-21] MEDS: MAGNESIUM OXIDE 400 MG TAB (MAG-OX) PO SCH (08:48)
[2018-08-21] MEDS: FUROSEMIDE 20 MG TAB PO SCH (08:48)
[2018-08-21] MEDS: OMEGA-3 1000MG CAPSULE PO SCH (08:48)
[2018-08-21] MEDS: ASPIRIN 81 MG CHEW TABLET PO SCH (08:48)
[2018-08-21] MEDS: ACETAMINOPHEN TAB 650MG DOSE (2X325MG) PO PRN (08:49)
[2018-08-21] MEDS: PHENELZINE 15 MG PO SCH (08:50)
[2018-08-21] MEDS: SANTYL OINT 30GM TOP SCH (08:52)
[2018-08-21] MEDS ORDERED: CIPROFLOXACIN 500 MG TAB PO SCH (10:00)
[2018-08-21] MEDS ORDERED: METH1TAB40 PO (11:19)
[2018-08-21] MEDS ORDERED: SUCR1TA PO (11:19)
[2018-08-21] MEDS ORDERED: ASPI81CH8 PO (11:19)
[2018-08-21] MEDS ORDERED: FURO20TA2 PO (11:19)
[2018-08-21] MEDS ORDERED: PANT40TA3 PO (11:19)
[2018-08-21] MEDS ORDERED: CIPR-249 PO (11:19)
[2018-08-21] MEDS ORDERED: GABA-845 PO (11:19)
[2018-08-21] MEDS ORDERED: METO1TAB7 PO (11:19)
[2018-08-21] MEDS ORDERED: LINE600T11 PO (11:19)
[2018-08-21] MEDS ORDERED: INSUDET SC (11:19)
[2018-08-21] MEDS ORDERED: RISATAB3 PO (11:19)
[2018-08-21] MEDS: FERROUS GLUCONATE 324 MG TAB PO SCH (11:21)
[2018-08-21] MEDS: MULTIVITAMINS/MINERALS THERAP 1 TAB PO SCH (11:21)
--- NOTE | 2018-08-24 12:30 | PMRDS ---
DATE OF ADMISSION: 08/10/2018 DATE OF DISCHARGE: 08/21/2018 CHIEF COMPLAINT/DISCHARGE DIAGNOSIS: Incomplete lumbar spinal cord injury. 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 Then presented to [facility] on 06/11/2018 complaining of new right foot drop for which she was admitted under orthopedics for PET scan finding of " an interval increase in the metabolic activities of the soft tissues at the site of the primary tumor." She underwent a myelogram on 06/15/2018 which showed "compression thecal sac in the lower cord at T12-L1". Spinal fusion changes from T3 to L5 and "corpectomy and anterior fusion, graft is seen extending from T11 to L1-L2 level". She underwent cordoma debulking on 06/19/2018, which was complicated by a CSF leak and meningitis requiring wound exploration and dural repair 07/05/2018. She had persistent hyponatremia anemia requiring blood transfusions and her blood pressure (BP) meds were held due to orthostatics. She was started on IV antibiotics and later switched back to prophylactic oral medication for history of hardware infection. She was admitted to acute rehabilitation unit (ARU) on 07/23/2018 on p.o. linezolid and one insulin and developed fevers, chills with an elevated CRP, ESR and physical signs concern for meningitis and discharged back to [facility] for incision and drainage (ID) and surgical intervention on 07/30/2018. She underwent a CT thoracic and lumbar myelogram on 07/30/2018 showing "compression of thecal sac from T11-L1 level. However, underlying cause uncertain, could be due to soft tissue/fluid status post surgical changes... irregular outline of thecal sac. However, no distinct cerebrovascular fluid (CSF) leak". On 08/05/2018 she underwent an ultrasound-guided thoracic paraspinal fluid collection aspiration without complication after which the patient reports she felt dramatically better. The fluid grew Klebsiella pneumoniae and her antibiotics were changed to ciprofloxacin 500 mg by mouth twice a day for a total of 4 weeks and continued suppressible therapy. She had an episode of suicide ideation for which a psychiatry consult was placed. She was restarted on lower dose of her home phenelzine after which her ideation resolved. She was evaluated by therapy found to have limited bi-mobility, difficulty ambulating, neurogenic bladder and difficulty with activities of daily living (ADLs). She was deemed medically appropriate discharge to ARU for an incomplete spinal cord injury with functional goals to maintain range of motion of her lower extremities, strengthen her legs, work on ambulation with a rolling walker and improve overall endurance while managing pain on 08/10/2018. PAST MEDICAL HISTORY: As per history of present illness (HPI). HOSPITAL COURSE: The patient was admitted and enrolled in a comprehensive physical therapy (PT) occupational therapy (OT) program. She received daily 24-hour nursing supervision and weekly team meetings were held to discuss her progress. The patient was continued on her oral antibiotics and her CRP an ESR were trended. Per the patient's request, her statin therapy was discontinued due to muscle cramping and she brought in her own home medication, Repatha. She was maintained on Lasix, metoprolol and lisinopril and followed by medicine during her hospital course. The patient was able to void well and had success with her bowel regimen. On 08/13/2018 the patient an episode of epigastric pain following lunch resulting in what appears to be a vasovagal response. KUB was negative for obstruction and right upper quadrant ultrasound was positive for chololithiasis. CT abdomen and pelvis showed no obstruction. Pancreatic enzymes are within normal limits and sucralfate was added to her meals for suspected gastric ulcer and subsequent improvement in her overall symptoms. The patient's pain was dramatically better on her second admission and managed with Neurontin and Tylenol. She made significant improvements in therapy and was deemed medically and functionally able to return home with home services. DISCHARGE MEDICATIONS: As per discharge instructions. FUNCTIONAL HISTORY: Upon discharge the patient was modified independent for functional transfers, supervision touch assist for car transfers, modified independent for toileting, dressing. Thank you for this referral.
== END 2018-08-21 13:12 | disposition home health service (06) | DRG 544 ==
LOC: M PM&R 16:10
PROVIDERS: ADMIT Physical Medicine & Rehabilitation; ATTEND Physical Medicine & Rehabilitation
DX: C41.2 Malignant neoplasm of vertebral column (principal); G47.33 Obstructive sleep apnea (adult) (pediatric); I10 Essential (primary) hypertension; E78.5 Hyperlipidemia, unspecified; I25.10 Atherosclerotic heart disease of native coronary artery without angina pectoris; E11.9 Type 2 diabetes mellitus without complications; K21.9 Gastro-esophageal reflux disease without esophagitis; D64.9 Anemia, unspecified; E66.9 Obesity, unspecified; Z88.0 Allergy status to penicillin; Z88.2 Allergy status to sulfonamides; Z79.82 Long term (current) use of aspirin; Z79.899 Other long term (current) drug therapy; Z79.4 Long term (current) use of insulin; N31.9 Neuromuscular dysfunction of bladder, unspecified; K80.20 Calculus of gallbladder without cholecystitis without obstruction; L98.421 Non-pressure chronic ulcer of back limited to breakdown of skin

== ENCOUNTER → 2018-11-23 | Outpatient (CLI) | payer MEDICARE, BC, OTHER ==
[~2018-11-23] MED LIST changes: +ACET650T15 PO; +ACID1TAB PO; -BISA10SU2 PR; +BISA10SU20 PR; +BISA10SU27 PR; +CALC500T61 PO; +CHOL100029 PO; +CIPR-249 PO; +CIPR500T3 PO; +FLOR250C PO; +GLUC1KIT SC; +LANTINJ4 SC; +LINE1TAB PO; +LINE1TAB6 PO; -LINE600T11 PO; +METH1TAB40 PO; +OXYC10TA12 PO; +PEG1POW PO; +SENN1TAB8 PO; +SUCR1TA PO; -VITAD1000T PO
[2018-11-23 12:53] LABS: BASO # 0.1 10^3/uL (0.0-0.2); BASO % 0.7 % (0.0-1.0); EOS # 0.3 10^3/uL (0.0-0.5); HEMATOCRIT 36.7 % (36.0-47.0); HEMOGLOBIN 11.4 g/dl (12.0-15.5); LYMPH # 1.5 10^3/uL (1.5-5.0); LYMPH % 21.6 % (24.0-44.0); MEAN CORPUSCULAR HGB CONC 31.1 g/dl (32.0-36.5); MEAN CORPUSCULAR VOLUME 86.8 fl (80.0-96.0); MONO # 0.3 10^3/uL (0.0-0.8); MONO % 4.7 % (0.0-5.0); NEUTROPHILS # 4.8 10^3/uL (1.5-8.5); NEUTROPHILS % 68.9 % (36.0-66.0); PLATELET COUNT, AUTOMATED 207 10^3/uL (150-450); RED BLOOD COUNT 4.23 10^6/uL (4.00-5.40)
[2018-11-23 12:59] LABS: ALBUMIN 3.5 GM/DL (3.2-5.2); ALT/SGPT 30 U/L (12-78); BILIRUBIN,TOTAL 0.1 MG/DL (0.2-1.0); BLOOD UREA NITROGEN 29 MG/DL (7-18); CARBON DIOXIDE LEVEL 31 MEQ/L (21-32); CHLORIDE LEVEL 102 MEQ/L (98-107); CREATININE FOR GFR 0.91 MG/DL (0.55-1.30); GLOMERULAR FILTRATION RATE > 60.0 (>45); GLUCOSE, FASTING 97 MG/DL (70-100); POTASSIUM SERUM 5.2 MEQ/L (3.5-5.1); SODIUM LEVEL 139 MEQ/L (136-145); TOTAL PROTEIN 7.5 GM/DL (6.4-8.2)
[2018-11-23 13:12] LABS: HEMOGLOBIN A1c 5.8 %
== END ==
LOC: M SMT 07:58
PROVIDERS: ATTEND Family Medicine
DX: E11.22 Type 2 diabetes mellitus with diabetic chronic kidney disease (principal)

== ENCOUNTER → 2019-03-12 | Outpatient (CLI) | payer MEDICARE, BC, OTHER ==
[~2019-03-12] MED LIST changes: +REPA140I2 SC; -REPA1INJ SC
[2019-03-12 10:17] LABS: BASO % 0.7 % (0.0-1.0); EOS # 0.3 10^3/uL (0.0-0.5); EOS % 4.5 % (0.0-3.0); HEMATOCRIT 38.9 % (36.0-47.0); LYMPH # 1.5 10^3/uL (1.5-5.0); LYMPH % 26.4 % (24.0-44.0); MEAN CORPUSCULAR HEMOGLOBIN 27.8 pg (27.0-33.0); MEAN CORPUSCULAR HGB CONC 30.8 g/dl (32.0-36.5); MONO # 0.3 10^3/uL (0.0-0.8); MONO % 5.9 % (0.0-5.0); NEUTROPHILS # 3.6 10^3/uL (1.5-8.5); PLATELET COUNT, AUTOMATED 187 10^3/uL (150-450); RED BLOOD COUNT 4.32 10^6/uL (4.00-5.40); WHITE BLOOD COUNT 5.7 10^3/uL (4.0-10.0)
[2019-03-12 10:38] LABS: HEMOGLOBIN A1c 7.3 %
[2019-03-12 10:55] LABS: ALBUMIN 3.6 GM/DL (3.2-5.2); ALT/SGPT 28 U/L (12-78); BILIRUBIN,TOTAL 0.2 MG/DL (0.2-1.0); BLOOD UREA NITROGEN 24 MG/DL (7-18); CALCIUM LEVEL 9.1 MG/DL (8.8-10.2); CARBON DIOXIDE LEVEL 29 MEQ/L (21-32); CHLORIDE LEVEL 103 MEQ/L (98-107); CHOLESTEROL LEVEL 193 MG/DL (<200); CHOLESTEROL RISK RATIO 3.446 (<5); CREATININE FOR GFR 0.89 MG/DL (0.55-1.30); GLOMERULAR FILTRATION RATE > 60.0 (>45); GLUCOSE, FASTING 181 MG/DL (70-100); HDL CHOLESTEROL 56 MG/DL (>40); LDL CHOLESTEROL 91 MG/DL (<100); NON-HDL-C 137 MG/DL; POTASSIUM SERUM 4.7 MEQ/L (3.5-5.1); SODIUM LEVEL 139 MEQ/L (136-145); TOTAL PROTEIN 7.1 GM/DL (6.4-8.2); TRIGLYCERIDES LEVEL 230 MG/DL (<150)
== END ==
LOC: M PLALAB 08:23
PROVIDERS: ATTEND Physician Assistant
DX: E78.2 Mixed hyperlipidemia (principal); E11.22 Type 2 diabetes mellitus with diabetic chronic kidney disease; M46.26 Osteomyelitis of vertebra, lumbar region

== ENCOUNTER 2019-05-17 11:14 | Inpatient (IN) | payer MEDICARE, BC, OTHER ==
[~2019-05-17] VITALS: Ht 172.7 cm; Wt 105.4 kg
[2019-05-17 11:30] VITALS: BP 166/79
[2019-05-17] MEDS ORDERED: GLUCAGON FOR INJ 1 MG VIAL (J1610) SC PRN (11:45)
[2019-05-17] MEDS ORDERED: NITROGLYCERIN 0.4 MG SUBL TABLET SL PRN (11:45)
[2019-05-17] MEDS ORDERED: DEXTROSE 50% 50 ML SYRINGE IV PRN (11:45)
[2019-05-17] MEDS ORDERED: GLUCOSE 4 GM CHEW TABLET PO PRN (11:45)
[2019-05-17] MEDS ORDERED: BISACODYL 10 MG SUPP PR PRN (11:45)
[2019-05-17] MEDS ORDERED: ONDANSETRON 4 MG ORAL DISINTEGRATING TAB (Q0162 PER 1MG) PO PRN (11:45)
[2019-05-17] MEDS ORDERED: LIDO5DIS41 TD (12:29)
[2019-05-17] MEDS ORDERED: MELA3TAB60 PO (13:08)
[2019-05-17] MEDS ORDERED: LISI-1046 PO (13:08)
[2019-05-17] MEDS ORDERED: TOUJ1.2I SC (13:08)
[2019-05-17] MEDS ORDERED: OXYC1TAB23 PO (13:18)
[2019-05-17] MEDS ORDERED: METH750T2 PO (13:18)
[2019-05-17] MEDS: HumaLOG INSULIN (NovoLOG) PER UNIT SC SCH ×3 (13:19→20:38)
[2019-05-17] MEDS ORDERED: PHEN15TA11 PO (13:23)
[2019-05-17] MEDS ORDERED: PRAL1INJ2 SC (13:23)
[2019-05-17] MEDS ORDERED: VITAD1000T PO (13:23)
[2019-05-17 14:00] VITALS: BP 117/55
--- NOTE | 2019-05-17 14:11 | CR.PDOC ---
General Date of Consultation: May 17, 2019 Referring Provider: SHARRI HOBBS MD Primary Care Physician: MONA FISH DO Attending Physician: Aury Ness MD Consultation REASON FOR CONSULTATION/CHIEF COMPLAINT: Assistance in medical management status post revision and excision of chordoma HISTORY OF PRESENT ILLNESS: Patient is a 64-year-old female with past medical history of hypertension, diabetes mellitus, CAD times one stent, depression, CKD, obstructive sleep apnea and chordoma of the spine who was transferred today to [facility] after having revision and excision of extradural/extradural chordoma at [facility]. The patient has had prior decompressions of a chordoma and was being followed by [facility] or throat clinic. She presented to [facility] orthopedic clinic on 312 with worsening back pain and left hip pain along with bilateral lower extremity edema. She also had some right foot drop which was worsened from previously. Dr. Patel (orthopedic surgery) direct admitted to [facility] for pain control and further workup. Myelogram showed evidence for possible tumor recurrence. On 05/07/2027 patient had a revision and excision of intradural/extradural chordoma per Dr. Patel. She had a stable postoperative course. There were no complications noted. The patient was seen by physical therapy and occupational therapy. Vital signs and laboratory studies remained stable throughout the postoperative course. The patient kept fully catheter for expected neurogenic bladder postop. Discharge was done to our facility at [facility] on 05/17/2019, with primary physician being Sharri Hobsb. Hospitalist were consulted for assistance in medical management. REVIEW OF SYSTEMS: CONSTITUTIONAL: Denies unexplained weight gain or weight loss, loss of appetite, fever, night sweats EYES: Denies eye drainage, eye pain, visual changes, dry/irritated eye EARS, NOSE, MOUTH, THROAT: Denies difficulty hearing, ringing in ears, mouth sores, loose teeth, sore throat, facial numbness or pain NECK: Denies swollen glands CARDIOVASCULAR: Denies irregular heartbeat, racing heart, chest pains, swelling of feet or legs, pain in legs with walking RESPIRATORY: Denies shortness of breath, night sweats, wheezing, sputum producti on, oxygen at home, coughing up blood, cough lasting > 1 month GASTROINTESTINAL: Denies abdominal pain, bloody stool, diarrhea, heartburn, nausea, vomiting GENITOURINARY: Denies painful urination, bloody urine, frequent urination, urgency, leaking urine, impotence MUSCULOSKELETAL: Denies joint pain, muscle pain, leg swelling INTEGUMENTARY: Denies rash, itching, new skin lesion, change in existing skin lesion, hair loss or increase, breast changes. NEUROLOGICAL: Denies headaches, dizziness, difficulty walking, numbness or tingling PSYCHIATRIC: Denies anxiety, recurrent bad thoughts, mood swings, hallucinations PAST MEDICAL HISTORY: 1. CAD status post stent 1 2. HTN 3. DM type II 4. LIZ 5. Aortic valve stenosis 6. CKD Stage 7. Depression 8. 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 Anemia 10. Arthritis 11. 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 Morbid obesity 14. PUD 15. Hx of bilateral foot drop PAST SURGICAL HISTORY: 1. Revision and excision of intradural/extradural chordoma (05/07/19) 2. Breast reconstruction surgery 3. Left breast mastectomy 4. Adrian filter placement 5. Hysterectomy 6. Oophrectomy 7. Posterior spinal fusion/instrumentation (10/18/2014) 8. Thoracotomy with exploration, removal of T12 CAD, revision fusion T11-L1 with humeral allograft, anterior fusion L1-L2, T10-T11 (09/21/2013) 9. T12-L1 revision tumor resection, T6-L4 revision posterior reconstruction with instrumentation (07/23/2016) 10. Wound exploration, irrigation and debridement, lumbar dura repair (07/05/2018) 11. Revision of instrumentation T3-L5, revision of pedicle screws L5, irrigation and Breitman of the radical lumbar wound (10/14/2014) 12. Revision decompression and fusion with debulking of chordoma thoracic and lumbar spine (06/19/2018) 13. Anterior corpectomy 1012L1, partial corpectomy L2, vascularized rib graft ing and anterior thoracolumbar instrumentation with C-arm (07/29/2016) FAMILY HISTORY: MotherA. fib, DM. at 94 years old Fatherlymphoma. at 80 years old Sr. #1A. fib, alive Sr. #2A. fib and spinal stenosis. Alive Sr. #3arthritis. Alive Sr. #4heart arrhythmia. Alive Sr. #5schizophrenia. Alive Brother #1bipolar disorder, schizophrenia. Alive Brother #2atrial fibrillation. Alive SOCIAL HISTORY: Patient denies smoking, alcohol or drug use. She [place] in the local area with her family. Her primary care provider is Dr. Mendez, ordnance truck installation supervisor Dr. Fermin, orthopedic surgeon Dr. Patel, hoist worker Dr. Dowling, psychiatrist Dr. Cope. She is a full code. She does have a healthcare proxy. ALLERGIES: Please see below. CURRENT MEDICATIONS: Please see below. PHYSICAL EXAMINATION: CONSTITUTIONAL: No acute distress, resting comfortably, AAO x 3 EYES: PERRLA, EOM intact HENT, MOUTH: Normocephalic, atraumatic, moist mucous membranes, NECK: SUPPLE, no JVD, no lymphadenopathy, no carotid bruit BACK: incision wounds covered in dressing;however, no redness, swelling or tenderness to palpation. No foul smell or drainage CV: Regular rate and rhythm, S1S2 normal, no murmurs/rubs/gallops RESPIRATORY: Clear to auscultation bilaterally, no rales/rhonchi/wheezes GI: obese abdomen, BS positive in 4 quadrants, soft, nontender, nondistended, no rebound or guarding, no organomegaly : Goodrich catheter in place MUSCULOSKELETAL: ROM not tested. No cyanosis, clubbing, swelling, joint deformity, extremity edema. PUlses present DP, PT bilaterally INTEGUMENTARY: Intact, no rashes, no lesions, no erythema NEUROLOGIC: Cranial Nerves II-XII are intact, Sensation in tact to light touch in the bilateral lower ext, gait not tested PSYCHIATRIC: Mood and affect are normal LABORATORY DATA: Please see below IMAGING: None ASSESSMENT: 64-year-old female admitted for continued rehabilitation status post revision excision of intradural/extradural chordoma. PLAN: 1. Recurrent chordoma status post revision and excision of intradural/extradural chordoma. PT/OT, DVT prophylaxis with teds/SED's, mobilization, IVC filter in place. Patient is not to lift pressure pointing more than 5 pounds. Weightbearing as tolerated in the bilateral lower extremities. Wound care specified under discharge instructions. Pain regimen as per primary team. 2. DM type II. Continue with insulin aspart and glargine. Recommend before meals/at bedtime blood sugar checks, consistent carbohydrate diet. 3. CAD status post NE, stenting. Continue with beta keyla, nitroglycerin. Aspirin has been stopped. 4. Hypertension. Blood pressure mildly elevated on initial vital signs. Resume home Lasix, lisinopril, beta keyla. 5. CKD Stage III. Monitor with regular labs, avoid additional nephrotoxic me dications. 6. Chronic infection of hardware. As per the patient the patient is on Zyvox 600 mg tablets prophylactically. Continue with the current regimen while here. 7. GERD. PPI daily. 8. Chronic anemia. Continue with ferrous gluconate supplementation. 9. Peripheral neuropathy. Continue gabapentin. 10. Depression. The patient denies homicidal or suicidal ideation. She is currently not on an antidepressant medication. 11. Morbid obesity. Consider nutrition consult. 12. LIZ. Continue CPAP nightly. 13. Arthritis. Recommend Tylenol when necessary, careful to not overdose more than 3 g with oxycodone-acetaminophen. 14. Hypomagnesemia. Continue with magnesium supplement. 15. DVT px. heparin subcutaneous every 12 hours, teds/SCD and early mobilization. Patient also has IVC filter in place. Of note, the patient is on an estrogen supplement which may make this patient hypercoagulable. I would caution in restarting this med at this time. DISPOSITION: Patient is currently under Dr. Hobbs primary service. Thank you kindly for the consult and we will be happy to see again at any time. Vital Signs/I&O Vital Signs Date Time Temp Pulse Resp B/P (MAP) Pulse Ox O2 Delivery O2 Flow Rate FiO2 05/17/19 11:30 97.7 67 18 166/79 (108) 97 Room Air Laboratory Data Labs 24H Laboratory Tests 2 05/17/19 13:03: Bedside Glucose (Misc Panel) 189H Allergies Coded Allergies: Penicillins (Verified Allergy, Intermediate, RASH/HIVES, 07/23/18) Sulfa (Sulfonamide Antibiotics) (Verified Allergy, Intermediate, REDN ESS/SWELLING, 07/23/18) sulindac (Verified Adverse Reaction, Intermediate, COLITIS, 07/23/18) Home Medications Scheduled Alirocumab (Praluent Pen) 150 Mg/1 Ml Pen.injctr, 1 INJ SC Q2WK, (Reported) ON SUNDAYS Calcium Carbonate/Vitamin D3 (Calcium 600-Vit D3 200 Tablet) 1 Each Tablet, 1 TAB PO DAILY, (Reported) Cholecalciferol (Vitamin D3) (Vitamin D3) 1,000 Unit Tablet, 2,000 UNITS PO DAILY, (Reported) Docusate Sodium (Colace) 100 Mg Capsule, 100 MG PO BID, (Reported) Ferrous Gluconate (Ferrous Gluconate) 324 Mg Tablet, 324 MG PO BID, (Reported) Furosemide (Furosemide) 20 Mg Tablet, 20 MG PO DAILY, (Reported) Gabapentin (Gabapentin) 400 Mg Capsule, 400 MG PO TID, (Reported) Gluc Hinojosa/Chondro Hinojosa A/Vit C/Mn (Glucosamine Chondroitin Tab) 1 Each Tablet, 1 TAB PO BID, (Reported) Insulin Glargine,Hum.rec.anlog (Toujeo Solostar) 300 Unit/1 Ml Insuln.pen, 100 UNIT SC QHS, (Reported) WAS GIVEN 20 UNITS OF LANTUS AT [facility] Insulin Human Lispro (Novolog) 100 Unit/1 Ml Vial, 1 DOSE SC AC, (Reported) PER SLIDING SCALE. WAS GIVEN HUMALOG PER SLIDING SCALE AT [facility] WITH LAST DOSE ON 05/17/2019 Lidocaine (Lidoderm) 5% Adh..patch, 2 PATCH TD DAILY, (Reported) Apply to area of pain, Remove patches after 12 hours Linezolid (Linezolid) 600 Mg Tablet, 600 MG PO DAILY, (Reported) Lisinopril (Lisinopril) 2.5 Mg Tablet, 2.5 MG PO DAILY, (Reported) Magnesium Oxide (Magnesium Oxide) 400 Mg Tablet, 400 MG PO DAILY, (Reported) Melatonin (Melatonin) 3 Mg Tablet, 3 MG PO QHS, (Reported) Methocarbamol (Methocarbamol) 750 Mg Tablet, 750 MG PO QID, (Reported) Metoprolol Succinate (Metoprolol Succinate) 50 Mg Tab.er.24h, 50 MG PO DAILY, (Reported) Multivitamin (Multivitamins) 1 Each Capsule, 1 CAP PO DAILY, (Reported) Dornsife-3 Fatty Acids (Dornsife-3) 1,000 Mg Capsule, 1,000 MG PO BID, (Reported) Pantoprazole Sodium (Protonix) 40 Mg Tablet.dr, 40 MG PO BID, (Reported) Phenelzine Sulfate (Phenelzine Sulfate) 15 Mg Tablet, 30 MG PO TID, (Reported) Scheduled PRN Bisacodyl (Bisacodyl) 10 Mg Supp.rect, 10 MG PA DAILY PRN for CONSTIPATION, (Reported) Estradiol (Estrace) 42.5 Gm Cream.appl, 1 DOSE PV PRN PRN for IRRITATION, (Reported) APPLY SMALL AMOUNT Glucagon,Human Recombinant (Glucagon Emergency Kit) 1 Mg Vial, 1 MG SC ASDIRECTED PRN for SEVERE LOW BLOOD SUGAR, (Reported) Nitroglycerin (Nitrostat) 0.4 Mg Tab.subl, 0.4 MG SL NITRO PRN for CHEST PAIN, (Reported) Oxycodone HCl/Acetaminophen (Oxycodone-Acetaminophen 5-325) 1 Each Tablet, 1 TAB PO Q4H PRN for PAIN, (Reported) GIVEN IR OXYCODONE 5MG AT [facility] Aury Ness MD May 17, 2019 14:11
--- NOTE | 2019-05-17 15:24 | HPEPDOC ---
Ore Mixer Note DATE OF ADMISSION: 05-07-19 DATE OF SERVICE: 05-07-19 TIME OF ADMISSION: Please refer to physician's admission order. 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 On admission she was noted to have significant bilateral LE edema, for which Dopplers were negative for DVT and ECHO negative for significant systolic/diastolic dysfunction. Myelogram on 04-30-19 showed, Severe thecal sac compression with a myelographic block at the L1 level. Patient was evaluated by neurosurgery who assisted in surgery with orthopedics for revision tumor excision of intra and extradural spinal chordoma T12, L1 on 05-07-19. Hemovac was placed and follow-up CT myelogram did not reveal a CSF leak. She had headaches that responded to keeping the head of the bed elevated. Lino was placed due to neurogenic bladder and she was placed on a bowel regimen for neurogenic bowel. She was evaluated by therapy and was well below her prior level of function for mobility and ADLs and deemed medically appropriate for discharge to ARU on 05-17-19. REVIEW OF SYSTEMS: The following is a completed review of systems and has been reviewed. Review of systems otherwise unremarkable. PAIN: Patient self reports mild hip soreness EYES: No recent vision changes EARS, NOSE, & THROAT: No throat pain, or dysphagia, or rhinorrhea CARDIOVASCULAR: Denies chest pain or palpitations PULMONARY: Denies shortness of breath GASTROINTESTINAL: +neurogenic bowel GENITOURINARY: +neurogenic bladder with Lino MUSCULOSKELETAL: bilat LE weakness NEUROLOGICAL:+incomplete paraplegia HEMATOLOGICAL: denies easy bruising SKIN: thoraco-lumbar incision PSYCHIATRIC: Unremarkable All other review of systems found to be negative. PAST MEDICAL HISTORY: as per HPI PAST SURGICAL HISTORY: As per HPI and cardiac surgery, IVC filter, hysterectomy, breast reconstruction, mastectomy, oophorectomy ALLERGIES: Please see below. MEDICATIONS: Please see below. FAMILY HISTORY: DM and mental illness SOCIAL HISTORY:no etoh/smoking/illicit drugs DIET: consistent carbs PHYSICAL EXAMINATION: VITAL SIGNS: Please see below. GENERAL: Pleasant and cooperative. No acute distress. HEENT: PERRL. Extraocular movements intact. Clear conjunctiva CARDIOVASCULAR: Regular rate and rhythm. No murmurs, rubs, or gallops LUNGS: Clear to auscultation bilaterally. No wheezes. No rhonchi ABDOMEN: Soft, nontender, mildly- distended. Positive bowel sounds. NEUROLOGICAL: Alert and oriented times three. Cranial nerves II through XII grossly intact. Sensation decreased to light touch umbilicus and distally +clonus on right (1 beat), negative clonus left (-) babinksi bilat EXTREMITIES: 5\5 strength bilateral upper extremities, 3+/5 bilat hip flexors, knee extensions, 0/5 ankle DF/EHL, 3/5 PF bilat SKIN: thoraco-lumbar incision with dressing, red-wound c/d/i no induration or erythema -sacrum without erythema LABORATORY DATA: Please see below. IMAGING: Imaging documentation personally reviewed by record FUNCTIONAL STATUS: Premorbid: Modified Independent with all activities of daily life as well as mobility household distances On Admission: Maximum-total assistance for bathing, upper body dressing, bed chair and wheelchair transfers, toilet transfers, ambulation. GOALS: Mod-I with RW household ambulating distances, dressing, bathing, lino management vs self-cath, medical optimization, assess for DMEs ASSESSMENT:64-year-old F with past medical history of spinal chordoma who presents status post excision of T12-L1 chordoma with incomplete paraplegia PLAN: 1. Rehab- PT/OT advance bed mobility, functional transfers, ambulation, and ADL management- consider wheelchair level independence if needed, AFO bilat 2. 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 CArdiac: HTN c/u lisinopril and metoprolol -bilat LE edema c/u lasix -medicine consulted to assist in overall management 4. resp: encourage incentive spirometry, monitor for infection -hx of LIZ, patient uses nocturnal 02 at home 5. Endo: hx of DM c/u Levemir and ISS, will manage and adjust prn 6. Pain: c/u gabapentin, tylneol, methocarbamol, and oxycodone prn 7. GI: neurogenic bowel- c/u bowel regimen with [id number] with suppository -simethicone for gas 8. : Neurogenic bladder- will keep Lino for a few days then do TOV 9. DVT ppx: heparin and TEDs, +IVC 10. Psych: hx of depression on Phenelzine 30mg TID- patient to bring in own med 11. Dispo: TBD POST ADMISSION PHYSICIAN EVALUATION: Medical and functional status: Description of medical status, medical assessment: As above. Rehabilitation diagnosis and current and prior cold morbid medical conditions as above. Risk of complications and plans to mitigate them as above. Description of functional status current status is as above. Prior status as above. Status compared to preadmission: There are no clinically significant differences between the patient's current status and the information described on the preadmission screening document. Treatment plan anticipated: Treatment plan is as described above. Required disciplines including physical therapy, occupational therapy, others as noted above. Intensity of services: 3 hours a day, 6 days a week. Special considerations: There are no specific special or safety considerations that would likely preclude immediate implementation of an intensive rehabilitation program or subsequently influence the plan of care. ATTESTATION: Considering all the information above, it is my best judgment that this patient requires intensive rehabilitation therapy as described above and an inpatient hospital environment due to the complexity of nursing, medical, and rehabilitation needs required by the patient. Furthermore, this patient can reasonably be expected to participate in an benefit from an inpatient rehabilitation stay with an interdisciplinary team approach to the delivery of rehabilitation care under the direction and supervision of rehabilitation physician. PROGNOSIS: fair ESTIMATED LENGTH OF STAY:21-24 days. PROJECTED DISCHARGE DESTINATION: Home with family support and any durable medical equipment required to increase functional safety and mobility. TIME SPENT COUNSELING AND COORDINATING INITIAL CARE: Greater than 70 minutes. Vital Signs Vital Sign - Last 24 Hours 05/17/19 05/17/19 11:30 14:00 Temp 97.7 96.4 Pulse 67 67 Resp 18 19 B/P (MAP) 166/79 (108) 117/55 (75) Pulse Ox 97 94 O2 Delivery Room Air Room Air Laboratory Data Labs 24H Laboratory Tests 2 05/17/19 13:03: Bedside Glucose (Misc Panel) 189H FSBS Laboratory Tests Test 05/17/19 13:03 Range/Units Bedside Glucose (Misc Panel) 189 80-115 MG/DL Home Medications Scheduled Alirocumab (Praluent Pen) 150 Mg/1 Ml Pen.injctr, 1 INJ SC Q2WK, (Reported) ON SUNDAYS Calcium Carbonate/Vitamin D3 (Calcium 600-Vit D3 200 Tablet) 1 Each Tablet, 1 TAB PO DAILY, (Reported) Cholecalciferol (Vitamin D3) (Vitamin D3) 1,000 Unit Tablet, 2,000 UNITS PO DAILY, (Reported) Docusate Sodium (Colace) 100 Mg Capsule, 100 MG PO BID, (Reported) Ferrous Gluconate (Ferrous Gluconate) 324 Mg Tablet, 324 MG PO BID, (Reported) Furosemide (Furosemide) 20 Mg Tablet, 20 MG PO DAILY, (Reported) Gabapentin (Gabapentin) 400 Mg Capsule, 400 MG PO TID, (Reported) Gluc Hinojosa/Chondro Hinojosa A/Vit C/Mn (Glucosamine Chondroitin Tab) 1 Each Tablet, 1 TAB PO BID, (Reported) Insulin Glargine,Hum.rec.anlog (Obed Haynes) 300 Unit/1 Ml Insuln.pen, 100 UNIT SC QHS, (Reported) WAS GIVEN 20 UNITS OF LANTUS AT [facility] Insulin Human Lispro (Novolog) 100 Unit/1 Ml Vial, 1 DOSE SC AC, (Reported) PER SLIDING SCALE. WAS GIVEN HUMALOG PER SLIDING SCALE AT [facility] WITH LAST DOSE ON 05/17/2019 Lidocaine (Lidoderm) 5% Adh..patch, 2 PATCH TD DAILY, (Reported) Apply to area of pain, Remove patches after 12 hours Linezolid (Linezolid) 600 Mg Tablet, 600 MG PO DAILY, (Reported) Lisinopril (Lisinopril) 2.5 Mg Tablet, 2.5 MG PO DAILY, (Reported) Magnesium Oxide (Magnesium Oxide) 400 Mg Tablet, 400 MG PO DAILY, (Reported) Melatonin (Melatonin) 3 Mg Tablet, 3 MG PO QHS, (Reported) Methocarbamol (Methocarbamol) 750 Mg Tablet, 750 MG PO QID, (Reported) Metoprolol Succinate (Metoprolol Succinate) 50 Mg Tab.er.24h, 50 MG PO DAILY, (Reported) Multivitamin (Multivitamins) 1 Each Capsule, 1 CAP PO DAILY, (Reported) [place]-3 Fatty Acids ([place]-3) 1,000 Mg Capsule, 1,000 MG PO BID, (Reported) Pantoprazole Sodium (Protonix) 40 Mg Tablet.dr, 40 MG PO BID, (Reported) Phenelzine Sulfate (Phenelzine Sulfate) 15 Mg Tablet, 30 MG PO TID, (Reported) Scheduled PRN Bisacodyl (Bisacodyl) 10 Mg Supp.rect, 10 MG WA DAILY PRN for CONSTIPATION, (Reported) Estradiol (Estrace) 42.5 Gm Cream.appl, 1 DOSE PV PRN PRN for IRRITATION, (Reported) APPLY SMALL AMOUNT Glucagon,Human Recombinant (Glucagon Emergency Kit) 1 Mg Vial, 1 MG SC ASDIRECTED PRN for SEVERE LOW BLOOD SUGAR, (Reported) Nitroglycerin (Nitrostat) 0.4 Mg Tab.subl, 0.4 MG SL NITRO PRN for CHEST PAIN, (Reported) Oxycodone HCl/Acetaminophen (Oxycodone-Acetaminophen 5-325) 1 Each Tablet, 1 TAB PO Q4H PRN for PAIN, (Reported) GIVEN IR OXYCODONE 5MG AT [facility] Allergies Coded Allergies: Penicillins (Verified Allergy, Intermediate, RASH/HIVES, 07/23/18) Sulfa (Sulfonamide Antibiotics) (Verified Allergy, Intermediate, REDNESS/SWELLING, 07/23/18) sulindac (Verified Adverse Reaction, Intermediate, COLITIS, 07/23/18) A-FIB/CHADSVASC A-FIB History Current/History of A-Fib/PAF?: No ANGELITA HOBBS MD May 17, 2019 15:24
[2019-05-17] MEDS: ACETAMINOPHEN 500 MG TAB PO SCH ×2 (15:36→20:37)
[2019-05-17] MEDS: methocarbamoL 750 MG TAB PO SCH ×3 (15:36→20:38)
[2019-05-17] MEDS: DOCUSATE SODIUM 100 MG CAP PO SCH ×2 (15:36→20:36)
[2019-05-17] MEDS: GABAPENTIN 400 MG CAP PO SCH ×2 (15:36→20:37)
[2019-05-17] MEDS: LACTOBACILLUS ACIDOPHILUS CAP (BACID) PO SCH ×2 (15:36→20:37)
[2019-05-17] MEDS ORDERED: PHENELZINE 15 MG PO SCH (16:00)
[2019-05-17] MEDS: SIMETHICONE 80 MG CHEW TAB PO SCH ×2 (16:15→20:36)
[2019-05-17] MEDS: REMEDY PHYTOPLEX Z-GUARD PASTE 113GM TUBE (FROM STOREROOM PRODUCT) TOP SCH ×2 (17:27→20:40)
[2019-05-17] MEDS: LEVEMIR (INSULIN DETEMIR) 1 UNITS/0.01ML SC SCH (20:35)
[2019-05-17] MEDS: HEPARIN SOD (PORCINE) 5000 UNITS/ML VIAL (J1644 PER 1000UNITS) SC SCH (20:36)
[2019-05-17] MEDS: SENNA 8.6 MG TAB (SENOKOT) PO SCH (20:37)
[2019-05-17] MEDS: BISACODYL 10 MG SUPP PR SCH (20:38)
[2019-05-17] MEDS: traZODone 25MG PER 1/2 TABLET PO SCH (20:38)
[2019-05-17 21:00] VITALS: BP 128/70
[2019-05-18] MEDS: oxyCODONE 5MG TAB PO PRN ×3 (00:07→09:49)
[2019-05-18 05:54] VITALS: BP 124/71
[2019-05-18 06:27] LABS: BASO # 0.1 10^3/uL (0.0-0.2); BASO % 0.8 % (0.0-1.0); EOS # 0.3 10^3/uL (0.0-0.5); EOS % 4.4 % (0.0-3.0); HEMATOCRIT 34.7 % (36.0-47.0); HEMOGLOBIN 11.1 g/dl (12.0-15.5); LYMPH # 1.1 10^3/uL (1.5-5.0); LYMPH % 18.1 % (24.0-44.0); MEAN CORPUSCULAR HEMOGLOBIN 28.7 pg (27.0-33.0); MEAN CORPUSCULAR VOLUME 89.7 fl (80.0-96.0); MONO # 0.4 10^3/uL (0.0-0.8); MONO % 5.9 % (0.0-5.0); NEUTROPHILS # 4.4 10^3/uL (1.5-8.5); NEUTROPHILS % 69.7 % (36.0-66.0); PLATELET COUNT, AUTOMATED 198 10^3/uL (150-450); RED BLOOD COUNT 3.87 10^6/uL (4.00-5.40); WHITE BLOOD COUNT 6.3 10^3/uL (4.0-10.0)
[2019-05-18 06:53] LABS: ALBUMIN 3.1 GM/DL (3.2-5.2); ALT/SGPT 23 U/L (12-78); BILIRUBIN,TOTAL 0.3 MG/DL (0.2-1.0); BLOOD UREA NITROGEN 21 MG/DL (7-18); CALCIUM LEVEL 9.3 MG/DL (8.8-10.2); CARBON DIOXIDE LEVEL 32 MEQ/L (21-32); CHLORIDE LEVEL 99 MEQ/L (98-107); CREATININE FOR GFR 0.77 MG/DL (0.55-1.30); GLOMERULAR FILTRATION RATE > 60.0 (>45); GLUCOSE, FASTING 207 MG/DL (70-100); POTASSIUM SERUM 4.8 MEQ/L (3.5-5.1); SODIUM LEVEL 136 MEQ/L (136-145); TOTAL PROTEIN 6.5 GM/DL (6.4-8.2)
[2019-05-18] MEDS: HumaLOG INSULIN (NovoLOG) PER UNIT SC SCH ×4 (06:59→21:47)
[2019-05-18] MEDS: HEPARIN SOD (PORCINE) 5000 UNITS/ML VIAL (J1644 PER 1000UNITS) SC SCH ×2 (09:45→21:39)
[2019-05-18] MEDS: LINEZOLID 600MG TABLET (ZYVOX) PO SCH (09:46)
[2019-05-18] MEDS: MULTIVITAMINS/MINERALS THERAP 1 TAB PO SCH (09:46)
[2019-05-18] MEDS: METOPROLOL SUCC (TopROL XL) 50MG **XL** TAB PO SCH (09:46)
[2019-05-18] MEDS: FERROUS GLUCONATE 324 MG TAB PO SCH (09:46)
[2019-05-18] MEDS: LEVEMIR (INSULIN DETEMIR) 1 UNITS/0.01ML SC SCH ×2 (09:46→21:39)
[2019-05-18] MEDS: LACTOBACILLUS ACIDOPHILUS CAP (BACID) PO SCH ×3 (09:47→21:40)
[2019-05-18] MEDS: SIMETHICONE 80 MG CHEW TAB PO SCH ×3 (09:47→21:40)
[2019-05-18] MEDS: CALCIUM/VITAMIN D 500 MG TAB PO SCH (09:47)
[2019-05-18] MEDS: DOCUSATE SODIUM 100 MG CAP PO SCH ×3 (09:47→21:39)
[2019-05-18] MEDS: PANTOPRAZOLE 40MG TAB (PROTONIX) PO SCH (09:47)
[2019-05-18] MEDS: VITAMIN D 1,000 INTERNATIONAL UNITS TABLET PO SCH (09:47)
[2019-05-18] MEDS: OMEGA-3 1000MG CAPSULE PO SCH (09:47)
[2019-05-18] MEDS: GABAPENTIN 400 MG CAP PO SCH ×3 (09:48→21:40)
[2019-05-18] MEDS: FUROSEMIDE 20 MG TAB PO SCH (09:48)
[2019-05-18] MEDS: methocarbamoL 750 MG TAB PO SCH ×4 (09:48→21:40)
[2019-05-18] MEDS: MAGNESIUM OXIDE 400 MG TAB (MAG-OX) PO SCH (09:48)
[2019-05-18] MEDS: LISINOPRIL *2.5 MG* TAB PO SCH (09:48)
[2019-05-18] MEDS: PYRIDOXINE 50 MG TAB PO SCH (09:48)
[2019-05-18] MEDS: ACETAMINOPHEN 500 MG TAB PO SCH ×3 (09:49→21:41)
[2019-05-18] MEDS: REMEDY PHYTOPLEX Z-GUARD PASTE 113GM TUBE (FROM STOREROOM PRODUCT) TOP SCH ×4 (09:50→21:48)
[2019-05-18 14:00] VITALS: BP 131/60
--- NOTE | 2019-05-18 15:41 | IPNPDOC ---
PM&R Progress Note DATE OF SERVICE: May 18, 2019 Manager Division Progress Note Subjective: Patient reporting she was happy to be able to walk a few feet today and thinks that if she takes a pain pill she can move a bit better. REVIEW OF SYSTEMS: The following is a completed review of systems and has been reviewed. Review of systems otherwise unremarkable. PAIN: Patient self reports mild hip soreness EYES: No recent vision changes EARS, NOSE, & THROAT: No throat pain, or dysphagia, or rhinorrhea CARDIOVASCULAR: Denies chest pain or palpitations PULMONARY: Denies shortness of breath GASTROINTESTINAL: +neurogenic bowel GENITOURINARY: +neurogenic bladder with Goodrich MUSCULOSKELETAL: bilat LE weakness NEUROLOGICAL:+incomplete paraplegia HEMATOLOGICAL: denies easy bruising SKIN: thoraco-lumbar incision PSYCHIATRIC: Unremarkable All other review of systems found to be negative. PHYSICAL EXAMINATION: VITAL SIGNS: Please see below. GENERAL: Pleasant and cooperative. No acute distress. HEENT: PERRL. Extraocular movements intact. Clear conjunctiva CARDIOVASCULAR: Regular rate and rhythm. No murmurs, rubs, or gallops LUNGS: Clear to auscultation bilaterally. No wheezes. No rhonchi ABDOMEN: Soft, nontender, mildly- distended. Positive bowel sounds. NEUROLOGICAL: Alert and oriented times three. Cranial nerves II through XII grossly intact. Sensation decreased to light touch umbilicus and distally +clonus on right (1 beat), negative clonus left (-) babinksi bilat EXTREMITIES: 5\5 strength bilateral upper extremities, 3+/5 bilat hip flexors, knee extensions, 0/5 ankle DF/EHL, 3/5 PF bilat SKIN: thoraco-lumbar incision with dressing, red-wound c/d/i no induration or erythema -sacrum without erythema ASSESSMENT:64-year-old F with past medical history of spinal chordoma who presents status post excision of T12-L1 chordoma with incomplete paraplegia PLAN: 1. Rehab- PT/OT advance bed mobility, functional transfers, ambulation, and ADL management- consider wheelchair level independence if needed, AFO bilat 2. 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 CArdiac: HTN c/u lisinopril and metoprolol -bilat LE edema c/u lasix -medicine consulted to assist in overall management 4. resp: encourage incentive spirometry, monitor for infection -hx of LIZ, patient uses nocturnal 02 at home 5. Endo: hx of DM c/u Levemir and ISS, will manage and adjust prn 6. Pain: c/u gabapentin, tylneol, methocarbamol, and oxycodone prn 7. GI: neurogenic bowel- c/u bowel regimen with [id number] with suppository -c/u simethicone for gas 8. : Neurogenic bladder- will keep Goodrich for a few days then do TOV 9. DVT ppx: heparin and TEDs, +IVC 10. Psych: hx of depression on Phenelzine 30mg TID- patient to bring in own med 11. Dispo: TBD Allergies Coded Allergies: Penicillins (Verified Allergy, Intermediate, RASH/HIVES, 07/23/18) Sulfa (Sulfonamide Antibiotics) (Verified Allergy, Intermediate, REDNESS/SWELLING, 07/23/18) sulindac (Verified Adverse Reaction, Intermediate, COLITIS, 07/23/18) Vital Signs Vital Signs Date Time Temp Pulse Resp B/P (MAP) Pulse Ox O2 Delivery O2 Flow Rate FiO2 05/18/19 10:19 16 05/18/19 09:48 124/71 05/18/19 09:46 72 05/18/19 05:54 98.0 95 Room Air 05/18/19 04:55 2.0 Laboratory Data CBC/BMP Laboratory Tests 05/18/19 05:56 Labs 24H Laboratory Tests 2 05/17/19 16:30: Bedside Glucose (Misc Panel) 220H 05/17/19 20:10: Bedside Glucose (Misc Panel) 226H 05/18/19 05:56: Immature Granulocyte % (Auto) 1.1, Neutrophils (%) (Auto) 69.7H, Lymphocytes (%) (Auto) 18.1L, Monocytes (%) (Auto) 5.9H, Eosinophils (%) (Auto) 4.4H, Basophils (%) (Auto) 0.8, Neutrophils # (Auto) 4.4, Lymphocytes # (Auto) 1.1L, Monocytes # (Auto) 0.4, Eosinophils # (Auto) 0.3, Basophils # (Auto) 0.1, Nucleated Red Blood Cells % (auto) 0.0, Anion Gap 5L, Glomerular Filtration Rate > 60.0, Calcium Level 9.3, Total Bilirubin 0.3, Aspartate Amino Transf (AST/SGOT) 19, Alanine Aminotransferase (ALT/SGPT) 23, Alkaline Phosphatase 88, Total Protein 6.5, Albumin 3.1L, Albumin/Globulin Ratio 0.91L 05/18/19 06:19: Bedside Glucose (Misc Panel) 214H 05/18/19 12:01: Bedside Glucose (Misc Panel) 177H Current Medications Current Medications Current Medications Medications (Trade) Dose Ordered Sig/Gerson Route PRN Reason Start Time Stop Time Status Last Admin Dose Admin Acetaminophen (Tylenol Tab) 1,000 mg TID PO 05/17/19 16:00 05/18/19 09:49 Bisacodyl (Dulcolax Suppository) 10 mg DAILYPRN PRN MN CONSTIPATION 05/17/19 11:45 05/17/19 16:16 DC Bisacodyl (Dulcolax Suppository) 10 mg QHS MN 05/17/19 21:00 05/17/19 20:38 Calcium/Vitamin D (Oscal D) 500 mg DAILY PO 05/18/19 09:00 05/18/19 09:47 Dextrose (Dextrose 50%) 25 ml ASDIRECTED PRN IV SEE LABEL COMMENTS 05/17/19 11:45 Docusate Sodium (Colace) 200 mg TID PO 05/17/19 16:00 05/18/19 09:47 Ferrous Gluconate (Fergon) 324 mg DAILY PO 05/18/19 09:00 05/18/19 09:46 Fish Oil ([place]-3 (1000mg)) 1 cap DAILY PO 05/18/19 09:00 05/18/19 09:47 Furosemide (Lasix) 20 mg DAILY PO 05/18/19 09:00 05/18/19 09:48 Gabapentin (Neurontin) 400 mg TID PO 05/17/19 16:00 05/18/19 09:48 Glucagon (Glucagon) 1 mg ASDIRECTED PRN SC SEE LABEL COMMENTS 05/17/19 11:45 Glucose (Glucose) 16 GM ASDIRECTED PRN PO SEE LABEL COMMENTS 05/17/19 11:45 Heparin Sodium (Porcine) (Heparin) 5,000 units Q12H SC 05/17/19 21:00 05/18/19 09:45 Home Med (Med Rec Complete!) ASDIRECTED XX 05/17/19 13:45 05/17/19 13:45 DC Insulin Detemir (Levemir Insulin) 20 units BID SC 05/17/19 21:00 05/18/19 09:46 Insulin Human Lispro (HumaLOG INSULIN) SEE PROTOCOL TABLE AC SC 05/17/19 12:00 05/18/19 12:39 Insulin Human Lispro (HumaLOG INSULIN) SEE PROTOCOL TABLE QHS SC 05/17/19 21:00 Lactobacillus Acidophilus (Bacid) 1 ea TID PO 05/17/19 16:00 05/18/19 09:47 Linezolid (Zyvox) 600 mg DAILY PO 05/18/19 09:00 05/18/19 09:46 Lisinopril (Prinivil) 2.5 mg DAILY PO 05/18/19 09:00 05/18/19 09:48 Magnesium Oxide (Mag-Ox) 400 mg DAILY PO 05/18/19 09:00 05/18/19 09:48 Methocarbamol (Robaxin) 750 mg QID PO 05/17/19 13:00 05/18/19 12:39 Metoprolol Succinate (TopROL XL) 50 mg DAILY PO 05/18/19 09:00 05/18/19 09:46 Miscellaneous (Unresolved Patient Own Med Order) SEE LABEL COMMENTS DAILY XX 05/17/19 09:00 05/18/19 15:00 DC Multivitamins (Theragram-M) 1 tab DAILY PO 05/18/19 09:00 05/18/19 09:46 Nitroglycerin (Nitrostat (1/ 150)) 0.4 mg Q5MP PRN SL CHEST PAIN 05/17/19 11:45 Ondansetron HCl (Zofran Odt) 4 mg Q4HP PRN PO NAUSEA OR VOMITING 05/17/19 11:45 Oxycodone HCl (Roxicodone, Oxyir) 5 mg Q4HP PRN PO PAIN 05/17/19 11:45 05/18/19 09:49 Pantoprazole Sodium (Protonix) 40 mg DAILY PO 05/18/19 09:00 05/18/19 09:47 Patient Own Medication (Patient'S Own Med) 2 TABLETS (30MG) TID PO 05/17/19 16:00 05/18/19 14:59 DC Patient Own Medication (Patient'S Own Med) 2 TABLETS (30MG) TID PO 05/18/19 16:00 Pyridoxine HCl (Vitamin B6) 100 mg DAILY PO 05/18/19 09:00 05/18/19 09:48 Senna (Senokot) 2 tab QHS PO 05/17/19 21:00 05/17/19 20:37 Simethicone (Mylicon) 80 mg TID PO 05/17/19 16:15 05/18/19 09:47 Trazodone HCl (Desyrel) 25 mg QHS PO 05/17/19 21:00 05/17/19 20:38 Vitamin D (Vitamin D) 2,000 units DAILY PO 05/18/19 09:00 05/18/19 09:47 ANGELITA HOBBS MD May 18, 2019 15:41
[2019-05-18] MEDS: PHENELZINE 15 MG PO SCH ×2 (17:28→21:42)
[2019-05-18 20:00] VITALS: BP 124/70
[2019-05-18] MEDS: traZODone 25MG PER 1/2 TABLET PO SCH (21:40)
[2019-05-18] MEDS: SENNA 8.6 MG TAB (SENOKOT) PO SCH (21:40)
[2019-05-18] MEDS: BISACODYL 10 MG SUPP PR SCH (21:46)
[2019-05-19 06:00] VITALS: BP 118/76
[2019-05-19 06:43] LABS: BASO # 0.1 10^3/uL (0.0-0.2); BASO % 0.8 % (0.0-1.0); EOS # 0.3 10^3/uL (0.0-0.5); HEMATOCRIT 34.4 % (36.0-47.0); LYMPH # 1.4 10^3/uL (1.5-5.0); LYMPH % 21.5 % (24.0-44.0); MEAN CORPUSCULAR HEMOGLOBIN 28.7 pg (27.0-33.0); MEAN CORPUSCULAR VOLUME 89.8 fl (80.0-96.0); MONO # 0.3 10^3/uL (0.0-0.8); MONO % 4.6 % (0.0-5.0); NEUTROPHILS # 4.4 10^3/uL (1.5-8.5); NEUTROPHILS % 68.2 % (36.0-66.0); PLATELET COUNT, AUTOMATED 192 10^3/uL (150-450); RED BLOOD COUNT 3.83 10^6/uL (4.00-5.40); WHITE BLOOD COUNT 6.5 10^3/uL (4.0-10.0)
[2019-05-19 07:05] LABS: BLOOD UREA NITROGEN 22 MG/DL (7-18); CARBON DIOXIDE LEVEL 28 MEQ/L (21-32); CHLORIDE LEVEL 101 MEQ/L (98-107); CREATININE FOR GFR 0.76 MG/DL (0.55-1.30); GLOMERULAR FILTRATION RATE > 60.0 (>45); GLUCOSE, FASTING 223 MG/DL (70-100); POTASSIUM SERUM 4.6 MEQ/L (3.5-5.1); SODIUM LEVEL 136 MEQ/L (136-145)
[2019-05-19] MEDS: HumaLOG INSULIN (NovoLOG) PER UNIT SC SCH ×4 (07:55→21:00)
[2019-05-19] MEDS: LEVEMIR (INSULIN DETEMIR) 1 UNITS/0.01ML SC SCH ×2 (07:55→22:22)
[2019-05-19] MEDS: PHENELZINE 15 MG PO SCH ×3 (07:58→22:25)
[2019-05-19] MEDS: ACETAMINOPHEN 500 MG TAB PO SCH ×3 (07:59→22:25)
[2019-05-19] MEDS: MULTIVITAMINS/MINERALS THERAP 1 TAB PO SCH (08:00)
[2019-05-19] MEDS: LACTOBACILLUS ACIDOPHILUS CAP (BACID) PO SCH ×3 (08:00→22:25)
[2019-05-19] MEDS: DOCUSATE SODIUM 100 MG CAP PO SCH ×3 (08:00→22:22)
[2019-05-19] MEDS: FUROSEMIDE 20 MG TAB PO SCH (08:00)
[2019-05-19] MEDS: CALCIUM/VITAMIN D 500 MG TAB PO SCH (08:00)
[2019-05-19] MEDS: LISINOPRIL *2.5 MG* TAB PO SCH (08:00)
[2019-05-19] MEDS: LINEZOLID 600MG TABLET (ZYVOX) PO SCH (08:00)
[2019-05-19] MEDS: FERROUS GLUCONATE 324 MG TAB PO SCH (08:00)
[2019-05-19] MEDS: methocarbamoL 750 MG TAB PO SCH ×4 (08:00→22:23)
[2019-05-19] MEDS: MAGNESIUM OXIDE 400 MG TAB (MAG-OX) PO SCH (08:01)
[2019-05-19] MEDS: METOPROLOL SUCC (TopROL XL) 50MG **XL** TAB PO SCH (08:01)
[2019-05-19] MEDS: OMEGA-3 1000MG CAPSULE PO SCH (08:06)
[2019-05-19] MEDS: GABAPENTIN 400 MG CAP PO SCH ×3 (08:06→22:23)
[2019-05-19] MEDS: REMEDY PHYTOPLEX Z-GUARD PASTE 113GM TUBE (FROM STOREROOM PRODUCT) TOP SCH ×4 (08:06→22:26)
[2019-05-19] MEDS: PANTOPRAZOLE 40MG TAB (PROTONIX) PO SCH (08:06)
[2019-05-19] MEDS: SIMETHICONE 80 MG CHEW TAB PO SCH ×3 (08:06→22:23)
[2019-05-19] MEDS: VITAMIN D 1,000 INTERNATIONAL UNITS TABLET PO SCH (08:06)
[2019-05-19] MEDS: HEPARIN SOD (PORCINE) 5000 UNITS/ML VIAL (J1644 PER 1000UNITS) SC SCH ×2 (08:10→22:22)
[2019-05-19] MEDS: PYRIDOXINE 50 MG TAB PO SCH ×2 (09:00→12:02)
--- NOTE | 2019-05-19 11:46 | IPNPDOC ---
Subjective Date Seen The patient was seen on 05/19/19. Subjective Chief Complaint/HPI Patient is comfortable offers no new complaints, physical therapy in progress General: Denies: ROS Unobtainable, Chills, Night Sweats, Fatigue, Malaise, Normal Appetite, Other Symptoms Constitutional: Denies: Chills, Fever, Malaise, Night Sweats, Weakness, Fatigue, Weight Loss, Lethargy, Other Skin: Denies: Rash, Lesions, Jaundice, Bruising, Itching, Dry, Breakdown, Nail Changes, Other Pulmonary: Denies: Dyspnea, Cough, Pleuritic Chest Pain, Other Symptoms Cardiovascular: Denies: Chest Pain, Palpitations, Orthopnea, Paroxysmal Noc. Dyspnea, Edema, Lt Headedness, Other Symptoms Gastrointestinal: Denies: Nausea, Vomiting, Abdominal Pain, Diarrhea, Constipation, Melena, Hematochezia, Other Symptoms Musculoskeletal: Denies: Neck Pain, Back Pain, Shoulder Pain, Arm Pain, Hand Pain, Leg Pain, Foot Pain, Joint Pain, Muscle Pain, Spasms, Other Symptoms Neurological: Denies: Weakness, Numbness, Incoordination, Change in speech, Confusion, Seizures, Other Symptoms Psych: Denies: Mood Normal, Anxiety, Depression, Memory Issues, Thoughts of Ariella f Harm, Anger, Thoughts of Harming Other, Other Psych Objective Physical Examination General Exam: Positive: Alert, Cooperative Eye Exam: Positive: PERRLA, Conjunctiva & lids normal ENT Exam: Positive: Atraumatic, Mucous membr. moist/pink Neck Exam: Positive: Supple Chest Exam: Positive: Clear to auscultation, Normal air movement Heart Exam: Positive: Rate Normal, Normal S1, Normal S2 Abdomen Exam: Positive: Normal bowel sounds, Soft Extremity Exam: Positive: Normal pulses Skin Exam: Positive: Nl turgor and temperature Neuro Exam: Positive: Strength at 5/5 X4 ext, Sensation Intact, Cranial Nerves 3-12 NL Psych Exam: Positive: Mood NL, Oriented x 3 Assessment /Plan Problems (1) Neurogenic bladder Status: Acute (2) HTN (hypertension) Status: Chronic (3) Diabetes Status: Chronic (4) CAD (coronary artery disease) Status: Chronic (5) Paraplegia Status: Acute (6) Chordoma of lumbar spine Status: Acute (7) Incomplete lesion of lumbar spinal cord Status: Acute (8) NSTEMI (non-ST elevated myocardial infarction) Status: Acute Plan/VTE VTE Prophylaxis Ordered?: Yes Plan 64-year-old female admitted for continued rehabilitation status post revision excision of intradural/extradural chordoma. #1: Recurrent chordoma status post revision and excision of intradural/extrad ural chordoma. PT/OT, DVT prophylaxis with teds/SED's, mobilization, IVC filter in place. Patient is not to lift pressure pointing more than 5 pounds. Weightbearing as tolerated in the bilateral lower extremities. Wound care specified under discharge instructions. Pain management as per orders. #2: DM type II. Continue with insulin aspart and glargine. Recommend before meals/at bedtime blood sugar checks, consistent carbohydrate diet. #3: CAD status post NE, stenting. Continue with beta keyla, nitroglycerin. Aspirin has been stopped. #4: Hypertension. Blood pressure mildly elevated on initial vital signs. Resume home Lasix, lisinopril, beta keyla. #5: CKD Stage III. Monitor with regular labs, avoid additional nephrotoxic medications. #6: Chronic infection of hardware. As per the patient the patient is on Zyvox 600 mg tablets prophylactically. Continue with the current regimen while here. #7: GERD. PPI daily. #8: Chronic anemia. Continue with ferrous gluconate supplementation. #9: Peripheral neuropathy. Continue gabapentin. #10: Depression. The patient denies homicidal or suicidal ideation. She is currently not on an antidepressant medication. #11: Morbid obesity. Consider nutrition consult. #12: LIZ. Continue CPAP nightly. #13: Arthritis. Recommend Tylenol when necessary, careful to not overdose more than 3 g with oxycodone-acetaminophen. #14: Hypomagnesemia. Continue with magnesium supplement. #15: DVT prophylaxis: heparin subcutaneous every 12 hours, teds/SCD and early mobilization. Patient also has IVC filter in place. VS, I&O, 24H, Fishbone Vital Signs/I&O Vital Signs Date Time Temp Pulse Resp B/P (MAP) Pulse Ox O2 Delivery O2 Flow Rate FiO2 05/19/19 08:01 71 05/19/19 08:00 126/63 05/19/19 06:00 97.6 18 97 Room Air 05/18/19 04:55 2.0 I&O- Last 24 Hours up to 6 AM 05/19/19 06:00 Intake Total 1370 ml Output Total 1550 ml Balance -180 ml Laboratory Data 24H LABS Laboratory Tests 2 05/18/19 12:01: Bedside Glucose (Misc Panel) 177H 05/18/19 16:49: Bedside Glucose (Misc Panel) 218H 05/18/19 19:53: Bedside Glucose (Misc Panel) 266H 05/19/19 05:19: Bedside Glucose (Misc Panel) 236H 05/19/19 06:26: Immature Granulocyte % (Auto) 0.9, Neutrophils (%) (Auto) 68.2H, Lymphocytes (%) (Auto) 21.5L, Monocytes (%) (Auto) 4.6, Eosinophils (%) (Auto) 4.0H, Basophils (%) (Auto) 0.8, Neutrophils # (Auto) 4.4, Lymphocytes # (Auto) 1.4L, Monocytes # (Auto) 0.3, Eosinophils # (Auto) 0.3, Basophils # (Auto) 0.1, Nucleated Red Blood Cells % (auto) 0.0, Anion Gap 7L, Glomerular Filtration Rate > 60.0, Calcium Level 9.0 CBC/BMP Laboratory Tests 05/19/19 06:26 MICHELE AVILES MD May 19, 2019 11:46
[2019-05-19] MEDS: oxyCODONE 5MG TAB PO PRN (13:09)
[2019-05-19] MEDS: SENNA 8.6 MG TAB (SENOKOT) PO SCH (13:09)
--- NOTE | 2019-05-19 13:09 | IPNPDOC ---
PM&R Progress Note DATE OF SERVICE: May 19, 2019 Field Technical Specialist Progress Note Subjective: Patient reporting she would like to start estrogen cream reporting she had a little blood with wiping today and states this happens from time to time if she is dry. REVIEW OF SYSTEMS: The following is a completed review of systems and has been reviewed. Review of systems otherwise unremarkable. PAIN: Patient self reports mild hip soreness EYES: No recent vision changes EARS, NOSE, & THROAT: No throat pain, or dysphagia, or rhinorrhea CARDIOVASCULAR: Denies chest pain or palpitations PULMONARY: Denies shortness of breath GASTROINTESTINAL: +neurogenic bowel GENITOURINARY: +neurogenic bladder with Goodrich MUSCULOSKELETAL: bilat LE weakness NEUROLOGICAL:+incomplete paraplegia HEMATOLOGICAL: denies easy bruising SKIN: thoraco-lumbar incision PSYCHIATRIC: Unremarkable All other review of systems found to be negative. PHYSICAL EXAMINATION: VITAL SIGNS: Please see below. GENERAL: Pleasant and cooperative. No acute distress. HEENT: PERRL. Extraocular movements intact. Clear conjunctiva CARDIOVASCULAR: Regular rate and rhythm. No murmurs, rubs, or gallops LUNGS: Clear to auscultation bilaterally. No wheezes. No rhonchi ABDOMEN: Soft, nontender, mildly- distended. Positive bowel sounds. NEUROLOGICAL: Alert and oriented times three. Cranial nerves II through XII grossly intact. Sensation decreased to light touch umbilicus and distally +clonus on right (1 beat), negative clonus left (-) babinksi bilat EXTREMITIES: 5\5 strength bilateral upper extremities, 3+/5 bilat hip flexors, knee extensions, 0/5 ankle DF/EHL, 3/5 PF bilat SKIN: thoraco-lumbar incision with dressing (saturated) , red-wound c/d/i no induration or erythema -sacrum without erythema, +external hemorrhoid with scant dried blood ASSESSMENT:64-year-old F with past medical history of spinal chordoma who presents status post excision of T12-L1 chordoma with incomplete paraplegia PLAN: 1. Rehab- PT/OT advance bed mobility, functional transfers, ambulation, and ADL management- consider wheelchair level independence if needed, AFO bilat 2. 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 CArdiac: HTN c/u lisinopril and metoprolol -bilat LE edema c/u lasix -medicine consulted to assist in overall management 4. resp: encourage incentive spirometry, monitor for infection -hx of LIZ, patient uses nocturnal 02 at home 5. Endo: hx of DM c/u Levemir and ISS, will manage and adjust prn 6. Pain: c/u gabapentin, tylneol, methocarbamol, and oxycodone prn 7. GI: neurogenic bowel- c/u bowel regimen with [id number] with suppository, will lower dose of Colace, change timing of Senna to noon, and suppository should be given 30 mintuse post-dinner- digital stim instructions for nursing in EMR and printed out and hanging in patient's room -c/u simethicone for gas 8. : Neurogenic bladder- will keep Goodrich for a few days then do TOV once mobility improves -patient requesting to restart her vaginal estrogen cream 9. DVT ppx: heparin and TEDs, +IVC 10. Psych: hx of depression on Phenelzine 30mg TID 11. Sin: change dressing today, c/u barrier cream to sacrum 11. Dispo: TBD Allergies Coded Allergies: Penicillins (Verified Allergy, Intermediate, RASH/HIVES, 07/23/18) Sulfa (Sulfonamide Antibiotics) (Verified Allergy, Intermediate, REDNESS/SWELLING, 07/23/18) sulindac (Verified Adverse Reaction, Intermediate, COLITIS, 07/23/18) Vital Signs Vital Signs Date Time Temp Pulse Resp B/P (MAP) Pulse Ox O2 Delivery O2 Flow Rate FiO2 05/19/19 08:01 71 05/19/19 08:00 126/63 05/19/19 06:00 97.6 18 97 Room Air 05/18/19 04:55 2.0 Laboratory Data CBC/BMP Laboratory Tests 05/19/19 06:26 Labs 24H Laboratory Tests 2 05/18/19 16:49: Bedside Glucose (Misc Panel) 218H 05/18/19 19:53: Bedside Glucose (Misc Panel) 266H 05/19/19 05:19: Bedside Glucose (Misc Panel) 236H 05/19/19 06:26: Immature Granulocyte % (Auto) 0.9, Neutrophils (%) (Auto) 68.2H, Lymphocytes (%) (Auto) 21.5L, Monocytes (%) (Auto) 4.6, Eosinophils (%) (Auto) 4.0H, Basophils (%) (Auto) 0.8, Neutrophils # (Auto) 4.4, Lymphocytes # (Auto) 1.4L, Monocytes # (Auto) 0.3, Eosinophils # (Auto) 0.3, Basophils # (Auto) 0.1, Nucleated Red Blood Cells % (auto) 0.0, Anion Gap 7L, Glomerular Filtration Rate > 60.0, Calcium Level 9.0 05/19/19 11:46: Bedside Glucose (Misc Panel) 168H Current Medications Current Medications Current Medications Medications (Trade) Dose Ordered Sig/Gerson Route PRN Reason Start Time Stop Time Status Last Admin Dose Admin Acetaminophen (Tylenol Tab) 1,000 mg TID PO 05/17/19 16:00 05/19/19 07:59 Bisacodyl (Dulcolax Suppository) 10 mg ASDIRECTED MT 05/19/19 18:30 UNV Bisacodyl (Dulcolax Suppository) 10 mg DAILYPRN PRN MT CONSTIPATION 05/17/19 11:45 05/17/19 16:16 DC Bisacodyl (Dulcolax Suppository) 10 mg QHS MT 05/17/19 21:00 05/19/19 12:43 DC 05/18/19 21:46 Calcium/Vitamin D (Oscal D) 500 mg DAILY PO 05/18/19 09:00 05/19/19 08:00 Dextrose (Dextrose 50%) 25 ml ASDIRECTED PRN IV SEE LABEL COMMENTS 05/17/19 11:45 Docusate Sodium (Colace) 100 mg TID PO 05/19/19 16:00 UNV Docusate Sodium (Colace) 200 mg TID PO 05/17/19 16:00 05/19/19 12:43 DC 05/19/19 08:00 Estrogens Conjugated (Premarin Vag Cream w/Uday) 1 dose DAILY PV 05/19/19 12:45 UNV Ferrous Gluconate (Fergon) 324 mg DAILY PO 05/18/19 09:00 05/19/19 08:00 Fish Oil ([place]-3 (1000mg)) 1 cap DAILY PO 05/18/19 09:00 05/19/19 08:06 Furosemide (Lasix) 20 mg DAILY PO 05/18/19 09:00 05/19/19 08:00 Gabapentin (Neurontin) 400 mg TID PO 05/17/19 16:00 05/19/19 08:06 Glucagon (Glucagon) 1 mg ASDIRECTED PRN SC SEE LABEL COMMENTS 05/17/19 11:45 Glucose (Glucose) 16 GM ASDIRECTED PRN PO SEE LABEL COMMENTS 05/17/19 11:45 Heparin Sodium (Porcine) (Heparin) 5,000 units Q12H SC 05/17/19 21:00 05/19/19 08:10 Home Med (Med Rec Complete!) ASDIRECTED XX 05/17/19 13:45 05/17/19 13:45 DC Insulin Detemir (Levemir Insulin) 20 units BID SC 05/17/19 21:00 05/19/19 10:40 DC 05/19/19 07:55 Insulin Detemir (Levemir Insulin) 24 units BID SC 05/19/19 21:00 Insulin Human Lispro (HumaLOG INSULIN) SEE PROTOCOL TABLE AC SC 05/17/19 12:00 05/19/19 12:01 Insulin Human Lispro (HumaLOG INSULIN) SEE PROTOCOL TABLE QHS SC 05/17/19 21:00 05/18/19 21:47 Lactobacillus Acidophilus (Bacid) 1 ea TID PO 05/17/19 16:00 05/19/19 08:00 Linezolid (Zyvox) 600 mg DAILY PO 05/18/19 09:00 05/19/19 08:00 Lisinopril (Prinivil) 2.5 mg DAILY PO 05/18/19 09:00 05/19/19 08:00 Magnesium Oxide (Mag-Ox) 400 mg DAILY PO 05/18/19 09:00 05/19/19 08:01 Methocarbamol (Robaxin) 750 mg QID PO 05/17/19 13:00 05/19/19 12:02 Metoprolol Succinate (TopROL XL) 50 mg DAILY PO 05/18/19 09:00 05/19/19 08:01 Miscellaneous (Unresolved Patient Own Med Order) SEE LABEL COMMENTS DAILY XX 05/17/19 09:00 05/18/19 15:00 DC Multivitamins (Theragram-M) 1 tab DAILY PO 05/18/19 09:00 05/19/19 08:00 Nitroglycerin (Nitrostat (1/ 150)) 0.4 mg Q5MP PRN SL CHEST PAIN 05/17/19 11:45 Ondansetron HCl (Zofran Odt) 4 mg Q4HP PRN PO NAUSEA OR VOMITING 05/17/19 11:45 Oxycodone HCl (Roxicodone, Oxyir) 5 mg Q4HP PRN PO PAIN 05/17/19 11:45 05/18/19 09:49 Pantoprazole Sodium (Protonix) 40 mg DAILY PO 05/18/19 09:00 05/19/19 08:06 Patient Own Medication (Patient'S Own Med) 2 TABLETS (30MG) TID PO 05/17/19 16:00 05/18/19 14:59 DC Patient Own Medication (Patient'S Own Med) 2 TABLETS (30MG) TID PO 05/18/19 16:00 05/19/19 07:58 Pyridoxine HCl (Vitamin B6) 100 mg DAILY PO 05/18/19 09:00 05/19/19 12:02 Senna (Senokot) 2 tab ASDIRECTED PO 05/19/19 12:45 UNV Senna (Senokot) 2 tab QHS PO 05/17/19 21:00 05/19/19 12:43 DC 05/18/19 21:40 Simethicone (Mylicon) 80 mg TID PO 05/17/19 16:15 05/19/19 08:06 Trazodone HCl (Desyrel) 25 mg QHS PO 05/17/19 21:00 05/18/19 21:40 Vitamin D (Vitamin D) 2,000 units DAILY PO 05/18/19 09:00 05/19/19 08:06 ANGELITA HOBBS MD May 19, 2019 13:09
[2019-05-19 14:00] VITALS: BP 122/70
[2019-05-19] MEDS: BISACODYL 10 MG SUPP PR SCH (18:42)
[2019-05-19 22:00] VITALS: BP 131/61
[2019-05-19] MEDS: ESTROGENS VAGINAL CREAM 30GM PV SCH (22:21)
[2019-05-19] MEDS: traZODone 25MG PER 1/2 TABLET PO SCH (22:23)
[2019-05-20 06:00] VITALS: BP 129/61
[2019-05-20] MEDS: oxyCODONE 5MG TAB PO PRN ×2 (06:48→23:27)
[2019-05-20] MEDS: HumaLOG INSULIN (NovoLOG) PER UNIT SC SCH ×4 (07:59→21:00)
[2019-05-20] MEDS: REMEDY PHYTOPLEX Z-GUARD PASTE 113GM TUBE (FROM STOREROOM PRODUCT) TOP SCH ×4 (09:00→21:45)
[2019-05-20] MEDS: LEVEMIR (INSULIN DETEMIR) 1 UNITS/0.01ML SC SCH ×2 (09:07→21:45)
[2019-05-20] MEDS: PHENELZINE 15 MG PO SCH ×3 (09:10→21:38)
[2019-05-20] MEDS: OMEGA-3 1000MG CAPSULE PO SCH (09:11)
[2019-05-20] MEDS: MAGNESIUM OXIDE 400 MG TAB (MAG-OX) PO SCH (09:11)
[2019-05-20] MEDS: HEPARIN SOD (PORCINE) 5000 UNITS/ML VIAL (J1644 PER 1000UNITS) SC SCH ×2 (09:11→21:44)
[2019-05-20] MEDS: SIMETHICONE 80 MG CHEW TAB PO SCH ×3 (09:11→21:38)
[2019-05-20] MEDS: FUROSEMIDE 20 MG TAB PO SCH (09:11)
[2019-05-20] MEDS: ACETAMINOPHEN 500 MG TAB PO SCH ×3 (09:12→21:37)
[2019-05-20] MEDS: LINEZOLID 600MG TABLET (ZYVOX) PO SCH (09:12)
[2019-05-20] MEDS: LACTOBACILLUS ACIDOPHILUS CAP (BACID) PO SCH ×3 (09:13→21:46)
[2019-05-20] MEDS: LISINOPRIL *2.5 MG* TAB PO SCH (09:13)
[2019-05-20] MEDS: CALCIUM/VITAMIN D 500 MG TAB PO SCH (09:13)
[2019-05-20] MEDS: PANTOPRAZOLE 40MG TAB (PROTONIX) PO SCH (09:13)
[2019-05-20] MEDS: VITAMIN D 1,000 INTERNATIONAL UNITS TABLET PO SCH (09:13)
[2019-05-20] MEDS: FERROUS GLUCONATE 324 MG TAB PO SCH (09:13)
[2019-05-20] MEDS: GABAPENTIN 400 MG CAP PO SCH ×3 (09:13→21:38)
[2019-05-20] MEDS: MULTIVITAMINS/MINERALS THERAP 1 TAB PO SCH (09:13)
[2019-05-20] MEDS: PYRIDOXINE 50 MG TAB PO SCH (09:13)
[2019-05-20] MEDS: DOCUSATE SODIUM 100 MG CAP PO SCH ×3 (09:14→21:36)
[2019-05-20] MEDS: methocarbamoL 750 MG TAB PO SCH ×4 (09:14→21:38)
[2019-05-20] MEDS: METOPROLOL SUCC (TopROL XL) 50MG **XL** TAB PO SCH (09:14)
--- NOTE | 2019-05-20 11:40 | IPNPDOC ---
PM&R Progress Note DATE OF SERVICE: May 20, 2019 Horizontal Drill Operator Progress Note Subjective: Patient seen in therapy working on the IPXstep wondering when she can try urinating without the Goodrich. Therapy and patient reporting she is using the slide board very well and has improving mobility overall. REVIEW OF SYSTEMS: The following is a completed review of systems and has been reviewed. Review of systems otherwise unremarkable. PAIN: Patient self reports mild hip soreness EYES: No recent vision changes EARS, NOSE, & THROAT: No throat pain, or dysphagia, or rhinorrhea CARDIOVASCULAR: Denies chest pain or palpitations PULMONARY: Denies shortness of breath GASTROINTESTINAL: +neurogenic bowel GENITOURINARY: +neurogenic bladder with Goodrich MUSCULOSKELETAL: bilat LE weakness NEUROLOGICAL:+incomplete paraplegia HEMATOLOGICAL: denies easy bruising SKIN: thoraco-lumbar incision PSYCHIATRIC: Unremarkable All other review of systems found to be negative. PHYSICAL EXAMINATION: VITAL SIGNS: Please see below. GENERAL: Pleasant and cooperative. No acute distress. HEENT: PERRL. Extraocular movements intact. Clear conjunctiva CARDIOVASCULAR: Regular rate and rhythm. No murmurs, rubs, or gallops LUNGS: Clear to auscultation bilaterally. No wheezes. No rhonchi ABDOMEN: Soft, nontender, mildly- distended. Positive bowel sounds. NEUROLOGICAL: Alert and oriented times three. Cranial nerves II through XII grossly intact. 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 Rehab- PT/OT advance bed mobility, functional transfers, ambulation, and ADL management- consider wheelchair level independence if needed, AFO bilat 2. 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 CArdiac: HTN c/u lisinopril and metoprolol -bilat LE edema c/u lasix -medicine consulted to assist in overall management 4. resp: encourage incentive spirometry, monitor for infection -hx of LIZ, patient uses nocturnal 02 at home 5. Endo: hx of DM c/u Levemir and ISS, will manage and adjust prn 6. Pain: c/u gabapentin, tylneol and oxycodone prn -will switch methocarbamol to baclofen which is preferable treatment for muscle spasms due to spinal cord injury 7. GI: neurogenic bowel- c/u bowel regimen with [id number] with suppository, c/u lower dose of Colace, Senna q noon, and suppository should be given 30 minutes post-dinner- digital stim instructions for nursing in EMR and printed out and hanging in patient's room -c/u simethicone for gas 8. : Neurogenic bladder-will start Flomax 0.4mg qHS in anticipation of Goodrich removal tomorrow to relax bladder sphincter -will need outpatient urology f/u with urodynamic study -c/u vaginal estrogen cream 9. DVT ppx: heparin and TEDs, +IVC 10. Psych: hx of depression on Phenelzine 30mg TID 11. Sin: change dressing to silver optifoam 05-19-19, c/u barrier cream to sacrum 11. Dispo: TBD Allergies Coded Allergies: Penicillins (Verified Allergy, Intermediate, RASH/HIVES, 07/23/18) Sulfa (Sulfonamide Antibiotics) (Verified Allergy, Intermediate, REDNESS/SWELLING, 07/23/18) sulindac (Verified Adverse Reaction, Intermediate, COLITIS, 07/23/18) Vital Signs Vital Signs Date Time Temp Pulse Resp B/P (MAP) Pulse Ox O2 Delivery O2 Flow Rate FiO2 05/20/19 09:13 129/61 05/20/19 08:02 18 Room Air 05/20/19 06:00 98.8 69 97 05/18/19 04:55 2.0 Laboratory Data Labs 24H Laboratory Tests 2 05/19/19 11:46: Bedside Glucose (Misc Panel) 168H 05/19/19 16:59: Bedside Glucose (Misc Panel) 191H 05/19/19 21:10: Bedside Glucose (Misc Panel) 242H 05/20/19 06:45: Bedside Glucose (Misc Panel) 208H Current Medications Current Medications Current Medications Medications (Trade) Dose Ordered Sig/Gerson Route PRN Reason Start Time Stop Time Status Last Admin Dose Admin Acetaminophen (Tylenol Tab) 1,000 mg TID PO 05/17/19 16:00 05/20/19 09:12 Bisacodyl (Dulcolax Suppository) 10 mg DAILY@1830 MA 05/19/19 18:30 05/19/19 18:42 Bisacodyl (Dulcolax Suppository) 10 mg DAILYPRN PRN MA CONSTIPATION 05/17/19 11:45 05/17/19 16:16 DC Bisacodyl (Dulcolax Suppository) 10 mg QHS MA 05/17/19 21:00 05/19/19 12:43 DC 05/18/19 21:46 Calcium/Vitamin D (Oscal D) 500 mg DAILY PO 05/18/19 09:00 05/20/19 09:13 Dextrose (Dextrose 50%) 25 ml ASDIRECTED PRN IV SEE LABEL COMMENTS 05/17/19 11:45 Docusate Sodium (Colace) 100 mg TID PO 05/19/19 16:00 05/20/19 09:14 Docusate Sodium (Colace) 200 mg TID PO 05/17/19 16:00 05/19/19 12:43 DC 05/19/19 08:00 Estrogens Conjugated (Premarin Vag Cream w/Uday) 1 APPLICATORFUL QHS PV 05/19/19 21:00 05/19/19 22:21 Ferrous Gluconate (Fergon) 324 mg DAILY PO 05/18/19 09:00 05/20/19 09:13 Fish Oil ([place]-3 (1000mg)) 1 cap DAILY PO 05/18/19 09:00 05/20/19 09:11 Furosemide (Lasix) 20 mg DAILY PO 05/18/19 09:00 05/20/19 09:11 Gabapentin (Neurontin) 400 mg TID PO 05/17/19 16:00 05/20/19 09:13 Glucagon (Glucagon) 1 mg ASDIRECTED PRN SC SEE LABEL COMMENTS 05/17/19 11:45 Glucose (Glucose) 16 GM ASDIRECTED PRN PO SEE LABEL COMMENTS 05/17/19 11:45 Heparin Sodium (Porcine) (Heparin) 5,000 units Q12H SC 05/17/19 21:00 05/20/19 09:11 Home Med (Med Rec Complete!) ASDIRECTED XX 05/17/19 13:45 05/17/19 13:45 DC Insulin Detemir (Levemir Insulin) 20 units BID SC 05/17/19 21:00 05/19/19 10:40 DC 05/19/19 07:55 Insulin Detemir (Levemir Insulin) 24 units BID SC 05/19/19 21:00 05/20/19 09:07 Insulin Human Lispro (HumaLOG INSULIN) SEE PROTOCOL TABLE AC SC 05/17/19 12:00 05/20/19 07:59 Insulin Human Lispro (HumaLOG INSULIN) SEE PROTOCOL TABLE QHS SC 05/17/19 21:00 05/18/19 21:47 Lactobacillus Acidophilus (Bacid) 1 ea TID PO 05/17/19 16:00 05/20/19 09:13 Linezolid (Zyvox) 600 mg DAILY PO 05/18/19 09:00 05/20/19 09:12 Lisinopril (Prinivil) 2.5 mg DAILY PO 05/18/19 09:00 05/20/19 09:13 Magnesium Oxide (Mag-Ox) 400 mg DAILY PO 05/18/19 09:00 05/20/19 09:11 Methocarbamol (Robaxin) 750 mg QID PO 05/17/19 13:00 05/20/19 09:14 Metoprolol Succinate (TopROL XL) 50 mg DAILY PO 05/18/19 09:00 05/20/19 09:14 Miscellaneous (Unresolved Patient Own Med Order) SEE LABEL COMMENTS DAILY XX 05/17/19 09:00 05/18/19 15:00 DC Multivitamins (Theragram-M) 1 tab DAILY PO 05/18/19 09:00 4/2/20 09:13 Nitroglycerin (Nitrostat (1/ 150)) 0.4 mg Q5MP PRN SL CHEST PAIN 05/17/19 11:45 Ondansetron HCl (Zofran Odt) 4 mg Q4HP PRN PO NAUSEA OR VOMITING 05/17/19 11:45 Oxycodone HCl (Roxicodone, Oxyir) 5 mg Q4HP PRN PO PAIN 05/17/19 11:45 05/20/19 06:48 Pantoprazole Sodium (Protonix) 40 mg DAILY PO 05/18/19 09:00 05/20/19 09:13 Patient Own Medication (Patient'S Own Med) 2 TABLETS (30MG) TID PO 05/17/19 16:00 05/18/19 14:59 DC Patient Own Medication (Patient'S Own Med) 2 TABLETS (30MG) TID PO 05/18/19 16:00 05/20/19 09:10 Pyridoxine HCl (Vitamin B6) 100 mg DAILY PO 05/18/19 09:00 05/20/19 09:13 Senna (Senokot) 2 tab DAILY@1200 PO 05/19/19 12:45 05/19/19 13:09 Senna (Senokot) 2 tab QHS PO 05/17/19 21:00 05/19/19 12:43 DC 05/18/19 21:40 Simethicone (Mylicon) 80 mg TID PO 05/17/19 16:15 05/20/19 09:11 Trazodone HCl (Desyrel) 25 mg QHS PO 05/17/19 21:00 05/19/19 22:23 Vitamin D (Vitamin D) 2,000 units DAILY PO 05/18/19 09:00 05/20/19 09:13 ANGELITA HOBBS MD May 20, 2019 11:40
[2019-05-20] MEDS: SENNA 8.6 MG TAB (SENOKOT) PO SCH (12:21)
[2019-05-20 14:30] VITALS: BP 115/56
[2019-05-20] MEDS: BISACODYL 10 MG SUPP PR SCH (18:17)
[2019-05-20] MEDS: traZODone 25MG PER 1/2 TABLET PO SCH (21:36)
[2019-05-20] MEDS: TAMSULOSIN 0.4 MG CAP PO SCH (21:38)
[2019-05-20] MEDS: ESTROGENS VAGINAL CREAM 30GM PV SCH (21:45)
[2019-05-20 22:00] VITALS: BP 110/55
[2019-05-21 06:00] VITALS: BP 94/58
[2019-05-21] MEDS: oxyCODONE 5MG TAB PO PRN (06:00)
[2019-05-21 07:00] VITALS: BP 104/60
[2019-05-21] MEDS: HumaLOG INSULIN (NovoLOG) PER UNIT SC SCH ×4 (08:30→21:00)
[2019-05-21] MEDS: PHENELZINE 15 MG PO SCH ×3 (08:30→21:18)
[2019-05-21] MEDS: LEVEMIR (INSULIN DETEMIR) 1 UNITS/0.01ML SC SCH ×2 (08:31→21:20)
[2019-05-21] MEDS: HEPARIN SOD (PORCINE) 5000 UNITS/ML VIAL (J1644 PER 1000UNITS) SC SCH ×2 (08:31→21:20)
[2019-05-21] MEDS: LISINOPRIL *2.5 MG* TAB PO SCH (08:34)
[2019-05-21] MEDS: FUROSEMIDE 20 MG TAB PO SCH (08:35)
[2019-05-21] MEDS: LACTOBACILLUS ACIDOPHILUS CAP (BACID) PO SCH ×3 (08:35→21:19)
[2019-05-21] MEDS: ACETAMINOPHEN 500 MG TAB PO SCH ×3 (08:35→21:19)
[2019-05-21] MEDS: BACLOFEN 10 MG TAB PO SCH ×3 (08:35→21:19)
[2019-05-21] MEDS: SIMETHICONE 80 MG CHEW TAB PO SCH ×3 (08:35→21:19)
[2019-05-21] MEDS: MAGNESIUM OXIDE 400 MG TAB (MAG-OX) PO SCH (08:35)
[2019-05-21] MEDS: CALCIUM/VITAMIN D 500 MG TAB PO SCH (08:36)
[2019-05-21] MEDS: VITAMIN D 1,000 INTERNATIONAL UNITS TABLET PO SCH (08:36)
[2019-05-21] MEDS: GABAPENTIN 400 MG CAP PO SCH ×3 (08:37→21:19)
[2019-05-21] MEDS: FERROUS GLUCONATE 324 MG TAB PO SCH (08:37)
[2019-05-21] MEDS: LINEZOLID 600MG TABLET (ZYVOX) PO SCH (08:37)
[2019-05-21] MEDS: OMEGA-3 1000MG CAPSULE PO SCH (08:37)
[2019-05-21] MEDS: PYRIDOXINE 50 MG TAB PO SCH (08:37)
[2019-05-21] MEDS: DOCUSATE SODIUM 100 MG CAP PO SCH ×3 (08:37→21:19)
[2019-05-21] MEDS: PANTOPRAZOLE 40MG TAB (PROTONIX) PO SCH (08:37)
[2019-05-21] MEDS: MULTIVITAMINS/MINERALS THERAP 1 TAB PO SCH (08:38)
[2019-05-21] MEDS: METOPROLOL SUCC (TopROL XL) 50MG **XL** TAB PO SCH (08:38)
[2019-05-21] MEDS: REMEDY PHYTOPLEX Z-GUARD PASTE 113GM TUBE (FROM STOREROOM PRODUCT) TOP SCH ×4 (08:39→21:22)
[2019-05-21 11:59] LABS: BASO % 0.4 % (0.0-1.0); EOS # 0.2 10^3/uL (0.0-0.5); EOS % 2.9 % (0.0-3.0); HEMATOCRIT 33.9 % (36.0-47.0); HEMOGLOBIN 10.9 g/dl (12.0-15.5); LYMPH # 1.3 10^3/uL (1.5-5.0); LYMPH % 16.5 % (24.0-44.0); MEAN CORPUSCULAR HGB CONC 32.2 g/dl (32.0-36.5); MEAN CORPUSCULAR VOLUME 90.2 fl (80.0-96.0); MONO # 0.5 10^3/uL (0.0-0.8); MONO % 6.4 % (0.0-5.0); NEUTROPHILS # 5.7 10^3/uL (1.5-8.5); PLATELET COUNT, AUTOMATED 202 10^3/uL (150-450); RED BLOOD COUNT 3.76 10^6/uL (4.00-5.40); WHITE BLOOD COUNT 7.8 10^3/uL (4.0-10.0)
[2019-05-21 12:23] LABS: BLOOD UREA NITROGEN 20 MG/DL (7-18); CALCIUM LEVEL 9.5 MG/DL (8.8-10.2); CARBON DIOXIDE LEVEL 30 MEQ/L (21-32); CHLORIDE LEVEL 101 MEQ/L (98-107); CREATININE FOR GFR 0.83 MG/DL (0.55-1.30); GLOMERULAR FILTRATION RATE > 60.0 (>45); GLUCOSE, FASTING 212 MG/DL (70-100); POTASSIUM SERUM 4.8 MEQ/L (3.5-5.1); SODIUM LEVEL 135 MEQ/L (136-145)
[2019-05-21] MEDS: SENNA 8.6 MG TAB (SENOKOT) PO SCH (12:25)
[2019-05-21 14:00] VITALS: BP 123/58
--- NOTE | 2019-05-21 15:26 | IPNPDOC ---
PM&R Progress Note DATE OF SERVICE: May 21, 2019 Hospice Admitting Clerk Progress Note Subjective: Patient seen in her room stating she doesn't feel weaker since starting the Baclofen and can move her legs more in bed, demonstrating she can kick out her legs better. She is ready to remove Goodrich today. REVIEW OF SYSTEMS: The following is a completed review of systems and has been reviewed. Review of systems otherwise unremarkable. PAIN: Patient self reports mild hip soreness EYES: No recent vision changes EARS, NOSE, & THROAT: No throat pain, or dysphagia, or rhinorrhea CARDIOVASCULAR: Denies chest pain or palpitations PULMONARY: Denies shortness of breath GASTROINTESTINAL: +neurogenic bowel GENITOURINARY: +neurogenic bladder with Goodrich MUSCULOSKELETAL: bilat LE weakness NEUROLOGICAL:+incomplete paraplegia HEMATOLOGICAL: denies easy bruising SKIN: thoraco-lumbar incision PSYCHIATRIC: Unremarkable All other review of systems found to be negative. PHYSICAL EXAMINATION: VITAL SIGNS: Please see below. GENERAL: Pleasant and cooperative. No acute distress. HEENT: PERRL. Extraocular movements intact. Clear conjunctiva CARDIOVASCULAR: Regular rate and rhythm. No murmurs, rubs, or gallops LUNGS: Clear to auscultation bilaterally. No wheezes. No rhonchi ABDOMEN: Soft, nontender, mildly- distended. Positive bowel sounds. NEUROLOGICAL: Alert and oriented times three. Cranial nerves II through XII grossly intact. 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 Rehab- PT/OT advance bed mobility, functional transfers, ambulation, and ADL management- consider wheelchair level independence if needed, AFO bilat 2. 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 CArdiac: HTN c/u lisinopril and metoprolol -bilat LE edema c/u lasix -medicine consulted to assist in overall management 4. resp: encourage incentive spirometry, monitor for infection -hx of LIZ, patient uses nocturnal 02 at home 5. Endo: hx of DM c/u Levemir and ISS, will manage and adjust prn 6. Pain: c/u gabapentin, tylneol and oxycodone prn -switched from methocarbamol to baclofen which is preferable treatment for muscle spasms due to spinal cord injury-appears to be tolerating this well 7. GI: neurogenic bowel- c/u bowel regimen with [id number] with suppository, c/u lower dose of Colace, Senna q noon, and suppository should be given 30 minutes post-dinner- digital stim instructions for nursing in EMR and printed out and hanging in patient's room -c/u simethicone for gas 8. : Neurogenic bladder-c/u Flomax 0.4mg qHS to relax bladder sphincter, TOV to begin today -will need outpatient urology f/u with urodynamic study -c/u vaginal estrogen cream 9. DVT ppx: heparin and TEDs, +IVC 10. Psych: hx of depression on Phenelzine 30mg TID 11. Sin: change dressing to silver optifoam 05-19-19, c/u barrier cream to sacrum 11. Dispo: TBD Allergies Coded Allergies: Penicillins (Verified Allergy, Intermediate, RASH/HIVES, 07/23/18) Sulfa (Sulfonamide Antibiotics) (Verified Allergy, Intermediate, REDNESS/SWELLING, 07/23/18) sulindac (Verified Adverse Reaction, Intermediate, COLITIS, 07/23/18) Vital Signs Vital Signs Date Time Temp Pulse Resp B/P (MAP) Pulse Ox O2 Delivery O2 Flow Rate FiO2 05/21/19 14:00 96.5 85 17 123/58 (79) 95 Room Air 05/20/19 23:57 2.0 Laboratory Data CBC/BMP Laboratory Tests 05/21/19 11:20 Labs 24H Laboratory Tests 2 05/20/19 17:07: Bedside Glucose (Misc Panel) 207H 05/20/19 21:04: Bedside Glucose (Misc Panel) 236H 05/21/19 06:33: Bedside Glucose (Misc Panel) 227H 05/21/19 11:20: Immature Granulocyte % (Auto) 0.8, Neutrophils (%) (Auto) 73.0H, Lymphocytes (%) (Auto) 16.5L, Monocytes (%) (Auto) 6.4H, Eosinophils (%) (Auto) 2.9, Basophils (%) (Auto) 0.4, Neutrophils # (Auto) 5.7, Lymphocytes # (Auto) 1.3L, Monocytes # (Auto) 0.5, Eosinophils # (Auto) 0.2, Basophils # (Auto) 0.0, Nucleated Red Blood Cells % (auto) 0.0, Anion Gap 4L, Glomerular Filtration Rate > 60.0, Calcium Level 9.5 05/21/19 11:48: Bedside Glucose (Misc Panel) 199H Current Medications Current Medications Current Medications Medications (Trade) Dose Ordered Sig/Gerson Route PRN Reason Start Time Stop Time Status Last Admin Dose Admin Acetaminophen (Tylenol Tab) 1,000 mg TID PO 05/17/19 16:00 05/21/19 08:35 Baclofen (Lioresal) 10 mg TID PO 05/21/19 09:00 05/21/19 08:35 Bisacodyl (Dulcolax Suppository) 10 mg DAILY@1830 OR 05/19/19 18:30 05/20/19 18:17 Bisacodyl (Dulcolax Suppository) 10 mg DAILYPRN PRN OR CONSTIPATION 05/17/19 11:45 05/17/19 16:16 DC Bisacodyl (Dulcolax Suppository) 10 mg QHS OR 05/17/19 21:00 05/19/19 12:43 DC 05/18/19 21:46 Calcium/Vitamin D (Oscal D) 500 mg DAILY PO 05/18/19 09:00 05/21/19 08:36 Dextrose (Dextrose 50%) 25 ml ASDIRECTED PRN IV SEE LABEL COMMENTS 05/17/19 11:45 Docusate Sodium (Colace) 100 mg TID PO 05/19/19 16:00 05/21/19 08:37 Docusate Sodium (Colace) 200 mg TID PO 05/17/19 16:00 05/19/19 12:43 DC 05/19/19 08:00 Estrogens Conjugated (Premarin Vag Cream w/Uday) 1 APPLICATORFUL QHS PV 05/19/19 21:00 05/20/19 21:45 Ferrous Gluconate (Fergon) 324 mg DAILY PO 05/18/19 09:00 05/21/19 08:37 Fish Oil ([place]-3 (1000mg)) 1 cap DAILY PO 05/18/19 09:00 05/21/19 08:37 Furosemide (Lasix) 20 mg DAILY PO 05/18/19 09:00 05/21/19 08:35 Gabapentin (Neurontin) 400 mg TID PO 05/17/19 16:00 05/21/19 08:37 Glucagon (Glucagon) 1 mg ASDIRECTED PRN SC SEE LABEL COMMENTS 05/17/19 11:45 Glucose (Glucose) 16 GM ASDIRECTED PRN PO SEE LABEL COMMENTS 05/17/19 11:45 Heparin Sodium (Porcine) (Heparin) 5,000 units Q12H SC 05/17/19 21:00 05/21/19 08:31 Home Med (Med Rec Complete!) ASDIRECTED XX 05/17/19 13:45 05/17/19 13:45 DC Insulin Detemir (Levemir Insulin) 20 units BID SC 05/17/19 21:00 05/19/19 10:40 DC 05/19/19 07:55 Insulin Detemir (Levemir Insulin) 24 units BID SC 05/19/19 21:00 05/21/19 08:31 Insulin Human Lispro (HumaLOG INSULIN) SEE PROTOCOL TABLE AC SC 05/17/19 12:00 05/21/19 12:26 Insulin Human Lispro (HumaLOG INSULIN) SEE PROTOCOL TABLE QHS SC 05/17/19 21:00 05/18/19 21:47 Lactobacillus Acidophilus (Bacid) 1 ea TID PO 05/17/19 16:00 05/21/19 08:35 Linezolid (Zyvox) 600 mg DAILY PO 05/18/19 09:00 05/21/19 08:37 Lisinopril (Prinivil) 2.5 mg DAILY PO 05/18/19 09:00 05/21/19 08:34 Magnesium Oxide (Mag-Ox) 400 mg DAILY PO 05/18/19 09:00 05/21/19 08:35 Methocarbamol (Robaxin) 750 mg QID PO 05/17/19 13:00 05/20/19 23:00 DC 05/20/19 21:38 Metoprolol Succinate (TopROL XL) 50 mg DAILY PO 05/18/19 09:00 05/21/19 08:38 Miscellaneous (Unresolved Patient Own Med Order) SEE LABEL COMMENTS DAILY XX 05/17/19 09:00 05/18/19 15:00 DC Multivitamins (Theragram-M) 1 tab DAILY PO 05/18/19 09:00 05/21/19 08:38 Nitroglycerin (Nitrostat (1/ 150)) 0.4 mg Q5MP PRN SL CHEST PAIN 05/17/19 11:45 Ondansetron HCl (Zofran Odt) 4 mg Q4HP PRN PO NAUSEA OR VOMITING 05/17/19 11:45 Oxycodone HCl (Roxicodone, Oxyir) 5 mg Q4HP PRN PO PAIN 05/17/19 11:45 05/21/19 06:00 Pantoprazole Sodium (Protonix) 40 mg DAILY PO 05/18/19 09:00 05/21/19 08:37 Patient Own Medication (Patient'S Own Med) 2 TABLETS (30MG) TID PO 05/17/19 16:00 05/18/19 14:59 DC Patient Own Medication (Patient'S Own Med) 2 TABLETS (30MG) TID PO 05/18/19 16:00 05/21/19 08:30 Pyridoxine HCl (Vitamin B6) 100 mg DAILY PO 05/18/19 09:00 05/21/19 08:37 Senna (Senokot) 2 tab DAILY@1200 PO 05/19/19 12:45 05/21/19 12:25 Senna (Senokot) 2 tab QHS PO 05/17/19 21:00 4/1/20 12:43 DC 05/18/19 21:40 Simethicone (Mylicon) 80 mg TID PO 05/17/19 16:15 05/21/19 08:35 Tamsulosin HCl (Flomax) 0.4 mg QHS PO 05/20/19 21:00 05/20/19 21:38 Trazodone HCl (Desyrel) 25 mg QHS PO 05/17/19 21:00 05/20/19 21:36 Vitamin D (Vitamin D) 2,000 units DAILY PO 05/18/19 09:00 05/21/19 08:36 ANGELITA HOBBS MD May 21, 2019 15:26
[2019-05-21] MEDS: BISACODYL 10 MG SUPP PR SCH (18:31)
[2019-05-21 20:00] VITALS: BP 127/68
[2019-05-21] MEDS: traZODone 25MG PER 1/2 TABLET PO SCH (21:19)
[2019-05-21] MEDS: TAMSULOSIN 0.4 MG CAP PO SCH (21:19)
[2019-05-21] MEDS: ESTROGENS VAGINAL CREAM 30GM PV SCH (21:20)
[2019-05-22 06:00] VITALS: BP 133/62
[2019-05-22] MEDS: HumaLOG INSULIN (NovoLOG) PER UNIT SC SCH ×4 (08:46→20:48)
[2019-05-22] MEDS: LEVEMIR (INSULIN DETEMIR) 1 UNITS/0.01ML SC SCH ×2 (08:46→20:48)
[2019-05-22] MEDS: HEPARIN SOD (PORCINE) 5000 UNITS/ML VIAL (J1644 PER 1000UNITS) SC SCH ×2 (08:46→20:45)
[2019-05-22] MEDS: PHENELZINE 15 MG PO SCH ×3 (08:47→20:46)
[2019-05-22] MEDS: MAGNESIUM OXIDE 400 MG TAB (MAG-OX) PO SCH (08:47)
[2019-05-22] MEDS: PANTOPRAZOLE 40MG TAB (PROTONIX) PO SCH (08:48)
[2019-05-22] MEDS: CALCIUM/VITAMIN D 500 MG TAB PO SCH (08:48)
[2019-05-22] MEDS: BACLOFEN 10 MG TAB PO SCH ×3 (08:48→20:47)
[2019-05-22] MEDS: FERROUS GLUCONATE 324 MG TAB PO SCH (08:48)
[2019-05-22] MEDS: ACETAMINOPHEN 500 MG TAB PO SCH ×3 (08:48→20:46)
[2019-05-22] MEDS: PYRIDOXINE 50 MG TAB PO SCH (08:48)
[2019-05-22] MEDS: SIMETHICONE 80 MG CHEW TAB PO SCH ×3 (08:48→20:55)
[2019-05-22] MEDS: FUROSEMIDE 20 MG TAB PO SCH (08:49)
[2019-05-22] MEDS: MULTIVITAMINS/MINERALS THERAP 1 TAB PO SCH (08:49)
[2019-05-22] MEDS: LACTOBACILLUS ACIDOPHILUS CAP (BACID) PO SCH ×3 (08:49→20:47)
[2019-05-22] MEDS: GABAPENTIN 400 MG CAP PO SCH ×3 (08:49→20:45)
[2019-05-22] MEDS: LINEZOLID 600MG TABLET (ZYVOX) PO SCH (08:49)
[2019-05-22] MEDS: DOCUSATE SODIUM 100 MG CAP PO SCH ×3 (08:49→20:47)
[2019-05-22] MEDS: VITAMIN D 1,000 INTERNATIONAL UNITS TABLET PO SCH (08:49)
[2019-05-22] MEDS: REMEDY PHYTOPLEX Z-GUARD PASTE 113GM TUBE (FROM STOREROOM PRODUCT) TOP SCH ×4 (08:50→20:49)
[2019-05-22] MEDS: LISINOPRIL *2.5 MG* TAB PO SCH (08:50)
[2019-05-22] MEDS: OMEGA-3 1000MG CAPSULE PO SCH (08:50)
[2019-05-22] MEDS: METOPROLOL SUCC (TopROL XL) 50MG **XL** TAB PO SCH (08:52)
[2019-05-22] MEDS: SENNA 8.6 MG TAB (SENOKOT) PO SCH (12:28)
[2019-05-22 14:00] VITALS: BP 136/69
[2019-05-22] MEDS: BISACODYL 10 MG SUPP PR SCH (17:33)
[2019-05-22 20:00] VITALS: BP 134/67
[2019-05-22] MEDS: TAMSULOSIN 0.4 MG CAP PO SCH (20:45)
[2019-05-22] MEDS: traZODone 25MG PER 1/2 TABLET PO SCH (20:47)
[2019-05-22] MEDS: ESTROGENS VAGINAL CREAM 30GM PV SCH (20:49)
[2019-05-23 05:00] VITALS: BP 120/58
[2019-05-23] MEDS: REMEDY PHYTOPLEX Z-GUARD PASTE 113GM TUBE (FROM STOREROOM PRODUCT) TOP SCH ×2 (09:00→12:53)
[2019-05-23] MEDS: oxyCODONE 5MG TAB PO PRN (09:11)
[2019-05-23] MEDS: FERROUS GLUCONATE 324 MG TAB PO SCH (09:12)
[2019-05-23] MEDS: SIMETHICONE 80 MG CHEW TAB PO SCH (09:12)
[2019-05-23] MEDS: BACLOFEN 10 MG TAB PO SCH (09:12)
[2019-05-23] MEDS: GABAPENTIN 400 MG CAP PO SCH (09:12)
[2019-05-23] MEDS: LACTOBACILLUS ACIDOPHILUS CAP (BACID) PO SCH (09:12)
[2019-05-23] MEDS: PANTOPRAZOLE 40MG TAB (PROTONIX) PO SCH (09:12)
[2019-05-23] MEDS: MAGNESIUM OXIDE 400 MG TAB (MAG-OX) PO SCH (09:13)
[2019-05-23] MEDS: MULTIVITAMINS/MINERALS THERAP 1 TAB PO SCH (09:13)
[2019-05-23] MEDS: FUROSEMIDE 20 MG TAB PO SCH (09:13)
[2019-05-23] MEDS: VITAMIN D 1,000 INTERNATIONAL UNITS TABLET PO SCH (09:13)
[2019-05-23] MEDS: PYRIDOXINE 50 MG TAB PO SCH (09:13)
[2019-05-23 09:14] VITALS: BP 132/82
[2019-05-23] MEDS: OMEGA-3 1000MG CAPSULE PO SCH (09:14)
[2019-05-23] MEDS: LINEZOLID 600MG TABLET (ZYVOX) PO SCH (09:14)
[2019-05-23] MEDS: LISINOPRIL *2.5 MG* TAB PO SCH (09:14)
[2019-05-23] MEDS: ACETAMINOPHEN 500 MG TAB PO SCH (09:14)
[2019-05-23] MEDS: DOCUSATE SODIUM 100 MG CAP PO SCH (09:14)
[2019-05-23] MEDS: CALCIUM/VITAMIN D 500 MG TAB PO SCH (09:14)
[2019-05-23] MEDS: PHENELZINE 15 MG PO SCH (09:15)
[2019-05-23] MEDS: METOPROLOL SUCC (TopROL XL) 50MG **XL** TAB PO SCH (09:15)
[2019-05-23] MEDS: HEPARIN SOD (PORCINE) 5000 UNITS/ML VIAL (J1644 PER 1000UNITS) SC SCH (09:15)
[2019-05-23] MEDS: HumaLOG INSULIN (NovoLOG) PER UNIT SC SCH ×2 (09:16→12:00)
[2019-05-23] MEDS: LEVEMIR (INSULIN DETEMIR) 1 UNITS/0.01ML SC SCH (09:16)
[2019-05-23 10:30] VITALS: BP 152/82
--- NOTE | 2019-05-23 10:49 | IPNPDOC ---
Subjective Date Seen The patient was seen on 05/23/19. Subjective Chief Complaint/HPI Patient complaining of severe headache squeezing-type in nature, bilateral, no association with nausea, vomiting or blurred vision Patient also complaining of a spinal pain at the site of previous surgeries. On and also informed that bled. Patient's blood pressure is 170/78 but repeat manualy was 150/70. General: Denies: ROS Unobtainable, Chills, Night Sweats, Fatigue, Malaise, Normal Appetite, Other Symptoms Constitutional: Denies: Chills, Fever, Malaise, Night Sweats, Weakness, Fatigue, Weight Loss, Lethargy, Other Cardiovascular: Denies: Chest Pain, Palpitations, Orthopnea, Paroxysmal Noc. Dyspnea, Edema, Lt Headedness, Other Symptoms Gastrointestinal: Denies: Nausea, Vomiting, Abdominal Pain, Diarrhea, Constipation, Melena, Hematochezia, Other Symptoms Genitourinary: Denies: Dysuria, Frequency, Incontinence, Hematuria, Retention, Other Symptoms Endocrine: Denies: Polydipsia, Polyphagia, Polyuria, Heat Intolerance, Cold Intolerance, Other Endocrine Sx Musculoskeletal: Denies: Neck Pain, Back Pain, Shoulder Pain, Arm Pain, Hand Pain, Leg Pain, Foot Pain, Joint Pain, Muscle Pain, Spasms, Other Symptoms Neurological: Reports: Other Symptoms (headache and a spinal pain since this morning) Objective Physical Examination General Exam: Positive: Alert, Cooperative Eye Exam: Positive: PERRLA, Conjunctiva & lids normal Chest Exam: Positive: Clear to auscultation, Normal air movement Heart Exam: Positive: Rate Normal, Normal S1, Normal S2 Abdomen Exam: Positive: Normal bowel sounds, Soft Extremity Exam: Positive: Normal pulses Skin Exam: Positive: Nl turgor and temperature Neuro Exam: Positive: Other (. Positive tenderness in T12 on palpation, but no spinal leak was noted, no focal motor or sensory deficit. No cranial nerve deficit) Assessment /Plan Problems (1) Neurogenic bladder Status: Acute (2) HTN (hypertension) Status: Chronic (3) Diabetes Status: Chronic (4) CAD (coronary artery disease) Status: Chronic (5) Paraplegia Status: Acute (6) Chordoma of lumbar spine Status: Acute (7) Incomplete lesion of lumbar spinal cord Status: Acute (8) NSTEMI (non-ST elevated myocardial infarction) Status: Acute Plan/VTE VTE Prophylaxis Ordered?: Yes Plan Patient examined at the bedside. Clinically neuro exam shows the tenderness at the T12 on palpation, otherwise no spinal leak. No focal motor sensory deficit. No cranial nerve deficit Repeat blood pressure taken manually was 150/70. Patient is very anxious and is still complaining of headache in the spine and pain We will request CT of T-spine, LS spine and head without contrast for any sudden acute change Will order morphine sulfate 5 mg IM 1 and will follow pending radiological workup Continue all present meds CBC, CMP has been ordered for tomorrow morning PT was stopped secondary to patient's complaining of spinal pain VS, I&O, 24H, Fishbone Vital Signs/I&O Vital Signs Date Time Temp Pulse Resp B/P (MAP) Pulse Ox O2 Delivery O2 Flow Rate FiO2 05/23/19 10:11 17 05/23/19 09:15 74 05/23/19 09:14 132/82 05/23/19 09:11 Room Air 05/23/19 05:00 97.3 94 05/20/19 23:57 2.0 I&O- Last 24 Hours up to 6 AM 05/23/19 06:00 Intake Total 1340 ml Output Total 1025 ml Balance 315 ml Laboratory Data 24H LABS Laboratory Tests 2 05/22/19 11:35: Bedside Glucose (Misc Panel) 159H 05/22/19 16:30: Bedside Glucose (Misc Panel) 184H 05/22/19 20:11: Bedside Glucose (Misc Panel) 262H 05/23/19 05:29: Bedside Glucose (Misc Panel) 212H MICHELE AVILES MD May 23, 2019 10:49
[2019-05-23] MEDS ORDERED: MORPHINE 4 MG/ML 1ML VIAL/SYRINGE (J2270) IM ONE (11:00)
--- NOTE | 2019-05-23 12:28 | REPVR ---
PROCEDURE INFORMATION: Exam: CT Lumbar Spine Without Contrast Exam date and time: 05/23/2019 11:10 AM Age: 64 years old Clinical indication: Pain; Additional info: Spinal pain, HX of T12 chondroma TECHNIQUE: Imaging protocol: Computed tomography images of the lumbar spine without contrast. Radiation optimization: All CT scans at this facility use at least one of these dose optimization techniques: automated exposure control; mA and/or kV adjustment per patient size (includes targeted exams where dose is matched to clinical indication); or iterative reconstruction. COMPARISON: No relevant prior studies available. FINDINGS: Tubes, catheters and devices: An inferior vena cava filter is present with the upper tip at the L1-L2 level. Vertebrae: Bilateral thoracic and lumbar spinal pedicle screw and collins systems (ending at the L5 level), with streak artifact. Partially imaged vertebral body graft extending slightly into the upper L1 level. A remnant of a previous graft in the L1 vertebral body is also present. The left L4 pedicle screw extends slightly into the lateral recess. Discs/Spinal canal/Neural foramina: No spinal canal stenosis. No neural foraminal narrowing. Intraperitoneal space: Operative site gas fluid collections at the T12 level are redemonstrated. Soft tissues: Posterior soft tissue edema at the lower thoracic spinal level. IMPRESSION: 1. Postoperative changes as above. 2. Please see the CT thoracic spine report of the same date for additional findings. Electronically signed by: Julien Butts On 05/23/2019 12:28:08 PM
--- NOTE | 2019-05-23 12:28 | REPVR ---
PROCEDURE INFORMATION: Exam: CT Thoracic Spine Without Contrast Exam date and time: 05/23/2019 11:10 AM Age: 64 years old Clinical indication: Pain in thoracic spine; Additional info: Spinal pain, HX of T12 chondroma TECHNIQUE: Imaging protocol: Computed tomography images of the thoracic spine without contrast. Radiation optimization: All CT scans at this facility use at least one of these dose optimization techniques: automated exposure control; mA and/or kV adjustment per patient size (includes targeted exams where dose is matched to clinical indication); or iterative reconstruction. COMPARISON: No relevant prior studies available. FINDINGS: Vertebrae: Posterior laminectomies at T11 and T12. Near-total T12 corpectomy. Loculated gas and fluid at the T12 operative site posterolaterally bilaterally (series 203, image 72); on the left this is estimated to be approximately 19 x 17 x 34 mm in size, on the right in aggregate, approximately 28 x 21 x 32 mm in size. Vertebral body graft at the mid T11 level to the T12-L1 level. Partially imaged L1 vertebral body graft, no evidence of union. Apparent left-sided additional rib graft from upper T11 to mid T12. Bilateral multiple thoracic and lumbar spinal pedicle screw and collins systems, bilateral T3 superior sub laminar hooks. The left T4 pedicle screw passes slightly into the left anterolateral spinal canal recess. Left lateral fixation hardware at T10 through L1. T10-11 disc space graft with partial bony union. Discs/Spinal canal/Neural foramina: See "Vertebrae" finding. Soft tissues: Posterior soft tissue gas fluid collection at the T9-10 level measuring approximately 12.9 x 7.2 x 14.9 mm (series 202, image 52; series 205, image 26). Vasculature: LAD, LCx and RCA calcified coronary atherosclerosis. IMPRESSION: 1. Postoperative changes as above. 2. Loculated gas and fluid collections at the T12 operative site posterolaterally bilaterally, and in the left posterior soft tissues at T9-10. These could represent abscesses, versus postoperative changes if recent procedures. Clinical correlation recommended. 3. Coronary atherosclerosis. Electronically signed by: Julien Butts On 05/23/2019 12:28:43 PM
--- NOTE | 2019-05-23 12:42 | REP ---
CT BRAIN WITHOUT CONTRAST: CT brain performed without IV contrast. Coronal reconstruction images are performed. Ventricles are normal in size and position with no midline shift of mass effect. Garcia-white differentiation is well maintained. There is no acute hemorrhage. There is no extra-axial fluid collection. There are mild vascular calcifications in the carotid siphons. The visualized paranasal sinuses are clear. IMPRESSION: Essentially negative noncontrast CT brain. There are vascular calcifications in the carotid siphons. Electronically Signed by Estevan Garcia MD 05/23/2019 12:45 P
[2019-05-23] MEDS: SENNA 8.6 MG TAB (SENOKOT) PO SCH (13:01)
[2019-05-23 14:00] VITALS: BP 174/73
[2019-05-23 14:30] VITALS: BP 174/73
[2019-05-23] MEDS ORDERED: NALOXONE INJ 0.4 MG/1 ML VIAL (J2310) As Ordered ONE (14:53)
[2019-05-23] MEDS ORDERED: NALOXONE INJ 0.4 MG/1 ML VIAL (J2310) IV STA ×2 (15:00→15:15)
[2019-05-23] MEDS ORDERED: NS 1,000 ML IV SCH (15:30)
--- NOTE | 2019-05-27 10:53 | PMRDS ---
DATE OF ADMISSION: 05/17/2019 DATE OF DISCHARGE: 05/23/2019 CHIEF COMPLAINT/DISCHARGE DIAGNOSIS: T12-L1 chordoma status post resection, sepsis. 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 On admission she was noted to have significant bilateral LE edema, for which Dopplers were negative for DVT and ECHO negative for significant systolic/diastolic dysfunction. Myelogram on 04-30-19 showed, Severe thecal sac compression with a myelographic block at the L1 level. Patient was evaluated by neurosurgery who assisted in surgery with orthopedics for revision tumor excision of intra and extradural spinal chordoma T12, L1 on 05-07-19. Hemovac was placed and follow-up CT myelogram did not reveal a CSF leak. She had headaches that responded to keeping the head of the bed elevated. Goodrich was placed due to neurogenic bladder and she was placed on a bowel regimen for neurogenic bowel. She was evaluated by therapy and was well below her prior level of function for mobility and ADLs and deemed medically appropriate for discharge to ARU on 05-17-19. PAST MEDICAL HISTORY: As per HPI. HOSPITAL COURSE: The patient was admitted and enrolled in a comprehensive physical therapy (PT), occupational therapy (OT) program. She received 24-hour nursing supervision and weekly team meetings were held to discuss her progress. The patient was maintained on prophylactic Zyvox with her history of recurrent hardware infection, and she was able to maintain spinal precautions. The patient was placed on a neurogenic bowel regimen and her pain was controlled with Tylenol, oxycodone, gabapentin. Her methocarbamol was switched to baclofen with no difficulty tolerating this new medication. On 05/21/2019, the patient began trial of void, Goodrich was removed having been started on Flomax. Her incision site had drainage, which was scant, and her dressing was changed to silver Optifoam opted on 05/19/2019, incision site looked was clean, dry, intact with no induration or erythema. The patient was discharged to a higher level of care on 05/23/2019, from which she was eventually transferred back to see [facility] - concern for sepsis. DISCHARGE MEDICATIONS: As per instructions. FUNCTIONAL HISTORY OF DISCHARGE: The patient was mod assist for functional transfers, contact guard assist for toileting, modified independent for wheelchair mobility. Thank you for this referral.
== END 2019-05-23 15:23 | disposition other institution (70) | DRG 52 ==
LOC: M PM&R 11:18
PROVIDERS: ADMIT Physical Medicine & Rehabilitation; ATTEND Physical Medicine & Rehabilitation
DX: G82.22 Paraplegia, incomplete (principal); C41.2 Malignant neoplasm of vertebral column; I12.9 Hypertensive chronic kidney disease with stage 1 through stage 4 chronic kidney disease, or unspecified chronic kidney disease; G47.33 Obstructive sleep apnea (adult) (pediatric); E11.51 Type 2 diabetes mellitus with diabetic peripheral angiopathy without gangrene; N31.9 Neuromuscular dysfunction of bladder, unspecified; Z79.899 Other long term (current) drug therapy; Z79.4 Long term (current) use of insulin; Z88.0 Allergy status to penicillin; Z88.2 Allergy status to sulfonamides; I25.10 Atherosclerotic heart disease of native coronary artery without angina pectoris; Z95.2 Presence of prosthetic heart valve; F32.9 Major depressive disorder, single episode, unspecified; N18.3 Chronic kidney disease, stage 3 (moderate); I35.0 Nonrheumatic aortic (valve) stenosis; M19.90 Unspecified osteoarthritis, unspecified site; D64.9 Anemia, unspecified; Z85.3 Personal history of malignant neoplasm of breast; E66.01 Morbid (severe) obesity due to excess calories; K21.9 Gastro-esophageal reflux disease without esophagitis; I25.2 Old myocardial infarction; E83.42 Hypomagnesemia; E11.9 Type 2 diabetes mellitus without complications

== ENCOUNTER 2019-05-23 15:17 | Inpatient (IN) | payer MEDICARE, BC, OTHER ==
[2019-05-23] VITALS (8 sets, daily range): BP systolic 147–178; BP diastolic 56–84; O2SAT 96
[~2019-05-23 15:17] MED LIST changes: +LIDO5DIS41 TD; +MELA3TAB60 PO; +METH750T2 PO; +OXYC1TAB23 PO; +PRAL1INJ2 SC; +VITAD1000T PO
[2019-05-23] MEDS ORDERED: ACETAMINOPHEN 650 MG SUPP PR PRN (15:30)
[2019-05-23] MEDS ORDERED: GLUCAGON FOR INJ 1 MG VIAL (J1610) SC PRN (15:45)
[2019-05-23] MEDS ORDERED: GLUCOSE 4 GM CHEW TABLET PO PRN (15:45)
[2019-05-23] MEDS ORDERED: DEXTROSE 50% 50 ML SYRINGE IV PRN (15:45)
[2019-05-23 15:51] LABS: ABG BASE EXCESS -0.1 (-2.0-2.0); ABG HCO3 25.3 MEQ/L (22.0-26.0); ABG PARTIAL PRESSURE CO2 43.9 mmHg (35.0-45.0); ABG PARTIAL PRESSURE O2 91.9 mmHg (75.0-100.0); ABG STANDARD HCO3 24.4 MEQ/L (22.0-26.0); ABG TOTAL CO2 26.6 MEQ/L (23.0-31.0); ABG pH (ARTERIAL) 7.378 UNITS (7.350-7.450)
[2019-05-23] MEDS ORDERED: cefTRIAXone SOD 2 GM in D5W MINI-BAG PLUS 50 ML IV SCH (16:00)
[2019-05-23] MEDS ORDERED: NS 1,000 ML IV SCH (16:00)
--- NOTE | 2019-05-23 16:00 | HPEPDOC ---
General Date of Admission May 23, 2019 at 15:23 Date of Service: May 23, 2019 Chief Complaint The patient is a 64-year-old female admitted with a reason for visit of Altered Mental Status. Source: RN/, Old records Timing/Duration: Other (altered mental status) Severity: Other (, not applicable) Associated Symptoms: Other (. 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 Patient was transferred from [facility] to U directly after having revision and excision of extradural/extradural chordoma at [facility]. The patient has had prior decompressions of a chordoma and was being followed by [facility]. She presented to [facility] orthopedic clinic on 04/28 with worsening back pain and left hip pain along with bilateral lower extremity edema. She also had some right foot drop which was worsened from previously. Dr. Patel (orthopedic surgery) direct admitted to [facility] for pain control and further workup. Myelogram showed evidence for possible tumor recurrence. On 05/07/2027 patient had a revision and excision of intradural/extradural chordoma per Dr. Patel. She had a stable postoperative course. Patient has started physical therapy in ARU here was in usual state of health until this morning when she complained of headache and back pain. Patient had a CT of the head done which showed no stroke or bleeding in the brain and also had a CT of T-spine and lumbar spine done which showed postop changes, no acute pathology. Later on this afternoon. Patient was found to be lethargic, mumbling to herself responding to some questions but not clearly, she had received 5 mg of morphine, sulfate, hence, she was given Narcan 0.8 mg without any success. Patient is also found to be febrile and does have a history of meningitis in the past, hence we will patient will be admitted to PCU with the diagnosis of sepsis, most likely secondary to meningitis and has been started on IV antibiotics and workup has been ordered. Home Medications Scheduled Alirocumab (Praluent Pen) 150 Mg/1 Ml Pen.injctr, 1 INJ SC Q2WK, (Reported) ON SUNDAYS Calcium Carbonate/Vitamin D3 (Calcium 600-Vit D3 200 Tablet) 1 Each Tablet, 1 TAB PO DAILY, (Reported) Cholecalciferol (Vitamin D3) (Vitamin D3) 1,000 Unit Tablet, 2,000 UNITS PO DAILY, (Reported) Docusate Sodium (Colace) 100 Mg Capsule, 100 MG PO BID, (Reported) Ferrous Gluconate (Ferrous Gluconate) 324 Mg Tablet, 324 MG PO BID, (Reported) Furosemide (Furosemide) 20 Mg Tablet, 20 MG PO DAILY, (Reported) Gabapentin (Gabapentin) 400 Mg Capsule, 400 MG PO TID, (Reported) Gluc Hinojosa/Chondro Hinojosa A/Vit C/Mn (Glucosamine Chondroitin Tab) 1 Each Tablet, 1 TAB PO BID, (Reported) Insulin Glargine,Hum.rec.anlog (Toujeo Solostar) 300 Unit/1 Ml Insuln.pen, 100 UNIT SC QHS, (Reported) WAS GIVEN 20 UNITS OF LANTUS AT [facility] Insulin Human Lispro (Novolog) 100 Unit/1 Ml Vial, 1 DOSE SC AC, (Reported) PER SLIDING SCALE. WAS GIVEN HUMALOG PER SLIDING SCALE AT [facility] WITH LAST DOSE ON 05/17/2019 Lidocaine (Lidoderm) 5% Adh..patch, 2 PATCH TD DAILY, (Reported) Apply to area of pain, Remove patches after 12 hours Linezolid (Linezolid) 600 Mg Tablet, 600 MG PO DAILY, (Reported) Lisinopril (Lisinopril) 2.5 Mg Tablet, 2.5 MG PO DAILY, (Reported) Magnesium Oxide (Magnesium Oxide) 400 Mg Tablet, 400 MG PO DAILY, (Reported) Melatonin (Melatonin) 3 Mg Tablet, 3 MG PO QHS, (Reported) Methocarbamol (Methocarbamol) 750 Mg Tablet, 750 MG PO QID, (Reported) Metoprolol Succinate (Metoprolol Succinate) 50 Mg Tab.er.24h, 50 MG PO DAILY, (Reported) Multivitamin (Multivitamins) 1 Each Capsule, 1 CAP PO DAILY, (Reported) [place]-3 Fatty Acids ([place]-3) 1,000 Mg Capsule, 1,000 MG PO BID, (Reported) Pantoprazole Sodium (Protonix) 40 Mg Tablet.dr, 40 MG PO BID, (Reported) Phenelzine Sulfate (Phenelzine Sulfate) 15 Mg Tablet, 30 MG PO TID, (Reported) Scheduled PRN Bisacodyl (Bisacodyl) 10 Mg Supp.rect, 10 MG IN DAILY PRN for CONSTIPATION, (Reported) Estradiol (Estrace) 42.5 Gm Cream.appl, 1 DOSE PV PRN PRN for IRRITATION, (Reported) APPLY SMALL AMOUNT Glucagon,Human Recombinant (Glucagon Emergency Kit) 1 Mg Vial, 1 MG SC ASDIRECTED PRN for SEVERE LOW BLOOD SUGAR, (Reported) Nitroglycerin (Nitrostat) 0.4 Mg Tab.subl, 0.4 MG SL NITRO PRN for CHEST PAIN, (Reported) Oxycodone HCl/Acetaminophen (Oxycodone-Acetaminophen 5-325) 1 Each Tablet, 1 TAB PO Q4H PRN for PAIN, (Reported) GIVEN IR OXYCODONE 5MG AT [facility] Allergies Coded Allergies: Penicillins (Verified Allergy, Intermediate, RASH/HIVES, 07/23/18) Sulfa (Sulfonamide Antibiotics) (Verified Allergy, Intermediate, REDNESS/SWELLING, 07/23/18) sulindac (Verified Adverse Reaction, Intermediate, COLITIS, 07/23/18) Past Medical History Medical History Hypertension, CAD, status post 1 stent placement, diabetes mellitus type 2, LIZ, aortic wall stenosis, CK D, stage II, depression, anemia, chondroma of spine status post decompression with multiple complicated hospitalizations, arthritis, history of breast cancer, coronary AV fistula, morbid obesity, peptic ulcer disease, bilateral foot drop Surgical History Revision and excision of intradural/extradural chordoma 05/07/2019, breast reconstruction surgery, left breast mastectomy, [place] filter placement, hysterectomy, nephrectomy, posterior spinal fusion and instrumentation on 10/18/2014, thoracotomy with exploration and removal of T12, revision fusion T12-L1 with humeral allograft, anterior fusion L1-L2, T10, T 11 on 09/21/2013 , T12-L1 revision tumor resection, T6-L4 revision posterior reconstruction with instrumentation (07/23/2016) Wound exploration, irrigation and debridement, lumbar dura repair (07/05/2018),Revision of instrumentation T3-L5, revision of pedicle screws L5, irrigation and Breitman of the radical lumbar wound (10/14/2014) Revision decompression and fusion with debulking of chordoma thoracic and lumbar spine (06/19/2018) ,Anterior corpectomy 1012L1, partial corpectomy L2, vascularized rib grafting and anterior thoracolumbar instrumentation with C-arm (07/29/2016) Family History History of diabetes and A. fib on mother's side, history of lymphoma on the father's side History of A. fib- multiple siblings Social History * Smoker: Denies Alcohol: Denies Drugs: denies A-FIB/CHADSVASC A-FIB History Current/History of A-Fib/PAF?: No Review of Systems Constitutional: Reports: Other (able to obtained review of systems secondary to patient's mental status) Physical Examination General Exam: Positive: Other (awake, but slightly confused and lethargic, mumbling to herself when asked question. She tries to answer, but doesn't comprehend) Eye Exam: Positive: PERRLA, Conjunctiva & lids normal ENT Exam: Positive: Atraumatic, Mucous membr. moist/pink Neck Exam: Positive: Supple Chest Exam: Positive: Clear to auscultation, Normal air movement Heart Exam: Positive: Rate Normal, Normal S1, Normal S2 Abdomen Exam: Positive: Normal bowel sounds, Soft Extremity Exam: Positive: Normal pulses Skin Exam: Positive: Nl turgor and temperature Neuro Exam: Positive: Other (able to perform neuro exam secondary to patient's mental status) Psych Exam: Positive: Other (, unable to perform psych exam, secondary patient mental status) Vital Signs Vital signs are pending Problems (1) Sepsis Status: Acute Problem Text: Most likely sepsis as patient was complaining of headache with the back pain and she was febrile to 100 CT of the brain and T-spine and LS- spine were negative, but patient does have a history of meningitis in the past. Hence, cannot rule out cause of for sepsis to be meningitis. Also, there is a very strong possibility of abscess formation at the post surgical area as indicated by CT of thoracic and lumbosacral spine. Her new back pain, could be secondary to spinal abscess as the postsurgical site, and headache most likely secondary to recurrence of meningitis. Admit patient to PCU for close observation IV fluids normal saline 75 mL per hour Patient received Narcan 0.8 mg, but without any effect Will start Rocephin 2 g IV piggyback every 24 hours Vancomycin 1 g IV every every 12 hours Tylenol suppository when necessary Nothing by mouth Hold all by mouth meds Oxygen support by 2 L nasal cannula CBC, CMP, lactic acid pro calcitonin Portable chest x-ray Portable EKG MRI brain and MRI T-spine UA with reflex urine culture. Goodrich's catheter Blood cultures 2 Urine culture Spinal tap in a.m. with IR to rule out meningitis and for cultures Will request ID consult in a.m. DVT prophylaxis with bilateral SCDs Patient's , Raheem was called at his cell #[phone] and was informed about the new changes in his 's medical status and informed about transferred to PCU, he was also informed that once the workup is complete and the patient is still not improving. Patient will possibly be transferred back to [address] [place] [address] under her spinal surgeon/neurosurgeons care, he agreed with the above plan. (2) Acute metabolic encephalopathy Status: Acute Problem Text: Most likely secondary to sepsis secondary to probably meningitis IV antibiotics Lumbar puncture in a.m. for diagnostic workup IV fluids as per orders Hold all by mouth meds and nothing by mouth (3) Chordoma of lumbar spine Status: Acute Problem Text: History of chondroma resection at [facility] Will order MRI of thoracic spine If patient is in need of orthopedic support from [facility], then we'll transfer patient to Dr. Patel who has performed multiple surgeries on her spine (4) Neurogenic bladder Status: Acute Problem Text: Goodrich's catheter UA with urine culture (5) HTN (hypertension) Status: Chronic Problem Text: Hold by mouth meds Monitor vital signs and treated with IV meds to patient is in her normal mental status (6) Diabetes Status: Chronic Problem Text: Fingerstick blood sugar every 6 hours with coverage Old. All other anti-diabetic meds (7) CAD (coronary artery disease) Status: Chronic Problem Text: EKG stat order Will hold by mouth meds Plan / VTE VTE Prophylaxis Ordered?: Yes MICHELE AVILES MD May 23, 2019 16:00
--- NOTE | 2019-05-23 16:40 | PHACANCOPD ---
PHARMACY VANCOMYCIN DOSING Pt Demographics Demographics Patient Age:64 , Weight: , Gender: female Adjusted Body Weight Date: 05/23/19, Adjusted Body Weight: Kg Events Past 24 Hours Events Past 24 Hours: NO: Dialysis, Diuretic Therapy, Change in CrCl, Fever, Elevation in WBC, Pending Diagnostics, Pending Procedures, Other Vancomycin Vancomycin indication: r/o meningitis Vancomycin Target Ranges: 15-20 mcg/ml Vancomycin Load Y/N: Yes Load Dose Date Time Vancomycin Load Dose: 1000mg Date: 05/22 Time: 18:00 Vancomycin Dose Date: 05/23/19. Current Vancomycin Dose: [1g IV q12h @20] Intermittent Dosing?: No Labs Micro Microbiology 05/23/19 Urine Culture, Received Pending Creatinine Clearance Date:05/23/19. Creatinine Clearance: [~71 ml/min]. Pending Labs Vanco trough scheduled 06/22 @19:00 Assessment and Plan Maintaining Current Dose?: Yes Reason for dose change: No Dose Change Pharmacist Note Pharmacist Note Date: 05/23/19. Pharmacist note: pt has been transferred from PM&R to PCU for altered mental status. She has been started on Vancomycin and Rocephin for possible meningitis. Labs/cultures are pending. I have started her on Vancomycin 1g @18:00 followed by 1g IV q12h to begin ~2 hours later. I have a trough scheduled for tomorrow evening. We will continue to monitor and make adjustments as necessary. Modesto Richards Pharm.D. May 23, 2019 16:40
[2019-05-23 17:11] LABS: HEMATOCRIT 38.2 % (36.0-47.0); HEMOGLOBIN 12.4 g/dl (12.0-15.5); MEAN CORPUSCULAR HGB CONC 32.5 g/dl (32.0-36.5); MEAN CORPUSCULAR VOLUME 89.3 fl (80.0-96.0); PLATELET COUNT, AUTOMATED 205 10^3/uL (150-450); RED BLOOD COUNT 4.28 10^6/uL (4.00-5.40)
[2019-05-23 17:30] LABS: ALBUMIN 3.7 GM/DL (3.2-5.2); ALT/SGPT 30 U/L (12-78); BILIRUBIN,TOTAL 0.4 MG/DL (0.2-1.0); BLOOD UREA NITROGEN 17 MG/DL (7-18); CALCIUM LEVEL 9.4 MG/DL (8.8-10.2); CARBON DIOXIDE LEVEL 25 MEQ/L (21-32); CHLORIDE LEVEL 98 MEQ/L (98-107); CREATININE FOR GFR 0.85 MG/DL (0.55-1.30); GLOMERULAR FILTRATION RATE > 60.0 (>45); GLUCOSE, FASTING 371 MG/DL (70-100); POTASSIUM SERUM 3.9 MEQ/L (3.5-5.1); SODIUM LEVEL 135 MEQ/L (136-145); TOTAL PROTEIN 7.7 GM/DL (6.4-8.2)
[2019-05-23] MEDS: HumaLOG INSULIN (NovoLOG) PER UNIT SC SCH ×2 (17:49→23:56)
[2019-05-23] MEDS ORDERED: VANCOMYCIN HCL 1,000 MG, VIAL MATE ADAPTER 1 EACH in D5W 250 ML IV ONE (18:00)
[2019-05-23] MEDS ORDERED: VANCOMYCIN HCL 1,000 MG, VIAL MATE ADAPTER 1 EACH in D5W 250 ML IV SCH (20:00)
[2019-05-23] MEDS ORDERED: MORPHINE 2 MG/ML 1ML VIAL (J2270) IV STA (23:52)
[2019-05-23] MEDS ORDERED: MORPHINE 2 MG/ML 1ML VIAL (J2270) As Ordered ONE (23:54)
[2019-05-23] MEDS ORDERED: LORazepam 2 MG/ML VIAL (J2060) IV STA (23:55)
[2019-05-24] VITALS (9 sets, daily range): BP systolic 92–150; BP diastolic 46–78; O2SAT 95–98
--- NOTE | 2019-05-24 00:02 | DS.PDOC ---
Discharge Summary General Date of Admission 17/06/2019 Date of Discharge 06/21/2019 Attending Physician: MICHELE AVILES MD Specialist/Consultants Involve: ANGELITA HOBBS MD Specialist/Consultants Involve Discharge Summary PROCEDURES PERFORMED DURING STAY: [None]. ADMITTING DIAGNOSES: (1) Sepsis possibly 2/2 meningitis. (2) Acute metabolic encephalopathy (3) Chordoma of lumbar spine (4) Neurogenic bladder (5) Chronic HTN (hypertension) (6) Diabetes (7) Chronic CAD (coronary artery disease) DISCHARGE DIAGNOSES: (1) Sepsis possibly 2/2 meningitis/encephalitis (2) Acute metabolic encephalopathy (3) Possible Thoracic Lumbar Spine Abscess (4) Chordoma of lumbar spine (5) Neurogenic bladder (6) Chronic HTN (hypertension) (7) Diabetes (8) Chronic CAD (coronary artery disease) COMPLICATIONS/CHIEF COMPLAINT: Altered Mental Status. HISTORY OF PRESENT ILLNESS: Per HPI "presented to [facility] orthopedic clinic on 04/28 with worsening back pain and left hip pain along with bilateral lower extremity edema. She also had some right foot drop which was worsened from previously. Dr. Patel (orthopedic surgery) direct admitted to [facility] for pain control and further workup. Myelogram showed evidence for possible tumor recurrence. On 05/07/2027 patient had a revision and excision of intradural/extradural chordoma per Dr. Patel. She had a stable postoperative course. " HOSPITAL COURSE: She was transferred to [facility] on May 17 2019 for rehab but she began to complain of a headache on 05/23/2019. CT of the head "IMPRESSION: Essentially negative noncontrast CT brain. There are vascular calcifications in the carotid siphons.". CT of the lumbar spine "IMPRESSION: 1. Postoperative changes as above. 2. Please see the CT thoracic spine report of the same date for additional findings." CT of the thoracic spine "IMPRESSION: 1. Postoperative changes as above. 2. Loculated gas and fluid collections at the T12 operative site posterolaterally bilaterally, and in the left posterior soft tissues at T9-10. These could represent abscesses, versus postoperative changes if recent procedures. Clinical correlation recommended. 3. Coronary atherosclerosis." After obtaining consent from the patient's , (anesthesiologist) prepared to perform an emergent lumbar puncture, but aborted the procedure because the dressings were placed in such a way that it would be unsafe to remove them she also noted that the patient had asymmetrical redness, swelling and induration at the lower back. Per d/w at [facility] the patient will be transferred. She will need Neurosurgical evaluation and possible LP vs exploratory surgery. DISCHARGE MEDICATIONS: Please see below. ALLERGIES: Please see below. PHYSICAL EXAMINATION ON DISCHARGE: VITAL SIGNS: Please see below. GENERAL: Agitated SKIN: The dressing covering the spine is clean, dry and intact. There is r edness, warmth and swelling on the left side of the mid lower back along with a bulge at the right part of the lower back NEUROLOGICAL EXAMINATION: She is uncooperative, therefore, unable to assess PSYCHIATRIC EXAMINATION: Patient is uncooperative, therefore, unable to assess LABORATORY DATA: Please see below. IMAGING: See hospital course PROGNOSIS: Guarded ACTIVITY: [As tolerated]. DIET: Nothing by mouth DISCHARGE PLAN / DISPOSITION: Transfer to [facility] DISCHARGE INSTRUCTIONS / ITEMS TO FOLLOWUP: 1. Patient will need neurosurgical/orthopedic spinal eval to assess the fluid collection around her back. 2. She may need a lumbar puncture to determine the cause of her encephalitis/meningitis 3. COVID-19 testing was ordered at [facility] please call to follow-up on the results DISCHARGE CONDITION: [Stable]. TIME SPENT ON DISCHARGE: About 75 minutes was spent talking with the patient's , coordinating attempted LP with anesthesia, communicating with the transfer center and completing the transfer and discharge paper work. Vital Signs/I&Os Vital Signs Date Time Temp Pulse Resp B/P (MAP) Pulse Ox O2 Delivery O2 Flow Rate FiO2 05/23/19 21:59 98.1 97 36 147/67 (93) 97 Nasal Cannula 2.0 I&O- Last 24 Hours up to 6 AM 05/24/19 05:59 Intake Total 600 ml Output Total 1650 ml Balance -1050 ml Laboratory Data Labs 24H Laboratory Tests 2 05/23/19 15:43: Blood Gas Bicarbonate Standard 24.4, Arterial Blood pH 7.378, Arterial Blood Partial Pressure CO2 43.9, Arterial Blood Partial Pressure O2 91.9, Arterial Blood Total CO2 26.6, Arterial Blood HCO3 25.3, Arterial Blood Base Excess -0.1, Arterial Blood Oxygen Saturation 97.0 05/23/19 15:51: Bedside Glucose (Misc Panel) 321H 05/23/19 16:01: Urine Color YELLOW, Urine Appearance HAZY, Urine pH 5.0, Urine Specific [place] 1.011, Urine Protein NEGATIVE, Urine Glucose (UA) 1+H, Urine Ketones TRACEH, Urine Blood NEGATIVE, Urine Nitrite POSITIVEH, Urine Bilirubin NEGATIVE, Urine Urobilinogen 0.2, Urine Leukocyte Esterase 2+H, Urine WBC (Auto) 38H, Urine RBC (Auto) 1, Urine Hyaline Casts (Auto) 0, Urine Bacteria (Auto) 1+H, Urine Squamous Epithelial Cells 0, Urine Sperm (Auto) , Methicillin-Resist S.aureus DNA PCR NOT DETECTED 05/23/19 16:54: Nucleated Red Blood Cells % (auto) 0.0, Anion Gap 12, Glomerular Filtration Rate > 60.0, Lactic Acid Level 1.7, Calcium Level 9.4, Total Bilirubin 0.4, Aspartate Amino Transf (AST/SGOT) 22, Alanine Aminotransferase (ALT/SGPT) 30, Alkaline Phosphatase 94, Total Protein 7.7, Albumin 3.7, Albumin/Globulin Ratio 0.93L 05/23/19 19:14: Bedside Glucose (Misc Panel) 384H 05/23/19 22:04: Bedside Glucose (Misc Panel) 386H 05/23/19 23:49: Bedside Glucose (Misc Panel) 404H CBC/BMP Laboratory Tests 05/23/19 16:54 FSBS Laboratory Tests Test 05/23/19 15:51 05/23/19 19:14 05/23/19 22:04 05/23/19 23:49 Range/Units Bedside Glucose (Misc Panel) 321 384 386 404 80-115 MG/DL Microbiology Microbiology 05/23/19 Coronavirus COVID-19 PCR (HERBER), Received Pending 05/23/19 Respiratory Panel (PCR) - Final, Complete 05/23/19 Blood Culture, Received Pending 05/23/19 Urine Culture, Received Pending Discharge Medications Scheduled Alirocumab (Praluent Pen) 150 Mg/1 Ml Pen.injctr, 1 INJ SC Q2WK, (Reported) ON SUNDAYS Calcium Carbonate/Vitamin D3 (Calcium 600-Vit D3 200 Tablet) 1 Each Tablet, 1 TAB PO DAILY, (Reported) Cholecalciferol (Vitamin D3) (Vitamin D3) 1,000 Unit Tablet, 2,000 UNITS PO DAILY, (Reported) Docusate Sodium (Colace) 100 Mg Capsule, 100 MG PO BID, (Reported) Ferrous Gluconate (Ferrous Gluconate) 324 Mg Tablet, 324 MG PO BID, (Reported) Furosemide (Furosemide) 20 Mg Tablet, 20 MG PO DAILY, (Reported) Gabapentin (Gabapentin) 400 Mg Capsule, 400 MG PO TID, (Reported) Gluc Hinojosa/Chondro Hinojosa A/Vit C/Mn (Glucosamine Chondroitin Tab) 1 Each Tablet, 1 TAB PO BID, (Reported) Insulin Glargine,Hum.rec.anlog (Toujeo Solostar) 300 Unit/1 Ml Insuln.pen, 100 UNIT SC QHS, (Reported) WAS GIVEN 20 UNITS OF LANTUS AT [facility] Insulin Human Lispro (Novolog) 100 Unit/1 Ml Vial, 1 DOSE SC AC, (Reported) PER SLIDING SCALE. WAS GIVEN HUMALOG PER SLIDING SCALE AT [facility] WITH LAST DOSE ON 05/17/2019 Lidocaine (Lidoderm) 5% Adh..patch, 2 PATCH TD DAILY, (Reported) Apply to area of pain, Remove patches after 12 hours Linezolid (Linezolid) 600 Mg Tablet, 600 MG PO DAILY, (Reported) Lisinopril (Lisinopril) 2.5 Mg Tablet, 2.5 MG PO DAILY, (Reported) Magnesium Oxide (Magnesium Oxide) 400 Mg Tablet, 400 MG PO DAILY, (Reported) Melatonin (Melatonin) 3 Mg Tablet, 3 MG PO QHS, (Reported) Methocarbamol (Methocarbamol) 750 Mg Tablet, 750 MG PO QID, (Reported) Metoprolol Succinate (Metoprolol Succinate) 50 Mg Tab.er.24h, 50 MG PO DAILY, (Reported) Multivitamin (Multivitamins) 1 Each Capsule, 1 CAP PO DAILY, (Reported) [place]-3 Fatty Acids ([place]-3) 1,000 Mg Capsule, 1,000 MG PO BID, (Reported) Pantoprazole Sodium (Protonix) 40 Mg Tablet.dr, 40 MG PO BID, (Reported) Phenelzine Sulfate (Phenelzine Sulfate) 15 Mg Tablet, 30 MG PO TID, (Reported) Scheduled PRN Bisacodyl (Bisacodyl) 10 Mg Supp.rect, 10 MG IA DAILY PRN for CONSTIPATION, (Reported) Estradiol (Estrace) 42.5 Gm Cream.appl, 1 DOSE PV PRN PRN for IRRITATION, (Reported) APPLY SMALL AMOUNT Glucagon,Human Recombinant (Glucagon Emergency Kit) 1 Mg Vial, 1 MG SC ASDIRE CTED PRN for SEVERE LOW BLOOD SUGAR, (Reported) Nitroglycerin (Nitrostat) 0.4 Mg Tab.subl, 0.4 MG SL NITRO PRN for CHEST PAIN, (Reported) Oxycodone HCl/Acetaminophen (Oxycodone-Acetaminophen 5-325) 1 Each Tablet, 1 TAB PO Q4H PRN for PAIN, (Reported) GIVEN IR OXYCODONE 5MG AT [facility] Allergies Coded Allergies: Penicillins (Verified Allergy, Intermediate, RASH/HIVES, 07/23/18) Sulfa (Sulfonamide Antibiotics) (Verified Allergy, Intermediate, REDNESS/SWELLING, 07/23/18) sulindac (Verified Adverse Reaction, Intermediate, COLITIS, 07/23/18) MAHENDRA MILLER MD May 24, 2019 00:01
[2019-05-24] MEDS ORDERED: LORazepam 2 MG/ML VIAL (J2060) IV STA (00:48)
[2019-05-24] MEDS ORDERED: MORPHINE 4 MG/ML 1ML VIAL/SYRINGE (J2270) IV ONE (01:00)
--- NOTE | 2019-05-24 07:12 | ECGEPIP ---
[facility] Test Date: 2019-05-23 Pat Name: DARLIN JONES Department: Room: [place] [address] Gender: Female Manager Outpatient: SUMA : [id number] Requested By: MICHELE AVILES Order Number: [id number] Reading MD: Sagar Chapa Measurements Intervals [place] Rate: 107 P: 61 MI: 120 QRS: 3 QRSD: 89 T: 15 QT: 318 QTc: 426 Interpretive Statements Sinus tachycardia Delayed anterior R-wave progression Nonspecific ST-T wave abnormality Compared to prior tracing of 04/02/2017, heart rate is faster Electronically Signed on 05-24-2019 7:12:21 EDT by Sagar Chapa
--- NOTE | 2019-05-24 07:22 | REP ---
CHEST, SINGLE VIEW: Single view of the chest is performed and compared to a prior study 04/01/2017. There appears to be some atelectasis or infiltrate along the left hemidiaphragm. The right lung appears clear. The heart appears upper limits of normal in size. Metallic rods and screws are seen along the spine. IMPRESSION: Infiltrate/atelectasis left lung base. Electronically Signed by Estevan Garcia MD 05/24/2019 10:19 A
== END 2019-05-24 01:01 | disposition short-term general hospital (02) | DRG 862 ==
LOC: M PCU 15:23
PROVIDERS: ADMIT Internal Medicine; ATTEND Internal Medicine
DX: T81.42XA Infection following a procedure, deep incisional surgical site, initial encounter (principal); G06.1 Intraspinal abscess and granuloma; G03.9 Meningitis, unspecified; A41.9 Sepsis, unspecified organism; G93.41 Metabolic encephalopathy; C41.2 Malignant neoplasm of vertebral column; E66.01 Morbid (severe) obesity due to excess calories; I12.9 Hypertensive chronic kidney disease with stage 1 through stage 4 chronic kidney disease, or unspecified chronic kidney disease; E11.9 Type 2 diabetes mellitus without complications; I25.10 Atherosclerotic heart disease of native coronary artery without angina pectoris; Z79.899 Other long term (current) drug therapy; Z88.0 Allergy status to penicillin; Z88.2 Allergy status to sulfonamides; Z79.4 Long term (current) use of insulin; E78.5 Hyperlipidemia, unspecified; K21.9 Gastro-esophageal reflux disease without esophagitis; D64.9 Anemia, unspecified; N31.9 Neuromuscular dysfunction of bladder, unspecified; Z95.2 Presence of prosthetic heart valve; N18.2 Chronic kidney disease, stage 2 (mild); G47.33 Obstructive sleep apnea (adult) (pediatric); Z85.3 Personal history of malignant neoplasm of breast; M19.90 Unspecified osteoarthritis, unspecified site; Y83.8 Other surgical procedures as the cause of abnormal reaction of the patient, or of later complication, without mention of misadventure at the time of the procedure

== ENCOUNTER → 2019-06-30 | Outpatient (REF) | payer MEDICARE, OTHER ==
[~2019-06-30] MED LIST changes: +ACET-907 PO; +ARIP1TAB6; +ESCI5SOL3 PO; +FAMO1TAB11; -LISI-1046 PO; +LISI2.5T2 PO; -MELA3TAB60 PO; +MELA3TAB7 PO; +MERO1VIA3; +MIRA3350 PO; +ONDA-83; +PROBCAP17 PO; +PYRI25TA2 PO; +SENN-80 PO; -SENN1TAB8 PO; +SIME40TA PO; +SUCR1TAB56; +VANC-7
[2019-06-30 17:14] LABS: ALBUMIN 2.8 GM/DL (3.2-5.2); ALT/SGPT 27 U/L (12-78); BILIRUBIN,TOTAL 0.3 MG/DL (0.2-1.0); BLOOD UREA NITROGEN 21 MG/DL (7-18); C REACTIVE PROTEIN QUANTITATIV 0.52 MG/DL (0.00-0.30); CARBON DIOXIDE LEVEL 30 MEQ/L (21-32); CHLORIDE LEVEL 102 MEQ/L (98-107); CREATININE FOR GFR 0.85 MG/DL (0.55-1.30); GLOMERULAR FILTRATION RATE > 60.0 (>45); GLUCOSE, FASTING 114 MG/DL (70-100); POTASSIUM SERUM 4.5 MEQ/L (3.5-5.1); SODIUM LEVEL 138 MEQ/L (136-145); TOTAL PROTEIN 6.7 GM/DL (6.4-8.2); VANCOMYCIN LEVEL TROUGH 9.5 UG/ML (10.0-20.0)
[2019-06-30 17:17] LABS: BASO # 0.1 10^3/uL (0.0-0.2); EOS # 0.3 10^3/uL (0.0-0.5); EOS % 5.3 % (0.0-3.0); HEMATOCRIT 33.4 % (36.0-47.0); HEMOGLOBIN 10.6 g/dl (12.0-15.5); LYMPH # 1.2 10^3/uL (1.5-5.0); LYMPH % 18.8 % (24.0-44.0); MEAN CORPUSCULAR HEMOGLOBIN 28.5 pg (27.0-33.0); MEAN CORPUSCULAR HGB CONC 31.7 g/dl (32.0-36.5); MEAN CORPUSCULAR VOLUME 89.8 fl (80.0-96.0); MONO # 0.5 10^3/uL (0.0-0.8); MONO % 8.6 % (0.0-5.0); NEUTROPHILS # 4.1 10^3/uL (1.5-8.5); NEUTROPHILS % 65.5 % (36.0-66.0); PLATELET COUNT, AUTOMATED 315 10^3/uL (150-450); RED BLOOD COUNT 3.72 10^6/uL (4.00-5.40); WHITE BLOOD COUNT 6.3 10^3/uL (4.0-10.0)
[2019-06-30 18:51] LABS: ERYTHROCYTE SEDIMENTATION RATE 67 mm/hr (0-30)
== END ==
LOC: M LAB REF 16:03
PROVIDERS: ATTEND Internal Medicine
DX: G00.8 Other bacterial meningitis (principal); Z79.2 Long term (current) use of antibiotics; B96.1 Klebsiella pneumoniae [K. pneumoniae] as the cause of diseases classified elsewhere

== ENCOUNTER 2019-07-01 11:25 | Emergency (ER) | payer MEDICARE, BC, OTHER ==
[~2019-07-01] VITALS: Ht 172.7 cm; Wt 105.0 kg
[~2019-07-01 11:25] MED LIST changes: -ACET-907 PO; -ARIP1TAB6; -ESCI5SOL3 PO; -FAMO1TAB11; -MERO1VIA3; -MIRA3350 PO; -ONDA-83; -PROBCAP17 PO; -PYRI25TA2 PO; -SIME40TA PO; -SUCR1TAB56; -VANC-7
[2019-07-01] MEDS ORDERED: ACET-907 PO (12:05)
[2019-07-01] MEDS ORDERED: ARIP1TAB6 (12:05)
[2019-07-01] MEDS ORDERED: ONDA-83 (12:05)
[2019-07-01] MEDS ORDERED: ESCI5SOL3 PO (12:05)
[2019-07-01] MEDS ORDERED: PYRI25TA2 PO (12:05)
[2019-07-01] MEDS ORDERED: MERO1VIA3 (12:05)
[2019-07-01] MEDS ORDERED: SUCR1TAB56 (12:05)
[2019-07-01] MEDS ORDERED: SIME40TA PO (12:05)
[2019-07-01] MEDS ORDERED: MIRA3350 PO (12:05)
[2019-07-01] MEDS ORDERED: PROBCAP17 PO (12:05)
[2019-07-01] MEDS ORDERED: FAMO1TAB11 (12:05)
[2019-07-01] MEDS ORDERED: VANC-7 (12:05)
[2019-07-01] MEDS ORDERED: VANCOMYCIN HCL 500 MG in D5W MINI-BAG PLUS 100 ML IV STA (13:18)
--- NOTE | 2019-07-01 14:23 | REP ---
CHEST, PORTABLE: AP portable view of the chest is performed and compared to a prior study of 05/23/2019. There is a left arm PICC line. The tip appears to be in the left brachiocephalic vein. Multiple rods and screws are seen in the thoracic spine. Metallic clips overlie the left hemidiaphragm. There is chronic left basilar parenchymal opacity unchanged. No new infiltrate is seen. Heart and mediastinum are unchanged. Metallic clips are seen in the right axilla. IMPRESSION: Left arm PICC line tip in the left brachiocephalic vein. No new infiltrate. Electronically Signed by Estevan Garcia MD 07/01/2019 03:08 P
[2019-07-01] MEDS ORDERED: SODIUM CHLORIDE 0.9% INJ 10 ML SYR IV SCH ×2 (15:00→18:00)
[2019-07-01] MEDS ORDERED: SODIUM CHLORIDE 0.9% INJ 10 ML SYR IV PRN (15:00)
[2019-07-01 15:41] VITALS: BP 140/85
== END 2019-07-01 15:43 | disposition home or self-care (01) ==
LOC: M ED 11:25
DX: T82.524A Displacement of infusion catheter, initial encounter (principal); Y73.2 Prosthetic and other implants, materials and accessory gastroenterology and urology devices associated with adverse incidents; I10 Essential (primary) hypertension; E78.5 Hyperlipidemia, unspecified; Z88.0 Allergy status to penicillin; Z88.2 Allergy status to sulfonamides; Z88.8 Allergy status to other drugs, medicaments and biological substances; Z79.899 Other long term (current) drug therapy; Z79.890 Hormone replacement therapy; Z79.4 Long term (current) use of insulin; Z79.2 Long term (current) use of antibiotics
CPT/HCPCS: 71045; 96365; 99283; J1642; J3370

== ENCOUNTER → 2019-07-05 | Outpatient (REF) | payer MEDICARE, OTHER ==
[~2019-07-05] MED LIST changes: +ACET-907 PO; +ARIP1TAB6; +ESCI5SOL3 PO; +FAMO1TAB11; +MERO1VIA3; +MIRA3350 PO; +ONDA-83; +PROBCAP17 PO; +PYRI25TA2 PO; +SIME40TA PO; +SUCR1TAB56; +VANC-7
[2019-07-05 18:58] LABS: BASO % 0.7 % (0.0-1.0); EOS # 0.7 10^3/uL (0.0-0.5); EOS % 11.2 % (0.0-3.0); HEMATOCRIT 31.7 % (36.0-47.0); HEMOGLOBIN 9.9 g/dl (12.0-15.5); LYMPH % 17.3 % (24.0-44.0); MEAN CORPUSCULAR HGB CONC 31.2 g/dl (32.0-36.5); MEAN CORPUSCULAR VOLUME 89.8 fl (80.0-96.0); MONO # 0.6 10^3/uL (0.0-0.8); MONO % 9.5 % (0.0-5.0); NEUTROPHILS # 3.6 10^3/uL (1.5-8.5); NEUTROPHILS % 60.8 % (36.0-66.0); PLATELET COUNT, AUTOMATED 310 10^3/uL (150-450); RED BLOOD COUNT 3.53 10^6/uL (4.00-5.40); WHITE BLOOD COUNT 5.9 10^3/uL (4.0-10.0)
[2019-07-05 19:05] LABS: ALBUMIN 2.5 GM/DL (3.2-5.2); ALT/SGPT 22 U/L (12-78); BILIRUBIN,TOTAL 0.2 MG/DL (0.2-1.0); BLOOD UREA NITROGEN 22 MG/DL (7-18); C REACTIVE PROTEIN QUANTITATIV 0.38 MG/DL (0.00-0.30); CALCIUM LEVEL 9.2 MG/DL (8.8-10.2); CARBON DIOXIDE LEVEL 31 MEQ/L (21-32); CHLORIDE LEVEL 105 MEQ/L (98-107); CREATININE FOR GFR 0.78 MG/DL (0.55-1.30); GLOMERULAR FILTRATION RATE > 60.0 (>45); GLUCOSE, FASTING 105 MG/DL (70-100); POTASSIUM SERUM 4.3 MEQ/L (3.5-5.1); SODIUM LEVEL 141 MEQ/L (136-145); VANCOMYCIN LEVEL TROUGH 8.7 UG/ML (10.0-20.0)
[2019-07-05 20:10] LABS: ERYTHROCYTE SEDIMENTATION RATE 63 mm/hr (0-30)
== END ==
LOC: M LAB REF 17:14
PROVIDERS: ATTEND Internal Medicine
DX: G00.8 Other bacterial meningitis (principal); Z79.2 Long term (current) use of antibiotics

== ENCOUNTER → 2019-07-10 | Outpatient (REF) | payer MEDICARE, OTHER ==
[2019-07-10 14:28] LABS: BASO # 0.1 10^3/uL (0.0-0.2); BASO % 1.1 % (0.0-1.0); EOS # 0.6 10^3/uL (0.0-0.5); EOS % 11.6 % (0.0-3.0); HEMATOCRIT 35.7 % (36.0-47.0); HEMOGLOBIN 11.5 g/dl (12.0-15.5); LYMPH # 1.1 10^3/uL (1.5-5.0); LYMPH % 19.8 % (24.0-44.0); MEAN CORPUSCULAR HEMOGLOBIN 28.5 pg (27.0-33.0); MEAN CORPUSCULAR HGB CONC 32.2 g/dl (32.0-36.5); MEAN CORPUSCULAR VOLUME 88.4 fl (80.0-96.0); MONO # 0.4 10^3/uL (0.0-0.8); MONO % 6.8 % (0.0-5.0); NEUTROPHILS # 3.3 10^3/uL (1.5-8.5); NEUTROPHILS % 60.1 % (36.0-66.0); PLATELET COUNT, AUTOMATED 263 10^3/uL (150-450); RED BLOOD COUNT 4.04 10^6/uL (4.00-5.40); WHITE BLOOD COUNT 5.4 10^3/uL (4.0-10.0)
[2019-07-10 14:44] LABS: ALBUMIN 2.5 GM/DL (3.2-5.2); ALT/SGPT 27 U/L (12-78); BILIRUBIN,TOTAL 0.2 MG/DL (0.2-1.0); BLOOD UREA NITROGEN 19 MG/DL (7-18); C REACTIVE PROTEIN QUANTITATIV 0.41 MG/DL (0.00-0.30); CALCIUM LEVEL 9.2 MG/DL (8.8-10.2); CARBON DIOXIDE LEVEL 30 MEQ/L (21-32); CHLORIDE LEVEL 103 MEQ/L (98-107); CREATININE FOR GFR 0.85 MG/DL (0.55-1.30); GLOMERULAR FILTRATION RATE > 60.0 (>45); GLUCOSE, FASTING 134 MG/DL (70-100); POTASSIUM SERUM 3.8 MEQ/L (3.5-5.1); SODIUM LEVEL 142 MEQ/L (136-145); TOTAL PROTEIN 6.3 GM/DL (6.4-8.2)
[2019-07-10 14:49] LABS: ERYTHROCYTE SEDIMENTATION RATE 58 mm/hr (0-30)
== END ==
LOC: M LAB REF 14:22
PROVIDERS: ATTEND Internal Medicine
DX: G00.8 Other bacterial meningitis (principal); Z79.2 Long term (current) use of antibiotics

== ENCOUNTER → 2019-07-13 | Outpatient (REF) | payer MEDICARE, OTHER ==
[2019-07-13 17:13] LABS: BASO # 0.1 10^3/uL (0.0-0.2); BASO % 0.8 % (0.0-1.0); EOS # 0.7 10^3/uL (0.0-0.5); EOS % 11.1 % (0.0-3.0); HEMATOCRIT 32.3 % (36.0-47.0); HEMOGLOBIN 10.1 g/dl (12.0-15.5); LYMPH # 1.1 10^3/uL (1.5-5.0); LYMPH % 16.8 % (24.0-44.0); MEAN CORPUSCULAR HEMOGLOBIN 27.8 pg (27.0-33.0); MEAN CORPUSCULAR HGB CONC 31.3 g/dl (32.0-36.5); MONO # 0.6 10^3/uL (0.0-0.8); MONO % 9.4 % (0.0-5.0); NEUTROPHILS % 61.3 % (36.0-66.0); PLATELET COUNT, AUTOMATED 284 10^3/uL (150-450); RED BLOOD COUNT 3.63 10^6/uL (4.00-5.40); WHITE BLOOD COUNT 6.6 10^3/uL (4.0-10.0)
[2019-07-13 17:41] LABS: ALBUMIN 2.6 GM/DL (3.2-5.2); ALT/SGPT 22 U/L (12-78); BILIRUBIN,TOTAL 0.2 MG/DL (0.2-1.0); BLOOD UREA NITROGEN 20 MG/DL (7-18); C REACTIVE PROTEIN QUANTITATIV 0.42 MG/DL (0.00-0.30); CALCIUM LEVEL 9.4 MG/DL (8.8-10.2); CARBON DIOXIDE LEVEL 33 MEQ/L (21-32); CHLORIDE LEVEL 103 MEQ/L (98-107); CREATININE FOR GFR 0.74 MG/DL (0.55-1.30); GLOMERULAR FILTRATION RATE > 60.0 (>45); GLUCOSE, FASTING 78 MG/DL (70-100); POTASSIUM SERUM 4.2 MEQ/L (3.5-5.1); SODIUM LEVEL 142 MEQ/L (136-145); TOTAL PROTEIN 6.2 GM/DL (6.4-8.2); VANCOMYCIN LEVEL TROUGH 11.8 UG/ML (10.0-20.0)
[2019-07-13 19:07] LABS: ERYTHROCYTE SEDIMENTATION RATE 69 mm/hr (0-30)
== END ==
LOC: M LAB REF 16:06
PROVIDERS: ATTEND Internal Medicine
DX: G00.8 Other bacterial meningitis (principal); Z79.2 Long term (current) use of antibiotics

== ENCOUNTER → 2019-09-15 | Outpatient (REF) | payer MEDICARE, OTHER ==
[~2019-09-15] MED LIST changes: -ARIP1TAB6; +ARIP1TAB6 PO; -ASPI81TA85 PO; +ASPI81TA86 PO; +CALC-212 PO; -CALC600T7 PO; +CITRTAB14 PO; +D31000TA2 PO; +FISH1000 PO; +PANT-23 PO; +PANT40TA29 PO; -PANT40TA3 PO; +PRAL1INJ SC; -VITAD1000T PO; +[UNRECOGNIZED DRUG - CODE] PO
[2019-10-11 14:24] LABS: BASO % 0.3 % (0.0-1.0); EOS # 0.2 10^3/uL (0.0-0.5); EOS % 2.4 % (0.0-3.0); HEMATOCRIT 32.6 % (36.0-47.0); HEMOGLOBIN 10.1 g/dl (12.0-15.5); LYMPH # 1.3 10^3/uL (1.5-5.0); LYMPH % 16.7 % (24.0-44.0); MEAN CORPUSCULAR HEMOGLOBIN 26.7 pg (27.0-33.0); MEAN CORPUSCULAR VOLUME 86.2 fl (80.0-96.0); MONO # 0.4 10^3/uL (0.0-0.8); MONO % 4.7 % (0.0-5.0); NEUTROPHILS # 5.9 10^3/uL (1.5-8.5); NEUTROPHILS % 75.6 % (36.0-66.0); PLATELET COUNT, AUTOMATED 267 10^3/uL (150-450); RED BLOOD COUNT 3.78 10^6/uL (4.00-5.40); WHITE BLOOD COUNT 7.8 10^3/uL (4.0-10.0)
[2019-10-11 14:29] LABS: ERYTHROCYTE SEDIMENTATION RATE 81 mm/hr (0-30)
[2019-10-21 06:47] LABS: ALBUMIN 3.6 GM/DL (3.2-5.2); ALT/SGPT 27 U/L (12-78); BILIRUBIN,TOTAL 0.2 MG/DL (0.2-1.0); BLOOD UREA NITROGEN 25 MG/DL (7-18); C REACTIVE PROTEIN QUANTITATIV 1.15 MG/DL (0.00-0.30); CALCIUM LEVEL 9.5 MG/DL (8.8-10.2); CARBON DIOXIDE LEVEL 31 MEQ/L (21-32); CHLORIDE LEVEL 104 MEQ/L (98-107); CREATININE FOR GFR 0.83 MG/DL (0.55-1.30); GLOMERULAR FILTRATION RATE > 60.0 (>45); GLUCOSE, FASTING 151 MG/DL (70-100); HEMOGLOBIN A1c 6.8 %; POTASSIUM SERUM 4.6 MEQ/L (3.5-5.1); SODIUM LEVEL 137 MEQ/L (136-145); TOTAL PROTEIN 7.5 GM/DL (6.4-8.2)
== END ==
LOC: M PLALAB 15:26
PROVIDERS: ATTEND Family Medicine
DX: L89.322 Pressure ulcer of left buttock, stage 2 (principal); E11.22 Type 2 diabetes mellitus with diabetic chronic kidney disease; N18.9 Chronic kidney disease, unspecified

== ENCOUNTER 2019-11-03 10:52 | Inpatient (IN) | payer MEDICARE, BC, OTHER ==
[~2019-11-03] VITALS: Ht 172.7 cm; Wt 93.6 kg
[~2019-11-03 10:52] MED LIST changes: -CITRTAB14 PO; -FISH1000 PO; -PANT-23 PO; -PRAL1INJ SC; -[UNRECOGNIZED DRUG - CODE] PO
--- NOTE | 2019-11-03 12:28 | REPVR ---
PROCEDURE INFORMATION: Exam: XR Right Ankle Exam date and time: 11/03/2019 11:47 AM Age: 64 years old Clinical indication: Pain; Ankle; Bilateral; Additional info: Fall injury TECHNIQUE: Imaging protocol: XR Right ankle. Views: 3 or more views. COMPARISON: No relevant prior studies available. FINDINGS: Bones/joints: The bones are diffusely demineralized; this limits evaluation for fractures. Plantar calcaneal enthesophyte. There is oblique linear lucency of the medial distal tibia involving the tibial plafond seen on the AP view that is suspicious for a nondisplaced distal tibia fracture. Curvilinear calcific density projecting immediately distal to the lateral malleolus is suspicious for a lateral malleolar avulsion fracture. Incomplete horizontal lucency of the lateral malleolus may represent a separate nondisplaced lateral malleolar fracture. No dislocation. Soft tissues: Ankle soft tissue swelling. IMPRESSION: Findings suspicious for a lateral malleolar avulsion fracture. Possible distal tibial plafond fracture and additional lateral malleolar fracture as described. The diffuse osseous demineralization limits evaluation. Further evaluation with ankle CT is recommended. PROCEDURE INFORMATION: Exam: XR Left Ankle Exam date and time: 11/03/2019 11:47 AM Age: 64 years old Clinical indication: Pain; Ankle; Bilateral; Additional info: Fall injury TECHNIQUE: Imaging protocol: XR Left ankle. Views: 3 or more views. COMPARISON: No relevant prior studies available. FINDINGS: Bones/joints: The bones are diffusely demineralized; this limits evaluation for fractures. Oblique linear lucency of the medial malleolus consistent with an acute nondisplaced fracture of the distal tibia medial malleolus. Cortical angulation of the distal tibia posterior malleolus seen on the lateral view, suspicious for a posterior malleolar fracture. Plantar calcaneal enthesophyte. No dislocation. Soft tissues: Ankle soft tissue swelling. IMPRESSION: 1. Findings consistent with an acute nondisplaced medial malleolar fracture. 2. Possible posterior malleolar fracture. Further evaluation with ankle CT is recommended. 3. The diffuse osseous demineralization limits evaluation. Electronically signed by: Jason Morales On 11/03/2019 12:28:34 PM
--- NOTE | 2019-11-03 12:50 | REPVR ---
PROCEDURE INFORMATION: Exam: US Duplex Lower Extremity Veins, Bilateral Exam date and time: 11/03/2019 12:27 PM Age: 64 years old Clinical indication: Pain; Leg, lower; Bilateral; Additional info: Bilateral lower extremity swelling/pain TECHNIQUE: Imaging protocol: Real-time duplex ultrasound of the extremities with 2-D lora scale, color Doppler flow and spectral waveform analysis with image documentation. Complete exam focused on the bilateral lower extremity veins. COMPARISON: No relevant prior studies available. FINDINGS: Right deep veins: The imaged common femoral, femoral, and popliteal veins are patent without thrombus. Normal compressibility and/or augmentation response. Left deep veins: The imaged common femoral, femoral, and popliteal veins are patent without thrombus. Normal compressibility and/or augmentation response. Soft tissues: Unremarkable. IMPRESSION: No evidence of deep vein thrombosis in the visualized lower extremities. Electronically signed by: Jason Morales On 11/03/2019 12:50:01 PM
--- NOTE | 2019-11-03 13:57 | HPEPDOC ---
[facility] Medical History & Physical Date of Admission Nov 03, 2019 Date of Service: Nov 03, 2019 History and Physical CHIEF COMPLAINT: foot pain HISTORY OF PRESENT ILLNESS: 64 yo female with extensive medical/surgical history presents for bilateral LE/foot pain after mechanical fall one day ago. No other medical complaints. Denies head trauma, LOC, chest pain, SOB, N/V/D, dizziness, headaches, changes in vision. PAST MEDICAL HISTORY: 1. CAD status post stent 1 2. HTN 3. DM type II 4. LIZ 5. Aortic valve stenosis 6. CKD Stage 7. Depression 8. 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 Anemia 10. Arthritis 11. 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 Morbid obesity 14. PUD 15. Hx of bilateral foot drop PAST SURGICAL HISTORY: 1. Revision and excision of intradural/extradural chordoma (05/07/19) 2. Breast reconstruction surgery 3. Left breast mastectomy 4. [place] filter placement 5. Hysterectomy 6. Oophrectomy 7. Posterior spinal fusion/instrumentation (10/18/2014) 8. Thoracotomy with exploration, removal of T12 CAD, revision fusion T11-L1 with humeral allograft, anterior fusion L1-L2, T10-T11 (09/21/2013) 9. T12-L1 revision tumor resection, T6-L4 revision posterior reconstruction with instrumentation (07/23/2016) 10. Wound exploration, irrigation and debridement, lumbar dura repair (07/05/2018) 11. Revision of instrumentation T3-L5, revision of pedicle screws L5, irrigation and Breitman of the radical lumbar wound (10/14/2014) 12. Revision decompression and fusion with debulking of chordoma thoracic and lumbar spine (06/19/2018) 13. Anterior corpectomy 1012L1, partial corpectomy L2, vascularized rib grafting and anterior thoracolumbar instrumentation with C-arm (07/29/2016) SOCIAL HISTORY: Patient denies smoking, alcohol or drug use. She lives in the local area with her family. Her primary care provider is Dr. Mendez, block cutter Dr. Fermin, orthopedic surgeon Dr. Patel, medical insurance claims specialist Dr. Dowling, psychiatrist Dr. Cope. She is a full code. She does have a healthcare proxy. FAMILY HISTORY: MotherA. fib, DM. at 94 years old Fatherlymphoma. at 80 years old Sr. #1A. fib, alive Sr. #2A. fib and spinal stenosis. Alive Sr. #3arthritis. Alive Sr. #4heart arrhythmia. Alive Sr. #5schizophrenia. Alive Brother #1bipolar disorder, schizophrenia. Alive Brother #2atrial fibrillation. Alive ALLERGIES: Please see below. REVIEW OF SYSTEMS: Negative except as per HPI HOME MEDICATIONS: Please see below. PHYSICAL EXAMINATION: VITAL SIGNS: See below General: NAD, lying comfortably in bed HEENT: NC/AT Lungs: CTA B/L Heart: +S1S2, RRR Abd: soft, NT, +BS Ext: trace edema LABORATORY DATA: See below. MICROBIOLOGY: Please see below. ASSESSMENT: 64 yo female with extensive PMHx presents for LE pain after mechanical fall one day prior, found to have bilateral malleolar fractures. #bilateral malleolar fracture - ortho c/s pending - bilateral knee xray/MRI as per ortho #CAD status post stent 1 #HTN #DM #LIZ #CKD #aortic stenosis # Depression #Chordoma of the spine status post previous decompression with multiple complicated hospitalizations #Anemia # Arthritis # Hx of breast cancer # Coronary arteriovenous fistula # Morbid obesity #PUD # Hx of bilateral foot drop Vital Signs Vital Signs Date Time Temp Pulse Resp B/P (MAP) Pulse Ox O2 Delivery O2 Flow Rate FiO2 11/03/19 11:23 11/03/19 10:53 97.3 71 20 94 Room Air Home Medications Scheduled Alirocumab (Praluent Pen) 75 Mg/1 Ml Pen.injctr, 150 MG SC Q2WK EVERY OTHER FRIDAY Aripiprazole (Aripiprazole) 5 Mg Tablet, 5 MG PO QHS Calcium Citrate/Vitamin D3 (Citracal-D3 250Mg-200 Unit Tab) 250 Mg Calcium-200 Unit Tablet, 1 EACH PO DAILY Cholecalciferol (Vitamin D3) (Vitamin D3) 1,000 Unit Tablet, 2,000 UNITS PO DAILY Escitalopram Oxalate (Escitalopram Oxalate) 5 Mg/5 Ml Solution, 10 MG PO QHS Ferrous Gluconate (Ferrous Gluconate) 324 Mg Tablet, 324 MG PO DAILY Gabapentin (Gabapentin) 300 Mg Capsule, 300 MG PO BID Glucosamine HCl (Glucosamine HCl) 1,500 Mg Tablet, 1,500 MG PO BID Insulin Glargine,Hum.rec.anlog ([place] Solostar) 300 Unit/1 Ml Insuln.pen, 28 UNIT SC QHS Insulin Human Lispro (Novolog) 100 Unit/1 Ml Vial, 1 DOSE SC AC PER SLIDING SCALE Lactobacillus Combo No.11 (Probiotic) 1 Each Cap.sprink, 1 CAP PO BID Linezolid (Linezolid) 600 Mg Tablet, 600 MG PO DAILY Magnesium Oxide (Magnesium Oxide) 400 Mg Tablet, 400 MG PO QHS Metoprolol Succinate (Metoprolol Succinate) 50 Mg Tab.er.24h, 50 MG PO DAILY Multivitamin (Multivitamins) 1 Each Capsule, 1 CAP PO DAILY Mary D-3 Fatty Acids/Fish Oil (Fish Oil 1,000 mg Capsule) 1 Each Capsule, 1,000 MG PO BID Pantoprazole Sodium (Pantoprazole Sodium) 40 Mg Tablet.dr, 40 MG PO BID Pyridoxine HCl (Vitamin B6) (Vitamin B-6) 25 Mg Tablet, 100 MG PO DAILY Scheduled PRN Acetaminophen (Tylenol) 325 Mg Tablet, 1,000 MG PO Q4HP PRN for PAIN OR FEVER Glucagon,Human Recombinant (Glucagon Emergency Kit) 1 Mg Vial, 1 MG SC ASDIRECTED PRN for SEVERE LOW BLOOD SUGAR Nitroglycerin (Nitrostat) 0.4 Mg Tab.subl, 0.4 MG SL NITRO PRN for CHEST PAIN Allergies Coded Allergies: Penicillins (Verified Allergy, Intermediate, RASH/HIVES, 07/23/18) Sulfa (Sulfonamide Antibiotics) (Verified Allergy, Intermediate, REDNESS/SWELLING, 07/23/18) sulindac (Verified Adverse Reaction, Intermediate, COLITIS, 07/23/18) cefepime (Verified Adverse Reaction, Unknown, DECREASED WBC, 11/03/19) A-FIB/CHADSVASC A-FIB History Current/History of A-Fib/PAF?: No MAYO MISTRY MD Nov 03, 2019 13:57
--- NOTE | 2019-11-03 14:12 | REPVR ---
PROCEDURE INFORMATION: Exam: CT Head Without Contrast Exam date and time: 11/03/2019 1:51 PM Age: 64 years old Clinical indication: Pain; Headache; Additional info: Fell TECHNIQUE: Imaging protocol: Computed tomography of the head without contrast. Radiation optimization: All CT scans at this facility use at least one of these dose optimization techniques: automated exposure control; mA and/or kV adjustment per patient size (includes targeted exams where dose is matched to clinical indication); or iterative reconstruction. COMPARISON: CT Head without contrast 05/23/2019 11:05 AM FINDINGS: Brain: No acute hemorrhage or mass effect. Normal lora/white matter delineation. Ventricles: No ventriculomegaly. Bones/joints: Unremarkable. No acute fracture. Paranasal sinuses: Visualized sinuses are unremarkable. No fluid levels. Mastoid air cells: Visualized mastoid air cells are well aerated. Soft tissues: Unremarkable. IMPRESSION: No acute intracranial abnormality. Electronically signed by: Miryam Puente On 11/03/2019 14:12:48 PM
--- NOTE | 2019-11-03 14:45 | REPVR ---
PROCEDURE INFORMATION: Exam: CT Right Lower Extremity Without Contrast, Ankle Exam date and time: 11/03/2019 1:36 PM Age: 64 years old Clinical indication: Pain; Ankle; Bilateral; Additional info: Fractures/demineralization TECHNIQUE: Imaging protocol: CT of the Right lower extremity without contrast was performed. Exam focused on the ankle. Radiation optimization: All CT scans at this facility use at least one of these dose optimization techniques: automated exposure control; mA and/or kV adjustment per patient size (includes targeted exams where dose is matched to clinical indication); or iterative reconstruction. COMPARISON: No relevant prior studies available. FINDINGS: Bones/joints: There is a demineralization noted. There is a intra-articular fracture noted of the medial malleolus with no significant displacement. There is a tiny chip fracture involving the distal tip of the lateral malleolus. There is a nondisplaced vertical fracture of the posterior malleolus. 0.7 mm plantar calcaneal spur. Soft tissues: Soft tissue swelling over the lateral malleolus. IMPRESSION: 1. Trimalleolar fracture PROCEDURE INFORMATION: Exam: CT Left Lower Extremity Without Contrast, Ankle Exam date and time: 11/03/2019 1:36 PM Age: 64 years old Clinical indication: Pain; Ankle; Bilateral; Additional info: Fractures/demineralization TECHNIQUE: Imaging protocol: CT of the Left lower extremity without contrast was performed. Exam focused on the ankle. Radiation optimization: All CT scans at this facility use at least one of these dose optimization techniques: automated exposure control; mA and/or kV adjustment per patient size (includes targeted exams where dose is matched to clinical indication); or iterative reconstruction. COMPARISON: No relevant prior studies available. FINDINGS: Bones/joints: There is a fracture of the medial malleolus which extends into the ankle joint. Transverse fracture noted of the distal tip of the lateral malleolus. There is demineralization. Soft tissues: There is soft tissue swelling over the lateral malleolus. IMPRESSION: 1. Bimalleolar fracture Electronically signed by: Mary Lind On 11/03/2019 14:45:02 PM
[2019-11-03 14:46] LABS: HEMATOCRIT 31.8 % (36.0-47.0); MEAN CORPUSCULAR HEMOGLOBIN 27.2 pg (27.0-33.0); MEAN CORPUSCULAR HGB CONC 31.4 g/dl (32.0-36.5); MEAN CORPUSCULAR VOLUME 86.4 fl (80.0-96.0); PLATELET COUNT, AUTOMATED 216 10^3/uL (150-450); RED BLOOD COUNT 3.68 10^6/uL (4.00-5.40); WHITE BLOOD COUNT 9.3 10^3/uL (4.0-10.0)
[2019-11-03 15:13] LABS: ALBUMIN 3.7 GM/DL (3.2-5.2); ALT/SGPT 25 U/L (12-78); BILIRUBIN,TOTAL 0.2 MG/DL (0.2-1.0); BLOOD UREA NITROGEN 22 MG/DL (7-18); CALCIUM LEVEL 9.8 MG/DL (8.8-10.2); CARBON DIOXIDE LEVEL 30 MEQ/L (21-32); CHLORIDE LEVEL 104 MEQ/L (98-107); CREATININE FOR GFR 0.88 MG/DL (0.55-1.30); GLOMERULAR FILTRATION RATE > 60.0 (>45); GLUCOSE, FASTING 138 MG/DL (70-100); POTASSIUM SERUM 4.3 MEQ/L (3.5-5.1); SODIUM LEVEL 138 MEQ/L (136-145); TOTAL PROTEIN 7.9 GM/DL (6.4-8.2)
[2019-11-03] MEDS ORDERED: CITRTAB14 PO (15:22)
[2019-11-03] MEDS ORDERED: [UNRECOGNIZED DRUG - CODE] PO (15:29)
[2019-11-03] MEDS ORDERED: GABA-843 PO (15:29)
[2019-11-03] MEDS ORDERED: LINE1TAB PO (15:29)
[2019-11-03] MEDS ORDERED: PANT-23 PO (15:29)
[2019-11-03] MEDS ORDERED: PRAL1INJ SC (15:29)
[2019-11-03] MEDS ORDERED: FISH1000 PO (15:29)
[2019-11-03] MEDS ORDERED: TOUJ1.2I SC (15:30)
[2019-11-03 17:20] VITALS: BP 158/72
[2019-11-03] MEDS: HumaLOG INSULIN (NovoLOG) PER UNIT SC SCH ×2 (17:30→20:50)
[2019-11-03] MEDS ORDERED: GLUCAGON INJ 1MG VIAL SC PRN (18:00)
[2019-11-03] MEDS ORDERED: DEXTROSE 50% 50 ML SYRINGE IV PRN (18:00)
[2019-11-03] MEDS ORDERED: GLUCOSE 4GM CHEW TABLET PO PRN (18:00)
[2019-11-03] MEDS: ACETAMINOPHEN 500 MG TAB PO PRN (19:37)
[2019-11-03] MEDS: GABAPENTIN 300 MG CAP PO SCH (20:56)
[2019-11-03] MEDS: PANTOPRAZOLE 40MG TAB (PROTONIX) PO SCH (20:56)
[2019-11-03] MEDS: ESCITALOPRAM OXALATE 10 MG TAB (LEXAPRO) PO SCH (20:56)
[2019-11-03] MEDS: MAGNESIUM OXIDE 400 MG TAB (MAG-OX) PO SCH (20:56)
[2019-11-03 20:58] VITALS: BP 140/72
[2019-11-04] MEDS: ACETAMINOPHEN 500 MG TAB PO PRN ×3 (04:32→20:38)
[2019-11-04 06:00] VITALS: BP 114/61
[2019-11-04 06:19] LABS: HEMOGLOBIN 9.7 g/dl (12.0-15.5); MEAN CORPUSCULAR HEMOGLOBIN 27.1 pg (27.0-33.0); MEAN CORPUSCULAR HGB CONC 31.3 g/dl (32.0-36.5); MEAN CORPUSCULAR VOLUME 86.6 fl (80.0-96.0); PLATELET COUNT, AUTOMATED 199 10^3/uL (150-450); RED BLOOD COUNT 3.58 10^6/uL (4.00-5.40); WHITE BLOOD COUNT 7.1 10^3/uL (4.0-10.0)
[2019-11-04 06:41] LABS: ALBUMIN 3.1 GM/DL (3.2-5.2); ALT/SGPT 18 U/L (12-78); BILIRUBIN,TOTAL 0.4 MG/DL (0.2-1.0); BLOOD UREA NITROGEN 20 MG/DL (7-18); CALCIUM LEVEL 9.1 MG/DL (8.8-10.2); CARBON DIOXIDE LEVEL 29 MEQ/L (21-32); CHLORIDE LEVEL 104 MEQ/L (98-107); CREATININE FOR GFR 0.78 MG/DL (0.55-1.30); GLOMERULAR FILTRATION RATE > 60.0 (>45); GLUCOSE, FASTING 139 MG/DL (70-100); POTASSIUM SERUM 4.1 MEQ/L (3.5-5.1); SODIUM LEVEL 137 MEQ/L (136-145); TOTAL PROTEIN 6.7 GM/DL (6.4-8.2)
[2019-11-04] MEDS: HumaLOG INSULIN (NovoLOG) PER UNIT SC SCH ×4 (08:32→20:42)
[2019-11-04] MEDS: PANTOPRAZOLE 40MG TAB (PROTONIX) PO SCH ×2 (08:33→20:37)
[2019-11-04] MEDS: FERROUS GLUCONATE 324 MG TAB PO SCH (08:33)
[2019-11-04] MEDS: GABAPENTIN 300 MG CAP PO SCH ×2 (08:33→20:37)
[2019-11-04] MEDS: VITAMIN D 1,000 INTERNATIONAL UNITS TABLET PO SCH (08:34)
[2019-11-04] MEDS: LINEZOLID 600MG TABLET (ZYVOX) PO SCH (08:34)
[2019-11-04] MEDS: METOPROLOL SUCC (TopROL XL) 50MG **XL** TAB PO SCH (09:00)
--- NOTE | 2019-11-04 09:12 | CR ---
DATE OF CONSULTATION: 11/03/2019 CONSULTATION REQUESTED BY: Anton James M.D. ATTENDING FROM ORTHOPEDICS: Jason Campbell M.D. CHIEF COMPLAINT: Bilateral lower extremity injuries. HISTORY OF PRESENT ILLNESS: This is a 64-year-old female patient that yesterday sustained a fall, landing on both ankles and both knees. She feels that when she landed her ankles and her knees were twisted and buckled behind her and inner mingled with her walker. This is a patient that has had multiple prior back surgeries and has difficulties with atrophy, numbness and weakness in the bilateral lower extremities. She was attempting to walk with her walker when her legs had given out bilaterally and she fell to the ground. She thought that it would improve with rest and activity modifications. The following morning, so this morning, she continued to be symptomatic and she was brought to the Emergency Room due to her bilateral lower extremity injuries. She was seen in the Emergency Room, where x-rays were obtained of her ankles and notable for a trimalleolar ankle fracture on the right that is essentially nondisplaced as well as a bimalleolar nondisplaced ankle fracture on the left side. Orthopedics was consulted. She was sent for a CT scan, that confirmed the intraarticular medial malleolus fracture that is essentially nondisplaced as well as an avulsion fracture off the lateral malleolus and nondisplaced posterior malleolus fracture as well. The CT scan of the left ankle also was notable for a medial malleolus fracture that is nondisplaced as well as a transverse fracture of the lateral malleolus. There is underlying osteopenia also noted, consistent with her limited weightbearing activities. She was placed into a splint and she is being admitted by Dr. James for her conditions. She also had ultrasounds of both lower extremities, that were negative as well. She also notes bilateral knee pain as well. She has not had any x-rays of her knees. No MRIs of her knees have been obtained. She denies any change in the sensation of her lower extremities. She denies any true calf pain, though it is difficult for her to know if it has changed. She notes that she had limited sensation in her lower extremities since her prior surgeries. She denies striking her head. Denies losing consciousness during that timeframe. PAST MEDICAL HISTORY: Includes coronary artery disease, hypertension, diabetes type 2, sleep apnea, aortic valve stenosis, chronic kidney disease, depression, history of a chordoma; status post multiple surgeries, underlying anemia, history of breast cancer, history of bilateral foot drop. PAST SURGICAL HISTORY: Multiple lumbar surgeries, breast reconstruction, mastectomy on the left side, she has a Adrian Filter present, hysterectomy. FAMILY HISTORY: Mother had atrial fibrillation, diabetes. Father had lymphoma. SOCIAL HISTORY: She does not smoke. She does not use alcohol. No drug use. 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 She lives in the local area. Her primary is Dr. Sutherland. REVIEW OF SYSTEMS: Notes isolated pain in both knees and pain in both ankles. She denies striking her head. Denies any current nausea or vomiting. Denies any change in her bowel or bladder habits. Denies any current difficulty breathing. Denies any exposure to COVID. She is currently a full code. ALLERGIES: Include penicillin, sulfa, Cefepime as well as Sulindac. LABORATORY DATA: Notable for WBC 9.3, RBC 3.68, hemoglobin 10, hematocrit 31.8. Glucose 138, BUN 22, creatinine 0.88. CURRENT MEDICATIONS: 1. Insulin as directed. 2. [place]-3. 3. Glucosamine. 4. Pantoprazole 40 mg twice a day. 5. Linezolid 600 mg one tablet once per day. 6. Gabapentin 300 mg twice a day. 7. Calcium Citrate with Vitamin D3 250 mg/200 units one tablet daily. 8. Vitamin B6 100 mg daily. 9. Probiotic one capsule twice a day. 10. Aripiprazole 5 mg one tablet at bedtime. 11. Escitalopram 10 mg one tablet at bedtime. 12. Tylenol p.r.n. for pain. 13. Nitrostat 0.4 mg as required for chest pain. 14. Metoprolol 50 mg one tablet daily. 15. Magnesium 400 mg one tablet at bedtime. 16. Iron 325 mg one tablet once per day. PHYSICAL EXAMINATION: Today reveals an alert, well-nourished, well-nourished female patient in a hospital stretcher in the Emergency Room. She is easily communicates her injury. She knows person, place and time. She notes isolated pain in both knees and both ankles. Exam reveals symmetrical raise and fall of chest, unlabored breathing. Abdomen is non-distended. There is a regular heart beat of 82 beats per minute at the radial pulse. Exam of both lower extremities reveals no irritability with hip range of motion on either side. There is feel fitting splints on both ankles. There is no pain with postural range of motion of either toe. There is brisk capillary refill of the toes. There is decrease in light touch diffusely in both lower extremities. On exam today, there is tenderness along the lateral collateral ligament and over the anterior medial aspect of the right knee. There is a moderate effusion around the right knee. Exam of the left knee also reveals a moderate effusion on exam. There is some tenderness over the anterior medial aspect of the knee. The calves are in the splint. After sliding my hands down into the splint, the calves are soft and nontender to palpation. I did not remove the splints as they are well fitting splints at this juncture. She is unable to do a straight leg raise test on either side on exam today. She can fire quad mechanism, but she is not able to lift the leg. She does note some weakness bilaterally and it is difficult for her to know if this is a change from her baseline or not. IMPRESSION: Bilateral knee effusions, bilateral knee contusions, question of internal derangement of her bilateral knees with inability to do the straight leg raise as well as a trimalleolar ankle fracture on the right and a bimalleolar ankle fracture on the left. PLAN: At this point, needs x-rays of both knees and MRIs of both knees to rule out internal derangement. This could be possibly something such as a patellar tendon rupture as she did have an injury. She has an effusion of both knees and she essentially has decreased sensation due to her prior surgeries, so it is difficult to ascertain her baseline at this juncture. I would recommend x-rays of both knees and MRIs of both knees as well at this juncture. From orthopedic standpoint, there is no reason she could not have a normal diet. I will defer her diet recommendations to her primary team. For her DVT prophylaxis, we will defer that to her primary team as well. For the ankle, she is non-weightbearing on both lower extremities. In the meantime while we are waiting for the x-rays of the knees and MRIs of both knees, Dr. Campbell reviewed the patient. I reviewed the patient with Dr. Campbell and he is going to review the patient with Dr. Wilson and will give further recommendations once the MRIs of both knees have been done and the x-rays have been done of both knees and he has reviewed the case with Dr. Wilson. We will continue to follow her while she in the hospital. Thank you for this pleasant consult. MICHEL
--- NOTE | 2019-11-04 12:57 | IPNPDOC ---
Text Note Date of Service The patient was seen on 11/04/19. NOTE S: Patient seen and examined at bedside. Today she notes some right foot pain. No acute overnight events reported, no new medical complaints. O: VITAL SIGNS: See below General: NAD, lying comfortably in bed HEENT: NC/AT Lungs: CTA B/L Heart: +S1S2, RRR Abd: soft, NT, +BS Ext: trace edema ASSESSMENT: 64 yo female with extensive PMHx presents for LE pain after mechanical fall one day prior, found to have bilateral malleolar fractures. 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
[2019-11-04 14:00] VITALS: BP 131/66
[2019-11-04 20:00] VITALS: BP 107/52
[2019-11-04] MEDS: MAGNESIUM OXIDE 400 MG TAB (MAG-OX) PO SCH (20:37)
[2019-11-04] MEDS: ESCITALOPRAM OXALATE 10 MG TAB (LEXAPRO) PO SCH (20:37)
[2019-11-05] MEDS: ACETAMINOPHEN 500 MG TAB PO PRN ×3 (05:38→20:40)
[2019-11-05 06:00] VITALS: BP 120/61
[2019-11-05] MEDS ORDERED: FLEET ENEMA PR PRN (07:30)
--- NOTE | 2019-11-05 07:37 | IPN ---
DATE: 11/04/2019 CHIEF COMPLAINT: Bilateral ankle fractures. HISTORY OF PRESENT ILLNESS: This is a 64-year-old female who had a trip and fall at home. She has been unsteady on her gait, using a walker due to recent chordoma spine resection. She presented to the hospital with bilateral ankle fractures. I asked the PA contact lens lathe operator to split the ankles and obtain bilateral ankle CT due to complex fractures, as well as diffuse osteopenia as recommended by the radiologist. I saw her on the [facility] today. She complains of bilateral ankle pain, although she did state that she fell onto her knees as well, but no knee pain today. PAST MEDICAL HISTORY, MEDICATIONS, SURGICAL HISTORY, SOCIAL HISTORY: Please see the previous notes by Kodak Ibarra, as well as the Hospitalist, Dr. James. PHYSICAL EXAMINATION: This is a well-appearing 64-year-old female with vital signs stable. She is able to flex and extend the knees against resistance. No obvious gaps in the quadriceps or patella tendons. No effusion, no ecchymosis, redness, or swelling above the knees. She has bilateral lower extremity splints, although in the toes, she is able to wiggle them, and they are warm and well perfused, capillary refill in three seconds. RADIOGRAPHS: 1. Radiographs of both knees were reviewed and showed no acute abnormalities. 2. Radiographs and a CT scan of the ankles were reviewed. On the right ankle, there is a trimalleolar fracture, nondisplaced. On the left ankle, there is a bimalleolar fracture that is nondisplaced and a transverse fracture of the medial malleolus. She had a fracture, maybe a small distal tip fracture of the lateral malleolus. ASSESSMENT AND PLAN: This 64-year-old female has bilateral ankle fractures. These have been appropriately splinted. They appear minimally displaced on the x-rays and CT scan. I have asked Dr. Wilson, Foot and Ankle Specialist, to see and assess the patient and get their expert opinion, which I appreciate greatly. In terms of the knees, just MRIs were canceled. I have asked Dr. James to order ultrasound to rule out injury to the knee. However, after seeing and examining the patient, I have very little clinical suspicion of quadriceps or patella tendon ruptures, so we will hold off on those. The patient will remain non- weight bearing as tolerated until assessment, hopefully later today, by Dr. Wilson, further about the ankle fractures. We will cancel the ultrasound of the knees. SHILAD
[2019-11-05] MEDS ORDERED: PREVNAR 13 VACCINE SYRINGE IM ONE (09:00)
[2019-11-05] MEDS ORDERED: FLUBLOK(EGG FREE)(QUAD)INFLUENZA VACC 0.5ML SYRINGE 18YRS & OLDER IM ONE (09:00)
[2019-11-05] MEDS: VITAMIN D 1,000 INTERNATIONAL UNITS TABLET PO SCH (09:27)
[2019-11-05] MEDS: GABAPENTIN 300 MG CAP PO SCH ×2 (09:27→20:40)
[2019-11-05] MEDS: FERROUS GLUCONATE 324 MG TAB PO SCH (09:27)
[2019-11-05] MEDS: PANTOPRAZOLE 40MG TAB (PROTONIX) PO SCH ×2 (09:27→20:39)
[2019-11-05] MEDS: LINEZOLID 600MG TABLET (ZYVOX) PO SCH (09:27)
[2019-11-05] MEDS: SENOKOT S TAB PO SCH ×2 (09:27→20:40)
[2019-11-05] MEDS: MIRALAX *UNIT DOSE* 17GM PACKET PO SCH (09:28)
[2019-11-05] MEDS: MOM 30ML SUSPENSION UDC PO SCH (09:28)
[2019-11-05] MEDS: METOPROLOL SUCC (TopROL XL) 50MG **XL** TAB PO SCH (09:28)
[2019-11-05] MEDS: HumaLOG INSULIN (NovoLOG) PER UNIT SC SCH ×4 (09:31→21:00)
--- NOTE | 2019-11-05 12:09 | IPNPDOC ---
Text Note Date of Service The patient was seen on 11/05/19. NOTE S: Patient seen and examined at bedside. Today she notes some right foot pain. No acute overnight events reported, no new medical complaints. O: VITAL SIGNS: See below General: NAD, lying comfortably in bed HEENT: NC/AT Lungs: CTA B/L Heart: +S1S2, RRR Abd: soft, NT, +BS Ext: trace edema ASSESSMENT: 64 yo female with extensive PMHx presents for LE pain after mechanical fall one day prior, found to have bilateral malleolar fractures. 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
[2019-11-05 14:00] VITALS: BP 119/56
[2019-11-05] MEDS: ESCITALOPRAM OXALATE 10 MG TAB (LEXAPRO) PO SCH (20:40)
[2019-11-05] MEDS: MAGNESIUM OXIDE 400 MG TAB (MAG-OX) PO SCH (20:40)
[2019-11-05 22:00] VITALS: BP 107/46
[2019-11-06 06:00] VITALS: BP 118/66
[2019-11-06] MEDS: ACETAMINOPHEN 500 MG TAB PO PRN ×2 (06:35→12:47)
[2019-11-06] MEDS: FERROUS GLUCONATE 324 MG TAB PO SCH (07:49)
[2019-11-06] MEDS: VITAMIN D 1,000 INTERNATIONAL UNITS TABLET PO SCH (07:49)
[2019-11-06] MEDS: SENOKOT S TAB PO SCH (07:49)
[2019-11-06] MEDS: GABAPENTIN 300 MG CAP PO SCH (07:49)
[2019-11-06] MEDS: PANTOPRAZOLE 40MG TAB (PROTONIX) PO SCH (07:49)
[2019-11-06 07:50] VITALS: BP 118/66
[2019-11-06] MEDS: METOPROLOL SUCC (TopROL XL) 50MG **XL** TAB PO SCH (07:50)
[2019-11-06] MEDS: LINEZOLID 600MG TABLET (ZYVOX) PO SCH (07:50)
[2019-11-06] MEDS: HumaLOG INSULIN (NovoLOG) PER UNIT SC SCH (07:51)
[2019-11-06] MEDS: MOM 30ML SUSPENSION UDC PO SCH (07:53)
[2019-11-06] MEDS: MIRALAX *UNIT DOSE* 17GM PACKET PO SCH (07:54)
--- NOTE | 2019-11-06 14:00 | DS.PDOC ---
Discharge Summary General Date of Admission Nov 03, 2019 at 14:58 Date of Discharge 11/06/19 Specialist/Consultants [facility] - Dr. Campbell Discharge Summary PROCEDURES PERFORMED DURING STAY: [None]. ADMITTING DIAGNOSES: 1. mechanical fall 2. bilateral ankle fracture SECONDARY DIAGNOSES: 1. CAD status post stent 1 2. HTN 3. DM type II 4. LIZ 5. Aortic valve stenosis 6. CKD Stage 7. Depression 8. 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 Anemia 10. Arthritis 11. 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 Morbid obesity 14. PUD 15. Hx of bilateral foot drop PAST SURGICAL HISTORY: 1. Revision and excision of intradural/extradural chordoma (05/07/19) 2. Breast reconstruction surgery 3. Left breast mastectomy 4. Adrian filter placement 5. Hysterectomy 6. Oophrectomy 7. Posterior spinal fusion/instrumentation (10/18/2014) 8. Thoracotomy with exploration, removal of T12 CAD, revision fusion T11-L1 with humeral allograft, anterior fusion L1-L2, T10-T11 (09/21/2013) 9. T12-L1 revision tumor resection, T6-L4 revision posterior reconstruction with instrumentation (07/23/2016) 10. Wound exploration, irrigation and debridement, lumbar dura repair (07/05/2018) 11. Revision of instrumentation T3-L5, revision of pedicle screws L5, irrigation and Breitman of the radical lumbar wound (10/14/2014) 12. Revision decompression and fusion with debulking of chordoma thoracic and lumbar spine (06/19/2018) 13. Anterior corpectomy 1012L1, partial corpectomy L2, vascularized rib grafting and anterior thoracolumbar instrumentation with C-arm (07/29/2016) COMPLICATIONS/CHIEF COMPLAINT: Bilateral Ankle Fractures. HOSPITAL COURSE: 64 yo female with extensive medical/surgical history presents for bilateral LE/foot pain after mechanical fall one day prior to presentation. No other medical complaints. Denied head trauma, LOC, chest pain, SOB, N/V/D, dizziness, headaches, changes in vision. Admitted for further evaluation by orthopedics. Seen and examined by orthopedics, with recommendations for no surgical intervention. Casting in hospital, and required some physical therapy to facilitate safe discharge home. DISCHARGE MEDICATIONS: Please see below. ALLERGIES: Please see below. PHYSICAL EXAMINATION ON DISCHARGE: VITAL SIGNS: See below General: NAD, lying comfortably in bed HEENT: NC/AT Lungs: CTA B/L Heart: +S1S2, RRR Abd: soft, NT, +BS Ext: bilateral bandages on lower extremities LABORATORY DATA: Please see below. ACTIVITY: As directed by ortho DISPOSITION: 01 Home, Self-Care. DISCHARGE INSTRUCTIONS: 1. Follow up with PCP in 3-5 days. 2. Further directions as per orthopedics. DISCHARGE CONDITION: [Stable]. TIME SPENT ON DISCHARGE: 35 minutes. Vital Signs/I&Os Vital Signs Date Time Temp Pulse Resp B/P (MAP) Pulse Ox O2 Delivery O2 Flow Rate FiO2 11/06/19 07:50 70 118/66 11/06/19 06:00 98.0 15 95 Room Air I&O- Last 24 Hours up to 6 AM 11/06/19 06:00 Intake Total 340 ml Balance 340 ml Laboratory Data Labs 24H Laboratory Tests 2 11/05/19 16:53: Bedside Glucose (Misc Panel) 142H 11/06/19 06:06: Bedside Glucose (Misc Panel) 174H 11/06/19 11:38: Bedside Glucose (Misc Panel) 148H FSBS Laboratory Tests Test 11/05/19 16:53 11/06/19 06:06 11/06/19 11:38 Range/Units Bedside Glucose (Misc Panel) 142 174 148 80-115 MG/DL Discharge Medications Scheduled Alirocumab (Praluent Pen) 75 Mg/1 Ml Pen.injctr, 150 MG SC Q2WK, (Reported) EVERY OTHER FRIDAY Aripiprazole (Aripiprazole) 5 Mg Tablet, 5 MG PO QHS, (Reported) Calcium Citrate/Vitamin D3 (Citracal-D3 250Mg-200 Unit Tab) 250 Mg Calcium-200 Unit Tablet, 1 EACH PO DAILY, (Reported) Cholecalciferol (Vitamin D3) (Vitamin D3) 1,000 Unit Tablet, 2,000 UNITS PO DAILY, (Reported) Escitalopram Oxalate (Escitalopram Oxalate) 5 Mg/5 Ml Solution, 10 MG PO QHS, ( Reported) Ferrous Gluconate (Ferrous Gluconate) 324 Mg Tablet, 324 MG PO DAILY, (Reported) Gabapentin (Gabapentin) 300 Mg Capsule, 300 MG PO BID, (Reported) Glucosamine HCl (Glucosamine HCl) 1,500 Mg Tablet, 1,500 MG PO BID, (Reported) Insulin Glargine,Hum.rec.anlog (Toujeo Solostar) 300 Unit/1 Ml Insuln.pen, 28 UNIT SC QHS, (Reported) Insulin Human Lispro (Novolog) 100 Unit/1 Ml Vial, 1 DOSE SC AC, (Reported) PER SLIDING SCALE Lactobacillus Combo No.11 (Probiotic) 1 Each Cap.sprink, 1 CAP PO BID, (Reported) Linezolid (Linezolid) 600 Mg Tablet, 600 MG PO DAILY, (Reported) Magnesium Oxide (Magnesium Oxide) 400 Mg Tablet, 400 MG PO QHS, (Reported) Metoprolol Succinate (Metoprolol Succinate) 50 Mg Tab.er.24h, 50 MG PO DAILY, (Reported) Multivitamin (Multivitamins) 1 Each Capsule, 1 CAP PO DAILY, (Reported) Benezett-3 Fatty Acids/Fish Oil (Fish Oil 1,000 mg Capsule) 1 Each Capsule, 1,000 MG PO BID, (Reported) Pantoprazole Sodium (Pantoprazole Sodium) 40 Mg Tablet.dr, 40 MG PO BID, (Reported) Pyridoxine HCl (Vitamin B6) (Vitamin B-6) 25 Mg Tablet, 100 MG PO DAILY, (Reported) Scheduled PRN Acetaminophen (Tylenol) 325 Mg Tablet, 1,000 MG PO Q4HP PRN for PAIN OR FEVER, (Reported) Glucagon,Human Recombinant (Glucagon Emergency Kit) 1 Mg Vial, 1 MG SC ASDIRECTED PRN for SEVERE LOW BLOOD SUGAR, (Reported) Nitroglycerin (Nitrostat) 0.4 Mg Tab.subl, 0.4 MG SL NITRO PRN for CHEST PAIN, (Reported) Allergies Coded Allergies: Penicillins (Verified Allergy, Intermediate, RASH/HIVES, 07/23/18) Sulfa (Sulfonamide Antibiotics) (Verified Allergy, Intermediate, REDNESS/SWELLING, 07/23/18) sulindac (Verified Adverse Reaction, Intermediate, COLITIS, 07/23/18) cefepime (Verified Adverse Reaction, Unknown, DECREASED WBC, 11/03/19) MAYO MISTRY MD Nov 06, 2019 14:00
--- NOTE | 2019-11-18 16:55 | IPN ---
DATE: 11/06/2019 CHIEF COMPLAINT: Fall with bilateral ankle fracture. HISTORY OF PRESENT ILLNESS: This 64-year-old female has been nonambulatory due to spine surgery, chordoma resection, had bilateral ankle fractures. I asked Dr. Amaya to consult. She recommended nonoperative management given the patient's minimal ambulatory status. CT scan revealed nondisplaced fractures on both sides. PHYSICAL EXAMINATION: This is well appearing 64 year old female. She is able to wiggle her toes. Her toes are well perfused. She is in splints. Splints are a little bit long proximally. ASSESSMENT AND PLAN: This 64-year-old female, I changed her splints to short- leg circumferential bilateral fiberglass casts on both sides. Heel is in a little bit of equinus as that is her natural resting position given that she has foot drops, more prominence on the left side. I had a long discussion with her , I believe his name is Abraham, on the phone, speaker phone, in consultation with him and his , Darby, as well as Ketty our nurse practitioner. I explained to him the plan. He expressed his frustrations at the fact that she was still in hospital and that he wishes that she be taken home and that things have been a little bit slow in the hospital. I apologize for this. I let him know the plan of nonoperative treatment, follow up in the office in one to two weeks, with redo radiographs in the cast. We will try to expedite physical therapy to come see her today, so that they can clear her as she does needs to be bilateral lower extremity nonweightbearing and this is quite difficult. She has been working on bed to chair transfers with fly boards. Hopefully, they can clear her to be discharged home today. Would also communicate this with Dr. James, the hospitalist, and hopefully the physical therapist can come in during every sitting hours to meet the as well, to see how the progress and how she is doing . She can be discharged home as long as she clears physical therapy today [facility]
--- NOTE | 2019-11-19 07:12 | REP ---
BILATERAL KNEE SERIES: 4--VIEWS HISTORY: Bilateral ankle fractures. Further imaging. Prior right knee injury. No current trauma to the knees. FINDINGS: AP and lateral views of the left knee demonstrate mild superior pole patellar spurring and diffuse osteopenia. No fracture or subluxation is seen. On the right, AP and lateral demonstrate moderate three-compartment osteoarthritis. There is evidence of an old healed tibial plateau fracture with mild posttraumatic deformity of the proximal tibia. Vascular calcification is seen. A fabella is noted posterolaterally. There is some diffuse osteopenia. Old orthopedic pin tracts are seen in the proximal tibia. No acute fracture or subluxation is seen. Possible joint effusion. IMPRESSION: Old posttraumatic deformity and moderate osteoarthritis, right knee. Possible right knee joint effusion. Diffuse osteopenia. Otherwise, negative. MTDD
== END 2019-11-06 13:20 | disposition home or self-care (01) | DRG 563 ==
LOC: M ED 10:52 → M ED INP 14:58 → ENRESERV 15:11 → M MS5PR 17:20
PROVIDERS: ADMIT Internal Medicine; ATTEND Internal Medicine
DX: S82.854A Nondisplaced trimalleolar fracture of right lower leg, initial encounter for closed fracture (principal); S82.845A Nondisplaced bimalleolar fracture of left lower leg, initial encounter for closed fracture; I25.10 Atherosclerotic heart disease of native coronary artery without angina pectoris; Z95.2 Presence of prosthetic heart valve; I10 Essential (primary) hypertension; G47.33 Obstructive sleep apnea (adult) (pediatric); E11.9 Type 2 diabetes mellitus without complications; D64.9 Anemia, unspecified; I35.0 Nonrheumatic aortic (valve) stenosis; M19.90 Unspecified osteoarthritis, unspecified site; E66.01 Morbid (severe) obesity due to excess calories; F32.9 Major depressive disorder, single episode, unspecified; Z85.3 Personal history of malignant neoplasm of breast; Z79.899 Other long term (current) drug therapy; Z88.0 Allergy status to penicillin; Z88.2 Allergy status to sulfonamides; Z88.8 Allergy status to other drugs, medicaments and biological substances; W18.30XA Fall on same level, unspecified, initial encounter; Y92.009 Unspecified place in unspecified non-institutional (private) residence as the place of occurrence of the external cause; Z79.4 Long term (current) use of insulin

== ENCOUNTER → 2020-03-29 | Outpatient (CLI) | payer MEDICARE, BC, OTHER ==
[~2020-03-29] MED LIST changes: +CITRTAB14 PO; +FISH1000 PO; +GABA-282 PO; -GABA-843 PO; -LISI-538 PO; +LISI20TA33 PO; -MAG400TA PO; +MAGN400T35 PO; +METH-1164 PO; +METH-1165 PO; -METH1TAB40 PO; -METH750T2 PO; +PANT-23 PO; -PEG1POW PO; +POLY17PO18 PO; +PRAL1INJ SC; -SIME40TA PO; +SIME80CH6 PO; +[UNRECOGNIZED DRUG - CODE] PO
[2020-03-29 13:26] LABS: BASO % 0.5 % (0.0-1.0); EOS # 0.1 10^3/uL (0.0-0.5); EOS % 0.9 % (0.0-3.0); HEMATOCRIT 37.4 % (36.0-47.0); LYMPH # 0.4 10^3/uL (1.5-5.0); LYMPH % 6.5 % (24.0-44.0); MEAN CORPUSCULAR HEMOGLOBIN 29.1 pg (27.0-33.0); MEAN CORPUSCULAR HGB CONC 32.1 g/dl (32.0-36.5); MEAN CORPUSCULAR VOLUME 90.6 fl (80.0-96.0); MONO # 0.4 10^3/uL (0.0-0.8); MONO % 7.2 % (0.0-5.0); NEUTROPHILS # 4.7 10^3/uL (1.5-8.5); NEUTROPHILS % 84.5 % (36.0-66.0); PLATELET COUNT, AUTOMATED 200 10^3/uL (150-450); RED BLOOD COUNT 4.13 10^6/uL (4.00-5.40); WHITE BLOOD COUNT 5.5 10^3/uL (4.0-10.0)
[2020-03-29 14:00] LABS: BLOOD UREA NITROGEN 17 MG/DL (7-18); CALCIUM LEVEL 10.1 MG/DL (8.8-10.2); CARBON DIOXIDE LEVEL 31 MEQ/L (21-32); CHLORIDE LEVEL 103 MEQ/L (98-107); CREATININE FOR GFR 0.55 MG/DL (0.55-1.30); GLOMERULAR FILTRATION RATE > 60.0 (>45); GLUCOSE, FASTING 132 MG/DL (70-100); POTASSIUM SERUM 4.6 MEQ/L (3.5-5.1); SODIUM LEVEL 140 MEQ/L (136-145)
== END ==
LOC: M PLALAB 10:38
PROVIDERS: ATTEND Physician Assistant
DX: D50.9 Iron deficiency anemia, unspecified (principal)
CPT/HCPCS: 11042; 36415; 80048; 85025; G0463

== ENCOUNTER → 2020-04-24 | Outpatient (CLI) | payer MEDICARE, BC, OTHER ==
[2020-04-24 10:23] LABS: BASO % 0.4 % (0.0-1.0); EOS # 0.1 10^3/uL (0.0-0.5); EOS % 1.3 % (0.0-3.0); HEMATOCRIT 34.6 % (36.0-47.0); HEMOGLOBIN 10.9 g/dl (12.0-15.5); LYMPH # 0.4 10^3/uL (1.5-5.0); LYMPH % 7.8 % (24.0-44.0); MEAN CORPUSCULAR HEMOGLOBIN 28.9 pg (27.0-33.0); MEAN CORPUSCULAR HGB CONC 31.5 g/dl (32.0-36.5); MEAN CORPUSCULAR VOLUME 91.8 fl (80.0-96.0); MONO # 0.3 10^3/uL (0.0-0.8); NEUTROPHILS # 4.6 10^3/uL (1.5-8.5); NEUTROPHILS % 84.8 % (36.0-66.0); PLATELET COUNT, AUTOMATED 231 10^3/uL (150-450); RED BLOOD COUNT 3.77 10^6/uL (4.00-5.40); WHITE BLOOD COUNT 5.4 10^3/uL (4.0-10.0)
[2020-04-24 11:04] LABS: ALBUMIN 3.1 GM/DL (3.2-5.2); ALT/SGPT 20 U/L (12-78); BILIRUBIN,TOTAL 0.2 MG/DL (0.2-1.0); BLOOD UREA NITROGEN 19 MG/DL (7-18); CALCIUM LEVEL 9.6 MG/DL (8.8-10.2); CARBON DIOXIDE LEVEL 30 MEQ/L (21-32); CHLORIDE LEVEL 103 MEQ/L (98-107); CHOLESTEROL LEVEL 180 MG/DL (<200); CREATININE FOR GFR 0.64 MG/DL (0.55-1.30); FREE T4 0.96 NG/DL (0.76-1.46); GLOMERULAR FILTRATION RATE > 60.0 (>45); GLUCOSE, FASTING 145 MG/DL (70-100); HDL CHOLESTEROL 61 MG/DL (>40); LDL CHOLESTEROL 68 MG/DL (<100); NON-HDL-C 119 MG/DL; POTASSIUM SERUM 4.4 MEQ/L (3.5-5.1); SODIUM LEVEL 139 MEQ/L (136-145); TRIGLYCERIDES LEVEL 255 MG/DL (<150)
[2020-04-24 11:06] LABS: HEMOGLOBIN A1c 6.4 %
== END ==
LOC: M PLALAB 08:06
PROVIDERS: ATTEND Family Medicine
DX: E11.22 Type 2 diabetes mellitus with diabetic chronic kidney disease (principal); E78.2 Mixed hyperlipidemia; M46.26 Osteomyelitis of vertebra, lumbar region; N39.41 Urge incontinence

== ENCOUNTER → 2020-06-09 | Outpatient (REF) | payer MEDICARE, OTHER ==
[~2020-06-09] MED LIST changes: +FERR324T21 PO; -FERR325T16 PO
== END ==
LOC: M LAB REF 16:45
PROVIDERS: ATTEND Podiatrist Foot & Ankle Surgery
DX: L03.032 Cellulitis of left toe (principal)

== ENCOUNTER → 2020-06-14 | Outpatient (REF) | payer MEDICARE, OTHER ==
[2020-06-15 12:07] LABS: MALB URINE SIEMENS 5.6 MG/L; MAU/CREAT RATIO 11.6 MCG/MG (0.0-30.0)
== END ==
LOC: M LAB REF 10:38
PROVIDERS: ATTEND Family Medicine
DX: E11.22 Type 2 diabetes mellitus with diabetic chronic kidney disease (principal); E78.2 Mixed hyperlipidemia; M46.26 Osteomyelitis of vertebra, lumbar region; N39.41 Urge incontinence

== ENCOUNTER → 2020-07-27 | Outpatient (CLI) | payer MEDICARE, OTHER ==
[~2020-07-27] MED LIST changes: +ALIR150P SC; +ALIR75PE3 SC; +GABA-283 PO; -GABA-845 PO; -PRAL1INJ SC; -PRAL1INJ2 SC
[2020-07-27 16:01] LABS: CREATININE, URINE 40.2 MG/DL; MAU/CREAT RATIO 17.4 MCG/MG (0.0-30.0)
[2020-07-27 16:01] LABS: BASO % 0.5 % (0.0-1.0); EOS % 0.7 % (0.0-3.0); HEMOGLOBIN 10.5 g/dl (12.0-15.5); LYMPH # 0.6 10^3/uL (1.5-5.0); LYMPH % 9.9 % (24.0-44.0); MEAN CORPUSCULAR HEMOGLOBIN 27.2 pg (27.0-33.0); MEAN CORPUSCULAR HGB CONC 30.9 g/dl (32.0-36.5); MEAN CORPUSCULAR VOLUME 88.1 fl (80.0-96.0); MONO # 0.3 10^3/uL (0.0-0.8); MONO % 5.7 % (2.0-8.0); NEUTROPHILS # 4.8 10^3/uL (1.5-8.5); NEUTROPHILS % 82.7 % (36.0-66.0); PLATELET COUNT, AUTOMATED 242 10^3/uL (150-450); RED BLOOD COUNT 3.86 10^6/uL (4.00-5.40); WHITE BLOOD COUNT 5.8 10^3/uL (4.0-10.0)
[2020-07-27 16:50] LABS: ALBUMIN 3.1 GM/DL (3.2-5.2); ALT/SGPT 28 U/L (12-78); BILIRUBIN,TOTAL 0.3 MG/DL (0.2-1.0); BLOOD UREA NITROGEN 19 MG/DL (7-18); CALCIUM LEVEL 9.3 MG/DL (8.8-10.2); CARBON DIOXIDE LEVEL 29 MEQ/L (21-32); CHLORIDE LEVEL 101 MEQ/L (98-107); CHOLESTEROL LEVEL 151 MG/DL (<200); CHOLESTEROL RISK RATIO 2.796 (<5); CREATININE FOR GFR 0.54 MG/DL (0.55-1.30); GLOMERULAR FILTRATION RATE > 60.0 (>45); GLUCOSE, FASTING 134 MG/DL (70-100); HDL CHOLESTEROL 54 MG/DL (>40); LDL CHOLESTEROL 61 MG/DL (<100); NON-HDL-C 97 MG/DL; POTASSIUM SERUM 4.3 MEQ/L (3.5-5.1); SODIUM LEVEL 139 MEQ/L (136-145); TOTAL PROTEIN 7.3 GM/DL (6.4-8.2); TRIGLYCERIDES LEVEL 179 MG/DL (<150)
[2020-07-27 16:57] LABS: ALBUMIN 3.2 GM/DL (3.2-5.2); ALT/SGPT 28 U/L (12-78); BILIRUBIN,TOTAL 0.3 MG/DL (0.2-1.0); BLOOD UREA NITROGEN 19 MG/DL (7-18); CALCIUM LEVEL 9.5 MG/DL (8.8-10.2); CARBON DIOXIDE LEVEL 29 MEQ/L (21-32); CHLORIDE LEVEL 102 MEQ/L (98-107); CREATININE FOR GFR 0.55 MG/DL (0.55-1.30); GLOMERULAR FILTRATION RATE > 60.0 (>45); GLUCOSE, FASTING 136 MG/DL (70-100); POTASSIUM SERUM 4.2 MEQ/L (3.5-5.1); SODIUM LEVEL 138 MEQ/L (136-145); TOTAL PROTEIN 7.3 GM/DL (6.4-8.2)
== END ==
LOC: M PLALAB 10:17
PROVIDERS: ATTEND Physician Assistant
DX: E11.22 Type 2 diabetes mellitus with diabetic chronic kidney disease (principal); K21.9 Gastro-esophageal reflux disease without esophagitis; I11.9 Hypertensive heart disease without heart failure; E78.2 Mixed hyperlipidemia; I25.10 Atherosclerotic heart disease of native coronary artery without angina pectoris
CPT/HCPCS: 36415; 80053; 80061; 82043; 83036; 85025; G0463

== ENCOUNTER → 2020-10-20 | Outpatient (REF) | payer MEDICARE, OTHER ==
[~2020-10-20] MED LIST changes: -LISI2.5T2 PO; +LISI2.5T9 PO
== END ==
LOC: M LAB REF 13:10
PROVIDERS: ATTEND Internal Medicine Nephrology
DX: E83.42 Hypomagnesemia (principal)

== ENCOUNTER → 2020-11-01 | Outpatient (CLI) | payer MEDICARE, BC, OTHER ==
[2020-11-01 11:22] LABS: BASO % 0.6 % (0.0-1.0); EOS # 0.1 10^3/uL (0.0-0.5); HEMATOCRIT 35.2 % (36.0-47.0); HEMOGLOBIN 11.2 g/dl (12.0-15.5); LYMPH # 0.7 10^3/uL (1.5-5.0); LYMPH % 14.3 % (24.0-44.0); MEAN CORPUSCULAR HEMOGLOBIN 28.7 pg (27.0-33.0); MEAN CORPUSCULAR HGB CONC 31.8 g/dl (32.0-36.5); MEAN CORPUSCULAR VOLUME 90.3 fl (80.0-96.0); MONO # 0.3 10^3/uL (0.0-0.8); MONO % 6.7 % (2.0-8.0); NEUTROPHILS # 3.8 10^3/uL (1.5-8.5); NEUTROPHILS % 76.2 % (36.0-66.0); PLATELET COUNT, AUTOMATED 234 10^3/uL (150-450)
[2020-11-01 12:10] LABS: BLOOD UREA NITROGEN 23 MG/DL (7-18); CALCIUM LEVEL 9.7 MG/DL (8.8-10.2); CARBON DIOXIDE LEVEL 31 MEQ/L (21-32); CHLORIDE LEVEL 104 MEQ/L (98-107); CREATININE FOR GFR 0.54 MG/DL (0.55-1.30); GLOMERULAR FILTRATION RATE > 60.0 (>45); GLUCOSE, FASTING 106 MG/DL (70-100); POTASSIUM SERUM 4.8 MEQ/L (3.5-5.1); SODIUM LEVEL 138 MEQ/L (136-145)
== END ==
LOC: M PLALAB 08:23
PROVIDERS: ATTEND Family Medicine
DX: E11.22 Type 2 diabetes mellitus with diabetic chronic kidney disease (principal); K21.9 Gastro-esophageal reflux disease without esophagitis

== ENCOUNTER 2020-12-20 10:03 | Outpatient (CLI) | payer MEDICARE, BC, OTHER ==
[~2020-12-20] VITALS: Ht 172.7 cm; Wt 81.6 kg
[~2020-12-20 10:03] MED LIST changes: +ALBUTEROL 90 MCG/ACT 8GM HFA INHALER INH PRN; +ALBUTEROL SULFATE 2.5 MG/0.5 ML INH NEB SOLN INH PRN; +CASIRIVIMAB/IMDEVIMAB 1,200 MG in NS 250 ML IV ONE; +EPINEPHrine INJ 1 MG/ML 1ML AMP IM PRN; +NS 1,000 ML IV SCH; +diphenhydrAMINE 50MG/ML VIAL (J1200) IV PRN; +methylPREDNISolone 125MG 2ML VIAL IV PRN
[2020-12-20 10:42] VITALS: BP_SYST 108; BP_SYST 133; BP_DIAS 61; BP_DIAS 63
[2020-12-20 11:12] VITALS: BP 108/61
[2020-12-20 11:42] VITALS: BP 102/62
[2020-12-20 12:42] VITALS: BP 102/62
== END 2020-12-20 12:42 | disposition home or self-care (01) ==
LOC: M OPCLI4PR 10:03
PROVIDERS: ATTEND Family Medicine
DX: U07.1 COVID-19 (principal); Z88.0 Allergy status to penicillin; Z88.2 Allergy status to sulfonamides; Z88.8 Allergy status to other drugs, medicaments and biological substances

== ENCOUNTER → 2021-03-22 | Outpatient (CLI) | payer MEDICARE, BC, OTHER ==
[~2021-03-22] MED LIST changes: -ALBUTEROL 90 MCG/ACT 8GM HFA INHALER INH PRN; -ALBUTEROL SULFATE 2.5 MG/0.5 ML INH NEB SOLN INH PRN; -CASIRIVIMAB/IMDEVIMAB 1,200 MG in NS 250 ML IV ONE; -EPINEPHrine INJ 1 MG/ML 1ML AMP IM PRN; -NS 1,000 ML IV SCH; -diphenhydrAMINE 50MG/ML VIAL (J1200) IV PRN; -methylPREDNISolone 125MG 2ML VIAL IV PRN
== END ==
LOC: M RAD 09:15
PROVIDERS: ATTEND Specialist
DX: N31.9 Neuromuscular dysfunction of bladder, unspecified (principal)

== ENCOUNTER → 2021-05-24 | Outpatient (CLI) | payer MEDICARE, BC, OTHER ==
[~2021-05-24] MED LIST changes: -D31000TA2 PO; +VITA100093 PO
[2021-05-24 13:35] LABS: BASO % 0.5 % (0.0-1.0); EOS # 0.1 10^3/uL (0.0-0.5); EOS % 2.6 % (0.0-3.0); HEMATOCRIT 36.4 % (36.0-47.0); HEMOGLOBIN 11.5 g/dl (12.0-15.5); LYMPH # 0.7 10^3/uL (1.5-5.0); LYMPH % 18.6 % (24.0-44.0); MEAN CORPUSCULAR HGB CONC 31.6 g/dl (32.0-36.5); MEAN CORPUSCULAR VOLUME 91.9 fl (80.0-96.0); MONO # 0.3 10^3/uL (0.0-0.8); MONO % 6.9 % (2.0-8.0); NEUTROPHILS # 2.8 10^3/uL (1.5-8.5); NEUTROPHILS % 70.9 % (36.0-66.0); PLATELET COUNT, AUTOMATED 193 10^3/uL (150-450); RED BLOOD COUNT 3.96 10^6/uL (4.00-5.40); WHITE BLOOD COUNT 3.9 10^3/uL (4.0-10.0)
[2021-05-24 14:02] LABS: ALBUMIN 3.4 GM/DL (3.2-5.2); ALT/SGPT 37 U/L (12-78); BILIRUBIN,TOTAL 0.4 MG/DL (0.2-1.0); BLOOD UREA NITROGEN 25 MG/DL (7-18); CALCIUM LEVEL 9.7 MG/DL (8.8-10.2); CARBON DIOXIDE LEVEL 31 MEQ/L (21-32); CHLORIDE LEVEL 103 MEQ/L (98-107); CHOLESTEROL LEVEL 136 MG/DL (<200); CHOLESTEROL RISK RATIO 2.125 (<5); CREATININE FOR GFR 0.46 MG/DL (0.55-1.30); FREE T4 0.88 NG/DL (0.76-1.46); GLOMERULAR FILTRATION RATE > 60.0 (>45); GLUCOSE, FASTING 104 MG/DL (70-100); HDL CHOLESTEROL 64 MG/DL (>40); LDL CHOLESTEROL 41 MG/DL (<100); NON-HDL-C 72 MG/DL; POTASSIUM SERUM 4.6 MEQ/L (3.5-5.1); SODIUM LEVEL 139 MEQ/L (136-145); TRIGLYCERIDES LEVEL 155 MG/DL (<150)
[2021-05-24 14:18] LABS: HEMOGLOBIN A1c 5.7 %
== END ==
LOC: M PLALAB 09:56
PROVIDERS: ATTEND Nurse Practitioner Adult Health
DX: E11.22 Type 2 diabetes mellitus with diabetic chronic kidney disease (principal)

== ENCOUNTER → 2021-08-23 | Outpatient (CLI) | payer MEDICARE, BC, OTHER ==
[~2021-08-23] MED LIST changes: -GLUCTAB6 PO; +GLUCTAB7 PO
[2021-08-23 10:33] LABS: BASO % 0.8 % (0.0-1.0); EOS # 0.1 10^3/uL (0.0-0.5); EOS % 2.2 % (0.0-3.0); HEMOGLOBIN 10.8 g/dl (12.0-15.5); LYMPH # 0.9 10^3/uL (1.5-5.0); LYMPH % 18.7 % (24.0-44.0); MEAN CORPUSCULAR HEMOGLOBIN 28.6 pg (27.0-33.0); MEAN CORPUSCULAR HGB CONC 31.8 g/dl (32.0-36.5); MEAN CORPUSCULAR VOLUME 90.2 fl (80.0-96.0); MONO # 0.3 10^3/uL (0.0-0.8); NEUTROPHILS # 3.6 10^3/uL (1.5-8.5); NEUTROPHILS % 72.1 % (36.0-66.0); PLATELET COUNT, AUTOMATED 289 10^3/uL (150-450); RED BLOOD COUNT 3.77 10^6/uL (4.00-5.40)
[2021-08-23 10:57] LABS: HEMOGLOBIN A1c 5.6 %
[2021-08-23 11:21] LABS: ALT/SGPT 31 U/L (12-78); BILIRUBIN,TOTAL 0.3 MG/DL (0.2-1.0); BLOOD UREA NITROGEN 22 MG/DL (7-18); CALCIUM LEVEL 9.1 MG/DL (8.8-10.2); CARBON DIOXIDE LEVEL 29 MEQ/L (21-32); CHLORIDE LEVEL 103 MEQ/L (98-107); CHOLESTEROL LEVEL 127 MG/DL (<200); CHOLESTEROL RISK RATIO 1.763 (<5); CREATININE FOR GFR 0.55 MG/DL (0.55-1.30); FERRITIN 193 NG/ML (8-252); GLOMERULAR FILTRATION RATE > 60.0 (>45); GLUCOSE, FASTING 118 MG/DL (70-100); HDL CHOLESTEROL 72 MG/DL (>40); IRON (FE) 26 UG/DL (50-170); LDL CHOLESTEROL 38 MG/DL (<100); NON-HDL-C 55 MG/DL; PERCENT SATURATION 13.3 % (13.2-45.0); POTASSIUM SERUM 4.2 MEQ/L (3.5-5.1); SODIUM LEVEL 137 MEQ/L (136-145); TOTAL IRON BINDING CAPACITY 195 UG/DL (250-450); TRIGLYCERIDES LEVEL 84 MG/DL (<150); VITAMIN B12 LEVEL 1137 PG/ML (247-911)
[2021-08-23 14:22] LABS: CREATININE, URINE 39.8 MG/DL; MALB URINE SIEMENS 8.5 MG/L; MAU/CREAT RATIO 21.3 MCG/MG (0.0-30.0)
== END ==
LOC: M PLALAB 08:06
PROVIDERS: ATTEND Family Medicine
DX: E11.22 Type 2 diabetes mellitus with diabetic chronic kidney disease (principal); N18.9 Chronic kidney disease, unspecified; E78.2 Mixed hyperlipidemia; I11.9 Hypertensive heart disease without heart failure; D64.9 Anemia, unspecified

== ENCOUNTER → 2021-09-28 | Outpatient (CLI) | payer MEDICARE, BC, OTHER | LOC: M PLALAB 07:53 | PROVIDERS: ATTEND Nurse Practitioner Adult Health | DX: G25.81 Restless legs syndrome (principal) ==

== ENCOUNTER → 2021-11-30 | Outpatient (CLI) | payer MEDICARE, BC, OTHER ==
[~2021-11-30] MED LIST changes: -ALIR150P SC; +ALIR150P4 SC; -PHEN15TA11 PO; +PHEN15TA12 PO
[2021-11-30 11:16] LABS: BASO % 0.6 % (0.0-1.0); EOS # 0.1 10^3/uL (0.0-0.5); EOS % 1.9 % (0.0-3.0); HEMATOCRIT 33.7 % (36.0-47.0); HEMOGLOBIN 10.5 g/dl (12.0-15.5); LYMPH % 19.4 % (24.0-44.0); MEAN CORPUSCULAR HEMOGLOBIN 27.3 pg (27.0-33.0); MEAN CORPUSCULAR HGB CONC 31.2 g/dl (32.0-36.5); MEAN CORPUSCULAR VOLUME 87.8 fl (80.0-96.0); MONO # 0.3 10^3/uL (0.0-0.8); MONO % 5.9 % (2.0-8.0); NEUTROPHILS # 3.8 10^3/uL (1.5-8.5); NEUTROPHILS % 71.8 % (36.0-66.0); PLATELET COUNT, AUTOMATED 267 10^3/uL (150-450); RED BLOOD COUNT 3.84 10^6/uL (4.00-5.40); WHITE BLOOD COUNT 5.3 10^3/uL (4.0-10.0)
[2021-11-30 11:53] LABS: ALBUMIN 3.1 GM/DL (3.2-5.2); ALT/SGPT 26 U/L (12-78); BILIRUBIN,TOTAL 0.3 MG/DL (0.2-1.0); BLOOD UREA NITROGEN 25 MG/DL (7-18); CALCIUM LEVEL 9.4 MG/DL (8.8-10.2); CARBON DIOXIDE LEVEL 30 MEQ/L (21-32); CHLORIDE LEVEL 101 MEQ/L (98-107); CREATININE FOR GFR 0.54 MG/DL (0.55-1.30); GLOMERULAR FILTRATION RATE > 60.0 (>45); GLUCOSE, FASTING 108 MG/DL (70-100); POTASSIUM SERUM 4.2 MEQ/L (3.5-5.1); SODIUM LEVEL 137 MEQ/L (136-145); TOTAL PROTEIN 7.1 GM/DL (6.4-8.2)
[2021-11-30 11:58] LABS: HEMOGLOBIN A1c 5.9 %
== END ==
LOC: M PLALAB 08:02
PROVIDERS: ATTEND Nurse Practitioner Adult Health
DX: E11.22 Type 2 diabetes mellitus with diabetic chronic kidney disease (principal); N18.9 Chronic kidney disease, unspecified

== ENCOUNTER → 2022-01-25 | Outpatient (CLI) | payer MEDICARE, OTHER | LOC: M PAIN 13:00 | PROVIDERS: ATTEND Nurse Practitioner Family | DX: M79.10 Myalgia, unspecified site (principal); G89.29 Other chronic pain; E11.9 Type 2 diabetes mellitus without complications; I10 Essential (primary) hypertension; D50.9 Iron deficiency anemia, unspecified; G47.30 Sleep apnea, unspecified; Z86.59 Personal history of other mental and behavioral disorders; Z88.0 Allergy status to penicillin; Z88.1 Allergy status to other antibiotic agents; Z88.2 Allergy status to sulfonamides; Z79.4 Long term (current) use of insulin; Z79.899 Other long term (current) drug therapy ==

== ENCOUNTER → 2022-02-01 | Outpatient (CLI) | payer MEDICARE, OTHER | LOC: M PAIN 09:45 → M TMPAIN 09:45 | PROVIDERS: ATTEND Nurse Practitioner Family | DX: M79.10 Myalgia, unspecified site (principal); G89.29 Other chronic pain; C41.2 Malignant neoplasm of vertebral column; E11.9 Type 2 diabetes mellitus without complications; I10 Essential (primary) hypertension; D50.9 Iron deficiency anemia, unspecified; G47.30 Sleep apnea, unspecified; Z86.59 Personal history of other mental and behavioral disorders; Z88.0 Allergy status to penicillin; Z88.1 Allergy status to other antibiotic agents; Z88.2 Allergy status to sulfonamides; Z79.4 Long term (current) use of insulin; Z79.899 Other long term (current) drug therapy ==

== ENCOUNTER → 2022-02-07 | Outpatient (CLI) | payer MEDICARE, OTHER | LOC: M PAIN 16:30 | PROVIDERS: ATTEND Anesthesiology | DX: M79.18 Myalgia, other site (principal); E11.9 Type 2 diabetes mellitus without complications; I10 Essential (primary) hypertension; D50.9 Iron deficiency anemia, unspecified; G47.30 Sleep apnea, unspecified; Z86.59 Personal history of other mental and behavioral disorders; Z88.0 Allergy status to penicillin; Z88.1 Allergy status to other antibiotic agents; Z88.2 Allergy status to sulfonamides; Z79.4 Long term (current) use of insulin; Z79.899 Other long term (current) drug therapy ==

== ENCOUNTER 2022-02-23 07:54 | Inpatient (IN) | payer MEDICARE, BC, OTHER ==
[~2022-02-23] VITALS: Ht 172.7 cm; Wt 77.3 kg
[2022-02-23] MEDS ORDERED: LANTINJ4 SC (08:09)
[2022-02-23] MEDS ORDERED: PANT40TA29 PO (08:09)
[2022-02-23] MEDS ORDERED: OXYC-517 PO (08:09)
[2022-02-23] MEDS ORDERED: CYCLOBENZAPRINE 10MG TABLET PO ONE (08:55)
[2022-02-23] MEDS ORDERED: MORPHINE 4 MG/ML 1ML VIAL IV ONE ×2 (08:55→13:15)
[2022-02-23] MEDS ORDERED: PROMETHAZINE 25MG/ML 1ML VIAL IV ONE (08:55)
[2022-02-23 09:55] LABS: BASO % 0.4 % (0.0-1.0); EOS # 0.1 10^3/uL (0.0-0.5); EOS % 1.4 % (0.0-3.0); HEMATOCRIT 31.9 % (36.0-47.0); HEMOGLOBIN 10.1 g/dl (12.0-15.5); LYMPH # 0.7 10^3/uL (1.5-5.0); LYMPH % 9.7 % (24.0-44.0); MEAN CORPUSCULAR HEMOGLOBIN 27.9 pg (27.0-33.0); MEAN CORPUSCULAR HGB CONC 31.7 g/dl (32.0-36.5); MEAN CORPUSCULAR VOLUME 88.1 fl (80.0-96.0); MONO # 0.4 10^3/uL (0.0-0.8); NEUTROPHILS % 82.1 % (36.0-66.0); PLATELET COUNT, AUTOMATED 244 10^3/uL (150-450); RED BLOOD COUNT 3.62 10^6/uL (4.00-5.40); WHITE BLOOD COUNT 7.3 10^3/uL (4.0-10.0)
[2022-02-23 10:14] LABS: LIPASE 17 U/L (12-53)
[2022-02-23 10:15] LABS: MAGNESIUM LEVEL 1.9 MG/DL (1.8-2.4)
[2022-02-23 10:16] LABS: BILIRUBIN,DIRECT < 0.1 MG/DL (<0.4); CPK CREATINE PHOSPHOKINASE 53 U/L (34-145)
[2022-02-23 10:17] LABS: ALBUMIN 3.2 G/DL (3.2-5.2); ALKALINE PHOSPHATASE 105 U/L (46-116); ALT/SGPT 21 U/L (7.0-40); AST/SGOT 28 U/L (<34); BILIRUBIN,TOTAL 0.2 MG/DL (0.3-1.2); BLOOD UREA NITROGEN 27 MG/DL (9-23); CALCIUM LEVEL 9.2 MG/DL (8.3-10.6); CARBON DIOXIDE LEVEL 29 MMOL/L (20-31); CHLORIDE LEVEL 97 MMOL/L (98-107); CREATININE FOR GFR 0.47 MG/DL (0.55-1.30); GLOMERULAR FILTRATION RATE > 60.0 (>45); GLUCOSE, FASTING 130 MG/DL (74-106); POTASSIUM SERUM 4.6 MMOL/L (3.5-5.1); SODIUM LEVEL 133 MMOL/L (136-145); TOTAL PROTEIN 6.9 G/DL (5.7-8.2)
[2022-02-23] MEDS ORDERED: NS 1,000 ML IV ONE (10:45)
[2022-02-23] MEDS ORDERED: cefTRIAXone SOD 1 GM in D5W MINI-BAG PLUS 50 ML IV ONE (10:50)
[2022-02-23] MEDS ORDERED: GABAPENTIN 300 MG CAP PO ONE (12:35)
[2022-02-23] MEDS ORDERED: CALCIUM CARBONATE 500 MG CHEW U/D PO PRN (15:20)
[2022-02-23] MEDS ORDERED: GLUCOSE 4GM CHEW TABLET PO PRN (15:30)
[2022-02-23] MEDS ORDERED: DEXTROSE 50% 50ML SYRINGE IV PRN (15:30)
[2022-02-23] MEDS ORDERED: GLUCAGON INJ 1MG VIAL SC PRN (15:30)
[2022-02-23] MEDS ORDERED: MOM 30ML SUSPENSION UDC PO PRN (15:35)
[2022-02-23] MEDS ORDERED: BISACODYL 5MG TAB PO PRN (15:35)
[2022-02-23] MEDS ORDERED: SENOKOT S TAB PO PRN (15:35)
[2022-02-23] MEDS ORDERED: MIRALAX *UNIT DOSE* 17GM PACKET PO PRN (15:35)
[2022-02-23] MEDS ORDERED: PERCOCET 5MG/325MG TAB PO PRN (15:45)
[2022-02-23] MEDS ORDERED: CALC-176 PO (15:48)
[2022-02-23] MEDS ORDERED: MULT-90 PO (15:48)
[2022-02-23] MEDS ORDERED: VIBE75TA PO (15:48)
[2022-02-23] MEDS ORDERED: OMEG100010 PO (15:48)
[2022-02-23] MEDS ORDERED: ROPI2TAB3 PO (15:48)
[2022-02-23] MEDS ORDERED: LEXA1TAB PO (15:48)
[2022-02-23] MEDS ORDERED: METO1TAB32 PO (15:48)
[2022-02-23] MEDS ORDERED: HOME MED LIST COMPLETE! XX SCH (16:00)
[2022-02-23] MEDS: PERCOCET 5MG/325MG TAB PO PRN ×2 (16:40→22:43)
[2022-02-23] MEDS: INSULIN LISPRO (NovoLOG) PER UNIT SC SCH ×2 (17:30→21:00)
[2022-02-23] MEDS: LACTOBACILLUS ACIDOPHILUS CAP (BACID) PO SCH (17:54)
[2022-02-23 17:57] VITALS: BP 147/74
[2022-02-23 20:01] LABS: RSV AMPLIFICATION NEGATIVE (NEGATIVE)
[2022-02-23 21:38] VITALS: BP 150/72
[2022-02-23] MEDS: GABAPENTIN 300 MG CAP PO SCH (21:58)
[2022-02-23] MEDS: MAGNESIUM OXIDE 400MG TAB (MAG-OX) PO SCH (21:58)
[2022-02-23] MEDS: rOPINIRole 2MG TAB PO SCH (21:58)
[2022-02-23] MEDS: METOPROLOL SUCC *XL* 25MG TAB (TopROL *XL*) PO SCH (21:58)
[2022-02-23] MEDS: OMEGA-3 1000MG CAPSULE PO SCH (21:58)
[2022-02-23] MEDS: ESCITALOPRAM OXALATE 10 MG TAB (LEXAPRO) PO SCH (21:58)
[2022-02-23] MEDS: PANTOPRAZOLE 40MG TAB (PROTONIX) PO SCH (21:58)
[2022-02-24] MEDS ORDERED: MORPHINE 2 MG/ML 1ML VIAL IV ONE (03:10)
[2022-02-24 04:49] VITALS: BP 143/68
[2022-02-24] MEDS: GABAPENTIN 300 MG CAP PO SCH ×3 (04:50→22:12)
[2022-02-24] MEDS: PERCOCET 5MG/325MG TAB PO PRN ×4 (04:51→22:12)
[2022-02-24 06:23] LABS: BASO % 0.8 % (0.0-1.0); EOS # 0.1 10^3/uL (0.0-0.5); EOS % 2.6 % (0.0-3.0); HEMATOCRIT 31.5 % (36.0-47.0); HEMOGLOBIN 9.9 g/dl (12.0-15.5); LYMPH # 0.9 10^3/uL (1.5-5.0); LYMPH % 17.8 % (24.0-44.0); MEAN CORPUSCULAR HEMOGLOBIN 28.1 pg (27.0-33.0); MEAN CORPUSCULAR HGB CONC 31.4 g/dl (32.0-36.5); MEAN CORPUSCULAR VOLUME 89.5 fl (80.0-96.0); MONO # 0.4 10^3/uL (0.0-0.8); NEUTROPHILS # 3.6 10^3/uL (1.5-8.5); NEUTROPHILS % 71.6 % (36.0-66.0); PLATELET COUNT, AUTOMATED 227 10^3/uL (150-450); RED BLOOD COUNT 3.52 10^6/uL (4.00-5.40)
[2022-02-24 06:48] LABS: BLOOD UREA NITROGEN 20 MG/DL (9-23); CARBON DIOXIDE LEVEL 30 MMOL/L (20-31); CHLORIDE LEVEL 98 MMOL/L (98-107); CREATININE FOR GFR 0.44 MG/DL (0.55-1.30); GLOMERULAR FILTRATION RATE > 60.0 (>45); GLUCOSE, FASTING 110 MG/DL (74-106); POTASSIUM SERUM 4.7 MMOL/L (3.5-5.1); SODIUM LEVEL 134 MMOL/L (136-145)
[2022-02-24] MEDS ORDERED: HYDROMORPHONE HCL 0.5 MG/ 0.5 ML SYRINGE IV ONE (08:20)
[2022-02-24] MEDS ORDERED: PERCOCET 5MG/325MG TAB PO ONE (08:25)
[2022-02-24] MEDS: INSULIN LISPRO (NovoLOG) PER UNIT SC SCH ×4 (08:37→19:54)
[2022-02-24] MEDS: OMEGA-3 1000MG CAPSULE PO SCH ×2 (08:39→19:50)
[2022-02-24] MEDS: MULTIVITAMINS/MINERALS THERAP 1 TAB PO SCH (08:41)
[2022-02-24] MEDS: PANTOPRAZOLE 40MG TAB (PROTONIX) PO SCH ×2 (08:41→19:50)
[2022-02-24] MEDS: VITAMIN D 1,000 INTERNATIONAL UNITS TABLET PO SCH (08:41)
[2022-02-24] MEDS: LACTOBACILLUS ACIDOPHILUS CAP (BACID) PO SCH ×2 (08:41→17:16)
[2022-02-24] MEDS: METOPROLOL SUCC *XL* 25MG TAB (TopROL *XL*) PO SCH ×2 (08:44→19:53)
[2022-02-24] MEDS ORDERED: VITAMIN D (CHOLECALCIFEROL) 400 INTERNATIONAL UNITS TAB PO SCH (09:00)
[2022-02-24] MEDS: oxyCODONE 15MG CR TAB PO SCH ×2 (11:03→19:52)
[2022-02-24] MEDS: FERROUS GLUCONATE 324 MG TAB PO SCH (11:05)
[2022-02-24] MEDS: PYRIDOXINE 50 MG TAB PO SCH (11:05)
[2022-02-24] MEDS: LINEZOLID 600MG TABLET (ZYVOX) PO SCH (11:05)
[2022-02-24] MEDS: rOPINIRole 2MG TAB PO SCH ×3 (11:07→19:51)
[2022-02-24 12:00] VITALS: BP 142/68
[2022-02-24 15:47] VITALS: BP 131/70
[2022-02-24] MEDS: ESCITALOPRAM OXALATE 10 MG TAB (LEXAPRO) PO SCH (19:51)
[2022-02-24] MEDS: MAGNESIUM OXIDE 400MG TAB (MAG-OX) PO SCH (19:51)
[2022-02-24 22:00] VITALS: BP 132/71
[2022-02-25] MEDS: PERCOCET 5MG/325MG TAB PO PRN ×4 (03:47→20:06)
[2022-02-25] MEDS: GABAPENTIN 300 MG CAP PO SCH ×3 (05:02→21:56)
[2022-02-25 06:00] VITALS: BP 142/77
[2022-02-25 06:02] LABS: BASO % 0.8 % (0.0-1.0); EOS # 0.2 10^3/uL (0.0-0.5); EOS % 3.4 % (0.0-3.0); HEMATOCRIT 30.5 % (36.0-47.0); HEMOGLOBIN 9.6 g/dl (12.0-15.5); MEAN CORPUSCULAR HEMOGLOBIN 27.8 pg (27.0-33.0); MEAN CORPUSCULAR HGB CONC 31.5 g/dl (32.0-36.5); MEAN CORPUSCULAR VOLUME 88.4 fl (80.0-96.0); MONO # 0.4 10^3/uL (0.0-0.8); MONO % 8.1 % (2.0-8.0); NEUTROPHILS # 3.7 10^3/uL (1.5-8.5); NEUTROPHILS % 69.3 % (36.0-66.0); PLATELET COUNT, AUTOMATED 226 10^3/uL (150-450); RED BLOOD COUNT 3.45 10^6/uL (4.00-5.40); WHITE BLOOD COUNT 5.3 10^3/uL (4.0-10.0)
[2022-02-25 06:25] LABS: BLOOD UREA NITROGEN 19 MG/DL (9-23); CALCIUM LEVEL 8.9 MG/DL (8.3-10.6); CARBON DIOXIDE LEVEL 31 MMOL/L (20-31); CHLORIDE LEVEL 97 MMOL/L (98-107); CREATININE FOR GFR 0.44 MG/DL (0.55-1.30); GLOMERULAR FILTRATION RATE > 60.0 (>45); GLUCOSE, FASTING 120 MG/DL (74-106); POTASSIUM SERUM 4.7 MMOL/L (3.5-5.1); SODIUM LEVEL 134 MMOL/L (136-145)
[2022-02-25] MEDS: VITAMIN D 1,000 INTERNATIONAL UNITS TABLET PO SCH (08:36)
[2022-02-25] MEDS: LACTOBACILLUS ACIDOPHILUS CAP (BACID) PO SCH ×2 (08:36→17:43)
[2022-02-25] MEDS: PYRIDOXINE 50 MG TAB PO SCH (08:36)
[2022-02-25] MEDS: MULTIVITAMINS/MINERALS THERAP 1 TAB PO SCH (08:36)
[2022-02-25] MEDS: FERROUS GLUCONATE 324 MG TAB PO SCH (08:36)
[2022-02-25] MEDS: INSULIN LISPRO (NovoLOG) PER UNIT SC SCH ×4 (08:36→21:00)
[2022-02-25] MEDS: OMEGA-3 1000MG CAPSULE PO SCH ×2 (08:37→21:52)
[2022-02-25] MEDS: oxyCODONE 15MG CR TAB PO SCH ×2 (08:37→21:56)
[2022-02-25] MEDS: PANTOPRAZOLE 40MG TAB (PROTONIX) PO SCH ×2 (08:37→21:52)
[2022-02-25] MEDS: rOPINIRole 2MG TAB PO SCH ×3 (08:37→21:56)
[2022-02-25] MEDS: METOPROLOL SUCC *XL* 25MG TAB (TopROL *XL*) PO SCH ×2 (08:39→21:55)
[2022-02-25] MEDS: LINEZOLID 600MG TABLET (ZYVOX) PO SCH (08:40)
[2022-02-25 20:09] VITALS: BP 125/64
[2022-02-25] MEDS: ESCITALOPRAM OXALATE 10 MG TAB (LEXAPRO) PO SCH (21:52)
[2022-02-25] MEDS: MAGNESIUM OXIDE 400MG TAB (MAG-OX) PO SCH (21:56)
[2022-02-26] MEDS: PERCOCET 5MG/325MG TAB PO PRN ×2 (00:08→04:10)
[2022-02-26 05:28] VITALS: BP 134/67
[2022-02-26 06:16] LABS: BASO % 0.6 % (0.0-1.0); EOS # 0.2 10^3/uL (0.0-0.5); EOS % 3.2 % (0.0-3.0); HEMATOCRIT 31.9 % (36.0-47.0); LYMPH % 20.6 % (24.0-44.0); MEAN CORPUSCULAR HEMOGLOBIN 27.7 pg (27.0-33.0); MEAN CORPUSCULAR HGB CONC 31.3 g/dl (32.0-36.5); MEAN CORPUSCULAR VOLUME 88.4 fl (80.0-96.0); MONO # 0.4 10^3/uL (0.0-0.8); MONO % 7.1 % (2.0-8.0); NEUTROPHILS # 3.5 10^3/uL (1.5-8.5); NEUTROPHILS % 68.3 % (36.0-66.0); PLATELET COUNT, AUTOMATED 245 10^3/uL (150-450); RED BLOOD COUNT 3.61 10^6/uL (4.00-5.40); WHITE BLOOD COUNT 5.1 10^3/uL (4.0-10.0)
[2022-02-26] MEDS: GABAPENTIN 300 MG CAP PO SCH (06:28)
[2022-02-26 06:40] LABS: BLOOD UREA NITROGEN 17 MG/DL (9-23); CALCIUM LEVEL 9.3 MG/DL (8.3-10.6); CARBON DIOXIDE LEVEL 33 MMOL/L (20-31); CHLORIDE LEVEL 96 MMOL/L (98-107); CREATININE FOR GFR 0.45 MG/DL (0.55-1.30); GLOMERULAR FILTRATION RATE > 60.0 (>45); GLUCOSE, FASTING 110 MG/DL (74-106); POTASSIUM SERUM 5.4 MMOL/L (3.5-5.1); SODIUM LEVEL 135 MMOL/L (136-145)
[2022-02-26] MEDS: INSULIN LISPRO (NovoLOG) PER UNIT SC SCH ×4 (09:05→21:00)
[2022-02-26] MEDS: oxyCODONE 15MG CR TAB PO SCH (09:05)
[2022-02-26] MEDS: rOPINIRole 2MG TAB PO SCH ×3 (09:05→22:20)
[2022-02-26] MEDS: MULTIVITAMINS/MINERALS THERAP 1 TAB PO SCH (09:05)
[2022-02-26] MEDS: LACTOBACILLUS ACIDOPHILUS CAP (BACID) PO SCH ×2 (09:05→18:35)
[2022-02-26] MEDS: PANTOPRAZOLE 40MG TAB (PROTONIX) PO SCH ×2 (09:05→22:18)
[2022-02-26] MEDS: PYRIDOXINE 50 MG TAB PO SCH (09:06)
[2022-02-26] MEDS: OMEGA-3 1000MG CAPSULE PO SCH ×2 (09:06→22:19)
[2022-02-26] MEDS: METOPROLOL SUCC *XL* 25MG TAB (TopROL *XL*) PO SCH ×2 (09:06→22:19)
[2022-02-26] MEDS: FERROUS GLUCONATE 324 MG TAB PO SCH (09:06)
[2022-02-26] MEDS: LINEZOLID 600MG TABLET (ZYVOX) PO SCH (09:06)
[2022-02-26] MEDS: VITAMIN D 1,000 INTERNATIONAL UNITS TABLET PO SCH (09:06)
[2022-02-26 10:25] LABS: ABG BASE EXCESS 3.3 (-2.0-2.0); ABG HCO3 27.7 MEQ/L (22.0-26.0); ABG PARTIAL PRESSURE CO2 41.5 mmHg (35.0-45.0); ABG PARTIAL PRESSURE O2 79.9 mmHg (75.0-100.0); ABG STANDARD HCO3 27.4 MEQ/L (22.0-26.0); ABG pH (ARTERIAL) 7.442 UNITS (7.350-7.450)
[2022-02-26] MEDS: KETOROLAC 30 MG/ML 1ML VIAL IV SCH ×3 (10:49→22:18)
[2022-02-26] MEDS ORDERED: PERCOCET 5MG/325MG TAB PO PRN (12:00)
[2022-02-26 14:00] VITALS: BP 136/73
[2022-02-26] MEDS ORDERED: ONDANSETRON 4MG ORAL DISINTEGRATING TAB SL PRN (14:45)
[2022-02-26] MEDS: GABAPENTIN 400MG CAP PO SCH ×2 (15:07→22:19)
[2022-02-26] MEDS: MAGNESIUM OXIDE 400MG TAB (MAG-OX) PO SCH (21:00)
[2022-02-26 22:16] VITALS: BP 135/73
[2022-02-26] MEDS: ESCITALOPRAM OXALATE 10 MG TAB (LEXAPRO) PO SCH (22:19)
[2022-02-27] MEDS: GABAPENTIN 400MG CAP PO SCH ×4 (04:46→21:46)
[2022-02-27] MEDS: KETOROLAC 30 MG/ML 1ML VIAL IV SCH ×3 (04:47→16:49)
[2022-02-27 05:56] VITALS: BP 139/67
[2022-02-27 06:01] LABS: HEMATOCRIT 31.8 % (36.0-47.0); HEMOGLOBIN 10.3 g/dl (12.0-15.5); LYMPH # 0.7 10^3/uL (1.5-5.0); LYMPH % 16.6 % (24.0-44.0); MEAN CORPUSCULAR HEMOGLOBIN 28.1 pg (27.0-33.0); MEAN CORPUSCULAR HGB CONC 32.4 g/dl (32.0-36.5); MEAN CORPUSCULAR VOLUME 86.6 fl (80.0-96.0); NEUTROPHILS # 3.3 10^3/uL (1.5-8.5); NEUTROPHILS % 81.9 % (36.0-66.0); PLATELET COUNT, AUTOMATED 279 10^3/uL (150-450); RED BLOOD COUNT 3.67 10^6/uL (4.00-5.40)
[2022-02-27 06:21] LABS: BLOOD UREA NITROGEN 30 MG/DL (9-23); CALCIUM LEVEL 8.8 MG/DL (8.3-10.6); CARBON DIOXIDE LEVEL 29 MMOL/L (20-31); CHLORIDE LEVEL 94 MMOL/L (98-107); CREATININE FOR GFR 0.45 MG/DL (0.55-1.30); GLOMERULAR FILTRATION RATE > 60.0 (>45); GLUCOSE, FASTING 176 MG/DL (74-106); SODIUM LEVEL 130 MMOL/L (136-145)
[2022-02-27] MEDS: INSULIN LISPRO (NovoLOG) PER UNIT SC SCH ×4 (09:04→21:48)
[2022-02-27] MEDS: PANTOPRAZOLE 40MG TAB (PROTONIX) PO SCH ×2 (09:06→21:44)
[2022-02-27] MEDS: OMEGA-3 1000MG CAPSULE PO SCH ×2 (09:06→21:49)
[2022-02-27] MEDS: METOPROLOL SUCC *XL* 25MG TAB (TopROL *XL*) PO SCH ×2 (09:06→21:47)
[2022-02-27] MEDS: FERROUS GLUCONATE 324 MG TAB PO SCH (09:06)
[2022-02-27] MEDS: rOPINIRole 2MG TAB PO SCH ×3 (09:06→21:46)
[2022-02-27] MEDS: VITAMIN D 1,000 INTERNATIONAL UNITS TABLET PO SCH (09:06)
[2022-02-27] MEDS: LACTOBACILLUS ACIDOPHILUS CAP (BACID) PO SCH ×2 (09:07→16:49)
[2022-02-27] MEDS: PYRIDOXINE 50 MG TAB PO SCH (09:07)
[2022-02-27] MEDS: MULTIVITAMINS/MINERALS THERAP 1 TAB PO SCH (09:07)
[2022-02-27] MEDS: LINEZOLID 600MG TABLET (ZYVOX) PO SCH (09:07)
[2022-02-27 14:38] VITALS: BP 142/64
[2022-02-27 20:22] VITALS: BP 136/55
[2022-02-27] MEDS: ESCITALOPRAM OXALATE 10 MG TAB (LEXAPRO) PO SCH (21:44)
[2022-02-27] MEDS: MAGNESIUM OXIDE 400MG TAB (MAG-OX) PO SCH (21:49)
[2022-02-28] MEDS: KETOROLAC 30 MG/ML 1ML VIAL IV SCH ×2 (01:20→09:09)
[2022-02-28 06:05] VITALS: BP 131/60
[2022-02-28 06:36] LABS: HEMOGLOBIN 10.3 g/dl (12.0-15.5); LYMPH # 0.7 10^3/uL (1.5-5.0); LYMPH % 8.4 % (24.0-44.0); MEAN CORPUSCULAR HEMOGLOBIN 27.5 pg (27.0-33.0); MEAN CORPUSCULAR HGB CONC 32.2 g/dl (32.0-36.5); MEAN CORPUSCULAR VOLUME 85.3 fl (80.0-96.0); MONO # 0.1 10^3/uL (0.0-0.8); MONO % 1.3 % (2.0-8.0); NEUTROPHILS # 7.3 10^3/uL (1.5-8.5); NEUTROPHILS % 89.8 % (36.0-66.0); PLATELET COUNT, AUTOMATED 304 10^3/uL (150-450); RED BLOOD COUNT 3.75 10^6/uL (4.00-5.40); WHITE BLOOD COUNT 8.2 10^3/uL (4.0-10.0)
[2022-02-28] MEDS: GABAPENTIN 400MG CAP PO SCH ×2 (06:56→13:23)
[2022-02-28 06:59] LABS: BLOOD UREA NITROGEN 37 MG/DL (9-23); CARBON DIOXIDE LEVEL 28 MMOL/L (20-31); CHLORIDE LEVEL 96 MMOL/L (98-107); CREATININE FOR GFR 0.43 MG/DL (0.55-1.30); GLOMERULAR FILTRATION RATE > 60.0 (>45); GLUCOSE, FASTING 212 MG/DL (74-106); POTASSIUM SERUM 4.8 MMOL/L (3.5-5.1); SODIUM LEVEL 132 MMOL/L (136-145)
[2022-02-28] MEDS: VITAMIN D 1,000 INTERNATIONAL UNITS TABLET PO SCH (09:12)
[2022-02-28] MEDS: INSULIN LISPRO (NovoLOG) PER UNIT SC SCH ×2 (09:12→13:24)
[2022-02-28] MEDS: LACTOBACILLUS ACIDOPHILUS CAP (BACID) PO SCH (09:12)
[2022-02-28 09:13] VITALS: BP 131/60
[2022-02-28] MEDS: rOPINIRole 2MG TAB PO SCH (09:13)
[2022-02-28] MEDS: MULTIVITAMINS/MINERALS THERAP 1 TAB PO SCH (09:13)
[2022-02-28] MEDS: PYRIDOXINE 50 MG TAB PO SCH (09:13)
[2022-02-28] MEDS: OMEGA-3 1000MG CAPSULE PO SCH (09:13)
[2022-02-28] MEDS: LINEZOLID 600MG TABLET (ZYVOX) PO SCH (09:13)
[2022-02-28] MEDS: FERROUS GLUCONATE 324 MG TAB PO SCH (09:13)
[2022-02-28] MEDS: METOPROLOL SUCC *XL* 25MG TAB (TopROL *XL*) PO SCH (09:13)
[2022-02-28] MEDS: PANTOPRAZOLE 40MG TAB (PROTONIX) PO SCH (09:13)
[2022-02-28] MEDS ORDERED: OXYC-517 PO (12:26)
[2022-02-28] MEDS ORDERED: MEDR4PAK PO (12:26)
[2022-02-28] MEDS ORDERED: GABA-283 PO (12:26)
[2022-02-28] MEDS ORDERED: KETO10TAB PO (12:26)
== END 2022-02-28 15:30 | disposition home or self-care (01) | DRG 552 ==
LOC: M ED 07:54 → M ED INP 14:53 → ENRESERV 02-24 15:25 → M MS5PR 02-24 15:40
PROVIDERS: ADMIT General Practice; ATTEND Internal Medicine Nephrology
DX: M54.16 Radiculopathy, lumbar region (principal); G82.20 Paraplegia, unspecified; C41.2 Malignant neoplasm of vertebral column; E87.1 Hypo-osmolality and hyponatremia; M54.50 Low back pain, unspecified; I12.9 Hypertensive chronic kidney disease with stage 1 through stage 4 chronic kidney disease, or unspecified chronic kidney disease; G47.33 Obstructive sleep apnea (adult) (pediatric); N31.9 Neuromuscular dysfunction of bladder, unspecified; Z99.3 Dependence on wheelchair; D50.9 Iron deficiency anemia, unspecified; N18.30 Chronic kidney disease, stage 3 unspecified; I35.0 Nonrheumatic aortic (valve) stenosis; E11.22 Type 2 diabetes mellitus with diabetic chronic kidney disease; I25.10 Atherosclerotic heart disease of native coronary artery without angina pectoris; F32.A Depression, unspecified; K27.9 Peptic ulcer, site unspecified, unspecified as acute or chronic, without hemorrhage or perforation; K59.09 Other constipation; E83.42 Hypomagnesemia; Z85.3 Personal history of malignant neoplasm of breast; Z95.2 Presence of prosthetic heart valve; K21.9 Gastro-esophageal reflux disease without esophagitis; Z79.899 Other long term (current) drug therapy; Z79.4 Long term (current) use of insulin; Z88.0 Allergy status to penicillin; Z88.2 Allergy status to sulfonamides; Z88.8 Allergy status to other drugs, medicaments and biological substances; E11.40 Type 2 diabetes mellitus with diabetic neuropathy, unspecified

== ENCOUNTER → 2022-03-06 | Outpatient (CLI) | payer MEDICARE, BC, OTHER ==
[~2022-03-06] MED LIST changes: +CALC-176 PO; +KETO10TAB PO; +LEXA1TAB PO; +MEDR4PAK PO; +METO1TAB32 PO; +MULT-90 PO; +OMEG100010 PO; +ROPI2TAB3 PO; +VIBE75TA PO
[2022-03-06 10:35] LABS: BASO % 0.2 % (0.0-1.0); EOS # 0.2 10^3/uL (0.0-0.5); EOS % 1.4 % (0.0-3.0); HEMATOCRIT 34.9 % (36.0-47.0); HEMOGLOBIN 10.8 g/dl (12.0-15.5); LYMPH # 1.3 10^3/uL (1.5-5.0); LYMPH % 11.8 % (24.0-44.0); MEAN CORPUSCULAR HEMOGLOBIN 27.6 pg (27.0-33.0); MEAN CORPUSCULAR HGB CONC 30.9 g/dl (32.0-36.5); MEAN CORPUSCULAR VOLUME 89.3 fl (80.0-96.0); MONO # 0.5 10^3/uL (0.0-0.8); MONO % 4.5 % (2.0-8.0); NEUTROPHILS # 8.9 10^3/uL (1.5-8.5); NEUTROPHILS % 81.4 % (36.0-66.0); PLATELET COUNT, AUTOMATED 318 10^3/uL (150-450); RED BLOOD COUNT 3.91 10^6/uL (4.00-5.40)
[2022-03-06 10:52] LABS: HEMOGLOBIN A1c 5.7 % (4.0-6.0)
[2022-03-06 11:03] LABS: ALKALINE PHOSPHATASE 79 U/L (46-116); ALT/SGPT 30 U/L (7.0-40); AST/SGOT 19 U/L (<34); BILIRUBIN,TOTAL 0.2 MG/DL (0.3-1.2); BLOOD UREA NITROGEN 30 MG/DL (9-23); CALCIUM LEVEL 9.2 MG/DL (8.3-10.6); CARBON DIOXIDE LEVEL 30 MMOL/L (20-31); CHLORIDE LEVEL 99 MMOL/L (98-107); CHOLESTEROL LEVEL 147 MG/DL (<200); CHOLESTEROL RISK RATIO 1.87 (<5); FERRITIN 75.6 NG/ML (7.3-270.7); GLOMERULAR FILTRATION RATE > 60.0 (>45); GLUCOSE, FASTING 136 MG/DL (74-106); HDL CHOLESTEROL 78.2 MG/DL (>40); IRON (FE) 24 UG/DL (50-170); LDL CHOLESTEROL 58.2 MG/DL (<100); NON-HDL-C 69 MG/DL; PERCENT SATURATION 10.7 % (13.2-45.0); POTASSIUM SERUM 5.3 MMOL/L (3.5-5.1); SODIUM LEVEL 135 MMOL/L (136-145); TOTAL IRON BINDING CAPACITY 224 UG/DL (250-425); TOTAL PROTEIN 6.2 G/DL (5.7-8.2); TRIGLYCERIDES LEVEL 53 MG/DL (<150)
[2022-03-06 11:04] LABS: FREE T4 1.23 NG/DL (0.89-1.76); THYROID STIMULATING HORMONE 1.638 uIU/ML (0.55-4.78)
== END ==
LOC: M PLALAB 08:08
PROVIDERS: ATTEND Nurse Practitioner Adult Health
DX: E11.22 Type 2 diabetes mellitus with diabetic chronic kidney disease (principal); E78.2 Mixed hyperlipidemia; I11.9 Hypertensive heart disease without heart failure; D50.9 Iron deficiency anemia, unspecified

== ENCOUNTER → 2022-03-15 | Outpatient (CLI) | payer MEDICARE, BC, OTHER ==
[~2022-03-15] MED LIST changes: +DEXA4TA PO
== END ==
LOC: M ONCR 15:21
PROVIDERS: ATTEND General Practice
DX: C41.2 Malignant neoplasm of vertebral column (principal); C50.919 Malignant neoplasm of unspecified site of unspecified female breast; D64.9 Anemia, unspecified; F32.A Depression, unspecified; G82.20 Paraplegia, unspecified; I35.0 Nonrheumatic aortic (valve) stenosis; I25.110 Atherosclerotic heart disease of native coronary artery with unstable angina pectoris; K21.9 Gastro-esophageal reflux disease without esophagitis; N18.9 Chronic kidney disease, unspecified; N31.9 Neuromuscular dysfunction of bladder, unspecified; Z79.4 Long term (current) use of insulin; Z79.899 Other long term (current) drug therapy; Z80.7 Family history of other malignant neoplasms of lymphoid, hematopoietic and related tissues; Z81.8 Family history of other mental and behavioral disorders; Z82.49 Family history of ischemic heart disease and other diseases of the circulatory system; Z83.3 Family history of diabetes mellitus; Z88.0 Allergy status to penicillin; Z88.8 Allergy status to other drugs, medicaments and biological substances; Z90.10 Acquired absence of unspecified breast and nipple; Z92.3 Personal history of irradiation; Z99.3 Dependence on wheelchair

== ENCOUNTER 2022-03-16 21:00 | Emergency (ER) | payer MEDICARE, BC, OTHER ==
[~2022-03-16] VITALS: Ht 172.7 cm; Wt 77.3 kg
[~2022-03-16 21:00] MED LIST changes: -DEXA4TA PO
[2022-03-16 21:02] VITALS: BP 142/72
[2022-03-19] MEDS ORDERED: DEXA4TA PO (12:20)
== END 2022-03-16 22:37 | disposition left against medical advice (07) ==
LOC: M ED 21:00
DX: Z53.21 Procedure and treatment not carried out due to patient leaving prior to being seen by health care provider (principal)

== ENCOUNTER → 2022-03-19 | Outpatient (CLI) | payer MEDICARE, BC, OTHER ==
[~2022-03-19] MED LIST changes: +DEXA4TA PO; +DULC10SU2 PR; +METH5TA PO
== END ==
LOC: M PAL 09:08
PROVIDERS: ATTEND Nurse Practitioner Adult Health
DX: C41.2 Malignant neoplasm of vertebral column (principal); Z85.3 Personal history of malignant neoplasm of breast; Z92.3 Personal history of irradiation; G89.3 Neoplasm related pain (acute) (chronic); E11.9 Type 2 diabetes mellitus without complications; G82.20 Paraplegia, unspecified; N31.9 Neuromuscular dysfunction of bladder, unspecified; I35.0 Nonrheumatic aortic (valve) stenosis; N18.9 Chronic kidney disease, unspecified; K21.9 Gastro-esophageal reflux disease without esophagitis; F32.A Depression, unspecified; D64.9 Anemia, unspecified; Z51.5 Encounter for palliative care; Z66 Do not resuscitate; Z79.891 Long term (current) use of opiate analgesic; Z79.899 Other long term (current) drug therapy; Z79.4 Long term (current) use of insulin; Z88.0 Allergy status to penicillin; Z88.2 Allergy status to sulfonamides; Z88.8 Allergy status to other drugs, medicaments and biological substances

== ENCOUNTER → 2022-03-28 | Outpatient (CLI) | payer MEDICARE, BC, OTHER ==
[~2022-03-28] MED LIST changes: +ACET500T15 PO; +CEFU50TA PO; +FLEEENE12 PR; +LACT20EL PO; +NALO25TA PO
== END ==
LOC: M PAL 09:38
PROVIDERS: ATTEND Nurse Practitioner Adult Health
DX: C41.2 Malignant neoplasm of vertebral column (principal); G89.3 Neoplasm related pain (acute) (chronic); G82.20 Paraplegia, unspecified; E11.9 Type 2 diabetes mellitus without complications; F32.9 Major depressive disorder, single episode, unspecified; K21.9 Gastro-esophageal reflux disease without esophagitis; K64.9 Unspecified hemorrhoids; K59.00 Constipation, unspecified; N31.9 Neuromuscular dysfunction of bladder, unspecified; N19 Unspecified kidney failure; Z85.3 Personal history of malignant neoplasm of breast; Z88.0 Allergy status to penicillin; Z88.2 Allergy status to sulfonamides; Z88.8 Allergy status to other drugs, medicaments and biological substances; Z90.710 Acquired absence of both cervix and uterus; Z92.3 Personal history of irradiation; Z95.5 Presence of coronary angioplasty implant and graft; Z99.3 Dependence on wheelchair

== ENCOUNTER 2022-03-29 08:45 | Observation (INO) | payer MEDICARE, BC, OTHER ==
[~2022-03-29] VITALS: Ht 172.7 cm; Wt 74.0 kg
[~2022-03-29 08:45] MED LIST changes: -ACET500T15 PO; -CEFU50TA PO; -LACT20EL PO; -NALO25TA PO
[2022-03-29] MEDS ORDERED: NS 1,000 ML IV ONE (11:45)
[2022-03-29 12:43] LABS: LIPASE 22 U/L (12-53)
[2022-03-29 12:44] LABS: ALBUMIN 3.3 G/DL (3.2-5.2); ALKALINE PHOSPHATASE 87 U/L (46-116); ALT/SGPT 37 U/L (7.0-40); AST/SGOT < 8 U/L (<34); BILIRUBIN,DIRECT 0.1 MG/DL (<0.4); BILIRUBIN,TOTAL 0.3 MG/DL (0.3-1.2); TOTAL PROTEIN 6.6 G/DL (5.7-8.2)
[2022-03-29 12:46] LABS: BASO % 0.1 % (0.0-1.0); EOS # 0.1 10^3/uL (0.0-0.5); EOS % 0.4 % (0.0-3.0); HEMATOCRIT 38.5 % (36.0-47.0); HEMOGLOBIN 12.1 g/dl (12.0-15.5); LYMPH # 1.4 10^3/uL (1.5-5.0); LYMPH % 8.6 % (24.0-44.0); MEAN CORPUSCULAR HEMOGLOBIN 27.9 pg (27.0-33.0); MEAN CORPUSCULAR HGB CONC 31.4 g/dl (32.0-36.5); MEAN CORPUSCULAR VOLUME 88.7 fl (80.0-96.0); MONO # 0.6 10^3/uL (0.0-0.8); MONO % 3.6 % (2.0-8.0); NEUTROPHILS # 13.5 10^3/uL (1.5-8.5); NEUTROPHILS % 85.8 % (36.0-66.0); PLATELET COUNT, AUTOMATED 553 10^3/uL (150-450); RED BLOOD COUNT 4.34 10^6/uL (4.00-5.40); WHITE BLOOD COUNT 15.8 10^3/uL (4.0-10.0)
[2022-03-29] MEDS ORDERED: ISOVUE-370 76% 100ML VIAL As Ordered ONE (14:11)
[2022-03-29] MEDS ORDERED: GLUCAGON INJ 1MG VIAL SC PRN (16:10)
[2022-03-29] MEDS ORDERED: GLUCOSE 4GM CHEW TABLET PO PRN (16:10)
[2022-03-29] MEDS ORDERED: NS 1,000 ML IV SCH (16:10)
[2022-03-29] MEDS ORDERED: DEXTROSE 50% 50ML SYRINGE IV PRN (16:10)
[2022-03-29 17:19] LABS: RSV AMPLIFICATION NEGATIVE (NEGATIVE)
[2022-03-29] MEDS: NS 1,000 ML IV SCH (17:29)
[2022-03-29 17:32] LABS: INR 0.89; PARTIAL THROMBOPLASTIN TIME 22.1 SECONDS (24.8-34.2); PROTHROMBIN TIME 12.2 SECONDS (12.5-14.5)
[2022-03-29] MEDS ORDERED: GABA-283 PO (17:34)
[2022-03-29] MEDS ORDERED: DEXA4TA PO (17:34)
[2022-03-29] MEDS ORDERED: ACET500T15 PO (17:34)
[2022-03-29] MEDS ORDERED: DULC10SU2 PR (17:34)
[2022-03-29] MEDS ORDERED: NALO25TA PO (17:41)
[2022-03-29] MEDS ORDERED: HOME MED LIST COMPLETE! XX SCH (17:45)
[2022-03-29] MEDS: LACTULOSE 20GM/30ML SYRUP UDC PO SCH ×2 (18:21→21:35)
[2022-03-29] MEDS ORDERED: oxyCODONE 5MG TAB PO PRN (18:35)
[2022-03-29] MEDS ORDERED: NITROGLYCERIN 0.4MG SUBL TABLET SL PRN (18:35)
[2022-03-29] MEDS: INSULIN LISPRO (NovoLOG) PER UNIT SC SCH (18:42)
[2022-03-29] MEDS ORDERED: cefTRIAXone SOD 1 GM in D5W MINI-BAG PLUS 50 ML IV SCH (19:00)
[2022-03-29] MEDS ORDERED: PILL CUTTER 1 EACH XX PRN (19:35)
[2022-03-29] MEDS ORDERED: ESCITALOPRAM OXALATE 10 MG TAB (LEXAPRO) PO SCH (21:00)
[2022-03-29] MEDS ORDERED: LEVEMIR (INSULIN DETEMIR) 1 UNITS/0.01ML SC SCH (21:00)
[2022-03-29] MEDS ORDERED: INSULIN LISPRO (NovoLOG) PER UNIT SC SCH (21:00)
[2022-03-29] MEDS ORDERED: MAGNESIUM OXIDE 400MG TAB (MAG-OX) PO SCH (21:00)
[2022-03-29] MEDS: ACETAMINOPHEN 500 MG TAB PO SCH (21:36)
[2022-03-29] MEDS: BISACODYL 10MG SUPP PR SCH (21:37)
[2022-03-29] MEDS: METHADONE 5MG TAB PO SCH (21:37)
[2022-03-29] MEDS: PANTOPRAZOLE 40MG TAB (PROTONIX) PO SCH (21:38)
[2022-03-29] MEDS: GABAPENTIN 400MG CAP PO SCH (21:38)
[2022-03-29] MEDS: DOCUSATE SODIUM 100MG CAPSULE PO SCH (21:38)
[2022-03-29 22:15] VITALS: BP 138/85
[2022-03-29] MEDS: FERROUS GLUCONATE 324 MG TAB PO SCH (22:54)
[2022-03-29] MEDS: rOPINIRole 1MG TAB PO SCH (22:54)
[2022-03-30] MEDS: LACTULOSE 20GM/30ML SYRUP UDC PO SCH (00:57)
[2022-03-30] MEDS: NS 1,000 ML IV SCH ×2 (01:00→10:15)
[2022-03-30] MEDS: METHADONE 5MG TAB PO SCH ×2 (05:46→14:47)
[2022-03-30 05:47] VITALS: BP 149/72
[2022-03-30 06:09] LABS: HEMATOCRIT 32.2 % (36.0-47.0); MEAN CORPUSCULAR HEMOGLOBIN 27.6 pg (27.0-33.0); MEAN CORPUSCULAR HGB CONC 31.1 g/dl (32.0-36.5); RED BLOOD COUNT 3.62 10^6/uL (4.00-5.40); WHITE BLOOD COUNT 9.4 10^3/uL (4.0-10.0)
[2022-03-30 06:11] LABS: PLATELET COUNT, AUTOMATED 428 10^3/uL (150-450)
[2022-03-30 06:48] LABS: ALBUMIN 2.4 G/DL (3.2-5.2); ALKALINE PHOSPHATASE 66 U/L (46-116); ALT/SGPT 28 U/L (7.0-40); AST/SGOT 19 U/L (<34); BILIRUBIN,TOTAL 0.2 MG/DL (0.3-1.2); BLOOD UREA NITROGEN 22 MG/DL (9-23); CALCIUM LEVEL 8.1 MG/DL (8.3-10.6); CARBON DIOXIDE LEVEL 29 MMOL/L (20-31); CHLORIDE LEVEL 102 MMOL/L (98-107); CREATININE FOR GFR 0.43 MG/DL (0.55-1.30); GLOMERULAR FILTRATION RATE > 60.0 (>45); GLUCOSE, FASTING 84 MG/DL (74-106); POTASSIUM SERUM 4.1 MMOL/L (3.5-5.1); SODIUM LEVEL 137 MMOL/L (136-145); TOTAL PROTEIN 5.1 G/DL (5.7-8.2)
[2022-03-30] MEDS ORDERED: MOM 30ML SUSPENSION UDC PO PRN (07:25)
[2022-03-30] MEDS: INSULIN LISPRO (NovoLOG) PER UNIT SC SCH ×2 (07:30→12:32)
[2022-03-30] MEDS ORDERED: LACTOBACILLUS ACIDOPHILUS CAP (BACID) PO SCH (08:00)
[2022-03-30] MEDS ORDERED: MULTIVITAMINS/MINERALS THERAP 1 TAB PO SCH (09:00)
[2022-03-30] MEDS ORDERED: METOPROLOL SUCC *XL* 25MG TAB (TopROL *XL*) PO SCH (09:00)
[2022-03-30] MEDS ORDERED: ENOXAPARIN 40MG/0.4ML SYRINGE (J1650 PER 10MG) SC SCH (09:00)
[2022-03-30] MEDS ORDERED: LINEZOLID 600MG TABLET (ZYVOX) PO SCH (09:00)
[2022-03-30] MEDS: PANTOPRAZOLE 40MG TAB (PROTONIX) PO SCH (10:12)
[2022-03-30 10:13] VITALS: BP 152/70
[2022-03-30] MEDS: FERROUS GLUCONATE 324 MG TAB PO SCH (10:13)
[2022-03-30] MEDS: rOPINIRole 1MG TAB PO SCH ×2 (10:14→16:44)
[2022-03-30] MEDS: ACETAMINOPHEN 500 MG TAB PO SCH ×2 (10:14→16:44)
[2022-03-30] MEDS: GABAPENTIN 400MG CAP PO SCH ×2 (10:14→16:44)
[2022-03-30] MEDS: BISACODYL 10MG SUPP PR SCH ×2 (10:15→14:47)
[2022-03-30] MEDS: DOCUSATE SODIUM 100MG CAPSULE PO SCH ×2 (10:15→16:45)
[2022-03-30] MEDS: oxyCODONE 5MG TAB PO PRN ×2 (10:17→16:48)
[2022-03-30] MEDS ORDERED: DIAPER RELIEF PASTE (DESITIN) 60GM TOP PRN (12:00)
[2022-03-30] MEDS ORDERED: COLA100C5 PO (12:16)
[2022-03-30] MEDS ORDERED: CEFU50TA PO (12:16)
[2022-03-30] MEDS ORDERED: SENN-80 PO (14:59)
[2022-03-30] MEDS ORDERED: MIRA3350 PO (15:37)
[2022-03-30] MEDS ORDERED: DULC10SU2 PR (15:37)
[2022-03-31] MEDS ORDERED: PNEUMOCOCCAL VACCINE 0.5ML SYRINGE (PNEUMOVAX 23) IM.IMMUN ONE (09:00)
== END 2022-03-30 17:37 | disposition home or self-care (01) ==
LOC: M ED 08:45 → M ED INP 16:10 → ENRESERV 21:36 → M MSPAV 22:10
PROVIDERS: ADMIT Internal Medicine; ATTEND Internal Medicine
DX: K59.00 Constipation, unspecified (principal); N13.39 Other hydronephrosis; N39.0 Urinary tract infection, site not specified; E86.0 Dehydration; D64.9 Anemia, unspecified; G47.33 Obstructive sleep apnea (adult) (pediatric); E11.40 Type 2 diabetes mellitus with diabetic neuropathy, unspecified; K21.9 Gastro-esophageal reflux disease without esophagitis; E87.1 Hypo-osmolality and hyponatremia; I25.10 Atherosclerotic heart disease of native coronary artery without angina pectoris; Z98.61 Coronary angioplasty status; I12.9 Hypertensive chronic kidney disease with stage 1 through stage 4 chronic kidney disease, or unspecified chronic kidney disease; N18.30 Chronic kidney disease, stage 3 unspecified; E83.42 Hypomagnesemia; I35.0 Nonrheumatic aortic (valve) stenosis; Z85.3 Personal history of malignant neoplasm of breast; Z79.899 Other long term (current) drug therapy; Z79.4 Long term (current) use of insulin; Z79.891 Long term (current) use of opiate analgesic; Z88.0 Allergy status to penicillin; Z88.2 Allergy status to sulfonamides; Z88.1 Allergy status to other antibiotic agents
CPT/HCPCS: 36415; 74018; 74177; 76775; 80047; 80053; 80076; 81000; 81015; 83605; 83690; 85025; 85027; 85610; 85730; 87040; 87088; 87186; 87507; 87631; 93005; 96361; 96365; 96372; 96375; 99284; G0378; J0696; J1650; J1815; Q9967

== ENCOUNTER → 2022-04-03 | Outpatient (CLI) | payer MEDICARE, BC, OTHER ==
[~2022-04-03] MED LIST changes: +ACET500T15 PO; +CEFU50TA PO; +LACT20EL PO; +NALO25TA PO
== END ==
LOC: M PAL 08:42
PROVIDERS: ATTEND Nurse Practitioner Adult Health
DX: C41.2 Malignant neoplasm of vertebral column (principal); G89.3 Neoplasm related pain (acute) (chronic); G82.20 Paraplegia, unspecified; Z85.3 Personal history of malignant neoplasm of breast; E11.9 Type 2 diabetes mellitus without complications; I35.0 Nonrheumatic aortic (valve) stenosis; N18.9 Chronic kidney disease, unspecified; K21.9 Gastro-esophageal reflux disease without esophagitis; F32.A Depression, unspecified; D64.9 Anemia, unspecified; Z95.5 Presence of coronary angioplasty implant and graft; N31.9 Neuromuscular dysfunction of bladder, unspecified; K59.00 Constipation, unspecified; Z51.5 Encounter for palliative care; Z66 Do not resuscitate; Z88.0 Allergy status to penicillin; Z88.2 Allergy status to sulfonamides; Z88.8 Allergy status to other drugs, medicaments and biological substances; Z79.891 Long term (current) use of opiate analgesic; Z79.899 Other long term (current) drug therapy; Z79.4 Long term (current) use of insulin

== ENCOUNTER → 2022-04-09 | Outpatient (CLI) | payer MEDICARE, BC, OTHER ==
[~2022-04-09] MED LIST changes: -OXYC-403 PO; +OXYC-673 PO
== END ==
LOC: M PAL 12:40
PROVIDERS: ATTEND Nurse Practitioner Adult Health
DX: C41.2 Malignant neoplasm of vertebral column (principal); G89.3 Neoplasm related pain (acute) (chronic); G82.20 Paraplegia, unspecified; Z51.5 Encounter for palliative care; Z85.3 Personal history of malignant neoplasm of breast; E11.9 Type 2 diabetes mellitus without complications; I35.0 Nonrheumatic aortic (valve) stenosis; N18.9 Chronic kidney disease, unspecified; K21.9 Gastro-esophageal reflux disease without esophagitis; F32.A Depression, unspecified; D64.9 Anemia, unspecified; Z95.5 Presence of coronary angioplasty implant and graft; N31.9 Neuromuscular dysfunction of bladder, unspecified; K59.00 Constipation, unspecified; Z66 Do not resuscitate; Z88.0 Allergy status to penicillin; Z88.2 Allergy status to sulfonamides; Z88.8 Allergy status to other drugs, medicaments and biological substances; Z79.891 Long term (current) use of opiate analgesic; Z79.899 Other long term (current) drug therapy; Z79.4 Long term (current) use of insulin

== ENCOUNTER → 2022-04-16 | Outpatient (CLI) | payer MEDICARE, BC, OTHER | LOC: M PAL 08:16 | PROVIDERS: ATTEND Nurse Practitioner Adult Health | DX: C41.2 Malignant neoplasm of vertebral column (principal); Z51.5 Encounter for palliative care; G89.3 Neoplasm related pain (acute) (chronic); G82.20 Paraplegia, unspecified; Z85.3 Personal history of malignant neoplasm of breast; E11.9 Type 2 diabetes mellitus without complications; I35.0 Nonrheumatic aortic (valve) stenosis; N18.9 Chronic kidney disease, unspecified; K21.9 Gastro-esophageal reflux disease without esophagitis; F32.A Depression, unspecified; D64.9 Anemia, unspecified; Z95.5 Presence of coronary angioplasty implant and graft; N31.9 Neuromuscular dysfunction of bladder, unspecified; K59.00 Constipation, unspecified; Z66 Do not resuscitate; Z88.0 Allergy status to penicillin; Z88.2 Allergy status to sulfonamides; Z88.8 Allergy status to other drugs, medicaments and biological substances; Z79.891 Long term (current) use of opiate analgesic; Z79.899 Other long term (current) drug therapy; Z79.4 Long term (current) use of insulin ==

== ENCOUNTER → 2022-04-17 | Outpatient (REF) | payer MEDICARE, OTHER ==
[2022-04-17 17:25] LABS: APPEARANCE, URINE HAZY (CLEAR); BACTERIA, URINE AUTO 1+ (NEGATIVE); BILIRUBIN, URINE AUTO NEGATIVE (NEGATIVE); BLOOD, URINE BLOOD NEGATIVE (NEGATIVE); COLOR, URINE YELLOW (YELLOW); GLUCOSE, URINE (UA) AUTO NEGATIVE (NEGATIVE); KETONE, URINE AUTO NEGATIVE (NEGATIVE); LEUKOCYTE ESTERASE, URINE AUTO 3+ (NEGATIVE); MUCUS, URINE SMALL (NEGATIVE); NITRITE, URINE AUTO NEGATIVE (NEGATIVE); PROTEIN, URINE AUTO NEGATIVE (NEGATIVE); RBC, URINE AUTO 3 /HPF (0-3); SPECIFIC GRAVITY URINE AUTO 1.012 (1.002-1.035); SQUAMOUS EPITHELIAL CELL UR AU 1 /HPF (0-6); UROBILINOGEN, URINE AUTO 0.2 mg/dL (0.0-2.0); WBC, URINE AUTO 39 /HPF (0-3)
== END ==
LOC: M LAB REF 16:50
PROVIDERS: ATTEND Family Medicine
DX: R35.89 Other polyuria (principal)

== ENCOUNTER → 2022-04-30 | Outpatient (CLI) | payer MEDICARE, BC, OTHER ==
[~2022-04-30] MED LIST changes: +DEXA1TA PO; +MM S100C PO
== END ==
LOC: M PAL 11:27
PROVIDERS: ATTEND Nurse Practitioner Adult Health
DX: C41.2 Malignant neoplasm of vertebral column (principal); Z51.5 Encounter for palliative care; G89.3 Neoplasm related pain (acute) (chronic); G82.20 Paraplegia, unspecified; E11.9 Type 2 diabetes mellitus without complications; Z85.3 Personal history of malignant neoplasm of breast; I35.0 Nonrheumatic aortic (valve) stenosis; K21.9 Gastro-esophageal reflux disease without esophagitis; F32.A Depression, unspecified; D64.9 Anemia, unspecified; Z95.5 Presence of coronary angioplasty implant and graft; N31.9 Neuromuscular dysfunction of bladder, unspecified; K59.00 Constipation, unspecified; Z66 Do not resuscitate; Z88.2 Allergy status to sulfonamides; Z88.8 Allergy status to other drugs, medicaments and biological substances; Z79.891 Long term (current) use of opiate analgesic; Z79.899 Other long term (current) drug therapy; Z79.4 Long term (current) use of insulin; Z88.0 Allergy status to penicillin

== ENCOUNTER → 2022-05-01 | Outpatient (REF) | payer MEDICARE, BC, OTHER ==
[2022-05-01 18:14] LABS: APPEARANCE, URINE CLEAR (CLEAR); BACTERIA, URINE AUTO NEGATIVE (NEGATIVE); BILIRUBIN, URINE AUTO NEGATIVE (NEGATIVE); BLOOD, URINE BLOOD 1+ (NEGATIVE); COLOR, URINE YELLOW (YELLOW); GLUCOSE, URINE (UA) AUTO NEGATIVE (NEGATIVE); KETONE, URINE AUTO NEGATIVE (NEGATIVE); LEUKOCYTE ESTERASE, URINE AUTO 2+ (NEGATIVE); MUCUS, URINE SMALL (NEGATIVE); NITRITE, URINE AUTO POSITIVE (NEGATIVE); PROTEIN, URINE AUTO NEGATIVE (NEGATIVE); RBC, URINE AUTO 0 /HPF (0-3); SPECIFIC GRAVITY URINE AUTO 1.011 (1.002-1.035); SQUAMOUS EPITHELIAL CELL UR AU 0 /HPF (0-6); UROBILINOGEN, URINE AUTO 0.2 mg/dL (0.0-2.0); WBC, URINE AUTO 2 /HPF (0-3)
== END ==
LOC: M LAB REF 17:45
PROVIDERS: ATTEND Nurse Practitioner Adult Health
DX: Z01.818 Encounter for other preprocedural examination (principal)

== ENCOUNTER → 2022-05-14 | Outpatient (CLI) | payer MEDICARE, BC, OTHER ==
[~2022-05-14] MED LIST changes: +FLEETOIL PR; +OMEGCAP4 PO; +OS-CTAB3 PO; +SENN-186 PO; -SENN-80 PO
== END ==
LOC: M PAL 09:13
PROVIDERS: ATTEND Nurse Practitioner Adult Health
DX: G89.3 Neoplasm related pain (acute) (chronic) (principal); G82.20 Paraplegia, unspecified; E11.9 Type 2 diabetes mellitus without complications; N31.9 Neuromuscular dysfunction of bladder, unspecified; I35.0 Nonrheumatic aortic (valve) stenosis; M41.35 Thoracogenic scoliosis, thoracolumbar region; K21.9 Gastro-esophageal reflux disease without esophagitis; K59.00 Constipation, unspecified; F32.A Depression, unspecified; D64.9 Anemia, unspecified; Z95.5 Presence of coronary angioplasty implant and graft; Z66 Do not resuscitate; Z88.2 Allergy status to sulfonamides; Z79.891 Long term (current) use of opiate analgesic; Z88.8 Allergy status to other drugs, medicaments and biological substances; Z79.899 Other long term (current) drug therapy; Z79.4 Long term (current) use of insulin; Z88.0 Allergy status to penicillin; Z51.5 Encounter for palliative care; Z85.3 Personal history of malignant neoplasm of breast

== ENCOUNTER → 2022-05-22 | Outpatient (CLI) | payer MEDICARE, BC, OTHER ==
[~2022-05-22] MED LIST changes: -FLEETOIL PR; -OMEGCAP4 PO; -OS-CTAB3 PO
== END ==
LOC: M PAL 08:24
PROVIDERS: ATTEND Nurse Practitioner Adult Health
DX: G89.3 Neoplasm related pain (acute) (chronic) (principal); G82.20 Paraplegia, unspecified; E11.9 Type 2 diabetes mellitus without complications; N31.9 Neuromuscular dysfunction of bladder, unspecified; Z51.5 Encounter for palliative care; I35.0 Nonrheumatic aortic (valve) stenosis; M41.35 Thoracogenic scoliosis, thoracolumbar region; K21.9 Gastro-esophageal reflux disease without esophagitis; K59.00 Constipation, unspecified; F32.A Depression, unspecified; D64.9 Anemia, unspecified; Z95.5 Presence of coronary angioplasty implant and graft; Z66 Do not resuscitate; Z85.3 Personal history of malignant neoplasm of breast; Z88.0 Allergy status to penicillin; Z88.2 Allergy status to sulfonamides; Z88.8 Allergy status to other drugs, medicaments and biological substances; Z79.891 Long term (current) use of opiate analgesic; Z79.4 Long term (current) use of insulin; Z79.899 Other long term (current) drug therapy

== ENCOUNTER → 2022-05-30 | Outpatient (CLI) | payer MEDICARE, BC, OTHER ==
[~2022-05-30] MED LIST changes: +OMEGCAP4 PO; +OS-CTAB3 PO
== END ==
LOC: M RAD 15:11
PROVIDERS: ATTEND Nurse Practitioner Adult Health
DX: R33.9 Retention of urine, unspecified (principal); K59.00 Constipation, unspecified

== ENCOUNTER 2022-05-31 16:15 | Inpatient (IN) | payer MEDICARE, BC, OTHER ==
[~2022-05-31] VITALS: Ht 172.7 cm; Wt 73.5 kg
[~2022-05-31 16:15] MED LIST changes: -OMEGCAP4 PO; -OS-CTAB3 PO
[2022-05-31] MEDS ORDERED: NS 500 ML IV ONE ×2 (17:55→23:30)
[2022-05-31] MEDS ORDERED: LIDOCAINE 2% 5ML JELLY UROJET TOP ONE (17:55)
[2022-05-31 18:46] LABS: BASO # 0.1 10^3/uL (0.0-0.2); BASO % 0.6 % (0.0-1.0); EOS # 0.2 10^3/uL (0.0-0.5); EOS % 2.7 % (0.0-3.0); HEMATOCRIT 29.1 % (36.0-47.0); LYMPH % 11.1 % (24.0-44.0); MEAN CORPUSCULAR HEMOGLOBIN 27.2 pg (27.0-33.0); MEAN CORPUSCULAR HGB CONC 30.9 g/dl (32.0-36.5); MEAN CORPUSCULAR VOLUME 87.9 fl (80.0-96.0); MONO # 0.5 10^3/uL (0.0-0.8); MONO % 5.7 % (2.0-8.0); NEUTROPHILS # 6.9 10^3/uL (1.5-8.5); NEUTROPHILS % 79.3 % (36.0-66.0); PLATELET COUNT, AUTOMATED 444 10^3/uL (150-450); RED BLOOD COUNT 3.31 10^6/uL (4.00-5.40); WHITE BLOOD COUNT 8.7 10^3/uL (4.0-10.0)
[2022-05-31] MEDS ORDERED: ISOVUE-370 76% 100ML VIAL As Ordered ONE (18:54)
[2022-05-31 19:15] LABS: LIPASE 14 U/L (12-53)
[2022-05-31 19:16] LABS: AMYLASE 32 U/L (30-118)
[2022-05-31 19:17] LABS: ALBUMIN 2.1 G/DL (3.2-5.2); ALKALINE PHOSPHATASE 129 U/L (46-116); ALT/SGPT 12 U/L (7.0-40); AST/SGOT 20 U/L (<34); BILIRUBIN,DIRECT < 0.1 MG/DL (<0.4); BILIRUBIN,TOTAL 0.2 MG/DL (0.3-1.2); BLOOD UREA NITROGEN 20 MG/DL (9-23); CALCIUM LEVEL 9.4 MG/DL (8.3-10.6); CARBON DIOXIDE LEVEL 32 MMOL/L (20-31); CHLORIDE LEVEL 96 MMOL/L (98-107); CREATININE FOR GFR 0.41 MG/DL (0.55-1.30); GLOMERULAR FILTRATION RATE > 60.0 (>45); GLUCOSE, FASTING 132 MG/DL (74-106); POTASSIUM SERUM 5.1 MMOL/L (3.5-5.1); SODIUM LEVEL 133 MMOL/L (136-145); TOTAL PROTEIN 6.8 G/DL (5.7-8.2)
[2022-05-31 19:44] LABS: RSV AMPLIFICATION NEGATIVE (NEGATIVE)
[2022-05-31 22:30] VITALS: BP 128/61
[2022-05-31] MEDS ORDERED: OS-CTAB3 PO (22:39)
[2022-05-31] MEDS ORDERED: PERCOCET 5MG/325MG TAB PO ONE (22:40)
[2022-05-31] MEDS ORDERED: OXYC-517 PO (22:42)
[2022-05-31] MEDS ORDERED: OMEGCAP4 PO (22:42)
[2022-05-31] MEDS ORDERED: HOME MED LIST COMPLETE! XX SCH (22:45)
[2022-05-31] MEDS ORDERED: FLEET ENEMA PR PRN (23:30)
[2022-05-31] MEDS ORDERED: FLEET ENEMA PR ONE (23:30)
[2022-05-31] MEDS ORDERED: NITROGLYCERIN 0.4MG SUBL TABLET SL PRN (23:30)
[2022-05-31] MEDS ORDERED: BISACODYL 10MG SUPP PR PRN (23:30)
[2022-05-31] MEDS ORDERED: oxyCODONE 5MG TAB PO PRN (23:30)
[2022-06-01] MEDS ORDERED: NS 0.45% 1,000 ML IV SCH
[2022-06-01] MEDS ORDERED: DEXTROSE 50% 50ML SYRINGE IV PRN (02:45)
[2022-06-01] MEDS ORDERED: GLUCOSE 4GM CHEW TABLET PO PRN (02:45)
[2022-06-01] MEDS ORDERED: GLUCAGON INJ 1MG VIAL SC PRN (02:45)
[2022-06-01] MEDS ORDERED: FOSFOMYCIN TROMETHAMINE 3 GM POWDER PACKET (MONUROL) PO ONE (02:55)
[2022-06-01] MEDS: ACETAMINOPHEN TAB 650MG DOSE (2X325MG) PO PRN ×2 (04:08→09:59)
[2022-06-01 06:00] VITALS: BP 118/57
[2022-06-01] MEDS: HEPARIN SOD (PORCINE) 5000UNITS/ML 1ML VIAL/SYRINGE SC SCH ×3 (06:02→20:50)
[2022-06-01 06:58] LABS: BLOOD UREA NITROGEN 13 MG/DL (9-23); CALCIUM LEVEL 8.3 MG/DL (8.3-10.6); CARBON DIOXIDE LEVEL 30 MMOL/L (20-31); CHLORIDE LEVEL 100 MMOL/L (98-107); CREATININE FOR GFR 0.35 MG/DL (0.55-1.30); GLOMERULAR FILTRATION RATE > 60.0 (>45); GLUCOSE, FASTING 110 MG/DL (74-106); POTASSIUM SERUM 4.3 MMOL/L (3.5-5.1); SODIUM LEVEL 135 MMOL/L (136-145)
[2022-06-01] MEDS: INSULIN LISPRO (NovoLOG) PER UNIT SC SCH ×3 (07:30→17:06)
[2022-06-01 08:50] LABS: BASO % 0.5 % (0.0-1.0); EOS # 0.3 10^3/uL (0.0-0.5); EOS % 4.5 % (0.0-3.0); HEMATOCRIT 27.6 % (36.0-47.0); HEMOGLOBIN 8.6 g/dl (12.0-15.5); LYMPH # 0.9 10^3/uL (1.5-5.0); LYMPH % 13.7 % (24.0-44.0); MEAN CORPUSCULAR HGB CONC 31.2 g/dl (32.0-36.5); MEAN CORPUSCULAR VOLUME 89.9 fl (80.0-96.0); MONO # 0.5 10^3/uL (0.0-0.8); MONO % 7.6 % (2.0-8.0); NEUTROPHILS # 4.7 10^3/uL (1.5-8.5); NEUTROPHILS % 73.1 % (36.0-66.0); PLATELET COUNT, AUTOMATED 388 10^3/uL (150-450); RED BLOOD COUNT 3.07 10^6/uL (4.00-5.40); WHITE BLOOD COUNT 6.5 10^3/uL (4.0-10.0)
[2022-06-01] MEDS: FLEET OIL RETENTION ENEMA PR SCH (09:56)
[2022-06-01] MEDS: DOCUSATE SODIUM 100MG CAPSULE PO SCH ×2 (09:56→20:48)
[2022-06-01] MEDS: MIRALAX *UNIT DOSE* 17GM PACKET PO SCH ×3 (09:57→20:47)
[2022-06-01] MEDS: PANTOPRAZOLE 40MG TAB (PROTONIX) PO SCH ×2 (09:57→20:48)
[2022-06-01] MEDS: FERROUS GLUCONATE 324 MG TAB PO SCH ×2 (09:57→20:49)
[2022-06-01] MEDS: rOPINIRole 2MG TAB PO SCH ×3 (09:57→20:48)
[2022-06-01] MEDS: GABAPENTIN 400MG CAP PO SCH ×3 (09:57→20:48)
[2022-06-01] MEDS: METOPROLOL SUCC *XL* 25MG TAB (TopROL *XL*) PO SCH (09:58)
[2022-06-01] MEDS: SENNA 8.6 MG TAB (SENOKOT) PO SCH ×2 (09:59→20:48)
[2022-06-01] MEDS: ONDANSETRON 4MG ORAL DISINTEGRATING TAB PO PRN ×2 (11:02→20:47)
[2022-06-01] MEDS ORDERED: oxyCODONE 5MG TAB PO PRN (12:05)
[2022-06-01] MEDS: oxyCODONE 5MG TAB PO PRN (13:22)
[2022-06-01 13:45] VITALS: BP 138/77
[2022-06-01 14:00] VITALS: BP 99/51
[2022-06-01] MEDS: LACTULOSE 20GM/30ML SYRUP UDC PO SCH ×2 (18:31→20:47)
[2022-06-01 21:00] VITALS: BP 106/58
[2022-06-01] MEDS ORDERED: ESCITALOPRAM OXALATE 10 MG TAB (LEXAPRO) PO SCH (21:00)
[2022-06-01] MEDS ORDERED: INSULIN LISPRO (NovoLOG) PER UNIT SC SCH (21:00)
[2022-06-01] MEDS ORDERED: LEVEMIR (INSULIN DETEMIR) 1 UNITS/0.01ML SC SCH (21:00)
[2022-06-02 05:45] VITALS: BP 105/58
[2022-06-02] MEDS: HEPARIN SOD (PORCINE) 5000UNITS/ML 1ML VIAL/SYRINGE SC SCH ×2 (06:05→13:07)
[2022-06-02 06:32] LABS: BASO # 0.1 10^3/uL (0.0-0.2); BASO % 0.9 % (0.0-1.0); EOS # 0.3 10^3/uL (0.0-0.5); EOS % 5.4 % (0.0-3.0); HEMATOCRIT 27.4 % (36.0-47.0); HEMOGLOBIN 8.5 g/dl (12.0-15.5); LYMPH % 17.2 % (24.0-44.0); MEAN CORPUSCULAR HEMOGLOBIN 27.6 pg (27.0-33.0); MONO # 0.4 10^3/uL (0.0-0.8); MONO % 7.7 % (2.0-8.0); NEUTROPHILS # 3.8 10^3/uL (1.5-8.5); NEUTROPHILS % 67.9 % (36.0-66.0); PLATELET COUNT, AUTOMATED 386 10^3/uL (150-450); RED BLOOD COUNT 3.08 10^6/uL (4.00-5.40); WHITE BLOOD COUNT 5.6 10^3/uL (4.0-10.0)
[2022-06-02 06:54] LABS: BLOOD UREA NITROGEN 11 MG/DL (9-23); CALCIUM LEVEL 8.5 MG/DL (8.3-10.6); CARBON DIOXIDE LEVEL 32 MMOL/L (20-31); CHLORIDE LEVEL 100 MMOL/L (98-107); CREATININE FOR GFR 0.41 MG/DL (0.55-1.30); GLOMERULAR FILTRATION RATE > 60.0 (>45); GLUCOSE, FASTING 94 MG/DL (74-106); POTASSIUM SERUM 4.2 MMOL/L (3.5-5.1); SODIUM LEVEL 137 MMOL/L (136-145)
[2022-06-02] MEDS: INSULIN LISPRO (NovoLOG) PER UNIT SC SCH ×2 (07:30→13:07)
[2022-06-02 08:14] LABS: IRON (FE) 17 UG/DL (50-170); PERCENT SATURATION 9.5 % (13.2-45.0); TOTAL IRON BINDING CAPACITY 179 UG/DL (250-425)
[2022-06-02 08:19] LABS: FERRITIN 149.7 NG/ML (7.3-270.7); FOLATE 17.16 NG/ML (>5.4)
[2022-06-02 08:20] LABS: VITAMIN B12 LEVEL 1037 PG/ML (211-911)
[2022-06-02] MEDS: LACTULOSE 20GM/30ML SYRUP UDC PO SCH (10:22)
[2022-06-02] MEDS: MIRALAX *UNIT DOSE* 17GM PACKET PO SCH (10:22)
[2022-06-02] MEDS: PANTOPRAZOLE 40MG TAB (PROTONIX) PO SCH (10:23)
[2022-06-02] MEDS: rOPINIRole 2MG TAB PO SCH (10:23)
[2022-06-02] MEDS: GABAPENTIN 400MG CAP PO SCH (10:23)
[2022-06-02] MEDS: SENNA 8.6 MG TAB (SENOKOT) PO SCH (10:23)
[2022-06-02 10:24] VITALS: BP 117/59
[2022-06-02] MEDS: METOPROLOL SUCC *XL* 25MG TAB (TopROL *XL*) PO SCH (10:24)
[2022-06-02] MEDS: FERROUS GLUCONATE 324 MG TAB PO SCH (10:24)
[2022-06-02] MEDS: DOCUSATE SODIUM 100MG CAPSULE PO SCH (10:25)
[2022-06-02] MEDS: oxyCODONE 5MG TAB PO PRN (10:25)
[2022-06-02] MEDS: FLEET OIL RETENTION ENEMA PR SCH (10:30)
[2022-06-02] MEDS ORDERED: MIRA3350 PO (10:58)
[2022-06-02] MEDS ORDERED: FLEETOIL PR ×2 (10:58→11:01)
[2022-06-02] MEDS ORDERED: SENN-186 PO (10:58)
[2022-06-02] MEDS ORDERED: LACT20EL PO (10:58)
== END 2022-06-02 14:01 | disposition home or self-care (01) | DRG 386 ==
LOC: M ED 16:15 → M ED INP 21:25 → M MSPAV 22:30
PROVIDERS: ADMIT Internal Medicine; ATTEND Student in an Organized Health Care Education/Training Program
DX: K51.818 Other ulcerative colitis with other complication (principal); N39.0 Urinary tract infection, site not specified; G82.20 Paraplegia, unspecified; K59.00 Constipation, unspecified; E11.9 Type 2 diabetes mellitus without complications; K21.9 Gastro-esophageal reflux disease without esophagitis; I10 Essential (primary) hypertension; F32.A Depression, unspecified; N31.9 Neuromuscular dysfunction of bladder, unspecified; M54.59 Other low back pain; R25.2 Cramp and spasm; Z92.3 Personal history of irradiation; G89.29 Other chronic pain; D64.9 Anemia, unspecified; Z79.899 Other long term (current) drug therapy; Z79.4 Long term (current) use of insulin; Z88.0 Allergy status to penicillin; Z88.2 Allergy status to sulfonamides; Z88.8 Allergy status to other drugs, medicaments and biological substances; Z66 Do not resuscitate; Z96.89 Presence of other specified functional implants

== ENCOUNTER → 2022-06-06 | Outpatient (CLI) | payer MEDICARE, BC, OTHER ==
[~2022-06-06] MED LIST changes: +FLEETOIL PR; +OMEGCAP4 PO; +OS-CTAB3 PO
== END ==
LOC: M PAL 09:09
PROVIDERS: ATTEND Nurse Practitioner Adult Health
DX: G89.3 Neoplasm related pain (acute) (chronic) (principal); G82.20 Paraplegia, unspecified; E11.9 Type 2 diabetes mellitus without complications; N31.9 Neuromuscular dysfunction of bladder, unspecified; Z51.5 Encounter for palliative care; I35.0 Nonrheumatic aortic (valve) stenosis; M41.35 Thoracogenic scoliosis, thoracolumbar region; K21.9 Gastro-esophageal reflux disease without esophagitis; K59.00 Constipation, unspecified; F32.A Depression, unspecified; D64.9 Anemia, unspecified; Z95.5 Presence of coronary angioplasty implant and graft; Z66 Do not resuscitate; Z85.3 Personal history of malignant neoplasm of breast; Z88.0 Allergy status to penicillin; Z88.2 Allergy status to sulfonamides; Z88.8 Allergy status to other drugs, medicaments and biological substances; Z79.891 Long term (current) use of opiate analgesic; Z79.4 Long term (current) use of insulin; Z79.899 Other long term (current) drug therapy

== ENCOUNTER → 2022-06-17 | Outpatient (CLI) | payer MEDICARE, BC, OTHER ==
[2022-06-17 10:59] LABS: BASO % 0.5 % (0.0-1.0); EOS # 0.2 10^3/uL (0.0-0.5); EOS % 2.4 % (0.0-3.0); HEMATOCRIT 31.4 % (36.0-47.0); HEMOGLOBIN 9.8 g/dl (12.0-15.5); LYMPH # 0.8 10^3/uL (1.5-5.0); LYMPH % 9.4 % (24.0-44.0); MEAN CORPUSCULAR HEMOGLOBIN 27.3 pg (27.0-33.0); MEAN CORPUSCULAR HGB CONC 31.2 g/dl (32.0-36.5); MEAN CORPUSCULAR VOLUME 87.5 fl (80.0-96.0); MONO # 0.4 10^3/uL (0.0-0.8); MONO % 4.6 % (2.0-8.0); NEUTROPHILS # 6.9 10^3/uL (1.5-8.5); NEUTROPHILS % 82.6 % (36.0-66.0); PLATELET COUNT, AUTOMATED 507 10^3/uL (150-450); RED BLOOD COUNT 3.59 10^6/uL (4.00-5.40); WHITE BLOOD COUNT 8.3 10^3/uL (4.0-10.0)
[2022-06-17 11:14] LABS: HEMOGLOBIN A1c 6.1 % (4.0-6.0)
[2022-06-17 11:28] LABS: CHOLESTEROL RISK RATIO 2.48 (<5); CREATININE, URINE 23.4 MG/DL; HDL CHOLESTEROL 57.6 MG/DL (>40); LDL CHOLESTEROL 62.6 MG/DL (<100); MAU/CREAT RATIO 51.2 MCG/MG (0.0-30.0); NON-HDL-C 85.4 MG/DL
[2022-06-17 11:29] LABS: THYROID STIMULATING HORMONE 1.397 uIU/ML (0.55-4.78)
== END ==
LOC: M PLALAB 08:31
PROVIDERS: ATTEND Family Medicine
DX: E11.22 Type 2 diabetes mellitus with diabetic chronic kidney disease (principal)

== ENCOUNTER → 2022-07-02 | Outpatient (CLI) | payer MEDICARE, BC, OTHER | LOC: M PAL 13:41 | PROVIDERS: ATTEND Nurse Practitioner Adult Health | DX: C41.2 Malignant neoplasm of vertebral column (principal); Z51.5 Encounter for palliative care; G89.3 Neoplasm related pain (acute) (chronic); Z96.82 Presence of neurostimulator; Z97.8 Presence of other specified devices; Z79.891 Long term (current) use of opiate analgesic; K59.00 Constipation, unspecified; Z87.440 Personal history of urinary (tract) infections; E46 Unspecified protein-calorie malnutrition; D64.9 Anemia, unspecified; Z87.2 Personal history of diseases of the skin and subcutaneous tissue; E11.9 Type 2 diabetes mellitus without complications; G82.20 Paraplegia, unspecified; N31.9 Neuromuscular dysfunction of bladder, unspecified; Z66 Do not resuscitate; Z79.899 Other long term (current) drug therapy; Z79.4 Long term (current) use of insulin; Z88.0 Allergy status to penicillin; Z88.2 Allergy status to sulfonamides; Z88.1 Allergy status to other antibiotic agents; Z85.3 Personal history of malignant neoplasm of breast; Z95.5 Presence of coronary angioplasty implant and graft; Z80.7 Family history of other malignant neoplasms of lymphoid, hematopoietic and related tissues ==

== ENCOUNTER → 2022-08-08 | Outpatient (CLI) | payer MEDICARE, BC, OTHER ==
[~2022-08-08] MED LIST changes: +LEXA5TAB13 PO; +LIDO5DIS41 TOP; +SENN-111 PO; -SENN18TA PO
== END ==
LOC: M PAL 13:03
PROVIDERS: ATTEND Nurse Practitioner Adult Health
DX: C41.2 Malignant neoplasm of vertebral column (principal); Z51.5 Encounter for palliative care; G89.3 Neoplasm related pain (acute) (chronic); Z96.82 Presence of neurostimulator; Z97.8 Presence of other specified devices; Z79.891 Long term (current) use of opiate analgesic; K59.00 Constipation, unspecified; Z87.440 Personal history of urinary (tract) infections; E46 Unspecified protein-calorie malnutrition; D64.9 Anemia, unspecified; Z88.0 Allergy status to penicillin; Z88.2 Allergy status to sulfonamides; Z88.1 Allergy status to other antibiotic agents; Z85.3 Personal history of malignant neoplasm of breast; Z95.5 Presence of coronary angioplasty implant and graft; Z80.7 Family history of other malignant neoplasms of lymphoid, hematopoietic and related tissues; Z79.4 Long term (current) use of insulin; Z79.899 Other long term (current) drug therapy; Z66 Do not resuscitate; Z87.2 Personal history of diseases of the skin and subcutaneous tissue

== ENCOUNTER → 2022-08-26 | Outpatient (CLI) | payer MEDICARE, BC, OTHER ==
[~2022-08-26] MED LIST changes: -ROPI2TAB3 PO; +ROPI2TAB46 PO
[2022-08-26 11:40] LABS: BASO # 0.1 10^3/uL (0.0-0.2); BASO % 0.9 % (0.0-1.0); EOS # 0.3 10^3/uL (0.0-0.5); EOS % 5.2 % (0.0-3.0); HEMATOCRIT 31.6 % (36.0-47.0); HEMOGLOBIN 9.8 g/dl (12.0-15.5); MEAN CORPUSCULAR VOLUME 80.6 fl (80.0-96.0); MONO # 0.3 10^3/uL (0.0-0.8); MONO % 5.5 % (2.0-8.0); NEUTROPHILS # 4.1 10^3/uL (1.5-8.5); NEUTROPHILS % 70.1 % (36.0-66.0); PLATELET COUNT, AUTOMATED 369 10^3/uL (150-450); RED BLOOD COUNT 3.92 10^6/uL (4.00-5.40); WHITE BLOOD COUNT 5.8 10^3/uL (4.0-10.0)
[2022-08-26 11:58] LABS: HEMOGLOBIN A1c 5.9 % (4.0-6.0)
[2022-08-26 12:09] LABS: TOTAL IRON BINDING CAPACITY 230 UG/DL (250-425)
[2022-08-26 12:10] LABS: ALBUMIN 2.9 G/DL (3.2-5.2); ALKALINE PHOSPHATASE 99 U/L (46-116); ALT/SGPT 14 U/L (7.0-40); AST/SGOT 17 U/L (<34); BILIRUBIN,TOTAL 0.2 MG/DL (0.3-1.2); BLOOD UREA NITROGEN 20 MG/DL (9-23); CALCIUM LEVEL 9.1 MG/DL (8.3-10.6); CARBON DIOXIDE LEVEL 32 MMOL/L (20-31); CHLORIDE LEVEL 98 MMOL/L (98-107); CHOLESTEROL LEVEL 153 MG/DL (<200); CHOLESTEROL RISK RATIO 2.69 (<5); CREATININE FOR GFR 0.41 MG/DL (0.55-1.30); GLOMERULAR FILTRATION RATE > 60.0 (>45); GLUCOSE, FASTING 110 MG/DL (74-106); HDL CHOLESTEROL 56.8 MG/DL (>40); IRON (FE) 15 UG/DL (50-170); LDL CHOLESTEROL 73.6 MG/DL (<100); NON-HDL-C 96.2 MG/DL; PERCENT SATURATION 6.5 % (13.2-45.0); POTASSIUM SERUM 4.8 MMOL/L (3.5-5.1); SODIUM LEVEL 136 MMOL/L (136-145); TOTAL PROTEIN 7.1 G/DL (5.7-8.2); TRIGLYCERIDES LEVEL 113 MG/DL (<150)
[2022-08-26 12:12] LABS: FERRITIN 77.3 NG/ML (7.3-270.7)
[2022-08-26 12:14] LABS: FOLATE > 24.0 NG/ML (>5.4)
[2022-08-26 12:15] LABS: VITAMIN B12 LEVEL 524 PG/ML (211-911)
== END ==
LOC: M PLALAB 07:45
PROVIDERS: ATTEND Family Medicine
DX: E11.22 Type 2 diabetes mellitus with diabetic chronic kidney disease (principal); D50.9 Iron deficiency anemia, unspecified; E78.2 Mixed hyperlipidemia

== ENCOUNTER → 2022-09-10 | Outpatient (CLI) | payer MEDICARE, BC, OTHER ==
[~2022-09-10] MED LIST changes: -GABA-283 PO; +GABA-284 PO
== END ==
LOC: M PAL 14:57
PROVIDERS: ATTEND Nurse Practitioner Adult Health
DX: C41.2 Malignant neoplasm of vertebral column (principal); Z51.5 Encounter for palliative care; G89.3 Neoplasm related pain (acute) (chronic); Z96.82 Presence of neurostimulator; Z97.8 Presence of other specified devices; Z79.891 Long term (current) use of opiate analgesic; Z87.440 Personal history of urinary (tract) infections; K59.00 Constipation, unspecified; E46 Unspecified protein-calorie malnutrition; D64.9 Anemia, unspecified; Z99.3 Dependence on wheelchair; G82.20 Paraplegia, unspecified; E11.9 Type 2 diabetes mellitus without complications; Z88.0 Allergy status to penicillin; Z88.1 Allergy status to other antibiotic agents; Z88.2 Allergy status to sulfonamides; Z85.3 Personal history of malignant neoplasm of breast; Z92.3 Personal history of irradiation; Z95.5 Presence of coronary angioplasty implant and graft; Z80.7 Family history of other malignant neoplasms of lymphoid, hematopoietic and related tissues; Z79.4 Long term (current) use of insulin; Z79.899 Other long term (current) drug therapy; Z66 Do not resuscitate; Z87.2 Personal history of diseases of the skin and subcutaneous tissue

== ENCOUNTER 2022-09-11 12:44 | Outpatient (CLI) | payer MEDICARE, BC, OTHER ==
[~2022-09-11] VITALS: Ht 172.7 cm; Wt 72.7 kg
[~2022-09-11 12:44] MED LIST changes: +CURRENT HEIGHT AND WEIGHT NEEDED ON PATIENT XX SCH; +GABA-283 PO; -GABA-284 PO
[2022-09-11] MEDS ORDERED: FERRIC CARBOXYMALTOSE INJ 750 MG in NS 250 ML (>50kg) IV ONE ×6 (13:00→13:05)
[2022-09-11 13:16] VITALS: BP 100/56; O2SAT 96
[2022-09-11 15:00] VITALS: BP 107/53; O2SAT 100
== END 2022-09-11 15:00 ==
LOC: M INFU 12:44
PROVIDERS: ATTEND Nurse Practitioner Adult Health
DX: D50.9 Iron deficiency anemia, unspecified (principal); Z88.0 Allergy status to penicillin; Z88.2 Allergy status to sulfonamides; Z88.8 Allergy status to other drugs, medicaments and biological substances
CPT/HCPCS: 96365; J1439

== ENCOUNTER 2022-09-18 12:50 | Outpatient (CLI) | payer MEDICARE, BC, OTHER ==
[~2022-09-18] VITALS: Ht 172.7 cm; Wt 72.7 kg
[2022-09-18 12:50] VITALS: BP 136/74; O2SAT 100
[~2022-09-18 12:50] MED LIST changes: -CURRENT HEIGHT AND WEIGHT NEEDED ON PATIENT XX SCH; -GABA-283 PO; +GABA-284 PO
[2022-09-18] MEDS ORDERED: FERRIC CARBOXYMALTOSE INJ 750 MG in NS 250 ML (>50kg) IV ONE ×3 (13:00)
[2022-09-18 14:29] VITALS: BP 113/58; O2SAT 99
== END 2022-09-18 14:30 | disposition home or self-care (01) ==
LOC: M INFU 12:50
PROVIDERS: ATTEND Nurse Practitioner Adult Health
DX: D50.9 Iron deficiency anemia, unspecified (principal); Z88.0 Allergy status to penicillin; Z88.2 Allergy status to sulfonamides; Z88.8 Allergy status to other drugs, medicaments and biological substances
CPT/HCPCS: 96365; J1439

== ENCOUNTER → 2022-09-24 | Outpatient (CLI) | payer MEDICARE, BC, OTHER | LOC: M PAL 13:13 | PROVIDERS: ATTEND Nurse Practitioner Adult Health | DX: C41.2 Malignant neoplasm of vertebral column (principal); Z51.5 Encounter for palliative care; D64.9 Anemia, unspecified; E46 Unspecified protein-calorie malnutrition; G82.20 Paraplegia, unspecified; G89.3 Neoplasm related pain (acute) (chronic); K59.00 Constipation, unspecified; Z66 Do not resuscitate; Z79.891 Long term (current) use of opiate analgesic; Z79.4 Long term (current) use of insulin; Z79.899 Other long term (current) drug therapy; Z80.7 Family history of other malignant neoplasms of lymphoid, hematopoietic and related tissues; Z85.3 Personal history of malignant neoplasm of breast; Z87.440 Personal history of urinary (tract) infections; Z88.0 Allergy status to penicillin; Z88.1 Allergy status to other antibiotic agents; Z88.2 Allergy status to sulfonamides; Z88.6 Allergy status to analgesic agent; Z90.10 Acquired absence of unspecified breast and nipple; Z92.3 Personal history of irradiation; Z95.5 Presence of coronary angioplasty implant and graft; Z96.82 Presence of neurostimulator; Z97.8 Presence of other specified devices; Z99.3 Dependence on wheelchair ==

== ENCOUNTER → 2022-11-28 | Outpatient (CLI) | payer MEDICARE, BC, OTHER | LOC: M PAL 15:29 | PROVIDERS: ATTEND Nurse Practitioner Adult Health | DX: C41.2 Malignant neoplasm of vertebral column (principal); Z51.5 Encounter for palliative care; D64.9 Anemia, unspecified; E46 Unspecified protein-calorie malnutrition; G82.20 Paraplegia, unspecified; G89.3 Neoplasm related pain (acute) (chronic); R60.0 Localized edema; Z66 Do not resuscitate; Z79.4 Long term (current) use of insulin; Z79.891 Long term (current) use of opiate analgesic; Z79.899 Other long term (current) drug therapy; Z80.7 Family history of other malignant neoplasms of lymphoid, hematopoietic and related tissues; Z85.3 Personal history of malignant neoplasm of breast; Z87.440 Personal history of urinary (tract) infections; Z88.0 Allergy status to penicillin; Z88.1 Allergy status to other antibiotic agents; Z88.2 Allergy status to sulfonamides; Z88.6 Allergy status to analgesic agent; Z90.10 Acquired absence of unspecified breast and nipple; Z90.710 Acquired absence of both cervix and uterus; Z90.722 Acquired absence of ovaries, bilateral; Z90.79 Acquired absence of other genital organ(s); Z92.3 Personal history of irradiation; Z95.5 Presence of coronary angioplasty implant and graft; Z96.82 Presence of neurostimulator; Z97.8 Presence of other specified devices; Z99.3 Dependence on wheelchair ==

== ENCOUNTER → 2022-12-02 | Outpatient (CLI) | payer MEDICARE, BC, OTHER ==
[2022-12-02 10:42] LABS: BASO % 0.6 % (0.0-1.0); EOS # 0.2 10^3/uL (0.0-0.5); EOS % 2.4 % (0.0-3.0); HEMOGLOBIN 10.6 g/dl (12.0-15.5); LYMPH # 1.3 10^3/uL (1.5-5.0); LYMPH % 20.1 % (24.0-44.0); MEAN CORPUSCULAR HEMOGLOBIN 27.5 pg (27.0-33.0); MEAN CORPUSCULAR HGB CONC 31.2 g/dl (32.0-36.5); MEAN CORPUSCULAR VOLUME 88.1 fl (80.0-96.0); MONO # 0.3 10^3/uL (0.0-0.8); MONO % 5.5 % (2.0-8.0); NEUTROPHILS # 4.4 10^3/uL (1.5-8.5); NEUTROPHILS % 71.1 % (36.0-66.0); PLATELET COUNT, AUTOMATED 324 10^3/uL (150-450); RED BLOOD COUNT 3.86 10^6/uL (4.00-5.40); WHITE BLOOD COUNT 6.2 10^3/uL (4.0-10.0)
[2022-12-02 11:08] LABS: HEMOGLOBIN A1c 5.4 % (4.0-6.0)
[2022-12-02 11:15] LABS: ALBUMIN 2.9 G/DL (3.2-5.2); ALKALINE PHOSPHATASE 138 U/L (46-116); ALT/SGPT 23 U/L (7.0-40); AST/SGOT 25 U/L (<34); BILIRUBIN,TOTAL 0.2 MG/DL (0.3-1.2); BLOOD UREA NITROGEN 25 MG/DL (9-23); CALCIUM LEVEL 9.2 MG/DL (8.3-10.6); CARBON DIOXIDE LEVEL 34 MMOL/L (20-31); CHLORIDE LEVEL 99 MMOL/L (98-107); CREATININE FOR GFR 0.49 MG/DL (0.55-1.30); GLOMERULAR FILTRATION RATE > 60.0 (>45); GLUCOSE, FASTING 105 MG/DL (74-106); POTASSIUM SERUM 5.1 MMOL/L (3.5-5.1); SODIUM LEVEL 137 MMOL/L (136-145); TOTAL PROTEIN 7.3 G/DL (5.7-8.2)
== END ==
LOC: M PLALAB 07:23
PROVIDERS: ATTEND Nurse Practitioner Adult Health
DX: E11.22 Type 2 diabetes mellitus with diabetic chronic kidney disease (principal)

== ENCOUNTER → 2023-06-02 | Outpatient (CLI) | payer MEDICARE, BC ==
[~2023-06-02] MED LIST changes: -BISA10SU20 PR; +BISA10SU59 PR
[2023-06-02 12:54] LABS: BASO # 0.1 10^3/uL (0.0-0.2); BASO % 0.6 % (0.0-1.0); EOS # 0.2 10^3/uL (0.0-0.5); EOS % 2.3 % (0.0-3.0); HEMOGLOBIN 10.3 g/dl (12.0-15.5); LYMPH % 13.1 % (24.0-44.0); MEAN CORPUSCULAR HEMOGLOBIN 27.4 pg (27.0-33.0); MEAN CORPUSCULAR HGB CONC 31.2 g/dl (32.0-36.5); MEAN CORPUSCULAR VOLUME 87.8 fl (80.0-96.0); MONO # 0.4 10^3/uL (0.0-0.8); MONO % 5.1 % (2.0-8.0); NEUTROPHILS # 6.1 10^3/uL (1.5-8.5); NEUTROPHILS % 78.5 % (36.0-66.0); PLATELET COUNT, AUTOMATED 317 10^3/uL (150-450); RED BLOOD COUNT 3.76 10^6/uL (4.00-5.40); WHITE BLOOD COUNT 7.8 10^3/uL (4.0-10.0)
[2023-06-02 13:22] LABS: ALBUMIN 2.8 G/DL (3.2-5.2); ALKALINE PHOSPHATASE 114 U/L (46-116); ALT/SGPT 27 U/L (7.0-40); AST/SGOT 25 U/L (<34); BILIRUBIN,TOTAL 0.2 MG/DL (0.3-1.2); BLOOD UREA NITROGEN 25 MG/DL (9-23); CALCIUM LEVEL 8.9 MG/DL (8.3-10.6); CARBON DIOXIDE LEVEL 32 MMOL/L (20-31); CHLORIDE LEVEL 99 MMOL/L (98-107); CHOLESTEROL LEVEL 145 MG/DL (<200); CHOLESTEROL RISK RATIO 2.79 (<5); GLOMERULAR FILTRATION RATE > 60.0 (>39); GLUCOSE, FASTING 134 MG/DL (74-106); HDL CHOLESTEROL 51.9 MG/DL (>40); LDL CHOLESTEROL 71.5 MG/DL (<100); NON-HDL-C 93.1 MG/DL; POTASSIUM SERUM 4.7 MMOL/L (3.5-5.1); SODIUM LEVEL 135 MMOL/L (136-145); TOTAL PROTEIN 6.9 G/DL (5.7-8.2); TRIGLYCERIDES LEVEL 108 MG/DL (<150)
[2023-06-02 13:28] LABS: HEMOGLOBIN A1c 5.5 % (4.0-6.0)
== END ==
LOC: M PLALAB 10:56
PROVIDERS: ATTEND Nurse Practitioner Adult Health
DX: E11.22 Type 2 diabetes mellitus with diabetic chronic kidney disease (principal)

== ENCOUNTER → 2023-07-18 | Outpatient (CLI) | payer MEDICARE, BC | LOC: M PAL 14:13 | PROVIDERS: ATTEND Nurse Practitioner Adult Health | DX: G89.3 Neoplasm related pain (acute) (chronic) (principal); C41.2 Malignant neoplasm of vertebral column; D64.9 Anemia, unspecified; E46 Unspecified protein-calorie malnutrition; G82.20 Paraplegia, unspecified; R60.0 Localized edema; Z66 Do not resuscitate; Z51.5 Encounter for palliative care; Z79.4 Long term (current) use of insulin; Z79.891 Long term (current) use of opiate analgesic; Z79.899 Other long term (current) drug therapy; Z80.7 Family history of other malignant neoplasms of lymphoid, hematopoietic and related tissues; Z85.3 Personal history of malignant neoplasm of breast; Z87.440 Personal history of urinary (tract) infections; Z88.0 Allergy status to penicillin; Z88.1 Allergy status to other antibiotic agents; Z88.2 Allergy status to sulfonamides; Z88.6 Allergy status to analgesic agent; Z90.13 Acquired absence of bilateral breasts and nipples; Z90.710 Acquired absence of both cervix and uterus; Z90.722 Acquired absence of ovaries, bilateral; Z90.79 Acquired absence of other genital organ(s); Z92.29 Personal history of other drug therapy; Z92.3 Personal history of irradiation; Z95.5 Presence of coronary angioplasty implant and graft; Z96.82 Presence of neurostimulator; Z97.8 Presence of other specified devices; Z99.3 Dependence on wheelchair ==

== ENCOUNTER → 2023-08-28 | Outpatient (CLI) | payer MEDICARE, BC ==
[~2023-08-28] MED LIST changes: +GABA-1171 PO; +GABA600T4 PO; +OXYC20TA2 PO
== END ==
LOC: M PAL 14:57
PROVIDERS: ATTEND Nurse Practitioner Adult Health
DX: G89.3 Neoplasm related pain (acute) (chronic) (principal); C41.2 Malignant neoplasm of vertebral column; D64.9 Anemia, unspecified; E46 Unspecified protein-calorie malnutrition; G82.20 Paraplegia, unspecified; R60.0 Localized edema; Z66 Do not resuscitate; Z51.5 Encounter for palliative care; Z79.4 Long term (current) use of insulin; Z79.891 Long term (current) use of opiate analgesic; Z79.899 Other long term (current) drug therapy; Z80.7 Family history of other malignant neoplasms of lymphoid, hematopoietic and related tissues; Z85.3 Personal history of malignant neoplasm of breast; Z87.440 Personal history of urinary (tract) infections; Z88.0 Allergy status to penicillin; Z88.1 Allergy status to other antibiotic agents; Z88.2 Allergy status to sulfonamides; Z88.6 Allergy status to analgesic agent; Z90.13 Acquired absence of bilateral breasts and nipples; Z90.710 Acquired absence of both cervix and uterus; Z90.722 Acquired absence of ovaries, bilateral; Z90.79 Acquired absence of other genital organ(s); Z92.29 Personal history of other drug therapy; Z92.3 Personal history of irradiation; Z95.5 Presence of coronary angioplasty implant and graft; Z96.82 Presence of neurostimulator; Z97.8 Presence of other specified devices; Z99.3 Dependence on wheelchair

== ENCOUNTER → 2023-10-02 | Outpatient (CLI) | payer MEDICARE, BC ==
[~2023-10-02] MED LIST changes: +GABA-1490 PO; -GABA600T4 PO
== END ==
LOC: M PAL 13:38
PROVIDERS: ATTEND Nurse Practitioner Adult Health
DX: G89.3 Neoplasm related pain (acute) (chronic) (principal); C41.2 Malignant neoplasm of vertebral column; D64.9 Anemia, unspecified; E46 Unspecified protein-calorie malnutrition; G82.20 Paraplegia, unspecified; Z66 Do not resuscitate; Z51.5 Encounter for palliative care; Z79.4 Long term (current) use of insulin; Z79.891 Long term (current) use of opiate analgesic; Z79.899 Other long term (current) drug therapy; Z80.7 Family history of other malignant neoplasms of lymphoid, hematopoietic and related tissues; Z85.3 Personal history of malignant neoplasm of breast; Z87.440 Personal history of urinary (tract) infections; Z88.0 Allergy status to penicillin; Z88.1 Allergy status to other antibiotic agents; Z88.2 Allergy status to sulfonamides; Z88.6 Allergy status to analgesic agent; Z90.13 Acquired absence of bilateral breasts and nipples; Z90.710 Acquired absence of both cervix and uterus; Z90.722 Acquired absence of ovaries, bilateral; Z90.79 Acquired absence of other genital organ(s); Z92.29 Personal history of other drug therapy; Z92.3 Personal history of irradiation; Z95.5 Presence of coronary angioplasty implant and graft; Z96.82 Presence of neurostimulator; Z97.8 Presence of other specified devices; Z99.3 Dependence on wheelchair

== ENCOUNTER → 2023-12-08 | Outpatient (CLI) | payer MEDICARE, BC ==
[~2023-12-08] MED LIST changes: +GABA-1172 PO; -GABA-282 PO; -SENN-111 PO; +SENN-165 PO
[2023-12-08 11:11] LABS: ALBUMIN 2.8 G/DL (3.2-5.2); ALKALINE PHOSPHATASE 103 U/L (46-116); ALT/SGPT 16 U/L (7.0-40); AST/SGOT 18 U/L (<34); BILIRUBIN,TOTAL 0.2 MG/DL (0.3-1.2); BLOOD UREA NITROGEN 22 MG/DL (9-23); CALCIUM LEVEL 10.2 MG/DL (8.3-10.6); CARBON DIOXIDE LEVEL 32 MMOL/L (20-31); CHLORIDE LEVEL 98 MMOL/L (98-107); CREATININE FOR GFR 0.48 MG/DL (0.55-1.30); GLOMERULAR FILTRATION RATE > 60.0 (>39); GLUCOSE, FASTING 94 MG/DL (74-106); POTASSIUM SERUM 4.7 MMOL/L (3.5-5.1); SODIUM LEVEL 135 MMOL/L (136-145); TOTAL PROTEIN 7.1 G/DL (5.7-8.2)
[2023-12-08 11:15] LABS: BASO % 0.6 % (0.0-1.0); EOS # 0.2 10^3/uL (0.0-0.5); EOS % 3.4 % (0.0-3.0); HEMATOCRIT 31.5 % (36.0-47.0); HEMOGLOBIN 9.9 g/dl (12.0-15.5); LYMPH # 1.1 10^3/uL (1.5-5.0); LYMPH % 17.5 % (24.0-44.0); MEAN CORPUSCULAR HGB CONC 31.4 g/dl (32.0-36.5); MEAN CORPUSCULAR VOLUME 85.8 fl (80.0-96.0); MONO # 0.3 10^3/uL (0.0-0.8); MONO % 5.2 % (2.0-8.0); NEUTROPHILS # 4.7 10^3/uL (1.5-8.5); NEUTROPHILS % 72.8 % (36.0-66.0); PLATELET COUNT, AUTOMATED 354 10^3/uL (150-450); RED BLOOD COUNT 3.67 10^6/uL (4.00-5.40); WHITE BLOOD COUNT 6.4 10^3/uL (4.0-10.0)
[2023-12-08 11:31] LABS: HEMOGLOBIN A1c 5.3 % (4.0-6.0)
== END ==
LOC: M PLALAB 07:51
PROVIDERS: ATTEND Nurse Practitioner Adult Health
DX: E11.22 Type 2 diabetes mellitus with diabetic chronic kidney disease (principal)

== ENCOUNTER → 2024-06-08 | Outpatient (CLI) | payer MEDICARE, BC | LOC: M RAD 08:10 | PROVIDERS: ATTEND Orthopaedic Surgery Orthopaedic Surgery of the Spine | DX: M41.9 Scoliosis, unspecified (principal) ==

== ENCOUNTER → 2024-06-21 | Outpatient (CLI) | payer MEDICARE, BC ==
[~2024-06-21] MED LIST changes: -GLUC1KIT SC; +GLUC1VIA14 SC
[2024-06-21 13:39] LABS: BASO % 0.6 % (0.0-1.0); EOS # 0.2 10^3/uL (0.0-0.5); EOS % 2.8 % (0.0-3.0); HEMATOCRIT 30.8 % (36.0-47.0); HEMOGLOBIN 9.4 g/dl (12.0-15.5); LYMPH # 1.2 10^3/uL (1.5-5.0); LYMPH % 17.6 % (24.0-44.0); MEAN CORPUSCULAR HEMOGLOBIN 24.9 pg (27.0-33.0); MEAN CORPUSCULAR HGB CONC 30.5 g/dl (32.0-36.5); MEAN CORPUSCULAR VOLUME 81.7 fl (80.0-96.0); MONO # 0.4 10^3/uL (0.0-0.8); MONO % 5.2 % (2.0-8.0); NEUTROPHILS # 5.1 10^3/uL (1.5-8.5); NEUTROPHILS % 73.4 % (36.0-66.0); PLATELET COUNT, AUTOMATED 390 10^3/uL (150-450); RED BLOOD COUNT 3.77 10^6/uL (4.00-5.40); WHITE BLOOD COUNT 6.9 10^3/uL (4.0-10.0)
[2024-06-21 14:24] LABS: IRON (FE) 14 UG/DL (50-170)
[2024-06-21 14:25] LABS: FREE T4 1.06 NG/DL (0.89-1.76)
[2024-06-21 14:26] LABS: ALBUMIN 2.6 G/DL (3.2-5.2); ALKALINE PHOSPHATASE 99 U/L (35-104); ALT/SGPT 16 U/L (7.0-40); AST/SGOT 26 U/L (<34); BILIRUBIN,TOTAL 0.2 MG/DL (0.3-1.2); BLOOD UREA NITROGEN 22 MG/DL (9-23); CALCIUM LEVEL 8.9 MG/DL (8.3-10.6); CARBON DIOXIDE LEVEL 31 MMOL/L (20-31); CHLORIDE LEVEL 97 MMOL/L (98-107); CHOLESTEROL LEVEL 120 MG/DL (<200); CREATININE FOR GFR 0.47 MG/DL (0.55-1.30); GLOMERULAR FILTRATION RATE > 90.0 (>39); GLUCOSE, FASTING 91 MG/DL (74-106); HDL CHOLESTEROL 49.9 MG/DL (>40); LDL CHOLESTEROL 50.7 MG/DL (<100); NON-HDL-C 70.1 MG/DL; PERCENT SATURATION 6.5 % (13.2-45.0); POTASSIUM SERUM 4.9 MMOL/L (3.5-5.1); SODIUM LEVEL 135 MMOL/L (136-145); TOTAL IRON BINDING CAPACITY 215 UG/DL (250-425); TRIGLYCERIDES LEVEL 97 MG/DL (<150)
[2024-06-21 14:41] LABS: HEMOGLOBIN A1c 5.4 % (4.0-6.0)
== END ==
LOC: M PLALAB 10:16
PROVIDERS: ATTEND Nurse Practitioner Adult Health
DX: E11.22 Type 2 diabetes mellitus with diabetic chronic kidney disease (principal); E78.2 Mixed hyperlipidemia; D50.9 Iron deficiency anemia, unspecified; N18.9 Chronic kidney disease, unspecified; I13.10 Hypertensive heart and chronic kidney disease without heart failure, with stage 1 through stage 4 chronic kidney disease, or unspecified chronic kidney disease

== ENCOUNTER 2024-07-07 07:15 | Outpatient (CLI) | payer MEDICARE, BC ==
[~2024-07-07] VITALS: Ht 172.7 cm; Wt 77.3 kg
[~2024-07-07 07:15] MED LIST changes: +ALBUTEROL SULFATE 2.5MG/0.5ML INH CONCENTRATE NEB SOLN INH PRN; +EPINEPHrine INJ 1 MG/ML 1ML AMP IM PRN; +LIDO1ADH93 TD; +LIDO1ADH93 TOP; -LIDO5DIS41 TD; -LIDO5DIS41 TOP; -MELA3TAB7 PO; +MELA3TAB78 PO; -VANC-7; +VANC1VIA; +diphenhydrAMINE 50MG/ML VIAL IV PRN; +methylPREDNISolone 125MG 2ML VIAL IV PRN
[2024-07-07 07:35] VITALS: BP 106/63; O2SAT 93
[2024-07-07] MEDS: FERRIC CARBOXYMALTOSE 750 MG (VIAL MATE) IN 100ML NS IV ONE (07:58)
[2024-07-07 08:35] VITALS: BP 115/59; O2SAT 95
== END 2024-07-07 08:35 | disposition home or self-care (01) ==
LOC: M INFU 07:15
PROVIDERS: ATTEND Nurse Practitioner Adult Health
DX: D50.9 Iron deficiency anemia, unspecified (principal); Z88.0 Allergy status to penicillin; Z88.2 Allergy status to sulfonamides; Z88.8 Allergy status to other drugs, medicaments and biological substances
CPT/HCPCS: 96365; J1439

== ENCOUNTER → 2024-10-20 | Outpatient (CLI) | payer MEDICARE, BC ==
[~2024-10-20] MED LIST changes: +ACET-1515 PO; -ACET650T15 PO; -ALBUTEROL SULFATE 2.5MG/0.5ML INH CONCENTRATE NEB SOLN INH PRN; -EPINEPHrine INJ 1 MG/ML 1ML AMP IM PRN; -diphenhydrAMINE 50MG/ML VIAL IV PRN; -methylPREDNISolone 125MG 2ML VIAL IV PRN
[2024-10-20 14:41] LABS: IRON (FE) 28.0 UG/DL (50-170); PERCENT SATURATION 15.5 % (13.2-45.0)
[2024-10-20 14:47] LABS: BASO # 0.1 10^3/uL (0.0-0.2); BASO % 0.7 % (0.0-1.0); EOS # 0.3 10^3/uL (0.0-0.5); EOS % 4.2 % (0.0-3.0); LYMPH # 1.4 10^3/uL (1.5-5.0); LYMPH % 19.5 % (24.0-44.0); MONO # 0.5 10^3/uL (0.0-0.8); MONO % 7.1 % (2.0-8.0); NEUTROPHILS # 4.9 10^3/uL (1.5-8.5); NEUTROPHILS % 68.1 % (36.0-66.0); PLATELET COUNT, AUTOMATED 376 10^3/uL (150-450)
== END ==
LOC: M PLALAB 09:21
PROVIDERS: ATTEND Nurse Practitioner Adult Health
DX: D50.9 Iron deficiency anemia, unspecified (principal)

== ENCOUNTER → 2024-12-22 | Outpatient (CLI) | payer MEDICARE, BC ==
[2024-12-22 10:32] LABS: BASO # 0.0 10^3/uL (0.0-0.2); BASO % 0.5 % (0.0-1.0); EOS # 0.2 10^3/uL (0.0-0.5); EOS % 3.4 % (0.0-3.0); LYMPH # 1.1 10^3/uL (1.5-5.0); LYMPH % 17.4 % (24.0-44.0); MONO # 0.3 10^3/uL (0.0-0.8); MONO % 4.6 % (2.0-8.0); NEUTROPHILS # 4.6 10^3/uL (1.5-8.5); NEUTROPHILS % 73.6 % (36.0-66.0); PLATELET COUNT, AUTOMATED 449 10^3/uL (150-450)
[2024-12-22 10:36] LABS: ALT/SGPT 20 U/L (7.0-40); AST/SGOT 25 U/L (<34); CALCIUM LEVEL 9.0 MG/DL (8.3-10.6); CARBON DIOXIDE LEVEL 34 MMOL/L (20-31); CHLORIDE LEVEL 95 MMOL/L (98-107); CHOLESTEROL LEVEL 125 MG/DL (<200); CHOLESTEROL RISK RATIO 2.11 (<5); CREATININE FOR GFR 0.48 MG/DL (0.55-1.30); GLOMERULAR FILTRATION RATE > 90.0 (>39); LDL CHOLESTEROL 48.0 MG/DL (<100); NON-HDL-C 66.0 MG/DL; POTASSIUM SERUM 4.6 MMOL/L (3.5-5.1); SODIUM LEVEL 135 MMOL/L (136-145); TRIGLYCERIDES LEVEL 90 MG/DL (<150)
[2024-12-22 10:38] LABS: FREE T4 1.12 NG/DL (0.89-1.76)
[2024-12-22 10:41] LABS: ESTIMATED AVERAGE GLUCOSE 105.0 MG/DL (60-110)
[2024-12-22 13:24] LABS: IRON (FE) 27 UG/DL (50-170); PERCENT SATURATION 13.6 % (13.2-45.0)
[2024-12-22 13:27] LABS: VITAMIN B12 LEVEL 1191 PG/ML (211-911)
== END ==
LOC: M PLALAB 07:03
PROVIDERS: ATTEND Family Medicine
DX: E11.22 Type 2 diabetes mellitus with diabetic chronic kidney disease (principal); I11.9 Hypertensive heart disease without heart failure; E78.2 Mixed hyperlipidemia; D64.9 Anemia, unspecified

== ENCOUNTER → 2024-12-22 | Outpatient (CLI) | payer MEDICARE, BC | LOC: M PLAIMG 07:09 | PROVIDERS: ATTEND Student in an Organized Health Care Education/Training Program | DX: K59.2 Neurogenic bowel, not elsewhere classified (principal); Z79.899 Other long term (current) drug therapy; D50.9 Iron deficiency anemia, unspecified ==